=== PATIENT | female | born 1970 | race Caucasian/White ===

== ENCOUNTER → 2017-10-26 16:24 | Outpatient (CLI) | payer OTHER, SELFPAY ==
[2017-10-26 18:13] LABS: Basophils % 0.5 % (0.1-2.0); Eosinophils # 0.2 K/mm3 (0.0-0.4); Eosinophils % 2.8 % (0.1-12.0); Hematocrit 48.8 % (37.0-47.0); Hemoglobin 16.2 g/dL (12.2-16.2); Lymphocytes # 1.8 K/mm3 (0.7-4.5); Mean Corpuscular HGB Conc 33.2 g/dL (31.8-35.4); Mean Corpuscular Hemoglobin 33.3 pg (27.0-31.2); Mean Corpuscular Volume 100.3 fl (81-99); Mean Platelet Volume 7.6 fl (7.4-10.4); Monocytes # 0.3 K/mm3 (0.1-1.0); Monocytes % 4.6 % (1.7-9.3); Neutrophils # 4.4 K/mm3 (1.8-7.8); Neutrophils % 65.2 % (37.0-80.0); Platelet Count 189 K/mm3 (142-424); Red Blood Count 4.86 M/mm3 (4.20-5.40); Red Cell Distribution Width 14.7 % (11.5-17.5); White Blood Count 6.8 K/mm3 (4.8-10.8)
[2017-10-26 18:35] LABS: Hemoglobin A1C 5.6 % (0.0-7.0)
[2017-10-26 19:39] LABS: Alanine Aminotransferase 37 U/L (12-78); Albumin Level 3.6 gm/dL (3.4-5.0); Albumin/Globulin Ratio 0.8 (1.1-1.8); Alkaline Phosphatase 86 U/L (46-116); Anion Gap 10.1 mEq/L (5-15); Aspartate Amino Transferase 25 U/L (15-37); Bilirubin,Total 0.3 mg/dL (0.2-1.0); Blood Urea Nitrogen 13 mg/dL (7-18); Calcium 9.3 mg/dL (8.5-10.1); Carbon Dioxide 34 mmol/L (21.0-32.0); Chloride 103 mmol/L (98-107); Chol/HDL Ratio 5.7 (1-3.5); Cholesterol 187 mg/dL (140-200); Creatinine,Serum 0.74 mg/dL (0.55-1.02); Estimated Glomerular Filt Rate 83 ml/min (>60); GFR (African American) 101 ML/MIN (>60); Globulin 4.5 gm/dl (1.3-3.2); Glucose 96 mg/dL (74-106); HDL Cholesterol 33 mg/dL (29-89); LDL Cholesterol 108 mg/dL (0-130); Potassium 4.1 mmoL/L (3.5-5.1); Sodium 143 mmol/L (136-145); T4 (Thyroxine) 11.1 ug/dl (4.7-13.3); Thyroid Stimulating Hormone 10.96 uIU/ml (0.358-3.740); Total Protein,Serum 8.1 gm/dL (6.4-8.2); Triglycerides 229 mg/dL (30-200); VLDL Cholesterol 46 mg/dL (0-40)
[2017-10-28 19:04] LABS: Vitamin D 25 Hydroxy 4.2 ng/mL (30.0-100.0)
== END ==
PROVIDERS: Visit Provider Physician Assistant
DX: R53.83 Other fatigue (principal); Z79.899 Other long term (current) drug therapy; R79.9 Abnormal finding of blood chemistry, unspecified
CPT/HCPCS: 80053; 80061; 82652; 83036; 84436; 84443; 85025

== ENCOUNTER → 2017-11-02 13:13 | Outpatient (CLI) | payer OTHER, SELFPAY ==
--- NOTE | 2017-11-02 13:23 | US_ITS ---
US Arterial Ankle Brachial Ind ITS.REASON: Cold lower extremities, discoloration with blueness, claudication, smoker, peripheral vascular disease ORDERING PHYSICIAN: Cain Mo MD PATIENT AGE: 47 years TECHNIQUE: Segmental pressures obtained of both right and left leg. These are compared to brachial blood pressure to yield index at each level sampled including summary NINA. The data sheets from the procedure are available in PACS FINDINGS Rest study only performed today No prior studies available for comparison. Blood pressures reported are in millimeters mercury. RIGHT LEG NINA = 0.8. Right TBI 1.0 Brachial BP: 148 Thigh BP: 229 Calf BP: 136 Ankle PT: 119 Ankle DP : 143 Digit =146 LEFT LEG NINA = 0.9 Left tibia TBI 0.5 Brachial BPD: 153 Thigh BP: 178 Calf BP: 132 Ankle PT:143 Ankle DP: 168 Digit = 82 Pulses and waveforms: Diminished pulses bilaterally IMPRESSION: 1. Slightly low right NINA suggesting mild atherosclerotic vascular disease of the right lower extremity. 2. Low left TBI suggesting small vessel disease of the left foot.
--- NOTE | 2017-11-02 13:50 | CA_ITS ---
PROCEDURE: 2-D M-mode and color Doppler study INDICATIONS FOR THE TEST: Chest pain COPD Heart Murmur Tobacco Smoking Palpitations Fatigue Syncope Edema + Hypertension+Diabetes Mellitus+ Rheumatic Fever SOB+IQBAL Obesity+Hyperlipidemia Family History HD Additional History PATIENT INFORMATION HEIGHT: 60 WEIGHT:292 GENDER: Female B/P:153/86 2-D/M-MODE INTERPRETATION: 2-D MEASUREMENTS OBSERVED VALUES IN CMS Right Ventricular Dimension (RVDd) 2.9 Interventricular Septum (Thickness)(IVsd) 1.1 Left Ventricular Internal Dimensions(LVIDd) 3.3 Left Ventricular Posterior Wall (Thickness)(LVPWd) 0.7 Aortic Root 3.1 Aortic Cusp Separation 2.1 Left Atrial Dimensions (LAD) 4.1 2D 1. Left atrium is mildly enlarged, left ventricle is normal size, mild concentric left ventricular hypertrophy, visually estimated ejection fraction 55% with no obvious regional wall motion abnormality. 2. The right atrium and right ventricle are mildly enlarged with normal contractility. 3. The aortic valve is minimally thickened and fibrosed. 4. The mitral and tricuspid valvular grossly normal. 5. The pulmonic valve is poorly visualized. 6. No significant pericardial effusion noted. DOPPLER INTERROGATION: Doppler interrogation of the aortic, mitral and tricuspid valvular presence of mild mitral and tricuspid regurgitation, tricuspid and jet velocity insufficient for calculation of the right ventricular systolic pressure, grade 1 diastolic dysfunction seen with tissue Doppler evidence of raised left atrial pressure. CONCLUSION: 1. Mildly enlarged left atrium, normal left ventricular size, mild concentric left ventricular hypertrophy, visually estimated ejection fraction 55% no signal wall motion abnormality, grade 1 diastolic dysfunction seen with tissue Doppler evidence of raised left atrial pressure. 2. Mild mitral and tricuspid regurgitation 3. No significant pericardial effusion noted.
== END ==
PROVIDERS: PCP Emergency Medicine; Visit Provider Internal Medicine Cardiovascular Disease
DX: R06.00 Dyspnea, unspecified (principal); M79.89 Other specified soft tissue disorders; R07.89 Other chest pain
CPT/HCPCS: 93306; 93922

== ENCOUNTER → 2017-11-23 10:45 | Outpatient (CLI) | payer OTHER, SELFPAY ==
--- NOTE | 2017-11-23 10:48 | CT_ITS ---
CT chest wo con HISTORY: Shortness of air, chest pain, dyspnea ITS.REASON: cp/dyspnea ORDERING PHYSICIAN: Ronn Duncan MD PATIENT AGE: 47 years Technique: Axial images obtained. Sagittal and coronal reformatted images are also generated and reviewed. All CT scans at the facility use one or more dose reduction, viz: automated exposure control; ma/kV adjustment per patient size (including targeted exams where dose is matched to indication; i.e. head); or iterative reconstruction technique. CONTRAST: None,. The patient did not wish to receive IV contrast due to her severe allergic history and apprehension. A guarantee could not be made to the patient that she would not have an allergic reaction. FINDINGS: There are scattered small nodes within the mediastinum. Normal heart size. No evidence of pericardial effusion. No evidence of aortic aneurysm. No obvious coronary artery calcification No suspicious pulmonary nodules. There are atelectatic changes within the lingula. No effusions. No acute bony anomalies. Upper abdominal images show fatty liver. Asymmetric increased soft tissue density is present in the right breast but is diffuse and may represent fibroglandular tissue. Please correlate with physical exam. IMPRESSION: 1. No acute finding. 2. Mild atelectatic or fibrotic changes within the lingula. 3. Asymmetric density in the right breast. Please correlate with physical exam.
[2017-11-23 11:43] LABS: Blood Urea Nitrogen 14 mg/dL (7-18); Creatinine,Serum 0.68 mg/dL (0.55-1.02); Estimated Glomerular Filt Rate 92 ml/min (>60); GFR (African American) 111 ML/MIN (>60)
== END ==
PROVIDERS: Internal Medicine Cardiovascular Disease; Family Provider Family Medicine; PCP Emergency Medicine; Visit Provider Internal Medicine
DX: R68.89 Other general symptoms and signs (principal); I73.9 Peripheral vascular disease, unspecified
CPT/HCPCS: 36415; 71250; 82565; 84520

== ENCOUNTER → 2018-12-26 18:09 | Outpatient (CLI) | payer OTHER, SELFPAY ==
[2018-12-26 18:45] LABS: Basophils # 0.1 K/mm3 (0-0.2); Basophils % 0.8 % (0.1-2.0); Eosinophils # 0.2 K/mm3 (0.0-0.4); Eosinophils % 2.3 % (0.1-12.0); Hematocrit 44.1 % (37.0-47.0); Hemoglobin 14.4 g/dL (12.2-16.2); Lymphocytes # 1.7 K/mm3 (0.7-4.5); Lymphocytes % 19.8 % (10-50); Mean Corpuscular HGB Conc 32.6 g/dL (31.8-35.4); Mean Corpuscular Hemoglobin 32.6 pg (27.0-31.2); Mean Corpuscular Volume 99.9 fl (81-99); Mean Platelet Volume 8.1 fl (7.4-10.4); Monocytes # 0.5 K/mm3 (0.1-1.0); Monocytes % 6.3 % (1.7-9.3); Neutrophils % 70.8 % (37.0-80.0); Platelet Count 238 K/mm3 (142-424); Red Blood Count 4.41 M/mm3 (4.20-5.40); White Blood Count 8.5 K/mm3 (4.8-10.8)
[2018-12-26 19:16] LABS: Alanine Aminotransferase 48 U/L (12-78); Albumin Level 3.4 gm/dL (3.4-5.0); Albumin/Globulin Ratio 0.7 (1.1-1.8); Alkaline Phosphatase 83 U/L (46-116); Anion Gap 11.9 mEq/L (5-15); Aspartate Amino Transferase 56 U/L (15-37); Bilirubin,Total 0.4 mg/dL (0.2-1.0); Blood Urea Nitrogen 11 mg/dL (7-18); Carbon Dioxide 30 mmol/L (21.0-32.0); Chloride 99 mmol/L (98-107); Chol/HDL Ratio 4.9 (1-3.5); Cholesterol 157 mg/dL (140-200); Creatinine,Serum 0.77 mg/dL (0.55-1.02); Estimated Glomerular Filt Rate 79 ml/min (>60); GFR (African American) 96 ML/MIN (>60); Globulin 4.6 gm/dl (1.3-3.2); Glucose 98 mg/dL (74-106); HDL Cholesterol 32 mg/dL (29-89); LDL Cholesterol 86 mg/dL (0-130); Potassium 3.9 mmoL/L (3.5-5.1); Sodium 137 mmol/L (136-145); T4 (Thyroxine) 8.4 ug/dl (4.7-13.3); Thyroid Stimulating Hormone 17.82 uIU/ml (0.358-3.740); Triglycerides 197 mg/dL (30-200); VLDL Cholesterol 39 mg/dL (0-40)
[2018-12-28 17:52] LABS: Vitamin D 25 Hydroxy <4.0 ng/mL (30.0-100.0)
== END ==
PROVIDERS: Visit Provider Emergency Medicine
DX: R60.9 Edema, unspecified (principal); R30.0 Dysuria; E11.9 Type 2 diabetes mellitus without complications; E55.9 Vitamin D deficiency, unspecified
CPT/HCPCS: 80053; 80061; 82652; 84436; 84443; 85025

== ENCOUNTER 2020-03-16 17:02 | Inpatient (IN) | payer MEDICAID, SELFPAY ==
[2020-03-16 17:19] VITALS: BMI 49.2
--- NOTE | 2020-03-16 17:49 | XR_ITS ---
PROCEDURE: XR CHEST 2V CLINICAL HISTORY: cellulitis, abnormal ct COMPARISON: CR CXR CHEST(2 VIEWS-NOT PORTABLE) from 07/29/[address] chest wo con from 11/23/2017 FINDINGS: There is mild cardiomegaly. The study is under penetrated. Exam was performed with patient in a wheelchair and is very limited. Lung bases are well penetrated. Cannot exclude airspace disease in the lower lobes. No acute bony findings. IMPRESSION: Limited study. Cannot exclude airspace disease in the lung bases. Dictated by: Reyes Spicer MD 03/16/2020 21:45 Reyes Spicer MD in [place] 03/16/2020 21:45
[2020-03-16 17:51] LABS: Basophils # 0.1 K/mm3 (0-0.2); Basophils % 0.7 % (0.1-2.0); Eosinophils # 0.2 K/mm3 (0.0-0.4); Eosinophils % 2.8 % (0.1-12.0); Hematocrit 44.6 % (37.0-47.0); Hemoglobin 15.1 g/dL (12.2-16.2); Lymphocytes # 1.2 K/mm3 (0.7-4.5); Lymphocytes % 18.3 % (10-50); Mean Corpuscular HGB Conc 33.8 g/dL (31.8-35.4); Mean Corpuscular Hemoglobin 32.7 pg (27.0-31.2); Mean Corpuscular Volume 96.9 fl (81-99); Mean Platelet Volume 7.8 fl (7.4-10.4); Monocytes # 0.3 K/mm3 (0.1-1.0); Monocytes % 4.4 % (1.7-9.3); Neutrophils # 4.9 K/mm3 (1.8-7.8); Neutrophils % 73.7 % (37.0-80.0); Platelet Count 203 K/mm3 (142-424); Red Cell Distribution Width 15.4 % (11.5-17.5); White Blood Count 6.6 K/mm3 (4.8-10.8)
[2020-03-16 17:56] LABS: Chloride 95 mmol/L (98-107); Potassium 3.9 mmoL/L (3.5-5.1); Sodium 138 mmol/L (136-145)
[2020-03-16 17:58] LABS: Blood Urea Nitrogen 14 mg/dl (7-17); Creatinine Clearance Estimated 103 mL/min (50-200); Estimated Glomerular Filt Rate 88 ml/min (>60); GFR (African American) 107 ML/MIN (>60)
[2020-03-16 17:59] LABS: Alanine Aminotransferase 19 U/L (12-78); Albumin Level 3.8 g/dl (3.5-5.0); Albumin/Globulin Ratio 0.9 (1.1-1.8); Alkaline Phosphatase 75 U/L (38-126); Anion Gap 6.9 mEq/L (5-15); Aspartate Amino Transferase 28 U/L (14-36); Bilirubin,Total 0.4 mg/dl (0.2-1.3); Calcium 9.3 mg/dl (8.4-10.2); Globulin 4.3 g/dL (1.3-3.2); Glucose 134 mg/dl (74-100); Total Protein,Serum 8.1 g/dl (6.3-8.2)
[2020-03-16 18:02] LABS: Carbon Dioxide 40 mmol/L (22.0-30.0)
[2020-03-16 18:20] LABS: Coronavirus 19 IgG Antibody Negative (Negative); Coronavirus 19 IgM Antibody Negative (Negative)
--- NOTE | 2020-03-16 18:54 | HMH.HP ---
*Admission Date: 03/16/20 *Chief complaint: cellulitis left leg *History of present illness: Patient is a 49-year-old white female, patient of Dr. Burrell who was seen in the office earlier today. Her chief complaint was a progressive infection in her left leg. She had an extremely malodorant seropurulent discharge, some erythema in the ankle, and some asymmetric swelling. These occur in a longstanding history of skin lesions, she carries no formal diagnosis. The skin lesions are confluent verrucous plaques. 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 She reports that a dog at home has been biting and picking her wound, along the lateral aspect of the distal calf. She attributes this to the escalation of her infection. Patient is a chronic smoker and has had some chest congestion. She was wheezing in the office. We will admit her for broad-spectrum antibiotic coverage, culture of the bloodstream and wound, and will initiate appropriate wound care. [facility] History Medical History: Reports:: Anxiety, Chronic Obstructive Pulmonary Disease (COPD), Depression, Diabetes Mellitus Type 2, Palpitations Denies:: Cancer *Have you ever received a pneumonia vaccine?: No *Have you received a flu vaccine this season?: No Other Medical History: Reports: Hypothyroidism Laterality Cases: Right: Breast Biopsy, Bilateral: Other Other Surgeries: Yes: , Hysterectomy-Total Amputation: No Fractures: No - *Social History Last grade of school completed: GED Smoking Status: Current every day smoker Tobacco Type: cigarettes # Packs/Day (cigarettes): 1 Alcohol Intake: never Alcohol Intake Frequency:: other Substance Use Type: denies use *Occupational Status:: disabled Housing: house Household Members: family *Travel in the last 8 weeks: None - Psychiatric History Pschychiatric History:: Reports:: Anxiety, Depression Family Hx:: Cancer Review of Systems - Constitutional Reports fatigue, Reports lack of energy, Reports malaise - Eyes Denies change in vision - ENT Reports difficulty swallowing, Reports nasal congestion, Denies abnormal hearing - *Cardiovascular Reports leg swelling, Reports foot swelling, Reports fast heart rate, Denies chest pain - *Respiratory Reports chest congestion, Reports cough, Denies excessive phlegm production - *Gastrointestinal Reports difficulty swallowing, Reports pain with swallowing, Denies bright, red blood in stools - *Genitourinary Denies painful urination - *Musculoskeletal Reports muscle weakness, Reports neck pain, Reports stiffness - Integumentary/Breasts Reports lesions, Reports new lesions, Reports wounds, Denies yellowing of the skin - *Neurologic Denies abnormal speech, Denies localized weakness, Denies loss of vision - Psychiatric Reports hopelessness - Endocrine Reports rapid, pounding, or irregular heartbeat - Hematologic/Lymphatic Denies easy bleeding - Allergic/Immunologic Reports itchy eyes, Reports wheezing, Denies hives Meds Home Medications Medication Instructions Recorded Confirmed Type triamcinolone acetonide 0.1 % 1 applic TOPICAL DAILY 12/30/19 03/16/20 History topical cream albuterol sulfate 90 mcg/actuation 2 puff INHALATION Q4H PRN #18 g 01/22/20 03/16/20 Rx aerosol inhaler Cholecalciferol (Vitamin D3) 1,000 unit PO DAILY 03/16/20 03/16/20 History [Vitamin D3 1,000 Unit Cap] Ergocalciferol (Vitamin D2) 50,000 unit PO QWEEK 03/16/20 03/16/20 History [Drisdol] Levothyroxine Sodium [Synthroid See Rx Instructions .ROUTE .COMPLEX 03/16/20 03/16/20 History 150mcg (0.15mg) tablet] dilTIAZem HCl [Diltiazem 240mg 480 mg PO DAILY 03/16/20 03/16/20 History 24Hr ER Cap] Allergies Allergy/AdvReac Type Severity Reaction Status Date / Time tramadol [TRAMADOL] Allergy Mild Verified 03/16/20 14:56 gold sodium thiomalate Allergy Unknown Verified 03/16/20 14:56 coconut Jesse
--- NOTE | 2020-03-16 19:18 | PC.NURSE ---
report given to aure
--- NOTE | 2020-03-16 19:47 | PC.NURSE ---
patient went down for chest X-ray.
--- NOTE | 2020-03-16 20:00 | PC.NURSE ---
patient back to floor from X-Ray.
[2020-03-16 20:20] VITALS: O2SAT 92
[2020-03-16 20:25] VITALS: BP 135/83; PULSE 89; RESP 20; TEMP 37.1; O2SAT 92
--- NOTE | 2020-03-16 21:07 | PC.NURSE ---
CALLED [facility] TO VERIFY GENTAMICIN DOSAGE.
--- NOTE | 2020-03-16 22:07 | PC.NURSE ---
CALLED [facility] TO VERIFY VANCOMYCIN DOSAGE.
[2020-03-17] VITALS (10 sets, daily range): BP systolic 129–151; BP diastolic 73–89; PULSE 77–90; RESP 18–20; TEMP 36.4–37.1; O2SAT 82–96; BMI 50.8
[2020-03-17 03:26] LABS: Gentamicin,Random 4.6 ug/ml
--- NOTE | 2020-03-17 06:15 | PC.NURSE ---
A&OX4. PT HAS TOLERATED ROOM AIR WELL EXCEPT WHEN STILL WORKER HELPER WENT TO GET 4AM VITALS, SHE WAS AT 86%. PT WAS PLACED ON 1L AND WHEN REASSESSED PT WAS AT 97%. PT HAS BEEN VERY ANXIOUS TONIGHT. SHE HAS STATED SEVERAL TIMES SHE IS SCARED TO TAKE ANYTHING IN FEAR THAT SHE WILL HAVE AN ALLERGIC REACTION. 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 SHE STATES SHE IS AFRAID SHE IS GOING TO . RESPIRATIONS REGULAR AND UNLABORED. RHONCHI NOTED THROUGHOUT LUNGS. NO COUGH NOTED. HAND MANAGER COST EQUAL. ROUGH SKIN NOTED TO BLE. LLE IS WORSE THAN THE RLE. BOTH HAVE REDNESS NOTED. +2 PULSES NOTED THROUGHOUT EXCEPT IN LLE. LLE +1 PULSE NOTED. PT USES BSC TO VOID. YELLOW URINE NOTED. 1 FORMED BROWN BM NOTED THIS SHIFT. EDEMA NOTED TO BLE. PT MOVES INDEPENDENTLY IN THE BED. PT HASN'T SLEPT WELL THIS SHIFT. SHE HAS BEEN VERY RESTLESS. PT RECEIVED VANCOMYCIN, GENTAMICIN, AND ZOSYN THIS SHIFT. PT TOLERATED ALL WELL AND DIDN'T HAVE AN ALLERGIC REACTION. PT WAS VERY NERVOUS ABOUT HAVING MEDICATIONS BECAUSE SHE STATES SHE HAD A REACTION YEARS AGO TO THEM. I EXPLAINED ALL WOULD BE ADMINISTERED SLOWLY AND WE WOULD CLOSELY MONITOR HER. WE WOULD BE RIGHT THERE IF SHE DIDN'T FEEL WELL. ALL ANTIBIOTICS WERE ORDERED CLOSE TOGETHER. I WAS LATE ON SOME MEDICATIONS DUE TO THIS AND DIDN'T WANT TO START AN IV AND RUN 2 DIFFERENT ANTIBIOTICS IN CASE PT DID HAVE AN ALLERGIC REACTION TO ONE. I WANTED TO ENSURE I KNEW WHAT SHE HAD AN ALLERGIC REACTION TO THEREFORE; ONE WAS RAN AT A TIME. PT REPORTED PAIN 10/10 AT THE BEGINNING OF SHIFT IN HER LLE. SHE STATED IT WAS A BURNING CESSATION AND WAS CONSTANT. MD COIL FINISHER WAS NOTIFIED. NORCO 5MG Q 6 HOURS PRN AND IBUPROFEN 400MG Q 6 HOURS PRN WAS ORDERED. WHEN I WENT TO ADMINISTER PAIN MEDICATION, PT REFUSED AND SAID SHE'S ALLERGIC TO THOSE MEDICATIONS. I STATED THEY WEREN'T ON HER ALLERGY LIST AND SHE SAID SHE HAD THESE ALLERGIES FROM YEARS AGO. SHE STATED SHE CAN'T TAKE ANY PAIN MEDICATIONS EXCEPT METHADONE. AFTER A FEW MINUTES, PT STATED SHE WOULD THINK ABOUT TAKING IT AND WOULD LET ME KNOW IF SHE WANTED TO TAKE IT OR NOT. PT EVENTUALLY REQUESTED NORCO. IT WAS ADMINISTERED AND PT TOLERATED WELL. SHE HAD NO S/S OF ALLERGIC REACTION. DAUGHTER HAS BEEN AT BEDSIDE THROUGHOUT SHIFT. PT IS CURRENTLY LYING IN BED. CALL LIGHT WITHIN REACH. BED IN LOWEST POSITION. VSS. WILL CONTINUE TO MONITOR.
[2020-03-17 08:41] LABS: Basophils # 0.1 K/mm3 (0-0.2); Basophils % 0.7 % (0.1-2.0); Eosinophils # 0.3 K/mm3 (0.0-0.4); Hematocrit 43.2 % (37.0-47.0); Hemoglobin 14.4 g/dL (12.2-16.2); Lymphocytes # 1.8 K/mm3 (0.7-4.5); Lymphocytes % 21.6 % (10-50); Mean Corpuscular HGB Conc 33.3 g/dL (31.8-35.4); Mean Corpuscular Hemoglobin 32.6 pg (27.0-31.2); Mean Platelet Volume 7.8 fl (7.4-10.4); Monocytes # 0.4 K/mm3 (0.1-1.0); Monocytes % 4.4 % (1.7-9.3); Neutrophils # 5.8 K/mm3 (1.8-7.8); Neutrophils % 70.3 % (37.0-80.0); Platelet Count 216 K/mm3 (142-424); Red Blood Count 4.41 M/mm3 (4.20-5.40); Red Cell Distribution Width 15.4 % (11.5-17.5); White Blood Count 8.2 K/mm3 (4.8-10.8)
[2020-03-17 08:53] LABS: Chloride 96 mmol/L (98-107); Sodium 139 mmol/L (136-145)
[2020-03-17 08:56] LABS: Blood Urea Nitrogen 12 mg/dl (7-17); Creatinine Clearance Estimated 120 mL/min (50-200); Estimated Glomerular Filt Rate 105 ml/min (>60); GFR (African American) 128 ML/MIN (>60)
[2020-03-17 08:57] LABS: Calcium 8.9 mg/dl (8.4-10.2); Glucose 139 mg/dl (74-100)
[2020-03-17 09:03] LABS: Carbon Dioxide 36 mmol/L (22.0-30.0)
--- NOTE | 2020-03-17 10:02 | HMH.PHACONS ---
- Pharmacy Consult Date: 03/17/20 Time: 10:02 Referring provider: DR. POLLARD Reason for Consult:: VANCOMYCIN AND GENTAMICIN DOSING Allergies and ADEs:: Allergies Allergy/AdvReac Type Severity Reaction Status Date / Time tramadol [TRAMADOL] Allergy Mild Unknown Verified 03/17/20 09:43 allergy reaction gold sodium thiomalate Allergy Unknown Unknown Verified 03/17/20 09:43 allergy reaction coconut Allergy Unknown Verified 03/17/20 09:43 allergy reaction propylene glycol Allergy Unknown Verified 03/17/20 09:43 allergy reaction vancomycin AdvReac RED EVANGELINA Verified 03/17/20 09:43 SYNDROME PRESERVATIVES Allergy Mild Unknown Uncoded 03/17/20 09:43 allergy reaction Home Medications:: Home Medications Medication Instructions Recorded Confirmed Type triamcinolone acetonide 0.1 % 1 applic TOPICAL DAILY 12/30/19 03/16/20 History topical cream albuterol sulfate 90 mcg/actuation 2 puff INHALATION Q4H PRN #18 g 01/22/20 03/16/20 Rx aerosol inhaler Cholecalciferol (Vitamin D3) 1,000 unit PO DAILY 03/16/20 03/16/20 History [Vitamin D3 1,000 Unit Cap] Ergocalciferol (Vitamin D2) 50,000 unit PO QWEEK 03/16/20 03/16/20 History [Drisdol] Levothyroxine Sodium [Synthroid See Rx Instructions .ROUTE .COMPLEX 03/16/20 03/16/20 History 150mcg (0.15mg) tablet] dilTIAZem HCl [Diltiazem 240mg 480 mg PO DAILY 03/16/20 03/16/20 History 24Hr ER Cap] Height: 1.78 m Weight: 161.139 kg Laboratory Results:: Laboratory Results - last 24 hr 03/16/20 17:40: SARS-CoV-2 IgG Ab (Rapid) Negative, SARS-CoV-2 IgM Ab (Rapid) Negative 03/16/20 17:40: WBC 6.6, RBC 4.60, Hgb 15.1, Hct 44.6, MCV 96.9, MCH 32.7 H, MCHC 33.8, RDW 15.4, Plt Count 203, MPV 7.8, Neut % (Auto) 73.7, Lymph % (Auto) 18.3, Stokes % (Auto) 4.4, Eos % (Auto) 2.8, Baso % (Auto) 0.7, Neut # (Auto) 4.9, Lymph # (Auto) 1.2, Stokes # (Auto) 0.3, Eos # (Auto) 0.2, Baso # (Auto) 0.1 03/16/20 17:40: Sodium 138, Potassium 3.9, Chloride 95 L, Carbon Dioxide 40 H, Anion Gap 6.9, BUN 14, Creatinine 0.70, Estimated Creat Clear 103, Estimated GFR 88, Est GFR ( Amer) 107, Glucose 134 H, Calcium 9.3, Total Bilirubin 0.4, AST 28, ALT 19, Alkaline Phosphatase 75, Total Protein 8.1, Albumin 3.8, Globulin 4.3 H, Albumin/Globulin Ratio 0.9 L, TSH 17.40 H 03/17/20 03:00: Random Gentamicin 4.6 03/17/20 08:34: WBC 8.2, RBC 4.41, Hgb 14.4, Hct 43.2, MCV 98.0, MCH 32.6 H, MCHC 33.3, RDW 15.4, Plt Count 216, MPV 7.8, Neut % (Auto) 70.3, Lymph % (Auto) 21.6, Stokes % (Auto) 4.4, Eos % (Auto) 3.0, Baso % (Auto) 0.7, Neut # (Auto) 5.8, Lymph # (Auto) 1.8, Stokes # (Auto) 0.4, Eos # (Auto) 0.3, Baso # (Auto) 0.1 03/17/20 08:34: Sodium 139, Potassium 4.0, Chloride 96 L, Carbon Dioxide 36 H, Anion Gap 11.0, BUN 12, Creatinine 0.60, Estimated Creat Clear 120, Estimated GFR 105, Est GFR ( Amer) 128, Glucose 139 H, Calcium 8.9 Medical History: Reports:: Anxiety, Chronic Obstructive Pulmonary Disease (COPD), Depression, Diabetes Mellitus Type 2, Palpitations Denies:: Cancer Assessment and Plan (1) Cellulitis Current visit: Yes Status: Acute Qualifiers: Site of cellulitis: extremity Site of cellulitis of extremity: lower extremity Laterality: left Qualified Code(s): L03.116 - Cellulitis of left lower limb Category: Medical Code(s): L03.90 - Cellulitis, unspecified (2) Discoloration of skin of foot Current visit: No Status: Chronic Category: Medical Code(s): L81.9 - Disorder of pigmentation, unspecified (3) Discoloration of skin of multiple sites of lower extremity Current visit: No Status: Chronic Category: Medical Code(s): L81.9 - Disorder of pigmentation, unspecified (4) Edema Current visit: No Status: Chronic Qualifiers: Edema type: generalized Qualified Code(s): R60.1 - Generalized edema Category: Medical Code(s): R60.9 - Edema, unspecified (5) Obesity Current visit: No S
--- NOTE | 2020-03-17 10:04 | HMH.PHAINT ---
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 THIS WAS ADDED TO HER ADVERSE REACTION LIST. MD IS AWARE AND WANTED TO TRY RUNNING IT SLOWER TO SEE IF SHE COULD TOLERATE IT. PATIENT WAS GIVEN VANCOMYCIN 2750 MG LAST NIGHT OVER 4 HOURS AND SHE DID NOT HAVE ANY ISSUES WITH THE MEDICATION.
--- NOTE | 2020-03-17 10:05 | HMH.ACPN2 ---
Internal Medicine - PN: Subj *Date: 03/17/20 *Time: 10:05 Interval history: 49-year-old female patient resting in bed quietly with eyes closed, awakens to verbal stimuli. Patient reports she is feeling a little bit better today, less shortness of breath. RA O2 Sats 86%, Currently O2 sats 90 to 92% on 2 L nasal cannula. We will consult wound team for bilateral lower extremity wounds, currently awaiting blood cultures and wound culture Exam Vital signs and Labs for Last 24 Hours: Temp Pulse Resp BP Pulse Ox 97.5 F L 79 18 129/88 96 03/17/20 15:55 03/17/20 15:55 03/17/20 15:55 03/17/20 15:55 03/17/20 15:58 Laboratory Results - last 24 hr 03/17/20 03:00: Random Gentamicin 4.6 03/17/20 08:34: WBC 8.2, RBC 4.41, Hgb 14.4, Hct 43.2, MCV 98.0, MCH 32.6 H, MCHC 33.3, RDW 15.4, Plt Count 216, MPV 7.8, Neut % (Auto) 70.3, Lymph % (Auto) 21.6, [place] % (Auto) 4.4, Eos % (Auto) 3.0, Baso % (Auto) 0.7, Neut # (Auto) 5.8, Lymph # (Auto) 1.8, [place] # (Auto) 0.4, Eos # (Auto) 0.3, Baso # (Auto) 0.1 03/17/20 08:34: Sodium 139, Potassium 4.0, Chloride 96 L, Carbon Dioxide 36 H, Anion Gap 11.0, BUN 12, Creatinine 0.60, Estimated Creat Clear 120, Estimated GFR 105, Est GFR ( Amer) 128, Glucose 139 H, Calcium 8.9 03/17/20 10:47: Random Gentamicin 2.0 03/17/20 15:37: POC Glucose 136 H I & O for Last 24 hours: Intake & Output 03/14/20 03/15/20 03/16/20 03/17/20 23:59 23:59 23:59 23:59 Intake Total 1956 Output Total Balance -700 / -700 1956 Weight 343 lb 6 oz 355 lb 4 oz Microbiology Reports for the Last 24 Hours: Microbiology 03/16/20 17:57 Foot,Left - Superficial Gram Stain - Final 03/16/20 17:57 Foot,Left - Superficial Wound Culture - Preliminary - Constitutional no acute distress - *Routine HEENT Exam Head: Present: normocephalic ENT: Present: mucous membranes moist - *Routine Neck Exam Present: trachea midline. Absent: tracheal deviation - *Routine Respiratory Exam Present: decreased breath sounds, wheezes - *Routine Cardiovascular Exam Present: RRR - *Routine Abdominal Exam Present: normoactive bowel sounds, obese. Absent: tenderness - *Routine Extremities Exam Present: edema, tenderness - *Routine Skin Exam Present: erythema, warm, lesions, wounds, cracked - *Routine Neurological Exam Present: alert, oriented X3, moving all extremities. Absent: altered mental status - Routine Psychiatric Exam Present: normal affect, normal thought process Assessment and Plan (1) Cellulitis Current visit: Yes Status: Acute Qualifiers: Site of cellulitis: extremity Site of cellulitis of extremity: lower extremity Laterality: left Qualified Code(s): L03.116 - Cellulitis of left lower limb Category: Medical Code(s): L03.90 - Cellulitis, unspecified (2) Discoloration of skin of foot Current visit: No Status: Chronic Category: Medical Code(s): L81.9 - Disorder of pigmentation, unspecified (3) Discoloration of skin of multiple sites of lower extremity Current visit: No Status: Chronic Category: Medical Code(s): L81.9 - Disorder of pigmentation, unspecified (4) Edema Current visit: No Status: Chronic Qualifiers: Edema type: generalized Qualified Code(s): R60.1 - Generalized edema Category: Medical Code(s): R60.9 - Edema, unspecified (5) Obesity Current visit: No Status: Chronic Qualifiers: Obesity type: due to excess calories Obesity classification: adult class 3 (BMI >= 40) Serious obesity comorbidity presence: with serious comorbidity Category: Medical Code(s): E66.9 - Obesity, unspecified (6) Hypothyroidism Current visit: No Status: Chronic Qualifiers: Hypothyroidism type: acquired Qualified Code(s): E03.9 - Hypothyroidism, unspecified Category: Medical Code(s): E03.9 - Hypothyroidism, unspecified (7) Swelling of left lower extremity Current visit: N
--- NOTE | 2020-03-17 10:09 | P.CONPHA_ITS ---
[facility] Pharmacy VTE Monitoring - Patient Demographics Admission date: 03/16/20 Report Date: 03/17/20 Time: 10:09 Allergies/Adverse Reactions: Patient Allergies tramadol [TRAMADOL] Allergy (Mild, Verified 03/17/20 09:43) Unknown allergy reaction gold sodium thiomalate Allergy (Unknown, Verified 03/17/20 09:43) Unknown allergy reaction coconut Allergy (Verified 03/17/20 09:43) Unknown allergy reaction propylene glycol Allergy (Verified 03/17/20 09:43) Unknown allergy reaction vancomycin Adverse Reaction (Verified 03/17/20 09:43) RED EVANGELINA SYNDROME PRESERVATIVES Allergy (Mild, Uncoded 03/17/20 09:43) Unknown allergy reaction Height: 1.78 m Weight: 161.139 kg Patient Problems: Current Active Problems Cellulitis (Acute) Tobacco abuse (Acute) Wheezing (Acute) - VTE Risk Labs: VTE Related Lab Results Hgb 14.4 g/dL (12.2-16.2) 03/17/20 08:34 Hct 43.2 % (37.0-47.0) 03/17/20 08:34 Plt Count 216 K/mm3 (142-424) 03/17/20 08:34 BUN 12 mg/dl (7-17) 03/17/20 08:34 Creatinine 0.60 mg/dl (0.52-1.04) 03/17/20 08:34 Estimated Creat Clear 120 mL/min (50-200) 03/17/20 08:34 Was VTE Risk Assessment Performed: Yes VTE Score: 6 VTE Risk Level: Moderate Risk - Prophylaxis VTE Prophylaxis Ordered?: Yes Types of VTE Prophylaxis: TEDS Knee High Location of Applied Device: Bilateral Lower Extremeties
--- NOTE | 2020-03-17 12:03 | HMH.PTWOUND ---
Rehab Inpt Wound Evaluation Rehab IP Wound Evaluation Start: 03/17/20 11:56 Freq: Status: Active Protocol: Document 03/17/20 11:56 MATHEW (Rec: 03/17/20 11:59 JOEYDAMION [id number]) Rehab PT Wound Assessment Patient Status Premedicated Prior to Dressing Change No Subjective Subjective Pt admits to severe pain and TTP in LLE around ankle and foot Wound Left Lower Leg Wound Type cellulitis Is This a Chronic Wound Yes Wound Bed Appearance Yellow Percentage of Slough (%) 100 Wound Margins Description Indistinct Surrounding Tissue Appearance Edematous Edema Type Non-Pitting Edema Appearance Tight,Hard Surrounding Tissue Temperature Cool Wound Drainage Description Serous Primary Dressing Unna Boot Wound Secondary Dressing Type Unna Boot Dressing Change Patient Tolerance Tolerated Poorly Plan/Recommendation Comment Pt has severe cellulitis and hyperkeratosis of LLE, pt has sig. hx of wounds on LLE and lymphedema in BLE. Pt to need wound care upon dc from [facility] - Pt reportrs she is unable to drive so wound care wound be best Eval Complexity Eval Charge Codes 24998 - Moderate Complexity PHYSICIAN CERTIFICATION: I certify the specified therapy services for Saige Dias are required, authorized, and reviewed every 30 days.
[2020-03-17 15:45] LABS: POC Glucose,Bedside 136 (70-110)
--- NOTE | 2020-03-17 16:33 | PC.NURSE ---
PT IS SITTING UP ON THE SOB. PHYSICAL THERAPY CAME TO SEE PT THIS MORNING AND CLEANED PT'S BLE WITH BEDADINE, APPLIED AQUAPHOR AND DRESSED WITH UNNA BOOTS. PT HAS ASKED FOR PAIN MEDICATION OFF AND ON T/O THE SHIFT BUT WHEN GOING INTO THE ROOM PT IS STRUGGLING TO KEEP HER EYES OPEN ( PT HAS DROPPED HER DRINK SEVERAL TIMES THIS SHIFT DUE TO FALLING ASLEEP WHILE HOLDING IT.) BLOOD SUGAR WAS CHECKED AND IT WAS 137. O2 SATURATION 96% ON 2 L NC. 1 ASSIST TO GET UP TO THE BSC. PT WAS OFFERED TO GET UP AND SIT IN THE RECLINER SO SHE COULD ELEVATE HER BLE AND POSSIBLY REST MORE COMFORTABLY AND SHE REFUSED. WILL CONTINUE TO MONITOR.
--- NOTE | 2020-03-17 17:19 | PC.NURSE ---
PT'S SON CAME TO SEE PT THIS AFTERNOON AND STATED HE HAD MOVED IN WITH PT ABOUT 2 YEARS AGO TO HELP MUCH HE COULD AND STATED THAT ISSUES HAVE BEEN GOING ON WITH HER LEGS SINCE THEN. IT STARTED OUT WITH THE RT LEG AND SHE DID GET TREATMENT FOR IT AND IT HELPED BUT THE ISSUE WITH HER LEFT LEG HAS BEEN GOING ON FOR A YEAR OR MORE. SON STATED THAT PT HAS NOT SEEN A DOCTOR IN OVER A YEAR AND SHE IS VERY NON COMPLIANT. PT WAS SUPPOSED TO SEE A LICENSED NUCLEAR OPERATOR OVER YEAR AGO AND SHE WOULD KEEP MAKING EXCUSES OF ALL THE REASONS WHY SHE COULD NOT GO OR WOULD JUST REFUSE TO GO. ACCORDING TO SON PT WAS SUPPOSE TO HAVE AN XRAY SOMETIME AGO TO CHECK HER LYMPH NODES BUT FAR HE KNOWS SHE NEVER WENT TO HAVE THIS DONE.
--- NOTE | 2020-03-17 19:04 | CA_ITS ---
APPROVED REPORT Bilateral Lower Extremity Venous Study for DVT. 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 Indications Lower Extremity Pain: Lower Extremity Edema: Ulcer Current Smoker asymmetric swelling Vein Imaging CFV (R): Not Visualized SFJ (R): Not Visualized FEM (R): Compressible POP (R): Compressible DFV (R): Not Visualized PTV (R): Not Visualized GSV (R): compressive, spontaneous, phasic, augmentation SSV (R): Not Visualized Peroneals (R):Not Visualized GAS (R): Not Visualized CFV (L): Not Visualized SFJ (L): Not Visualized FEM (L): Compressible POP (L): Compressible DFV (L): Not Visualized PTV (L): Compressible GSV (L): Compressible SSV (L): Not Visualized Peroneals (L):Not Visualized GAS (L): Not Visualized Findings Limited Bilateral venous doppler. Vessels that were visible are negative for DVT/SVT. Very limited exam d Conclusion Limited Bilateral venous doppler. Vessels that were visible are negative for DVT/SVT. Very limited exam d Electronically signed by : Reyes Spicer MD 03/17/2020 16:25:12
--- NOTE | 2020-03-17 23:06 | PC.NURSE ---
Attempted to change pt's linens and remove several of the white sheets that were given when pt was cold on the previous shift. Pt refused to let me change them, stated I like them just the way they are. Don't touch them or move them! . I noticed some discharge on one of the blankets and educated pt on the need for clean and dry linens, pt again refused to let me take it away and held onto the blanket. At this time, pt is refusing to take a shower or set up basin bath. Educated on the need to keep skin clean and dry to prevent breakdown and further skin issues. Pt continued to refuse. Will attempt to change/bathe pt later in shift.
[2020-03-18] VITALS (9 sets, daily range): BP systolic 113–151; BP diastolic 57–80; PULSE 66–85; RESP 17–20; TEMP 36.4–36.9; O2SAT 91–94; BMI 50.9; BMI 50.8
--- NOTE | 2020-03-18 03:42 | PC.NURSE ---
A&OX4. PT UP INDEPENDENTLY TO BC T/O SHIFT. PT TOLERATING 2LNC THIS SHIFT. PT HAS EPISODES OF ANXIETY. PT TAKES OFF O2 DURING EPISODES OF ANXIETY AND O2 GOES DOWN TO LOW 80S. THIS NURSE EDUCATED PT ON IMPORTANCE OF KEEPING O2 ON, AND TAKING DEEP BREATHS TO HELP CALM HERSELF DOWN. PT DID NOT WANT TO ELEVATE HER LEGS T/O MAJORITY OF SHIFT. THIS NURSE EDUCATED PT ON KEEPING LEGS UP AND HOW THIS WOULD HELP WITH HER PAIN. NORCO ADMINISTERED X1 THIS SHIFT. ON REASSESSMENT, NO MORE C/O PAIN IN BLE. PRINCE BOOTS PRESENT, CDI. PT SON AT BEDSIDE T/O NIGHT. ABX INFUSING T/O NIGHT. PT TOLERATED VANCOMYCIN WELL. NO OTHER C/O THUS FAR, VSS WILL CONTINUE TO MONITOR.
--- NOTE | 2020-03-18 09:15 | HMH.ACPN2 ---
Internal Medicine - PN: Subj *Date: 03/18/20 *Time: 14:00 Interval history: 49-year-old female patient resting quietly sitting on the side of the bed, she reports she is feeling better this morning less shortness of air. She does have Unna boots clean dry and intact to bilateral lower extremities she said that they are feeling better since the placement of the boots. We will consult pulmonology, she is complaining of yeasty-like rash underneath her abdominal pannus and inner thighs. Still awaiting wound and blood cultures Exam Vital signs and Labs for Last 24 Hours: Temp Pulse Resp BP Pulse Ox 98.5 F 85 19 113/67 91 L 03/18/20 08:00 03/18/20 08:00 03/18/20 08:00 03/18/20 08:00 03/18/20 08:00 Laboratory Results - last 24 hr 03/17/20 10:47: Random Gentamicin 2.0 03/17/20 15:37: POC Glucose 136 H 03/18/20 04:04: Random Gentamicin 5.0 I & O for Last 24 hours: Intake & Output 03/15/20 03/16/20 03/17/20 03/18/20 23:59 23:59 23:59 23:59 Intake Total 1956 1180 / 1180 Output Total 700 / 700 Balance -700 / -700 1956 1180 / 1180 Weight 343 lb 6 oz 355 lb 4 oz 356 lb Microbiology Reports for the Last 24 Hours: Microbiology 03/16/20 17:57 Foot,Left - Superficial Gram Stain - Final 03/16/20 17:57 Foot,Left - Superficial Wound Culture - Preliminary - Constitutional no acute distress, morbidly obese - *Routine HEENT Exam Head: Present: normocephalic ENT: Present: mucous membranes moist. Absent: sinus tenderness - *Routine Neck Exam Present: trachea midline. Absent: JVD, tracheal deviation - *Routine Respiratory Exam Present: rhonchi, wheezes - *Routine Cardiovascular Exam Present: RRR - *Routine Abdominal Exam Present: soft, normoactive bowel sounds, obese. Absent: tenderness - *Routine Extremities Exam Present: edema. Absent: cyanosis, calf tenderness - *Routine Skin Exam Present: warm, lesions, wounds. Absent: jaundice Comments: Unna Boots BLE Yeast like rash pannus, Upper iner thighs - *Routine Neurological Exam Present: alert, oriented X3. Absent: altered mental status - Routine Psychiatric Exam Present: normal affect, normal thought process Assessment and Plan (1) Cellulitis Current visit: Yes Status: Acute Qualifiers: Site of cellulitis: extremity Site of cellulitis of extremity: lower extremity Laterality: left Qualified Code(s): L03.116 - Cellulitis of left lower limb Category: Medical Code(s): L03.90 - Cellulitis, unspecified (2) Discoloration of skin of foot Current visit: No Status: Chronic Category: Medical Code(s): L81.9 - Disorder of pigmentation, unspecified (3) Discoloration of skin of multiple sites of lower extremity Current visit: No Status: Chronic Category: Medical Code(s): L81.9 - Disorder of pigmentation, unspecified (4) Edema Current visit: No Status: Chronic Qualifiers: Edema type: generalized Qualified Code(s): R60.1 - Generalized edema Category: Medical Code(s): R60.9 - Edema, unspecified (5) Obesity Current visit: No Status: Chronic Qualifiers: Obesity type: due to excess calories Obesity classification: adult class 3 (BMI >= 40) Serious obesity comorbidity presence: with serious comorbidity Category: Medical Code(s): E66.9 - Obesity, unspecified (6) Hypothyroidism Current visit: No Status: Chronic Qualifiers: Hypothyroidism type: acquired Qualified Code(s): E03.9 - Hypothyroidism, unspecified Category: Medical Code(s): E03.9 - Hypothyroidism, unspecified (7) Swelling of left lower extremity Current visit: No Status: Chronic Category: Medical Code(s): M79.89 - Other specified soft tissue disorders (8) Tobacco abuse Current visit: Yes Status: Acute Category: Medical Code(s): Z72.0 - Tobacco use (9) Wheezing Current visit: Yes Status: Acute Category: Medical Code(s): R06.2 - Whee
[2020-03-18 11:47] LABS: Anion Gap 12.1 mEq/L (5-15); Blood Urea Nitrogen 13 mg/dl (7-17); Carbon Dioxide 34 mmol/L (22.0-30.0); Chloride 97 mmol/L (98-107); Creatinine Clearance Estimated 103 mL/min (50-200); Estimated Glomerular Filt Rate 88 ml/min (>60); GFR (African American) 107 ML/MIN (>60); Glucose 133 mg/dl (74-100); Potassium 4.1 mmoL/L (3.5-5.1); Sodium 139 mmol/L (136-145)
[2020-03-18 11:52] LABS: Gentamicin,Random 2.3 ug/ml
[2020-03-18 12:06] LABS: Vancomycin,Trough 20.7 ug/mL (5.0-10.0)
--- NOTE | 2020-03-18 12:22 | HMH.PULMCON ---
*Admission Date: 03/16/20 *Reason for consult:: Hypoxic respiratory failure *History of present illness: Ms. Dias is a 49-year-old morbidly obese female with recurrent cellulitis was admitted to the hospital complaining of worsening lower extremity cellulitis. Pulmonary was called today to evaluate her hypoxic respiratory failure with new oxygen requirements. However patient stated she was previously checked and was told that she needed use again however patient never use oxygen. Patient has more than [id number] smoking history used to smoke 3 packs a day, decreased to 1 pack a day currently. Patient also admits significant family history of asthma and significant personal history of allergies. Patient never used any long-acting inhalers, currently uses albuterol as needed. At baseline patient complains of severe exertional dyspnea along with orthopnea PND and lower extremity swelling along with non-resolving cellulitis. Patient also complains of symptoms of sleep apnea include loud snoring daytime somnolence headache and unrefreshing sleep. [facility] History Medical History: Reports:: Anxiety, Chronic Obstructive Pulmonary Disease (COPD), Depression, Diabetes Mellitus Type 2, Palpitations Denies:: Cancer *Have you ever received a pneumonia vaccine?: No *Have you received a flu vaccine this season?: No Other Medical History: Reports: Hypothyroidism Laterality Cases: Right: Breast Biopsy, Bilateral: Other Other Surgeries: Yes: , Hysterectomy-Total Amputation: No Fractures: No - *Social History Last grade of school completed: GED Smoking Status: Current every day smoker Tobacco Type: cigarettes # Packs/Day (cigarettes): 1 Alcohol Intake: never Alcohol Intake Frequency:: other Substance Use Type: denies use *Occupational Status:: disabled Housing: house Household Members: family *Travel in the last 8 weeks: None - Psychiatric History Pschychiatric History:: Reports:: Anxiety, Depression Family Hx:: Cancer [facility] Pulmonology ROS - Review of Systems Review of systems:: pertinent systems reviewed and negative unless documented below - *Neurologic Denies abnormal hearing, Denies abnormal speech, Denies localized weakness, Denies loss of vision Meds Home Medications Medication Instructions Recorded Confirmed Type triamcinolone acetonide 0.1 % 1 applic TOPICAL DAILY 12/30/19 03/16/20 History topical cream albuterol sulfate 90 mcg/actuation 2 puff INHALATION Q4H PRN #18 g 01/22/20 03/16/20 Rx aerosol inhaler Cholecalciferol (Vitamin D3) 1,000 unit PO DAILY 03/16/20 03/16/20 History [Vitamin D3 1,000 Unit Cap] Ergocalciferol (Vitamin D2) 50,000 unit PO WEEKLY 03/16/20 03/17/20 History [Drisdol] Levothyroxine Sodium [Synthroid 300 mcg PO DAILY 03/16/20 03/17/20 History 150mcg (0.15mg) tablet] dilTIAZem HCl [Diltiazem 240mg 480 mg PO DAILY 03/16/20 03/16/20 History 24Hr ER Cap] Allergies Allergy/AdvReac Type Severity Reaction Status Date / Time tramadol [TRAMADOL] Allergy Mild Unknown Verified 03/17/20 09:43 allergy reaction gold sodium thiomalate Allergy Unknown Unknown Verified 03/17/20 09:43 allergy reaction coconut Allergy Unknown Verified 03/17/20 09:43 allergy reaction propylene glycol Allergy Unknown Verified 03/17/20 09:43 allergy reaction vancomycin AdvReac RED EVANGELINA Verified 03/17/20 09:43 SY[employer]DROME PRESERVATIVES Allergy Mild Unknown Uncoded 03/17/20 09:43 allergy reaction Exam Vital signs and Labs for Last 24 Hours: Temp Pulse Resp BP Pulse Ox 98.5 F 85 19 113/67 91 L 03/18/20 08:00 03/18/20 08:00 03/18/20 08:00 03/18/20 08:00 03/18/20 08:00 Laboratory Results - last 24 hr 03/17/20 10:47: Random Gentamicin 2.0 03/17/20 15:37: POC Glucose 136 H 03/18/20 04:04: Random Gentamicin 5.0 03/18/20 11:05: Vancomycin Trough 20.7 H 03/18/20 11:05: Sodium 139, Potassium 4.1, Chloride 97 L, Carbon Dioxi
--- NOTE | 2020-03-18 13:16 | HMH.PHACONS ---
- Pharmacy Consult Date: 03/18/20 Time: 13:16 Referring provider: DR. POLLARD Reason for Consult:: VANCOMYCIN DOSING Allergies and ADEs:: Allergies Allergy/AdvReac Type Severity Reaction Status Date / Time tramadol [TRAMADOL] Allergy Mild Unknown Verified 03/17/20 09:43 allergy reaction gold sodium thiomalate Allergy Unknown Unknown Verified 03/17/20 09:43 allergy reaction coconut Allergy Unknown Verified 03/17/20 09:43 allergy reaction propylene glycol Allergy Unknown Verified 03/17/20 09:43 allergy reaction vancomycin AdvReac RED EVANGELINA Verified 03/17/20 09:43 SYNDROME PRESERVATIVES Allergy Mild Unknown Uncoded 03/17/20 09:43 allergy reaction Home Medications:: Home Medications Medication Instructions Recorded Confirmed Type triamcinolone acetonide 0.1 % 1 applic TOPICAL DAILY 12/30/19 03/16/20 History topical cream albuterol sulfate 90 mcg/actuation 2 puff INHALATION Q4H PRN #18 g 01/22/20 03/16/20 Rx aerosol inhaler Cholecalciferol (Vitamin D3) 1,000 unit PO DAILY 03/16/20 03/16/20 History [Vitamin D3 1,000 Unit Cap] Ergocalciferol (Vitamin D2) 50,000 unit PO WEEKLY 03/16/20 03/17/20 History [Drisdol] Levothyroxine Sodium [Synthroid 300 mcg PO DAILY 03/16/20 03/17/20 History 150mcg (0.15mg) tablet] dilTIAZem HCl [Diltiazem 240mg 480 mg PO DAILY 03/16/20 03/16/20 History 24Hr ER Cap] Height: 1.78 m Weight: 161.479 kg Laboratory Results:: Laboratory Results - last 24 hr 03/17/20 15:37: POC Glucose 136 H 03/18/20 04:04: Random Gentamicin 5.0 03/18/20 11:05: Vancomycin Trough 20.7 H 03/18/20 11:05: Sodium 139, Potassium 4.1, Chloride 97 L, Carbon Dioxide 34 H, Anion Gap 12.1, BUN 13, Creatinine 0.70, Estimated Creat Clear 103, Estimated GFR 88, Est GFR ( Amer) 107, Glucose 133 H, Calcium 9.0 03/18/20 11:05: Random Gentamicin 2.3 Medical History: Reports:: Anxiety, Chronic Obstructive Pulmonary Disease (COPD), Depression, Diabetes Mellitus Type 2, Palpitations Denies:: Cancer Assessment and Plan (1) Cellulitis Current visit: Yes Status: Acute Qualifiers: Site of cellulitis: extremity Site of cellulitis of extremity: lower extremity Laterality: left Qualified Code(s): L03.116 - Cellulitis of left lower limb Category: Medical Code(s): L03.90 - Cellulitis, unspecified (2) Discoloration of skin of foot Current visit: No Status: Chronic Category: Medical Code(s): L81.9 - Disorder of pigmentation, unspecified (3) Discoloration of skin of multiple sites of lower extremity Current visit: No Status: Chronic Category: Medical Code(s): L81.9 - Disorder of pigmentation, unspecified (4) Edema Current visit: No Status: Chronic Qualifiers: Edema type: generalized Qualified Code(s): R60.1 - Generalized edema Category: Medical Code(s): R60.9 - Edema, unspecified (5) Obesity Current visit: No Status: Chronic Qualifiers: Obesity type: due to excess calories Obesity classification: adult class 3 (BMI >= 40) Serious obesity comorbidity presence: with serious comorbidity Category: Medical Code(s): E66.9 - Obesity, unspecified (6) Hypothyroidism Current visit: No Status: Chronic Qualifiers: Hypothyroidism type: acquired Qualified Code(s): E03.9 - Hypothyroidism, unspecified Category: Medical Code(s): E03.9 - Hypothyroidism, unspecified (7) Swelling of left lower extremity Current visit: No Status: Chronic Category: Medical Code(s): M79.89 - Other specified soft tissue disorders (8) Tobacco abuse Current visit: Yes Status: Acute Category: Medical Code(s): Z72.0 - Tobacco use (9) Wheezing Current visit: Yes Status: Acute Category: Medical Code(s): R06.2 - Wheezing (10) Obesity, morbid, BMI 50 or higher Current visit: Yes Status: Acute Category: Medical Code(s): E66.01 - Morbid (severe) obesity due to
--- NOTE | 2020-03-18 13:54 | CA_ITS ---
APPROVED REPORT EXAM: Comprehensive 2D, Doppler, and color-flow Echocardiogram Records Section Supervisor: Larissa Johnson CRT Ht: 5 ft 10 in Wt: 356lbs BSA: 2.67 BP: 113/67 mmHg Indications: COPD, Diabetes, Obesity, Palpitations COPD, Diabetes, Palpitations, Peripheral Edema, Hyperlipidemia, Hypertension/HDD 2D Dimensions LVOT 1.54 cm (M/F) 1.5-2.5 M-Mode Dimensions RVDd 2.23 cm (0.9-2.6) LVDd 4.35 cm (3.5-5.7) LVDs 2.19 cm (3.5-5.7) IVSd 1.66 cm (0.6-1.1) PWd 1.13 cm (0.6-1.1) EF (Teich) 81.30% FS 49.70% EDV (Teich) 85.40 mL ESV (Teich) 16.00 mL LV Diastology E/A Ratio 1.18 Mitral Valve MV A Velocity 91.00 (40-130 cm/s) Left Ventricle Left atrium is mildly enlarged, left ventricle is normal size, mild concentric left ventricular hypertrophy, visually estimated ejection fraction 55% with no regional wall motion abnormality, endocardial surfaces are poorly visualized. Right Ventricle Right atrium and right ventricular qualitatively mildly enlarged with normal contractility. Aortic Valve Aortic valve is minimally thickened and fibrosed, there is no aortic stenosis or aortic insufficiency. Mitral Valve Mitral valve is grossly normal, there is trace mitral regurgitation. Tricuspid Valve Tricuspid valve grossly normal, there is mild tricuspid regurgitation, calculated right ventricular systolic pressure is 42 mmHg. Pulmonic Valve Pulmonic valve is poorly visualized. Great Vessels Aortic root is normal size. Pericardium No significant pericardial effusion noted. Conclusion 1. Technically difficult study because of the patient factors and poor acoustic windows. 2. Mild biatrial enlargement, normal left ventricular size, mild concentric left ventricular hypertrophy, visually estimated ejection fraction 55% with no regional wall motion abnormality, diastolic parameters are inconclusive. 3. Mildly enlarged right ventricle with normal contractility. 4. No significant pericardial effusion noted 5. Trace mitral and mild tricuspid regurgitation, calculated right ventricular systolic pressure is 42 mmHg. Electronically signed by : Cain Mo, 03/19/2020 10:57:46
--- NOTE | 2020-03-18 17:37 | PC.NURSE ---
Pt has been pleasant and cooperative this shift. A&O X4. Pt has complained of pain X1 this shift and has been medicated with Beaver per SEP. Pt is receiving O2 @ 2 LPM via NC with sats. > 90%. Lung sounds are diminished with faint expiratory wheezing. BLE edema is noted. PRINCE boots are in place to BLE and LLE PRINCE boot was changed this shift per pt request. Pt ambulates independently to the chair and BSC. Pt sat up in the chair for several hours this shift. Pt voids clear, yellow urine without issue. No BM this shift. 20 G peripheral IV in the RT forearm is patent and SL. VSS. Call light within reach. Will continue to monitor.
--- NOTE | 2020-03-18 19:21 | PC.NURSE ---
report given to parish
--- NOTE | 2020-03-18 20:27 | PC.NURSE ---
pt's O2 sat on 1 lpm at rest = 88%. Rt increased O2 to 2 lpm.
[2020-03-19 04:00] VITALS: BP 124/75; PULSE 76; RESP 20; TEMP 36.9; O2SAT 92
[2020-03-19 05:00] VITALS: BMI 50.3
[2020-03-19 06:38] LABS: Basophils % 0.7 % (0.1-2.0); Eosinophils # 0.2 K/mm3 (0.0-0.4); Eosinophils % 3.7 % (0.1-12.0); Hematocrit 39.2 % (37.0-47.0); Lymphocytes # 1.9 K/mm3 (0.7-4.5); Lymphocytes % 29.4 % (10-50); Mean Corpuscular HGB Conc 33.2 g/dL (31.8-35.4); Mean Corpuscular Hemoglobin 32.7 pg (27.0-31.2); Mean Corpuscular Volume 98.3 fl (81-99); Mean Platelet Volume 7.4 fl (7.4-10.4); Monocytes # 0.4 K/mm3 (0.1-1.0); Monocytes % 5.8 % (1.7-9.3); Neutrophils % 60.5 % (37.0-80.0); Platelet Count 199 K/mm3 (142-424); Red Blood Count 3.99 M/mm3 (4.20-5.40); Red Cell Distribution Width 15.4 % (11.5-17.5); White Blood Count 6.5 K/mm3 (4.8-10.8)
[2020-03-19 06:40] VITALS: PULSE 88
[2020-03-19 06:43] LABS: Chloride 95 mmol/L (98-107)
[2020-03-19 06:44] LABS: Potassium 4.1 mmoL/L (3.5-5.1); Sodium 139 mmol/L (136-145)
[2020-03-19 06:46] LABS: Blood Urea Nitrogen 13 mg/dl (7-17); Creatinine Clearance Estimated 80 mL/min (50-200); Estimated Glomerular Filt Rate 66 ml/min (>60); GFR (African American) 80 ML/MIN (>60)
[2020-03-19 06:47] LABS: Calcium 8.9 mg/dl (8.4-10.2); Glucose 129 mg/dl (74-100)
--- NOTE | 2020-03-19 06:51 | PC.NURSE ---
shift summary, pt awake t/o most of shift, complains of pain, anxious, sitting on side of bed, requesting staff to sit at bedside with her, new IV started, NC at 2L, wheezing t/o shift
[2020-03-19 07:00] LABS: Anion Gap 10.1 mEq/L (5-15); Carbon Dioxide 38 mmol/L (22.0-30.0)
[2020-03-19 08:00] VITALS: BP 132/78; PULSE 77; RESP 20; TEMP 37; O2SAT 95
--- NOTE | 2020-03-19 08:17 | HMH.ACPN2 ---
Internal Medicine - PN: Subj *Date: 03/19/20 *Time: 08:17 Exam Vital signs and Labs for Last 24 Hours: Temp Pulse Resp BP Pulse Ox 98.4 F 88 20 124/75 92 L 03/19/20 04:00 03/19/20 06:40 03/19/20 04:00 03/19/20 04:00 03/19/20 04:00 Laboratory Results - last 24 hr 03/18/20 11:05: Vancomycin Trough 20.7 H 03/18/20 11:05: Sodium 139, Potassium 4.1, Chloride 97 L, Carbon Dioxide 34 H, Anion Gap 12.1, BUN 13, Creatinine 0.70, Estimated Creat Clear 103, Estimated GFR 88, Est GFR ( Amer) 107, Glucose 133 H, Calcium 9.0 03/18/20 11:05: Random Gentamicin 2.3 03/19/20 06:18: WBC 6.5, RBC 3.99 L, Hgb 13.0, Hct 39.2, MCV 98.3, MCH 32.7 H, MCHC 33.2, RDW 15.4, Plt Count 199, MPV 7.4, Neut % (Auto) 60.5, Lymph % (Auto) 29.4, Travis % (Auto) 5.8, Eos % (Auto) 3.7, Baso % (Auto) 0.7, Neut # (Auto) 4.0, Lymph # (Auto) 1.9, Travis # (Auto) 0.4, Eos # (Auto) 0.2, Baso # (Auto) 0.0 03/19/20 06:18: Sodium 139, Potassium 4.1, Chloride 95 L, Carbon Dioxide 38 H, Anion Gap 10.1, BUN 13, Creatinine 0.90 D, Estimated Creat Clear 80, Estimated GFR 66, Est GFR ( Amer) 80 D, Glucose 129 H, Calcium 8.9 I & O for Last 24 hours: Intake & Output 03/16/20 03/17/20 03/18/20 03/19/20 23:59 23:59 23:59 23:59 Intake Total 1956 1830 / 1830 400 / 400 Output Total 700 / 700 700 / 700 1250 / 1250 Balance -700 / -700 1956 1130 / 1130 -850 / -850 Weight 343 lb 6 oz 355 lb 4 oz 354 lb 15.108 oz 351 lb 9 oz Microbiology Reports for the Last 24 Hours: Microbiology 03/16/20 18:40 Blood Blood Culture - Preliminary NO GROWTH AFTER 48 HOURS 03/16/20 17:40 Blood Blood Culture - Preliminary NO GROWTH AFTER 48 HOURS 03/16/20 17:57 Foot,Left - Superficial Gram Stain - Final 03/16/20 17:57 Foot,Left - Superficial Wound Culture - Preliminary Gram Negative Rods Assessment and Plan (1) Cellulitis Current visit: Yes Status: Acute Qualifiers: Site of cellulitis: extremity Site of cellulitis of extremity: lower extremity Laterality: left Qualified Code(s): L03.116 - Cellulitis of left lower limb Category: Medical Code(s): L03.90 - Cellulitis, unspecified (2) Discoloration of skin of foot Current visit: No Status: Chronic Category: Medical Code(s): L81.9 - Disorder of pigmentation, unspecified (3) Discoloration of skin of multiple sites of lower extremity Current visit: No Status: Chronic Category: Medical Code(s): L81.9 - Disorder of pigmentation, unspecified (4) Edema Current visit: No Status: Chronic Qualifiers: Edema type: generalized Qualified Code(s): R60.1 - Generalized edema Category: Medical Code(s): R60.9 - Edema, unspecified (5) Obesity Current visit: No Status: Chronic Qualifiers: Obesity type: due to excess calories Obesity classification: adult class 3 (BMI >= 40) Serious obesity comorbidity presence: with serious comorbidity Category: Medical Code(s): E66.9 - Obesity, unspecified (6) Hypothyroidism Current visit: No Status: Chronic Qualifiers: Hypothyroidism type: acquired Qualified Code(s): E03.9 - Hypothyroidism, unspecified Category: Medical Code(s): E03.9 - Hypothyroidism, unspecified (7) Swelling of left lower extremity Current visit: No Status: Chronic Category: Medical Code(s): M79.89 - Other specified soft tissue disorders (8) Tobacco abuse Current visit: Yes Status: Acute Category: Medical Code(s): Z72.0 - Tobacco use (9) Wheezing Current visit: Yes Status: Acute Category: Medical Code(s): R06.2 - Wheezing (10) Obesity, morbid, BMI 50 or higher Current visit: Yes Status: Acute Category: Medical Code(s): E66.01 - Morbid (severe) obesity due to excess calories (11) COPD with acute exacerbation Current visit: Yes Status: Acute Category: Medical Code(s): J44.1 - Ch
--- NOTE | 2020-03-19 10:21 | HMH.PHACONS ---
- Pharmacy Consult Date: 03/19/20 Time: 10:21 Referring provider: DR. POLLARD Reason for Consult:: GENTAMICIN LEVELS AND DOSING Allergies and ADEs:: Allergies Allergy/AdvReac Type Severity Reaction Status Date / Time tramadol [TRAMADOL] Allergy Mild Unknown Verified 03/17/20 09:43 allergy reaction gold sodium thiomalate Allergy Unknown Unknown Verified 03/17/20 09:43 allergy reaction coconut Allergy Unknown Verified 03/17/20 09:43 allergy reaction propylene glycol Allergy Unknown Verified 03/17/20 09:43 allergy reaction vancomycin AdvReac RED EVANGELINA Verified 03/17/20 09:43 SYNDROME PRESERVATIVES Allergy Mild Unknown Uncoded 03/17/20 09:43 allergy reaction Home Medications:: Home Medications Medication Instructions Recorded Confirmed Type triamcinolone acetonide 0.1 % 1 applic TOPICAL DAILY 12/30/19 03/16/20 History topical cream albuterol sulfate 90 mcg/actuation 2 puff INHALATION Q4H PRN #18 g 01/22/20 03/16/20 Rx aerosol inhaler Cholecalciferol (Vitamin D3) 1,000 unit PO DAILY 03/16/20 03/16/20 History [Vitamin D3 1,000 Unit Cap] Ergocalciferol (Vitamin D2) 50,000 unit PO WEEKLY 03/16/20 03/17/20 History [Drisdol] Levothyroxine Sodium [Synthroid 300 mcg PO DAILY 03/16/20 03/17/20 History 150mcg (0.15mg) tablet] dilTIAZem HCl [Diltiazem 240mg 480 mg PO DAILY 03/16/20 03/16/20 History 24Hr ER Cap] Height: 1.78 m Weight: 159.466 kg Laboratory Results:: Laboratory Results - last 24 hr 03/18/20 11:05: Vancomycin Trough 20.7 H 03/18/20 11:05: Sodium 139, Potassium 4.1, Chloride 97 L, Carbon Dioxide 34 H, Anion Gap 12.1, BUN 13, Creatinine 0.70, Estimated Creat Clear 103, Estimated GFR 88, Est GFR ( Amer) 107, Glucose 133 H, Calcium 9.0 03/18/20 11:05: Random Gentamicin 2.3 03/19/20 06:18: WBC 6.5, RBC 3.99 L, Hgb 13.0, Hct 39.2, MCV 98.3, MCH 32.7 H, MCHC 33.2, RDW 15.4, Plt Count 199, MPV 7.4, Neut % (Auto) 60.5, Lymph % (Auto) 29.4, [place] % (Auto) 5.8, Eos % (Auto) 3.7, Baso % (Auto) 0.7, Neut # (Auto) 4.0, Lymph # (Auto) 1.9, [place] # (Auto) 0.4, Eos # (Auto) 0.2, Baso # (Auto) 0.0 03/19/20 06:18: Sodium 139, Potassium 4.1, Chloride 95 L, Carbon Dioxide 38 H, Anion Gap 10.1, BUN 13, Creatinine 0.90 D, Estimated Creat Clear 80, Estimated GFR 66, Est GFR ( Amer) 80 D, Glucose 129 H, Calcium 8.9 Medical History: Reports:: Anxiety, Chronic Obstructive Pulmonary Disease (COPD), Depression, Diabetes Mellitus Type 2, Palpitations Denies:: Cancer Assessment and Plan (1) Cellulitis Current visit: Yes Status: Acute Qualifiers: Site of cellulitis: extremity Site of cellulitis of extremity: lower extremity Laterality: left Qualified Code(s): L03.116 - Cellulitis of left lower limb Category: Medical Code(s): L03.90 - Cellulitis, unspecified (2) Discoloration of skin of foot Current visit: No Status: Chronic Category: Medical Code(s): L81.9 - Disorder of pigmentation, unspecified (3) Discoloration of skin of multiple sites of lower extremity Current visit: No Status: Chronic Category: Medical Code(s): L81.9 - Disorder of pigmentation, unspecified (4) Edema Current visit: No Status: Chronic Qualifiers: Edema type: generalized Qualified Code(s): R60.1 - Generalized edema Category: Medical Code(s): R60.9 - Edema, unspecified (5) Obesity Current visit: No Status: Chronic Qualifiers: Obesity type: due to excess calories Obesity classification: adult class 3 (BMI >= 40) Serious obesity comorbidity presence: with serious comorbidity Category: Medical Code(s): E66.9 - Obesity, unspecified (6) Hypothyroidism Current visit: No Status: Chronic Qualifiers: Hypothyroidism type: acquired Qualified Code(s): E03.9 - Hypothyroidism, unspecified Category: Medical Code(s): E03.9 - Hypothyroidism, unspecified (7) Swelling of left lower extremity
--- NOTE | 2020-03-19 11:34 | HMH.ACPN ---
Internal Medicine - PN: Subj *Date: 03/19/20 *Time: 11:34 Exam Vital signs and Labs for Last 24 Hours: Temp Pulse Resp BP Pulse Ox 98.6 F 77 20 132/78 95 03/19/20 08:00 03/19/20 08:00 03/19/20 08:00 03/19/20 08:00 03/19/20 08:00 Laboratory Results - last 24 hr 03/18/20 11:05: Vancomycin Trough 20.7 H 03/18/20 11:05: Sodium 139, Potassium 4.1, Chloride 97 L, Carbon Dioxide 34 H, Anion Gap 12.1, BUN 13, Creatinine 0.70, Estimated Creat Clear 103, Estimated GFR 88, Est GFR ( Amer) 107, Glucose 133 H, Calcium 9.0 03/18/20 11:05: Random Gentamicin 2.3 03/19/20 06:18: WBC 6.5, RBC 3.99 L, Hgb 13.0, Hct 39.2, MCV 98.3, MCH 32.7 H, MCHC 33.2, RDW 15.4, Plt Count 199, MPV 7.4, Neut % (Auto) 60.5, Lymph % (Auto) 29.4, [place] % (Auto) 5.8, Eos % (Auto) 3.7, Baso % (Auto) 0.7, Neut # (Auto) 4.0, Lymph # (Auto) 1.9, [place] # (Auto) 0.4, Eos # (Auto) 0.2, Baso # (Auto) 0.0 03/19/20 06:18: Sodium 139, Potassium 4.1, Chloride 95 L, Carbon Dioxide 38 H, Anion Gap 10.1, BUN 13, Creatinine 0.90 D, Estimated Creat Clear 80, Estimated GFR 66, Est GFR ( Amer) 80 D, Glucose 129 H, Calcium 8.9 I & O for Last 24 hours: Intake & Output 03/16/20 03/17/20 03/18/20 03/19/20 23:59 23:59 23:59 23:59 Intake Total 1956 1830 / 1830 880 / 880 Output Total 700 / 700 700 / 700 1250 / 1250 Balance -700 / -700 1956 1130 / 1130 -370 / -370 Weight 155.752 kg 161.139 kg 161 kg 159.466 kg Microbiology Reports for the Last 24 Hours: Microbiology 03/16/20 18:40 Blood Blood Culture - Preliminary NO GROWTH AFTER 48 HOURS 03/16/20 17:40 Blood Blood Culture - Preliminary NO GROWTH AFTER 48 HOURS 03/16/20 17:57 Foot,Left - Superficial Gram Stain - Final 03/16/20 17:57 Foot,Left - Superficial Wound Culture - Preliminary Gram Negative Rods Assessment and Plan (1) Cellulitis Current visit: Yes Status: Acute Qualifiers: Site of cellulitis: extremity Site of cellulitis of extremity: lower extremity Laterality: left Qualified Code(s): L03.116 - Cellulitis of left lower limb Category: Medical Code(s): L03.90 - Cellulitis, unspecified (2) Discoloration of skin of foot Current visit: No Status: Chronic Category: Medical Code(s): L81.9 - Disorder of pigmentation, unspecified (3) Discoloration of skin of multiple sites of lower extremity Current visit: No Status: Chronic Category: Medical Code(s): L81.9 - Disorder of pigmentation, unspecified (4) Edema Current visit: No Status: Chronic Qualifiers: Edema type: generalized Qualified Code(s): R60.1 - Generalized edema Category: Medical Code(s): R60.9 - Edema, unspecified (5) Obesity Current visit: No Status: Chronic Qualifiers: Obesity type: due to excess calories Obesity classification: adult class 3 (BMI >= 40) Serious obesity comorbidity presence: with serious comorbidity Category: Medical Code(s): E66.9 - Obesity, unspecified (6) Hypothyroidism Current visit: No Status: Chronic Qualifiers: Hypothyroidism type: acquired Qualified Code(s): E03.9 - Hypothyroidism, unspecified Category: Medical Code(s): E03.9 - Hypothyroidism, unspecified (7) Swelling of left lower extremity Current visit: No Status: Chronic Category: Medical Code(s): M79.89 - Other specified soft tissue disorders (8) Tobacco abuse Current visit: Yes Status: Acute Category: Medical Code(s): Z72.0 - Tobacco use (9) Wheezing Current visit: Yes Status: Acute Category: Medical Code(s): R06.2 - Wheezing (10) Obesity, morbid, BMI 50 or higher Current visit: Yes Status: Acute Category: Medical Code(s): E66.01 - Morbid (severe) obesity due to excess calories (11) COPD with acute exacerbation Current visit: Yes Status: Acute Category: Medical Code(s): J44.1 - Chronic obstruct
--- NOTE | 2020-03-19 12:38 | HMH.ACPN2 ---
Internal Medicine - PN: Subj *Date: 03/19/20 *Time: 19:39 Interval history: afebrile hr well controlled uneventful sleep almost certainly has tamara and we discussed w/u unna boot applied, re-applied 2nd copious drainage congestion w/o dyspnea Exam Vital signs and Labs for Last 24 Hours: Temp Pulse Resp BP Pulse Ox 98.6 F 77 20 132/78 95 03/19/20 08:00 03/19/20 08:00 03/19/20 08:00 03/19/20 08:00 03/19/20 08:00 Laboratory Results - last 24 hr 03/19/20 06:18: WBC 6.5, RBC 3.99 L, Hgb 13.0, Hct 39.2, MCV 98.3, MCH 32.7 H, MCHC 33.2, RDW 15.4, Plt Count 199, MPV 7.4, Neut % (Auto) 60.5, Lymph % (Auto) 29.4, [place] % (Auto) 5.8, Eos % (Auto) 3.7, Baso % (Auto) 0.7, Neut # (Auto) 4.0, Lymph # (Auto) 1.9, [place] # (Auto) 0.4, Eos # (Auto) 0.2, Baso # (Auto) 0.0 03/19/20 06:18: Sodium 139, Potassium 4.1, Chloride 95 L, Carbon Dioxide 38 H, Anion Gap 10.1, BUN 13, Creatinine 0.90 D, Estimated Creat Clear 80, Estimated GFR 66, Est GFR ( Amer) 80 D, Glucose 129 H, Calcium 8.9 I & O for Last 24 hours: Intake & Output 03/16/20 03/17/20 03/18/20 03/19/20 23:59 23:59 23:59 23:59 Intake Total 1956 1830 / 1830 880 / 880 Output Total 700 / 700 700 / 700 1250 / 1250 Balance -700 / -700 1956 1130 / 1130 -370 / -370 Weight 343 lb 6 oz 355 lb 4 oz 354 lb 15.108 oz 351 lb 9 oz Microbiology Reports for the Last 24 Hours: Microbiology 03/16/20 18:40 Blood Blood Culture - Preliminary NO GROWTH AFTER 48 HOURS 03/16/20 17:40 Blood Blood Culture - Preliminary NO GROWTH AFTER 48 HOURS 03/16/20 17:57 Foot,Left - Superficial Gram Stain - Final 03/16/20 17:57 Foot,Left - Superficial Wound Culture - Preliminary Gram Negative Rods - Constitutional no acute distress, morbidly obese, cooperative - *Routine HEENT Exam Head: Present: normocephalic Eye: Present: EOMI, PERRL ENT: Present: mucous membranes moist - *Routine Neck Exam Present: supple. Absent: lymphadenopathy - *Routine Respiratory Exam Present: diminished air movement - *Routine Cardiovascular Exam Present: RRR - *Routine Abdominal Exam Present: soft, normoactive bowel sounds. Absent: tenderness - *Routine Extremities Exam Absent: cyanosis, clubbing, edema - *Routine Skin Exam Present: warm, lesions. Absent: rash - *Routine Neurological Exam Present: alert, oriented X3 - Routine Psychiatric Exam Present: normal affect, cooperative, good insight, good judgment Assessment and Plan (1) Cellulitis Current visit: Yes Status: Acute Qualifiers: Site of cellulitis: extremity Site of cellulitis of extremity: lower extremity Laterality: left Qualified Code(s): L03.116 - Cellulitis of left lower limb Category: Medical Code(s): L03.90 - Cellulitis, unspecified (2) Discoloration of skin of foot Current visit: No Status: Chronic Category: Medical Code(s): L81.9 - Disorder of pigmentation, unspecified (3) Discoloration of skin of multiple sites of lower extremity Current visit: No Status: Chronic Category: Medical Code(s): L81.9 - Disorder of pigmentation, unspecified (4) Edema Current visit: No Status: Chronic Qualifiers: Edema type: generalized Qualified Code(s): R60.1 - Generalized edema Category: Medical Code(s): R60.9 - Edema, unspecified (5) Obesity Current visit: No Status: Chronic Qualifiers: Obesity type: due to excess calories Obesity classification: adult class 3 (BMI >= 40) Serious obesity comorbidity presence: with serious comorbidity Category: Medical Code(s): E66.9 - Obesity, unspecified (6) Hypothyroidism Current visit: No Status: Chronic Qualifiers: Hypothyroidism type: acquired Qualified Code(s): E03.9 - Hypothyroidism, unspecified Category: Medical Code(s): E03.9 - Hypothyroidism, unspecified (7) Swelling of
[2020-03-19 16:00] VITALS: BP 149/76; PULSE 75; RESP 20; TEMP 36.7; O2SAT 96
--- NOTE | 2020-03-19 17:30 | PC.NURSE ---
Pt has been stable this shift. Is noncompliant with O2 @ times. Is able to get OOB with standby assist to BSC. Attempted multiple times to obtain sputum specimen for cx but she states that she is unable to produce sputum. She has a productive cough. PT (Michel) saw pt today. Enedina boots will need to be changed tomorrow. Foot cx growing CRE.
--- NOTE | 2020-03-19 18:52 | PC.NURSE ---
Attempted to give pt a bath. Set her up to wash herself off as much as she could and told her i would be back to help after I took a pt out. When I returned she said that she could not use our soap due to it having a coconut derived ingredient and she would have to wait for her family to bring her soap she uses RN aware.
[2020-03-19 20:00] VITALS: BP 137/90; PULSE 76; RESP 18; TEMP 36.9; O2SAT 91
[2020-03-19 20:53] VITALS: PULSE 81; PULSE 82; O2SAT 98
[2020-03-20 04:00] VITALS: BP 157/89; PULSE 77; RESP 18; TEMP 36.8; O2SAT 92
[2020-03-20 05:00] VITALS: BMI 51.1
--- NOTE | 2020-03-20 05:57 | PC.NURSE ---
Pt alert and oriented x4. Pt noted restless this shift. C/o pain, administered Ibuprofen and [place] per mar. Rates pain a 10/10 when asked. Upon reassessment pt states relief. Pt tolerated Ibuprofen well. She stated she thought she was possibly allergic, although not listed on her list of allergies when asked. PERRLA. Bilateral hand nurse gynecology noted equal and strong. Bilateral lung sounds noted with rhonchi and wheezes. Tolerates 2 lnc well but does frequently remove o2 from nose and has to be reminded to reapply nc. Added humidification to nc this am due to pt stating her nose was hurting from the o2 drying her out. Tolerating well with no further complaints. No c/o soa. Encouraged intake of water this shift versus soda. Pt ambulated to bsc independently t/o shift with minimal assist. Urine noted clear and bright yellow in color. Pt c/o pain to right hand with IVF. Obtained new iv site 20 gauge to left wrist. D/c the iv to right hand due to pt c/o tenderness, no s/s of infiltration at this time. Dsg to ble due to be changed today. +3 non-pitting edema noted to ble. VSS. Remains safe with son at bedside t/o night. Call light within reach. Will continue to monitor.
[2020-03-20 06:50] VITALS: PULSE 73; PULSE 79; O2SAT 92
[2020-03-20 07:01] LABS: Basophils # 0.1 K/mm3 (0-0.2); Basophils % 0.9 % (0.1-2.0); Eosinophils # 0.2 K/mm3 (0.0-0.4); Eosinophils % 3.4 % (0.1-12.0); Hematocrit 40.9 % (37.0-47.0); Hemoglobin 13.7 g/dL (12.2-16.2); Lymphocytes # 1.8 K/mm3 (0.7-4.5); Lymphocytes % 25.7 % (10-50); Mean Corpuscular HGB Conc 33.6 g/dL (31.8-35.4); Mean Corpuscular Hemoglobin 32.9 pg (27.0-31.2); Mean Corpuscular Volume 97.9 fl (81-99); Mean Platelet Volume 7.5 fl (7.4-10.4); Monocytes # 0.3 K/mm3 (0.1-1.0); Monocytes % 4.1 % (1.7-9.3); Neutrophils # 4.6 K/mm3 (1.8-7.8); Neutrophils % 65.9 % (37.0-80.0); Platelet Count 198 K/mm3 (142-424); Red Blood Count 4.18 M/mm3 (4.20-5.40); Red Cell Distribution Width 15.1 % (11.5-17.5); White Blood Count 6.9 K/mm3 (4.8-10.8)
[2020-03-20 07:07] LABS: Chloride 95 mmol/L (98-107); Sodium 137 mmol/L (136-145)
[2020-03-20 07:10] LABS: Blood Urea Nitrogen 15 mg/dl (7-17); Carbon Dioxide 39 mmol/L (22.0-30.0); Creatinine Clearance Estimated 90 mL/min (50-200); Estimated Glomerular Filt Rate 76 ml/min (>60); GFR (African American) 92 ML/MIN (>60)
[2020-03-20 07:11] LABS: Calcium 9.5 mg/dl (8.4-10.2); Glucose 135 mg/dl (74-100)
[2020-03-20 08:00] VITALS: BP 142/70; PULSE 83; RESP 17; TEMP 36.8; O2SAT 90
--- NOTE | 2020-03-20 09:13 | PC.NURSE ---
O2 sat 84% on RA
[2020-03-20 09:14] VITALS: O2SAT 84
--- NOTE | 2020-03-20 09:41 | HMH.ACPN ---
Internal Medicine - PN: Subj *Date: 03/20/20 *Time: 09:41 Exam Vital signs and Labs for Last 24 Hours: Temp Pulse Resp BP Pulse Ox 98.3 F 79 18 157/89 H 84 L 03/20/20 04:00 03/20/20 06:50 03/20/20 04:00 03/20/20 04:00 03/20/20 09:14 Laboratory Results - last 24 hr 03/20/20 06:30: WBC 6.9, RBC 4.18 L, Hgb 13.7, Hct 40.9, MCV 97.9, MCH 32.9 H, MCHC 33.6, RDW 15.1, Plt Count 198, MPV 7.5, Neut % (Auto) 65.9, Lymph % (Auto) 25.7, [place] % (Auto) 4.1, Eos % (Auto) 3.4, Baso % (Auto) 0.9, Neut # (Auto) 4.6, Lymph # (Auto) 1.8, [place] # (Auto) 0.3, Eos # (Auto) 0.2, Baso # (Auto) 0.1 03/20/20 06:30: Sodium 137, Potassium 4.0, Chloride 95 L, Carbon Dioxide 39 H, Anion Gap 7.0, BUN 15, Creatinine 0.80, Estimated Creat Clear 90, Estimated GFR 76, Est GFR ( Amer) 92, Glucose 135 H, Calcium 9.5 I & O for Last 24 hours: Intake & Output 03/17/20 03/18/20 03/19/20 03/20/20 23:59 23:59 23:59 23:59 Intake Total 1956 1830 / 1830 2200 / 2200 870 / 870 Output Total 700 / 700 3700 / 3700 1999 / 1999 Balance 1956 1130 / 1130 -1500 / -1500 -1130 / -1130 Weight 161.139 kg 161 kg 159.466 kg 162.018 kg Microbiology Reports for the Last 24 Hours: Microbiology 03/20/20 01:25 Sputum - Expectorated Sputum Gram Stain - Final 03/16/20 17:57 Foot,Left - Superficial Gram Stain - Final 03/16/20 17:57 Foot,Left - Superficial Wound Culture - Preliminary Providencia rettgeri Assessment and Plan (1) Cellulitis Current visit: Yes Status: Acute Qualifiers: Site of cellulitis: extremity Site of cellulitis of extremity: lower extremity Laterality: left Qualified Code(s): L03.116 - Cellulitis of left lower limb Category: Medical Code(s): L03.90 - Cellulitis, unspecified (2) Discoloration of skin of foot Current visit: No Status: Chronic Category: Medical Code(s): L81.9 - Disorder of pigmentation, unspecified (3) Discoloration of skin of multiple sites of lower extremity Current visit: No Status: Chronic Category: Medical Code(s): L81.9 - Disorder of pigmentation, unspecified (4) Edema Current visit: No Status: Chronic Qualifiers: Edema type: generalized Qualified Code(s): R60.1 - Generalized edema Category: Medical Code(s): R60.9 - Edema, unspecified (5) Obesity Current visit: No Status: Chronic Qualifiers: Obesity type: due to excess calories Obesity classification: adult class 3 (BMI >= 40) Serious obesity comorbidity presence: with serious comorbidity Category: Medical Code(s): E66.9 - Obesity, unspecified (6) Hypothyroidism Current visit: No Status: Chronic Qualifiers: Hypothyroidism type: acquired Qualified Code(s): E03.9 - Hypothyroidism, unspecified Category: Medical Code(s): E03.9 - Hypothyroidism, unspecified (7) Swelling of left lower extremity Current visit: No Status: Chronic Category: Medical Code(s): M79.89 - Other specified soft tissue disorders (8) Tobacco abuse Current visit: Yes Status: Acute Category: Medical Code(s): Z72.0 - Tobacco use (9) Wheezing Current visit: Yes Status: Acute Category: Medical Code(s): R06.2 - Wheezing (10) Obesity, morbid, BMI 50 or higher Current visit: Yes Status: Acute Category: Medical Code(s): E66.01 - Morbid (severe) obesity due to excess calories (11) COPD with acute exacerbation Current visit: Yes Status: Acute Category: Medical Code(s): J44.1 - Chronic obstructive pulmonary disease with (acute) exacerbation (12) Florinda albicans infection Current visit: Yes Status: Acute Category: Medical Code(s): B37.9 - Candidiasis, unspecified The patient's infection will respond to the chosen ABx?: Yes Is the patient receiving the right drug, dose, and route?: Yes Could a more targeted ABx be ordered?: No (PROVIDENCIA RETTGERI SENSITIVE TO GENTAMICIN)
--- NOTE | 2020-03-20 11:42 | SW/DCPLANNER ---
SET UP HOME HEALTH FOR THIS PATIENT WITH PERSONAL [facility]OUCH OUT OF [facility]..... THEY WILL SEE THE PATIENT ON AND HER 02 WILL BE DELIVERED BEFORE SHE DISCHARGES TO HOME... WILL LET PATIENT KNOW THAT HOME HEALTH WILL NOT SEE HER UNTIL MONDAY..
--- NOTE | 2020-03-20 12:17 | HMH.PULMPN ---
Internal Medicine - PN: Subj *Date: 03/20/20 *Time: 12:17 Interval history: No acute events overnight. Patient states her breathing is slightly better than before Exam Vital signs and Labs for Last 24 Hours: Temp Pulse Resp BP Pulse Ox 98.2 F 83 17 142/70 H 84 L 03/20/20 08:00 03/20/20 08:00 03/20/20 08:00 03/20/20 08:00 03/20/20 09:14 Laboratory Results - last 24 hr 03/20/20 06:30: WBC 6.9, RBC 4.18 L, Hgb 13.7, Hct 40.9, MCV 97.9, MCH 32.9 H, MCHC 33.6, RDW 15.1, Plt Count 198, MPV 7.5, Neut % (Auto) 65.9, Lymph % (Auto) 25.7, [place] % (Auto) 4.1, Eos % (Auto) 3.4, Baso % (Auto) 0.9, Neut # (Auto) 4.6, Lymph # (Auto) 1.8, [place] # (Auto) 0.3, Eos # (Auto) 0.2, Baso # (Auto) 0.1 03/20/20 06:30: Sodium 137, Potassium 4.0, Chloride 95 L, Carbon Dioxide 39 H, Anion Gap 7.0, BUN 15, Creatinine 0.80, Estimated Creat Clear 90, Estimated GFR 76, Est GFR ( Amer) 92, Glucose 135 H, Calcium 9.5 I & O for Last 24 hours: Intake & Output 03/17/20 03/18/20 03/19/20 03/20/20 23:59 23:59 23:59 23:59 Intake Total 1956 1830 / 1830 2200 / 2200 1350 / 1350 Output Total 700 / 700 3700 / 3700 1999 / 1999 Balance 1956 1130 / 1130 -1500 / -1500 -650 / -650 Weight 355 lb 4 oz 354 lb 15.108 oz 351 lb 9 oz 357 lb 3 oz Microbiology Reports for the Last 24 Hours: Microbiology 03/16/20 17:57 Foot,Left - Superficial Gram Stain - Final 03/16/20 17:57 Foot,Left - Superficial Wound Culture - Preliminary Providencia rettgeri 03/20/20 01:25 Sputum - Expectorated Sputum Gram Stain - Final - *Routine HEENT Exam Head: Present: atraumatic - *Routine Neck Exam Present: supple, full ROM. Absent: lymphadenopathy, thyromegaly - *Routine Respiratory Exam Present: prolonged expiratory phase, wheezes. Absent: accessory muscle use - *Routine Cardiovascular Exam Present: RRR, Normal S1, Normal S2 - *Routine Abdominal Exam Present: soft, normoactive bowel sounds. Absent: tenderness, distended, rebound - *Routine Extremities Exam Present: ALLAN stockings Assessment and Plan (1) Cellulitis Current visit: Yes Status: Acute Qualifiers: Site of cellulitis: extremity Site of cellulitis of extremity: lower extremity Laterality: left Qualified Code(s): L03.116 - Cellulitis of left lower limb Category: Medical Code(s): L03.90 - Cellulitis, unspecified (2) Discoloration of skin of foot Current visit: No Status: Chronic Category: Medical Code(s): L81.9 - Disorder of pigmentation, unspecified (3) Discoloration of skin of multiple sites of lower extremity Current visit: No Status: Chronic Category: Medical Code(s): L81.9 - Disorder of pigmentation, unspecified (4) Edema Current visit: No Status: Chronic Qualifiers: Edema type: generalized Qualified Code(s): R60.1 - Generalized edema Category: Medical Code(s): R60.9 - Edema, unspecified (5) Obesity Current visit: No Status: Chronic Qualifiers: Obesity type: due to excess calories Obesity classification: adult class 3 (BMI >= 40) Serious obesity comorbidity presence: with serious comorbidity Category: Medical Code(s): E66.9 - Obesity, unspecified (6) Hypothyroidism Current visit: No Status: Chronic Qualifiers: Hypothyroidism type: acquired Qualified Code(s): E03.9 - Hypothyroidism, unspecified Category: Medical Code(s): E03.9 - Hypothyroidism, unspecified (7) Swelling of left lower extremity Current visit: No Status: Chronic Category: Medical Code(s): M79.89 - Other specified soft tissue disorders (8) Tobacco abuse Current visit: Yes Status: Acute Category: Medical Code(s): Z72.0 - Tobacco use (9) Wheezing Current visit: Yes Status: Acute Category: Medical Code(s): R06.2 - Wheezing (10) Obesity, morbid, BMI 50 or higher Current visit: Yes Status: Acute Category: Medical Code(s): E66.01 - Morbid (se
--- NOTE | 2020-03-20 12:43 | HMH.DCSUM ---
General - General Admission date:: 03/16/20 Discharge date: 03/20/20 HPI HPI: Patient is a 49-year-old white female, patient of Dr. Burrell who was seen in the office earlier today. Her chief complaint was a progressive infection in her left leg. She had an extremely malodorant seropurulent discharge, some erythema in the ankle, and some asymmetric swelling. These occur in a longstanding history of skin lesions, she carries no formal diagnosis. The skin lesions are confluent verrucous plaques. She has seen washcloth folder in the past, cannot relay a formal diagnosis. 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 She reports that a dog at home has been biting and picking her wound, along the lateral aspect of the distal calf. She attributes this to the escalation of her infection. Patient is a chronic smoker and has had some chest congestion. She was wheezing in the office. We will admit her for broad-spectrum antibiotic coverage, culture of the bloodstream and wound, and will initiate appropriate wound care. Hospital Course Hospital Course: started on iv antibiotics broad coverage cultured providencia rettgeri phusical therapy folllowed for wound care unna boots applied smoker congested saw pulmonary service will eval for tamara after discharge Objective Vital signs: Temp Pulse Resp BP Pulse Ox 98.2 F 83 17 142/70 H 84 L 03/20/20 08:00 03/20/20 08:00 03/20/20 08:00 03/20/20 08:00 03/20/20 09:14 no acute distress, morbidly obese - *Routine HEENT Exam Head: Present: normocephalic Eye: Present: EOMI, PERRL ENT: Present: mucous membranes moist - *Routine Neck Exam Present: supple - *Routine Respiratory Exam Present: CTA bilaterally, prolonged expiratory phase. Absent: accessory muscle use - *Routine Cardiovascular Exam Present: RRR - *Routine Abdominal Exam Present: soft, normoactive bowel sounds. Absent: tenderness - *Routine Extremities Exam Absent: cyanosis, clubbing, extremity cold to touch - *Routine Skin Exam Present: lesions. Absent: cyanosis, jaundice - *Routine Neurological Exam Present: alert, oriented X3, moving all extremities - Routine Psychiatric Exam Present: normal affect, good judgment Results Labs on day of discharge: Labs from last 24 hours 03/20/20 03/20/20 06:30 06:30 WBC 6.9 RBC 4.18 L Hgb 13.7 Hct 40.9 MCV 97.9 MCH 32.9 H MCHC 33.6 RDW 15.1 Plt Count 198 MPV 7.5 Neut % (Auto) 65.9 Lymph % (Auto) 25.7 [place] % (Auto) 4.1 Eos % (Auto) 3.4 Baso % (Auto) 0.9 Neut # (Auto) 4.6 Lymph # (Auto) 1.8 [place] # (Auto) 0.3 Eos # (Auto) 0.2 Baso # (Auto) 0.1 Sodium 137 Potassium 4.0 Chloride 95 L Carbon Dioxide 39 H Anion Gap 7.0 BUN 15 Creatinine 0.80 Estimated Creat Clear 90 Estimated GFR 76 Est GFR ( Amer) 92 Glucose 135 H Calcium 9.5 Preliminary micro results at discharge 03/16/20 17:57 Wound Culture - Preliminary Foot,Left - Superficial Providencia rettgeri 03/16/20 18:40 Blood Culture - Preliminary Blood NO GROWTH AFTER 48 HOURS 03/16/20 17:40 Blood Culture - Preliminary Blood NO GROWTH AFTER 48 HOURS DS: Diagnosis - Discharge Diagnosis (1) Cellulitis Status: Acute (2) Discoloration of skin of foot Status: Chronic (3) Discoloration of skin of multiple sites of lower extremity Status: Chronic (4) Edema Status: Chronic (5) Obesity Status: Chronic (6) Hypothyroidism Status: Chronic (7) Swelling of left lower extremity Status: Chronic (8) Tobacco abuse Status: Acute (9) Wheezing Status: Chronic (10) Obesity, morbid, BMI 50 or higher Status: Chronic (11) COPD with acute exacerbation Status: Acute (12) Florinda albicans infection Status: Acute Discharge Plan - Patient Discharge Instructions ACTIVITY: Continue current activity, Ambulate as tolerated Patient Instructions: D
--- NOTE | 2020-03-20 13:46 | HMH.PHAINT ---
DISCHARGE MEDICATION EDUCATION COMPLETED. PT REQUESTING PAIN MEDICATION PRESCRIPTION. MESSAGE RELAYED TO NURSE
--- NOTE | 2020-03-20 15:07 | SW/DCPLANNER ---
Addendum entered by Isa Mitchell 03/26/20 10:01: DID RECEIVE A CALL FROM THE SON OF THIS PATIENT AND HE IS WILLING TO BRING PATIENT BACK FOR OUT PATIENT WOUND CARE.... I HAVE SENT HIM TO [facility]ENTRAL[facility]ED SCHEDULING FOR AN APPT AND ORDER WAS FAXED DOWN... Addendum entered by Isa Mitchell 03/25/20 10:54: CALLED AND LEFT A LENGTHY MESSAGE WITH ANDRES (SIGNIFICANT OTHER) TO OFFER OPTIONS.. I TOLD HIM WE HAVE BEEN UNABLE TO GET A HOME HEALTH AGENCY TO SEE MS RAPHAEL BECAUSE OF HER NONCOMPLIANCE.. HIS OPTIONS ARE TO BRING HER BACK HERE AT [facility] TO OUR WOUND CARE CLINIC OR IF HE CAN SPEAK WITH [facility] TO SEE IF HE CAN CHANGE THEIR MINDS AND GIVE HER ANOTHER CHANCE WE WILL FAX ORDER FOR HER TO BE SEEN AT HOME... PATIENTS ORDERS WERE ONLY FOR UNNA BOOT WRAPPING... Addendum entered by Paris Nick 03/24/20 16:16: [facility] has called back stating they will NOT be able to service this patient due to low staffing. At this time: [facility], [facility], [facility] and [facility] have all denied this patient. [facility] denied due to non compliance in the past and patients significant other was going to call and speak with company. Andres does understand if [facility] can NOT accept this patient then only option would be to return to [facility] for outpatient wound care. I will make Andres aware of [facility] denying referral. Addendum entered by Paris Nick 03/24/20 15:23: Isa from [facility] has called back stating they can NOT accept this patient because she reviewed her insurance wrong. [facility] is NOT in network with this patients insurance. At this time patient information has been re-faxed to [facility] (phone [phone] fax [phone]). Patients significant other (Andres) whom I have been in contact with stated that he is waiting for a call back from [facility] to see if they will rethink their decision of denying this patient due to non compliance. I have informed Andres that [address] will follow up with him tomorrow regarding: decision from [facility], referral to [facility] and if neither agency can accept then patient will need to return as an outpatient for wound care (next date is Mar 26). Andres stated he understands and agrees with situation. Addendum entered by Paris Nick 03/24/20 12:20: Isa with [facility] has reviewed patient information and stated that services can begin on 03/24/2020 for first wound care session. I will notify family regarding this plan. Addendum entered by Paris Nick 03/24/20 11:05: At this time [facility] and [facility] is reviewing patient information. Original Note: RECEIVED A CALL AFTER [facility] WAS SET UP WITH [facility] STATING THEY WILL NOT SEE PATIENT BECAUSE OF HER NONCOMPLIANCE.. I ATTEMPTED TO CALL [facility] AND LEFT A MESSAGE AND NO ONE HAS CALLED ME BACK. I CALLED [facility] AND THEY WOULD NOT TAKE THIS PATIENT EITHER, SO I CALLED AND ASKED SIGNIFICANT OTHER IF HE COULD BRING HER BACK TO OUR OUTPATIENT DEPT FOR HER LEGS TO BE WRAPPED AND WE WOULD EXPLORE ANY OTHER AGENCY THAT MAY BE ABLE TO TAKE HER... ORDER WAS FAXED TO [facility] AND ER REGISTRATION... DR POLLARD NOTIFIED..
== END 2020-03-20 15:30 | disposition home health service (06) | DRG 602 ==
PROVIDERS: Nurse Practitioner Family; Admitting Provider Family Medicine; PCP Family Medicine; Visit Provider Family Medicine
DX: L03.116 Cellulitis of left lower limb (principal); J18.9 Pneumonia, unspecified organism; J96.11 Chronic respiratory failure with hypoxia; Z68.43 Body mass index [BMI] 50.0-59.9, adult; E11.9 Type 2 diabetes mellitus without complications; E03.9 Hypothyroidism, unspecified; J44.9 Chronic obstructive pulmonary disease, unspecified; B37.9 Candidiasis, unspecified; E66.01 Morbid (severe) obesity due to excess calories; Z79.52 Long term (current) use of systemic steroids; Z79.899 Other long term (current) drug therapy; Z88.8 Allergy status to other drugs, medicaments and biological substances; Z72.0 Tobacco use
CPT/HCPCS: 36415; 71046; 80048; 80053; 80170; 80202; 82962; 84443; 85025; 86328; 87040; 87070; 87077; 87186; 87205; 93306; 93970; 94640; 94760; 94761; J2543; J3370

== ENCOUNTER 2020-03-23 13:19 | Outpatient (CLI) | payer MEDICAID, SELFPAY ==
--- NOTE | 2020-03-23 18:07 | PC.NURSE ---
1345: Patient arrived for Unna Boots to be changed. Order was nonspecific. Spoke with Jordy Mohan, outpatient parts washer, who states they don't usually do the unna boot dressings and she was unsure of what specific supplies I would need. I asked patient if she could come back tomorrow and she stated she had transportation issues tomorrow. Old unna boots removed. LLE is noted to be foul smelling with areas of dry skin peeling off. Bilateral lower legs cleansed with hibicleanse and warm water. Legs dried with sterile 4x4s. Patient stated doctor who applied unna boots applied aquaphor on legs so I obtained aquaphor and applied to BLE. BLE wrapped with Unna Boots, Kerlix and Coban and taped with silk tape for reinforcement. Patient tolerated dressing change well. Dressing change took 60 plus minutes to complete.
[2020-03-23 18:14] VITALS: O2SAT 88
== END 2020-03-23 15:20 | disposition home or self-care (01) ==
LOC: INF 13:23
PROVIDERS: PCP Family Medicine; Visit Provider Family Medicine
DX: L03.116 Cellulitis of left lower limb (principal); Z48.00 Encounter for change or removal of nonsurgical wound dressing
CPT/HCPCS: G0463

== ENCOUNTER 2020-06-24 13:00 | Outpatient (RCR) | payer MEDICAID, SELFPAY ==
--- NOTE | 2020-03-31 10:44 | HMH.PTOPWND ---
Rehab Outpt Wound Evaluation Rehab OP Wound Evaluation Start: 03/31/20 09:33 Freq: Status: Active Protocol: Document 03/31/20 09:33 PWDAMION (Rec: 03/31/20 10:05 PWDAMION [id number]) Electronically Signed By Kike Mayberry, LUIS ALFREDO 03/31/20 09:33 Subjective/History History History This is the initial PT wound clinic evaluation for Saige Dias. Pt is a 49 y/o female referred to PT wound clinic for wound care of BLE lower legs. Pt had been admitted to [facility] week prior for cellulitis due to edema and open wounds from blisters. Pt underwent ABX therapy and was sent home. Pt reports now to OP PT wound clinic for continued care Subjective Subjective Pt reports severe c/o Pain in LLE - pt reports her original wound came from her puppy chewing on her leg - which she could not feel due to neuropathy Wound Eval Wound Right Lower Leg Wound Type cellulitis Wound Margins Description Indistinct Surrounding Tissue Appearance Purple,Edematous Edema Appearance Shiny,Tight Wound Topical Solution/Irrigant Saline Irrigant Primary Dressing Unna Boot Wound Secondary Dressing Type Gauze Roll/Wrap,Adhering Gauze Roll Wound Debridement Amount of Tissue Minimal Removed Dressing Change Patient Tolerance Tolerated Well Left Lower Leg Wound Type cellulitis w/ hyperkeratosis Percentage Granulated (%) 100 Wound Margins Description Indistinct Surrounding Tissue Appearance Purple,Edematous Edema Type Non-Pitting Edema Appearance Red,Purple Surrounding Tissue Temperature Warm Drainage Description None Drainage Amount None Drainage Odor No Odor Dressing Status Soiled Wound Topical Solution/Irrigant Saline Irrigant Primary Dressing Unna Boot Wound Secondary Dressing Type Gauze Roll/Wrap,Adhering Gauze Roll Wound Debridement Amount of Tissue Minimal Removed Dressing Change Date 03/31/20 Dressing Change Patient Tolerance Tolerated Well Wound Problems/Impairments Impairments Problems/Impairmments Wound Care Needs,Impaired Self
== END 2020-06-24 13:05 | disposition home or self-care (01) ==
LOC: PT 13:00
PROVIDERS: Visit Provider Family Medicine
DX: L03.115 Cellulitis of right lower limb; L03.116 Cellulitis of left lower limb
CPT/HCPCS: 29580; 97140; 97162; 97164; 97597; 97598

== ENCOUNTER → 2020-06-29 15:24 | Outpatient (CLI) | payer MEDICAID, SELFPAY ==
--- NOTE | 2020-06-29 15:26 | US_ITS ---
APPROVED REPORT Exam Type: Lower Extremity Segmental Pressures Museum Tour Guide: Germaine Rodney RVT Indications Claudication: Bilaterally Rest Pain: Bilaterally Numbness/Tingling Current Smoker PT WAS UNABLE TO LAY DOWN STUDY PERFORMED WITH PT UPRIGHT, PT'S LEFT CALF SKIN WAS VERY THICK UNABLE TO OBTAIN A PT PULSE BECAUSE OF IT. Risk Factors Diabetes Current Smoker Pressures/Indices Right Indices Left Indices Brachial 123.00 mmHg Brachial 165.00 mmHg Low Thigh 250.00 mmHg 1.52 Low Thigh 243.00 mmHg 1.47 Calf 147.00 mmHg 0.89 Calf 184.00 mmHg 1.12 Ankle(PT) 160.00 mmHg 0.97 Ankle(PT) 155.00 mmHg 0.94 Ankle(DP) 165.00 mmHg 1.00 Ankle(DP) 155.00 mmHg 0.94 Digit 133.00 mmHg 0.81 Digit 155.00 mmHg 0.94 Findings RT NINA:1.00 LT NINA:l0.94 RT TBI:0.81 LT TBI:0.94 NORMAL WAVEFORMS BILATERAL PULSES WERE DECREASED, UNABLE TO OBATIN A LEFT PT PULSE R/T PT'S THICK SKIN Conclusion RT NINA:1.00 LT NINA:l0.94 RT TBI:0.81 LT TBI:0.94 NORMAL WAVEFORMS BILATERAL PULSES WERE DECREASED, UNABLE TO OBATIN A LEFT PT PULSE R/T PT'S THICK SKIN Electronically signed by : Reyes Spicer MD 06/29/2020 17:00:46
== END ==
PROVIDERS: PCP Family Medicine; Visit Provider Nurse Practitioner
DX: R09.89 Other specified symptoms and signs involving the circulatory and respiratory systems (principal)
CPT/HCPCS: 93923

== ENCOUNTER 2020-10-21 23:46 | Inpatient (IN) | payer MEDICAID, SELFPAY ==
[2020-10-22] VITALS (42 sets, daily range): BP systolic 85–153; BP diastolic 45–99; PULSE 28–96; RESP 16–28; TEMP 36.6–36.9; O2SAT 78–100; BMI 44.6; BMI 42.5
[2020-10-22 00:55] LABS: Basophils # 0.1 K/mm3 (0-0.2); Eosinophils # 0.2 K/mm3 (0.0-0.4); Eosinophils % 2.3 % (0.1-12.0); Hematocrit 52.2 % (37.0-47.0); Hemoglobin 16.5 g/dL (12.2-16.2); Lymphocytes # 1.6 K/mm3 (0.7-4.5); Lymphocytes % 22.2 % (10-50); Mean Corpuscular HGB Conc 31.6 g/dL (31.8-35.4); Mean Corpuscular Hemoglobin 30.7 pg (27.0-31.2); Mean Corpuscular Volume 97.4 fl (81-99); Mean Platelet Volume 7.8 fl (7.4-10.4); Monocytes # 0.4 K/mm3 (0.1-1.0); Monocytes % 5.1 % (1.7-9.3); Neutrophils # 5.1 K/mm3 (1.8-7.8); Neutrophils % 69.3 % (37.0-80.0); Platelet Count 206 K/mm3 (142-424); Red Blood Count 5.36 M/mm3 (4.20-5.40); Red Cell Distribution Width 15.5 % (11.5-17.5); White Blood Count 7.3 K/mm3 (4.8-10.8)
[2020-10-22 01:09] LABS: Alanine Aminotransferase 27 U/L (12-78); Alkaline Phosphatase 80 U/L (38-126); Aspartate Amino Transferase 46 U/L (14-36); Bilirubin,Total 0.4 mg/dl (0.2-1.3); Blood Urea Nitrogen 14 mg/dl (7-17); Calcium 9.4 mg/dl (8.4-10.2); Chloride 95 mmol/L (98-107); Creatinine Clearance Estimated 92 mL/min (50-200); Estimated Glomerular Filt Rate 75 ml/min (>60); GFR (African American) 91 ML/MIN (>60); Glucose 112 mg/dl (74-100); Potassium 4.1 mmoL/L (3.5-5.1); Sodium 142 mmol/L (136-145)
[2020-10-22 01:14] LABS: C-Reactive Protein 16.2 mg/L (0-4)
[2020-10-22 01:15] LABS: Anion Gap 16.1 mEq/L (5-15); Carbon Dioxide 35 mmol/L (22.0-30.0)
[2020-10-22 01:28] LABS: Procalcitonin 0.072 ng/mL (0.0-2.0)
--- NOTE | 2020-10-22 01:38 | HMH.EDWNDL ---
ED Disposition Clinical Impression: Cellulitis of both lower extremities, Tobacco abuse Obesity Qualifiers: Obesity type: due to excess calories Obesity classification: adult class 3 (BMI >= 40) Serious obesity comorbidity presence: with serious comorbidity Body mass index: BMI 40.0-44.9 Qualified Code(s): E66.01 - Morbid (severe) obesity due to excess calories; Z68.41 - Body mass index [BMI]40.0-44.9, adult Hypothyroidism Qualifiers: Hypothyroidism type: acquired Qualified Code(s): E03.9 - Hypothyroidism, unspecified Disposition: Admitted As Inpatient Condition on Discharge: Good Referrals: Darvin Warner MD [Primary Care Provider] - - Critical Care Critical Care Time: No Attestation: On 10/21/20, the high probability of a clinically significant, sudden or life threatening deterioration of the following system(s) required my full and direct attention, intervention and personal management. The time I documented below is in addition to time spent performing reported procedures but includes the following listed in this critical care notation. Medical Decision Making - Medical Records Medical records reviewed: Yes: I reviewed the patient's medical records. - Joon Inquiry Pt receiving controlled substance: No Vital Signs: 10/22/20 00:09 10/22/20 00:34 Temperature 98.4 F Temperature Source Oral Pulse Rate 88 Pulse Rate [Right] 96 H Respiratory Rate 22 Blood Pressure 129/99 H Blood Pressure [Left Arm] 123/70 Blood Pressure Mean 109 Blood Pressure Mean [Left Arm] 87 Blood Pressure Source [Left Arm] Automatic Cuff Blood Pressure Position [Left Arm] Sitting 02 Sat by Pulse Oximetry 87 L 96 Oxygen Delivery Method Room Air Nasal Cannula Oxygen Flow Rate (LPM) 2 - Lab Data Lab results reviewed: Yes: I reviewed the patient's lab results. Lab Results 10/22/20 00:45: WBC 7.3, RBC 5.36, Hgb 16.5 H, Hct 52.2 H, MCV 97.4, MCH 30.7, MCHC 31.6 L, RDW 15.5, Plt Count 206, MPV 7.8, Neut % (Auto) 69.3, Lymph % (Auto) 22.2, [place] % (Auto) 5.1, Eos % (Auto) 2.3, Baso % (Auto) 1.0, Neut # (Auto) 5.1, Lymph # (Auto) 1.6, [place] # (Auto) 0.4, Eos # (Auto) 0.2, Baso # (Auto) 0.1, ESR 26 10/22/20 00:45: Sodium 142, Potassium 4.1, Chloride 95 L, Carbon Dioxide 35 H, Anion Gap 16.1 H, BUN 14, Creatinine 0.80, Estimated Creat Clear 92, Estimated GFR 75, Est GFR ( Amer) 91, Glucose 112 H, Calcium 9.4, Total Bilirubin 0.4, AST 46 H, ALT 27, Alkaline Phosphatase 80, C-Reactive Protein 16.2 H, Total Protein 8.0, Albumin 4.0, Globulin 4.0 H, Albumin/Globulin Ratio 1.0 L, Procalcitonin 0.072 10/22/20 00:45: Lactate 1.0 Result diagrams: 10/22/20 00:45 10/22/20 00:45 Orders (Tests/Meds): ED MEDICATIONS Generic Name Dose Route Start Last Admin Trade Name Freq PRN Reason Stop Dose Admin Sodium Chloride 1,000 mls @ 999 mls/hr 10/22/20 00:30 10/22/20 00:33 Sod Chlor 0.9% 1000ml Bag IV 10/22/20 01:30 999 mls/hr .Q1H1M RUSH Administration ORDERS Category Date Time Status Full Resp Panel w/COVID ([facility]) Routine Lab 10/22/20 00:31 Received Blood Culture Stat Micro 10/22/20 00:22 Ordered Medical Decision Narrative: has sig infection and concern for osteo and will require admit and podiatry eval Wound/Laceration HPI - General Chief Complaint: Extremity Problem,Nontraumatic Stated Complaint: Cre, infection on left ankle Time Seen by Provider: 10/22/20 00:35 Mode of Arrival: Ambulatory Source of Information: Patient, Relative, Medical Record Limitations: No Limitations Description of Symptoms (Recalled from ER Triage Doc. by RN): Pt states she was in wound care with Dr Patricia for her left lower leg Cellulitis, she received ABX treatment on the foot twice and stopped going because of the COVID, last treatment was 6 weeks ago. Left lower leg has 4+ edema with serous fluid drainage and a foul odor. - History of Present Illness HPI narrative: this pt who has diabetes and tob use with progressiv
[2020-10-22 01:50] LABS: Adenovirus,PCR Not Detected (NotDetected); Bordetella Pertussis Not Detected (NotDetected); Chlamydophila Pneumoniae, PCR Not Detected (NotDetected); Coronavirus 19, PCR Not Detected (NotDetected); Coronavirus 229E Not Detected (NotDetected); Coronavirus NL63 Not Detected (NotDetected); Coronavirus OC43 Not Detected (NotDetected); Coronovirus HKU1,PCR Not Detected (NotDetected); Human Metapneumovirus Not Detected (NotDetected); Influenza A, PCR Not Detected (NotDetected); Influenza AH1, 2009 Not Detected (NotDetected); Influenza AH1, PCR Not Detected (NotDetected); Influenza AH3,PCR Not Detected (NotDetected); Influenza B, PCR Not Detected (NotDetected); Mycoplasma Pneumoniae, PCR Not Detected (NotDetected); Parainfluenza 1, PCR Not Detected (NotDetected); Parainfluenza 2, PCR Not Detected (NotDetected); Parainfluenza 3, PCR Not Detected (NotDetected); Parainfluenza 4, PCR Not Detected (NotDetected); Respiratory Syncytial Virus Not Detected (NotDetected); Rhinovirus/Enterovirus Not Detected (NotDetected)
[2020-10-22 01:53] LABS: Erythrocyte Sedimentation Rate 26 mm/hr (0-30)
--- NOTE | 2020-10-22 01:59 | PC.NURSE ---
Vanco dose per [facility] in Pharmacy Bert syndrom discussed and Vanco needs to be mixed in 500ml NS
[2020-10-22 02:41] LABS: T4 (Thyroxine) 6.5 ug/dl (5.53-11.0)
--- NOTE | 2020-10-22 04:17 | PC.NURSE ---
patient up to floor @ 04:09 via wheelchair.
--- NOTE | 2020-10-22 05:54 | PC.WOUNDNOTE ---
Addendum entered by Luz Marina Woodruff RN 10/22/20 06:02: heel of left foot Original Note: Wound Location: Length: Width: Depth: Undermining Y/N: Tunneling cm: Granulation %: Slough/necrotic tissue %: Inflammation/swelling Y/N: Pain and/or tenderness Y/N: Exudate: Serosanguinous Sanguinous Serosanguinous Seropurulent Purulent Color: Clear Iveth Cloudy/milky [place] Red Green Yellow Brown Palm Blue Consistency: Thick Thin Amount: None Scant Small Moderate Large Odor Y/N:
--- NOTE | 2020-10-22 05:56 | PC.WOUNDNOTE ---
Addendum entered by Luz Marina Woodruff RN 10/22/20 06:02: left lower extremity Original Note: Wound Location: Length: Width: Depth: Undermining Y/N: Tunneling cm: Granulation %: Slough/necrotic tissue %: Inflammation/swelling Y/N: Pain and/or tenderness Y/N: Exudate: Serosanguinous Sanguinous Serosanguinous Seropurulent Purulent Color: Clear Iveth Cloudy/milky [place] Red Green Yellow Brown Palm Blue Consistency: Thick Thin Amount: None Scant Small Moderate Large Odor Y/N:
--- NOTE | 2020-10-22 05:57 | PC.WOUNDNOTE ---
Addendum entered by Luz Marina Woodruff RN 10/22/20 06:01: left foot Original Note: Wound Location: Length: Width: Depth: Undermining Y/N: Tunneling cm: Granulation %: Slough/necrotic tissue %: Inflammation/swelling Y/N: Pain and/or tenderness Y/N: Exudate: Serosanguinous Sanguinous Serosanguinous Seropurulent Purulent Color: Clear Iveth Cloudy/milky Strong Red Green Yellow Brown Palm Blue Consistency: Thick Thin Amount: None Scant Small Moderate Large Odor Y/N:
--- NOTE | 2020-10-22 05:58 | PC.WOUNDNOTE ---
Addendum entered by Luz Marina Woodruff RN 10/22/20 06:01: lefft lower extremity Original Note: Wound Location: Length: Width: Depth: Undermining Y/N: Tunneling cm: Granulation %: Slough/necrotic tissue %: Inflammation/swelling Y/N: Pain and/or tenderness Y/N: Exudate: Serosanguinous Sanguinous Serosanguinous Seropurulent Purulent Color: Clear Iveth Cloudy/milky [place] Red Green Yellow Brown Palm Blue Consistency: Thick Thin Amount: None Scant Small Moderate Large Odor Y/N:
--- NOTE | 2020-10-22 05:59 | PC.WOUNDNOTE ---
Addendum entered by Luz Marina Woodruff RN 10/22/20 06:01: left lower extremity Original Note: Wound Location: Length: Width: Depth: Undermining Y/N: Tunneling cm: Granulation %: Slough/necrotic tissue %: Inflammation/swelling Y/N: Pain and/or tenderness Y/N: Exudate: Serosanguinous Sanguinous Serosanguinous Seropurulent Purulent Color: Clear Iveth Cloudy/milky [place] Red Green Yellow Brown Palm Blue Consistency: Thick Thin Amount: None Scant Small Moderate Large Odor Y/N:
--- NOTE | 2020-10-22 06:37 | XR_ITS ---
PROCEDURE: XR ANKLE LT 2V CLINICAL INDICATION: infection Pain and swelling COMPARISON: No exams were available for comparison FINDINGS: AP and lateral views of the inferior aspect left lower leg and ankle show no obvious fracture or dislocation. No bony destructive process evident. No soft tissue gas apparent. No radiopaque foreign body IMPRESSION: No acute findings. Dictated by: Reyes Spicer MD 10/22/2020 08:03 Reyes Spicer MD in [place] 10/22/2020 08:03
--- NOTE | 2020-10-22 07:28 | P.CONPHA_ITS ---
[facility] VTE Monitoring - Patient Demographics Admission date: 10/22/20 Report Date: 10/22/20 Time: 07:29 Allergies/Adverse Reactions: Patient Allergies tramadol [TRAMADOL] Allergy (Mild, Verified 10/22/20 04:31) Unknown allergy reaction gold sodium thiomalate Allergy (Unknown, Verified 10/22/20 04:31) Unknown allergy reaction coconut Allergy (Verified 10/22/20 04:31) Unknown allergy reaction propylene glycol Allergy (Verified 10/22/20 04:31) Unknown allergy reaction vancomycin Adverse Reaction (Verified 10/22/20 04:31) [employer] Allergy (Mild, Uncoded 03/17/20 09:43) Unknown allergy reaction Height: 1.8 m Weight: 138 kg Patient Problems: Current Active Problems Cellulitis of both lower extremities (Acute) Tobacco abuse (Acute) Obesity (Chronic) Hypothyroidism (Chronic) - VTE Risk Labs: VTE Related Lab Results Hgb 16.5 g/dL (12.2-16.2) H 10/22/20 00:45 Hct 52.2 % (37.0-47.0) H 10/22/20 00:45 Plt Count 206 K/mm3 (142-424) 10/22/20 00:45 BUN 14 mg/dl (7-17) 10/22/20 00:45 Creatinine 0.80 mg/dl (0.52-1.04) 10/22/20 00:45 Estimated Creat Clear 92 mL/min (50-200) 10/22/20 00:45 Was VTE Risk Assessment Performed: Yes VTE Score: 8 VTE Risk Level: Moderate Risk - Prophylaxis VTE Prophylaxis Ordered?: Yes Types of VTE Prophylaxis: TEDS Knee High Location of Applied Device: Bilateral Lower Extremeties
--- NOTE | 2020-10-22 07:34 | HMH.PHAINT ---
MEDICATION RECONCILIATION COMPLETED ON PATIENT USING EXTERNAL FILL HISTORY FROM PHARMACY. -DORIS VALLE, JAVIERD
[2020-10-22 07:58] LABS: ABG Base Excess 7.2 mmol/L (-2.4-2.3); ABG HCO3 35.1 mmhg (22.0-26.0); ABG Oxygen Saturation 77 % (90-100); ABG PH 7.21 mmol/L (7.35-7.45); ABG TCO2 37.8 mmhg (23-27); Oxygen 1.5 lpm nc %
[2020-10-22 07:59] LABS: ABG PCO2 89.5 mmhg (35.0-45.0); Allen's Test Acceptable; Source Left Radial
[2020-10-22 08:00] LABS: ABG PO2 47.2 mmhg (80-100)
[2020-10-22 08:18] LABS: Basophils # 0.1 K/mm3 (0-0.2); Basophils % 1.2 % (0.1-2.0); Eosinophils # 0.2 K/mm3 (0.0-0.4); Eosinophils % 2.2 % (0.1-12.0); Hematocrit 52.7 % (37.0-47.0); Hemoglobin 16.2 g/dL (12.2-16.2); Lymphocytes # 1.4 K/mm3 (0.7-4.5); Lymphocytes % 19.2 % (10-50); Mean Corpuscular HGB Conc 30.8 g/dL (31.8-35.4); Mean Corpuscular Hemoglobin 30.7 pg (27.0-31.2); Mean Corpuscular Volume 99.6 fl (81-99); Mean Platelet Volume 7.8 fl (7.4-10.4); Monocytes # 0.4 K/mm3 (0.1-1.0); Monocytes % 5.1 % (1.7-9.3); Neutrophils # 5.1 K/mm3 (1.8-7.8); Neutrophils % 72.3 % (37.0-80.0); Platelet Count 192 K/mm3 (142-424); Red Blood Count 5.29 M/mm3 (4.20-5.40); Red Cell Distribution Width 15.3 % (11.5-17.5); White Blood Count 7.1 K/mm3 (4.8-10.8)
[2020-10-22 08:21] LABS: Chloride 99 mmol/L (98-107); Potassium 3.9 mmoL/L (3.5-5.1); Sodium 142 mmol/L (136-145)
[2020-10-22 08:24] LABS: Blood Urea Nitrogen 13 mg/dl (7-17); Calcium 8.9 mg/dl (8.4-10.2); Creatinine Clearance Estimated 102 mL/min (50-200); Estimated Glomerular Filt Rate 88 ml/min (>60); GFR (African American) 106 ML/MIN (>60); Glucose 121 mg/dl (74-100)
[2020-10-22 08:31] LABS: Anion Gap 11.9 mEq/L (5-15); Carbon Dioxide 35 mmol/L (22.0-30.0)
--- NOTE | 2020-10-22 09:00 | XR_ITS ---
PROCEDURE: XR CHEST PORTABLE CLINICAL HISTORY: Respiratory Decompensation COMPARISON: CR CXR CHEST(2 VIEWS-NOT PORTABLE) from 07/29/[address] chest wo con from 11/23/2017 CR XR CHEST 2V from 03/16/2020 FINDINGS: There is cardiomegaly with pulmonary venous congestion consistent with CHF with small left effusion. The exam is under penetrated. Patchy density noted in the right upper lobe possibly due to underlying infiltrate. Artifact is present from overlying oxygen mask. No acute bony abnormalities. IMPRESSION: CHF with small left effusion and possible right upper lobe infiltrate Dictated by: Reyes Spicer MD 10/22/2020 09:30 Reyes Spicer MD in [place] 10/22/2020 09:30
--- NOTE | 2020-10-22 09:21 | PC.NURSE ---
dr anna stated to not get the abg yet, wished to have it in 2 hours.
--- NOTE | 2020-10-22 09:29 | HMH.HP ---
*Admission Date: 10/22/20 *Chief complaint: soa *History of present illness: 50-year-old female who presented to the emergency department with complaints of swelling in her left lower extremity as well as pain and drainage. The patient has chronic venous stasis to the left lower extremity. Daughter is at bedside who states that her leg has looked very poorly for a very long time(months-years). Pt has AMS with rounding. Pt on bipap with little stimuli. Pt sitting slumped over in bed. Elton at bedside. pt admitted for ams,soa, cellulitis and podiatry consult. [facility] History I have reviewed the patient's past medical history: Yes Medical History: Reports:: Anxiety, Chronic Obstructive Pulmonary Disease (COPD), Depression, Diabetes Mellitus Type 2, Home Oxygen, Hyperlipidemia, Hypertension, Palpitations, Peripheral Vascular Disease Denies:: Cancer, Diabetes Mellitus Type 1, MRSA *Have you ever received a pneumonia vaccine?: No *Have you received a flu vaccine this season?: No Other Medical History: Reports: Hoarseness, Hypothyroidism, Sinus Problems Laterality Cases: Right: Breast Biopsy, Bilateral: Other Other Surgeries: Yes: , Hysterectomy-Total Amputation: No Fractures: No - *Social History Smoking Status: Current every day smoker Tobacco Type: cigarettes # Packs/Day (cigarettes): 1 Alcohol Intake: never Alcohol Intake Frequency:: other Substance Use Type: denies use *Occupational Status:: disabled Housing: house Household Members: family *Travel in the last 8 weeks: None - Psychiatric History Pschychiatric History:: Reports:: Anxiety, Depression Family Hx:: Unable to obtain Review of Systems - Review of Systems Review of systems:: unable to obtain, pertinent systems reviewed and negative unless documented below - *Neurologic Denies seizure-like activity Meds Home Medications Medication Instructions Recorded Confirmed Type dilTIAZem HCl [Diltiazem 240mg 480 mg PO DAILY 03/16/20 10/22/20 History 24Hr ER Cap] ergocalciferol (vitamin D2) 1,250 50,000 unit PO WEEKLY #12 cap 06/25/20 10/22/20 Rx mcg (50,000 unit) capsule epinephrine 0.3 mg/0.3 mL 0.3 mg IM Q5-15M PRN #1 each 09/02/20 10/22/20 Rx injection, auto-injector levothyroxine 150 mcg tablet 300 mcg PO DAILY #180 tab 09/22/20 10/22/20 Rx Albuterol Sulfate [Ventolin HFA] 2 puffs IH Q4HP PRN 10/22/20 10/22/20 History Nystatin [Nystop] 1 applic TP BID 10/22/20 10/22/20 History Allergies Allergy/AdvReac Type Severity Reaction Status Date / Time tramadol [TRAMADOL] Allergy Mild Unknown Verified 10/22/20 04:31 allergy reaction gold sodium thiomalate Allergy Unknown Unknown Verified 10/22/20 04:31 allergy reaction coconut Allergy Unknown Verified 10/22/20 04:31 allergy reaction propylene glycol Allergy Unknown Verified 10/22/20 04:31 allergy reaction vancomycin AdvReac RED EVANGELINA Verified 10/22/20 04:31 [employer] Allergy Mild Unknown Uncoded 03/17/20 09:43 allergy reaction Exam Vital signs and Labs for Last 24 Hours: Temp Pulse Resp BP Pulse Ox 97.8 F 79 20 138/86 88 L 10/22/20 07:34 10/22/20 07:34 10/22/20 07:34 10/22/20 07:34 10/22/20 07:34 Laboratory Results - last 24 hr 10/22/20 00:31: Chlamy pneumoniae PCR Not detected, Adenovirus (PCR) Not detected, B. pertussis DNA (PCR) Not detected, Coronavirus OC43 (PCR) Not detected, Coronavirus HKU1 (PCR) Not detected, Coronavirus 229E (PCR) Not detected, SARS-CoV-2 (PCR) Not detected, Coronavirus NL63 (PCR) Not detected, Human Metapneumovir PCR Not detected, Influenza A (H1) PCR Not detected, Influ A (H1N1/09) PCR Not detected, Influenza A (H3) PCR Not detected, Influenza Type A (PCR) Not detected, Influenza Type B (PCR) Not detected, M. pneumoniae (PCR) Not detected, Parainfluenza 1 (PCR) Not detected, Parainfluenza 2 (PCR) Not detected, Parainfluenza 3 (PCR) Not detected, Parainfluenza 4 (PCR) Not detected,
--- NOTE | 2020-10-22 10:00 | HMH.PULMCON ---
*Admission Date: 10/22/20 *Reason for consult:: Acute hypoxic hypercarbic respiratory failure *History of present illness: Ms. Dias is a 50-year-old female current smoker greater than [id number] smoking history noncompliant with his inhalers as per the family presented to the hospital with worsening lower extremity swelling and pain in her respiratory status eventually progressed and became hypoxic hypercarbic with altered mentation and pulmonary was called for further management. [facility] History Medical History: Reports:: Anxiety, Chronic Obstructive Pulmonary Disease (COPD), Depression, Diabetes Mellitus Type 2, Home Oxygen, Hyperlipidemia, Hypertension, Palpitations, Peripheral Vascular Disease Denies:: Cancer, Diabetes Mellitus Type 1, MRSA *Have you ever received a pneumonia vaccine?: No *Have you received a flu vaccine this season?: No Other Medical History: Reports: Hoarseness, Hypothyroidism, Sinus Problems Laterality Cases: Right: Breast Biopsy, Bilateral: Other Other Surgeries: Yes: , Hysterectomy-Total Amputation: No Fractures: No - *Social History Smoking Status: Current every day smoker Tobacco Type: cigarettes # Packs/Day (cigarettes): 1 Alcohol Intake: never Alcohol Intake Frequency:: other Substance Use Type: denies use *Occupational Status:: disabled Housing: house Household Members: family *Travel in the last 8 weeks: None - Psychiatric History Pschychiatric History:: Reports:: Anxiety, Depression Family Hx:: Unable to obtain ROS - Review of Systems Review of systems:: unable to obtain Patient altered only responding to painful stimuli. Meds Home Medications Medication Instructions Recorded Confirmed Type dilTIAZem HCl [Diltiazem 240mg 480 mg PO DAILY 03/16/20 10/22/20 History 24Hr ER Cap] ergocalciferol (vitamin D2) 1,250 50,000 unit PO WEEKLY #12 cap 06/25/20 10/22/20 Rx mcg (50,000 unit) capsule epinephrine 0.3 mg/0.3 mL 0.3 mg IM Q5-15M PRN #1 each 09/02/20 10/22/20 Rx injection, auto-injector levothyroxine 150 mcg tablet 300 mcg PO DAILY #180 tab 09/22/20 10/22/20 Rx Albuterol Sulfate [Ventolin HFA] 2 puffs IH Q4HP PRN 10/22/20 10/22/20 History Nystatin [Nystop] 1 applic TP BID 10/22/20 10/22/20 History Allergies Allergy/AdvReac Type Severity Reaction Status Date / Time tramadol [TRAMADOL] Allergy Mild Unknown Verified 10/22/20 04:31 allergy reaction gold sodium thiomalate Allergy Unknown Unknown Verified 10/22/20 04:31 allergy reaction coconut Allergy Unknown Verified 10/22/20 04:31 allergy reaction propylene glycol Allergy Unknown Verified 10/22/20 04:31 allergy reaction vancomycin AdvReac RED EVANGELINA Verified 10/22/20 04:31 [employer] Allergy Mild Unknown Uncoded 03/17/20 09:43 allergy reaction Exam - Constitutional Comment:: Patient appeared to be in respiratory distress - HENMT Exam HENMT: Present: normocephalic, atraumatic - Neck Exam Neck:: Present: normal visual inspection - Respiratory Exam Comments: Significantly decreased breath sounds on both sides - Cardiovascular Exam Cardiac:: Present: S1, S2 - GI Exam GI:: Present: soft, obese - Skin Exam Skin: Present: warm, rash - Neurological Exam Patient attended only responding to painful stimuli and loud verbal stimuli. Not appropriately responding to questions - Extremities Exam Extremities: Present: no cyanosis, no clubbing Internal Medicine - CN: Reslt - Labs CBC & Chem 7: 10/22/20 08:04 10/22/20 08:04 Labs: Short CBC 10/22/20 10/22/20 Range/Units 00:45 08:04 WBC 7.3 7.1 (4.8-10.8) K/mm3 Hgb 16.5 H 16.2 (12.2-16.2) g/dL Hct 52.2 H 52.7 H (37.0-47.0) % Plt Count 206 192 (142-424) K/mm3 BMP 10/22/20 10/22/20 00:45 08:04 Sodium 142 142 Potassium 4.1 3.9 Chloride 95 L 99 Carbon Dioxide 35 H 35 H BUN 14 13 Creatinine 0.80 0.70 Glucose 112 H
--- NOTE | 2020-10-22 10:01 | CA_ITS ---
APPROVED REPORT Bilateral Lower Extremity Venous Study for DVT. [employer]er: MEGHAN Indications Lower Extremity Pain: Left Lower Extremity Edema: Left Current Smoker Swelling, chronic pedal edema, poor hygiene Risk Factors Immobility Obesity Bed Rest Current Smoker Vein Imaging CFV (R): compressive, spontaneous, phasic, augmentation FEM (R): compressive, spontaneous, phasic, augmentation POP (R): compressive, spontaneous, phasic, augmentation PTV (R): Compressible GSV (R): compressive, spontaneous, phasic, augmentation Peroneals (R):Not Visualized GAS (R): Compressible CFV (L): compressive, spontaneous, phasic, augmentation FEM (L): compressive, spontaneous, phasic, augmentation POP (L): compressive, spontaneous, phasic, augmentation PTV (L): Compressible GSV (L): compressive, spontaneous, phasic, augmentation Peroneals (L):Not Visualized GAS (L): Compressible Findings No evidence of DVT or superficial thrombophlebitis in the veins scanned of the right lower extremity. No evidence of DVT or superficial thrombophlebitis in the veins scanned of the left lower extremity. Conclusion No evidence of DVT or superficial thrombophlebitis in the veins scanned of the right lower extremity. No evidence of DVT or superficial thrombophlebitis in the veins scanned of the left lower extremity. Electronically signed by : Reyes Spicer MD 10/22/2020 14:57:21
--- NOTE | 2020-10-22 10:26 | HMH.CNCARD ---
History of Present Illness Consult date: 10/22/20 Requesting physician: Darvin Warner Chief complaint: leg swelling and pain History of present illness: This is a 50-year-old white female who presented to the emergency department with complaints of swelling in her left lower extremity as well as pain. The patient has significant venous stasis to the left lower extremity. She states that she had been treated for an infection in the left lower extremity for quite some time but stopped going for treatments because of Covid. This is continued to worsen. Her daughter is at bedside who states that her leg has looked very poorly for a very long time. She also reports that the patient is not compliant with her medications. She denies any chest pain or pressure. She did become short of breath when she was admitted to the hospital. She eventually progressed with her shortness of breath and became hypoxic with altered mental status and is now on BiPAP. She denies any fever, chills, nausea, vomiting, diarrhea, PND orthopnea. She does have significant swelling in her left lower extremity. It is draining serous fluid. She also has some edema in her right lower extremity but this is very mild compared to the left lower extremity. [facility] History I have reviewed the patient's past medical history: Yes Medical History: Reports:: Anxiety, Chronic Obstructive Pulmonary Disease (COPD), Depression, Diabetes Mellitus Type 2, Home Oxygen, Hyperlipidemia, Hypertension, Palpitations, Peripheral Vascular Disease Denies:: Cancer, Diabetes Mellitus Type 1, MRSA *Have you ever received a pneumonia vaccine?: No *Have you received a flu vaccine this season?: No Other Medical History: Reports: Hoarseness, Hypothyroidism, Sinus Problems Laterality Cases: Right: Breast Biopsy, Bilateral: Other Other Surgeries: Yes: , Hysterectomy-Total Amputation: No Fractures: No - *Social History Smoking Status: Current every day smoker Tobacco Type: cigarettes # Packs/Day (cigarettes): 1 Alcohol Intake: never Alcohol Intake Frequency:: other Substance Use Type: denies use *Occupational Status:: disabled Housing: house Household Members: family *Travel in the last 8 weeks: None - Psychiatric History Pschychiatric History:: Reports:: Anxiety, Depression Family Hx:: Unable to obtain Meds Home Medications Medication Instructions Recorded Confirmed Type dilTIAZem HCl [Diltiazem 240mg 480 mg PO DAILY 03/16/20 10/22/20 History 24Hr ER Cap] ergocalciferol (vitamin D2) 1,250 50,000 unit PO WEEKLY #12 cap 06/25/20 10/22/20 Rx mcg (50,000 unit) capsule epinephrine 0.3 mg/0.3 mL 0.3 mg IM Q5-15M PRN #1 each 09/02/20 10/22/20 Rx injection, auto-injector levothyroxine 150 mcg tablet 300 mcg PO DAILY #180 tab 09/22/20 10/22/20 Rx Albuterol Sulfate [Ventolin HFA] 2 puffs IH Q4HP PRN 10/22/20 10/22/20 History Nystatin [Nystop] 1 applic TP BID 10/22/20 10/22/20 History Allergies Allergy/AdvReac Type Severity Reaction Status Date / Time tramadol [TRAMADOL] Allergy Mild Unknown Verified 10/22/20 04:31 allergy reaction gold sodium thiomalate Allergy Unknown Unknown Verified 10/22/20 04:31 allergy reaction coconut Allergy Unknown Verified 10/22/20 04:31 allergy reaction propylene glycol Allergy Unknown Verified 10/22/20 04:31 allergy reaction vancomycin AdvReac RED EVANGELINA Verified 10/22/20 04:31 [employer] Allergy Mild Unknown Uncoded 03/17/20 09:43 allergy reaction Exam Vital signs and Labs for Last 24 Hours: Temp Pulse Resp BP Pulse Ox 97.8 F 79 20 138/86 88 L 10/22/20 07:34 10/22/20 07:34 10/22/20 07:34 10/22/20 07:34 10/22/20 07:34 Laboratory Results - last 24 hr 10/22/20 00:31: Chlamy pneumoniae PCR Not detected, Adenovirus (PCR) Not detected, B. pertussis DNA (PCR) Not detected, Coronavirus OC43 (PCR) Not detected, Coronavirus HKU1 (PCR) Not detected, Coronavirus 22
[2020-10-22 11:48] LABS: ABG Base Excess 10.8 mmol/L (-2.4-2.3); ABG HCO3 37.9 mmhg (22.0-26.0); ABG Oxygen Saturation 95 % (90-100); ABG PH 7.26 mmol/L (7.35-7.45); ABG PO2 84.4 mmhg (80-100); ABG TCO2 40.6 mmhg (23-27)
[2020-10-22 11:56] LABS: Allen's Test Patient Unable; PEEP 10; Pressure Support 20; Source Left Radial; Vent Rate 22
[2020-10-22 11:57] LABS: Oxygen 50 %
[2020-10-22 11:58] LABS: ABG PCO2 86.9 mmhg (35.0-45.0)
[2020-10-22 12:31] LABS: Microscopic, Urine URINE MICROSCOPIC (MICROSCOPIC)
[2020-10-22 12:34] LABS: Appearance,Urine CLEAR (Clear); Bilirubin,Urine Negative (Negative); Blood, Urine Negative (Negative); Color,Urine YELLOW (Yellow); Glucose,Urine (UA) Negative (Negative); Ketones,Urine Negative (Negative); Leukocyte Esterase,Urine Negative (Negative); Nitrate,Urine Negative (Negative); Protein,Urine Negative (Negative); Specific Gravity, Urine 1.025 (1.005-1.030); Urobilinogen,Urine 0.2 EU/dl (0.2)
--- NOTE | 2020-10-22 12:58 | HMH.ORTHOCON ---
*Admission Date: 10/22/20 *Reason for consult:: Lower extremity infection, nail trim *History of present illness: Ms. Dias is a 50-year-old female current smoker greater than [id number] smoking history noncompliant with his inhalers as per the family presented to the hospital with worsening lower extremity swelling and pain in her respiratory status eventually progressed and became hypoxic hypercarbic with altered mentation and pulmonary was called for further management. Podiatry consult Patient sitting up in bed, she is very agitated and refusing to wear her bi-pap mask. She is a patient of ours but we have not seen her since 06/04/20. Patient is allowing us to wash her legs off with Hibiclens, examine them and trim her nails today. The patient was having similar issues with her legs then. Patient has Hyperkeratosis and Lymphedema to b/l lower legs with the Left worse than the right. Patient has not been going to see Randi for her lymphedema for a whille now and her legs are in very poor condition because of that today. Patient will benefit from [facility] services greatly. [facility] History I have reviewed the patient's past medical history: Yes Medical History: Reports:: Anxiety, Chronic Obstructive Pulmonary Disease (COPD), Depression, Diabetes Mellitus Type 2, Home Oxygen, Hyperlipidemia, Hypertension, Palpitations, Peripheral Vascular Disease Denies:: Cancer, Diabetes Mellitus Type 1, MRSA *Have you ever received a pneumonia vaccine?: No *Have you received a flu vaccine this season?: No Other Medical History: Reports: Hoarseness, Hypothyroidism, Sinus Problems Laterality Cases: Right: Breast Biopsy, Bilateral: Other Other Surgeries: Yes: , Hysterectomy-Total Amputation: No Fractures: No - *Social History Smoking Status: Current every day smoker Tobacco Type: cigarettes # Packs/Day (cigarettes): 1 Alcohol Intake: never Alcohol Intake Frequency:: other Substance Use Type: denies use *Occupational Status:: disabled Housing: house Household Members: family *Travel in the last 8 weeks: None - Psychiatric History Pschychiatric History:: Reports:: Anxiety, Depression Family Hx:: Unable to obtain Review of Systems - Constitutional Reports lack of energy, Reports weakness - Eyes Denies change in vision - ENT Denies abnormal hearing - *Cardiovascular Reports leg swelling, Denies chest pain - *Respiratory Reports shortness of breath - *Gastrointestinal Denies abdominal pain - *Musculoskeletal Reports numbness, Reports tingling (Numbness and tingling sensation to feet. ) - Integumentary/Breasts Reports nail changes, Reports redness, Reports lesions (Lymphedema with weeping to B/L legs, with hyperkeratotic crusty lesions) - *Neurologic Denies seizure-like activity - Psychiatric Reports anxiety, Reports irritability - Endocrine Denies cold intolerance, Denies excessive sweating Meds Home Medications Medication Instructions Recorded Confirmed Type dilTIAZem HCl [Diltiazem 240mg 480 mg PO DAILY 03/16/20 10/22/20 History 24Hr ER Cap] ergocalciferol (vitamin D2) 1,250 50,000 unit PO WEEKLY #12 cap 06/25/20 10/22/20 Rx mcg (50,000 unit) capsule epinephrine 0.3 mg/0.3 mL 0.3 mg IM Q5-15M PRN #1 each 09/02/20 10/22/20 Rx injection, auto-injector levothyroxine 150 mcg tablet 300 mcg PO DAILY #180 tab 09/22/20 10/22/20 Rx Albuterol Sulfate [Ventolin HFA] 2 puffs IH Q4HP PRN 10/22/20 10/22/20 History Nystatin [Nystop] 1 applic TP BID 10/22/20 10/22/20 History Allergies Allergy/AdvReac Type Severity Reaction Status Date / Time tramadol [TRAMADOL] Allergy Mild Unknown Verified 10/22/20 04:31 allergy reaction gold sodium thiomalate Allergy Unknown Unknown Verified 10/22/20 04:31 allergy reaction coconut Allergy Unknown Verified 10/22/20 04:31 allergy reaction propylene glycol Allergy Unknown Verified 10/22/20 04:31 allergy reaction vancomycin AdvReac R
--- NOTE | 2020-10-22 13:31 | CT_ITS ---
PROCEDURE: CT ANGIO CHEST CLINCIAL INDICATION: hypoxia Hypoxia, low blood pressure, respiratory failure COMPARISON: CT CHESTWO CT chest wo con from 11/23/2017 CR XR CHEST PORTABLE from 10/22/2020 TECHNIQUE: IV Contrast: 70ML Isovue 370 Axial images obtained with sagittal and coronal reformats. All CT scans at the facility use one or more dose reduction, viz: automated exposure control, ma/kV adjustment per patient size (including targeted exams where dose is matched to indication, i.e. head), or iterative reconstruction technique. FINDINGS: Beam hardening artifact from the patient's arms, contrast and motion degrades quality of the exam. Endotracheal tube is present. The tip is in good position approximately 4 cm above the anay. Consolidation is present in both lower lobes posteriorly left more extensive than right and within the lingula. No effusions. No mediastinal or hilar mass. There is cardiomegaly. 10 mm right renal calculus versus contrast within the right renal collecting system. No no large pulmonary embolus is evident. Mid distal pulmonary arteries are not well assessed. No evidence of aortic aneurysm. No acute bony findings. IMPRESSION: 1. No large pulmonary emboli apparent. 2. Bilateral lower lobe and lingular consolidation. Dictated by: Reyes Spicer MD 10/23/2020 06:06 Reyes Spicer MD in [place] 10/23/2020 06:06
--- NOTE | 2020-10-22 13:31 | CT_ITS ---
PROCEDURE: CT HEAD/BRAIN WO CON CLINICAL INDICATION: AMS Hypoxia Low blood pressure COMPARISON: CT HDWO CT HEAD W/O CONTRAST from 07/29/2016 TECHNIQUE: Axial images obtained. All CT scans at the facility use one or more dose reduction, viz: automated exposure control, ma/kV adjustment per patient size (including targeted exams where dose is matched to indication, i.e. head), or iterative reconstruction technique. FINDINGS: No midline shift or intracranial hemorrhage is evident. There is sulcal effacement in both frontal lobes anterior parietal lobes and temporal lobes anteriorly. The patient is intubated. Calcified choroid plexus and calcification of the pineal gland noted. Opacified ethmoid sinuses and partial opacification of the maxillary sinuses. Nasogastric tube also present. IMPRESSION: Sulcal effacement and loss of bruce-white matter differentiation mainly in the frontal lobes as well as anterior parietal and temporal lobe suggesting global hypoxic ischemic event Dictated by: Reyes Spicer MD 10/23/2020 09:38 Reyes Spicer MD in [place] 10/23/2020 09:38
--- NOTE | 2020-10-22 13:32 | HMH.PTWOUND ---
Rehab Inpt Wound Evaluation Rehab IP Wound Evaluation Start: 10/22/20 13:24 Freq: Status: Active Protocol: Document 10/22/20 13:29 MATHEW (Rec: 10/22/20 13:32 PWDAMION [id number]) Rehab PT Wound Assessment Patient Status Premedicated Prior to Dressing Change Yes Subjective Subjective This is the initial IP PT wound evaluation for Saige Dias. Pt is a 50 y/o female known to wound care for chronic BLE lymphedema and cellulitis. Pt had been seen in OP PT wound clinic and became very inconsistent w/ visits. Pt was admitted to [facility] thru ED for cellulitis. Pt is now intubated and sedated. Wound Left Lower Leg Wound Type cellulitis w/ serous drainage Wound Margins Description Indistinct Surrounding Tissue Appearance Dark Red,Edematous,Weeping Surrounding Tissue Temperature Warm Wound Drainage Description Serous Drainage Amount Moderate Drainage Odor Foul Odor Dressing Status Open to Air Primary Dressing Unna Boot Wound Secondary Dressing Type Unna Boot Wound Debridement Amount of Tissue None Removed Plan/Recommendation Comment Pt has no open wounds - pt being sedated and intubated for respiratory distress - NSG consulted and agreed w/ unna boot placement on LLE - NSG to follow pt and refer to PT wound care if pt's status changes or wound worsens PHYSICIAN CERTIFICATION: I certify the specified therapy services for Saige Dias are required, authorized, and reviewed every 30 days.
--- NOTE | 2020-10-22 13:34 | XR_ITS ---
PROCEDURE: XR CHEST PORTABLE CLINICAL HISTORY: intubation COMPARISON: CR CXR CHEST(2 VIEWS-NOT PORTABLE) from 07/29/[address] chest wo con from 11/23/2017 CR XR CHEST 2V from 03/16/2020 CR XR CHEST PORTABLE from 10/22/2020 FINDINGS: Endotracheal tube tip is in good position 6 cm above the anya. Nasogastric tube tip is not visible on the image but is below the GE junction. There is cardiomegaly with mild pulmonary venous congestion suggesting mild CHF with left-sided effusion. Previously noted density in the right upper lobe is no longer apparent and was likely due to artifact. There is some increased density now present in the left lower lobe. No acute bony abnormalities. IMPRESSION: The endotracheal tube and orogastric tube are in good position. Mild CHF with left lower lobe infiltrate or atelectasis with small effusion. Dictated by: Reyes Spicer MD 10/22/2020 14:09 Reyes Spicer MD in [place] 10/22/2020 14:09
--- NOTE | 2020-10-22 13:41 | HMH.PHACONS ---
- Pharmacy Consult Date: 10/22/20 Time: 13:41 Referring provider: DR. MORGAN Reason for Consult:: VANCOMYCIN DOSING Allergies and ADEs:: Allergies Allergy/AdvReac Type Severity Reaction Status Date / Time tramadol [TRAMADOL] Allergy Mild Unknown Verified 10/22/20 04:31 allergy reaction gold sodium thiomalate Allergy Unknown Unknown Verified 10/22/20 04:31 allergy reaction coconut Allergy Unknown Verified 10/22/20 04:31 allergy reaction propylene glycol Allergy Unknown Verified 10/22/20 04:31 allergy reaction vancomycin AdvReac RED EVANGELINA Verified 10/22/20 04:31 SYNDROME PRESERVATIVES Allergy Mild Unknown Uncoded 03/17/20 09:43 allergy reaction Home Medications:: Home Medications Medication Instructions Recorded Confirmed Type dilTIAZem HCl [Diltiazem 240mg 480 mg PO DAILY 03/16/20 10/22/20 History 24Hr ER Cap] ergocalciferol (vitamin D2) 1,250 50,000 unit PO WEEKLY #12 cap 06/25/20 10/22/20 Rx mcg (50,000 unit) capsule epinephrine 0.3 mg/0.3 mL 0.3 mg IM Q5-15M PRN #1 each 09/02/20 10/22/20 Rx injection, auto-injector levothyroxine 150 mcg tablet 300 mcg PO DAILY #180 tab 09/22/20 10/22/20 Rx Albuterol Sulfate [Ventolin HFA] 2 puffs IH Q4HP PRN 10/22/20 10/22/20 History Nystatin [Nystop] 1 applic TP BID 10/22/20 10/22/20 History Height: 1.8 m Weight: 138 kg Laboratory Results:: Laboratory Results - last 24 hr 10/22/20 00:31: Chlamy pneumoniae PCR Not detected, Adenovirus (PCR) Not detected, B. pertussis DNA (PCR) Not detected, Coronavirus OC43 (PCR) Not detected, Coronavirus HKU1 (PCR) Not detected, Coronavirus 229E (PCR) Not detected, SARS-CoV-2 (PCR) Not detected, Coronavirus NL63 (PCR) Not detected, Human Metapneumovir PCR Not detected, Influenza A (H1) PCR Not detected, Influ A (H1N1/09) PCR Not detected, Influenza A (H3) PCR Not detected, Influenza Type A (PCR) Not detected, Influenza Type B (PCR) Not detected, M. pneumoniae (PCR) Not detected, Parainfluenza 1 (PCR) Not detected, Parainfluenza 2 (PCR) Not detected, Parainfluenza 3 (PCR) Not detected, Parainfluenza 4 (PCR) Not detected, RSV (PCR) Not detected, Entero/Rhino (PCR) Not detected 10/22/20 00:45: WBC 7.3, RBC 5.36, Hgb 16.5 H, Hct 52.2 H, MCV 97.4, MCH 30.7, MCHC 31.6 L, RDW 15.5, Plt Count 206, MPV 7.8, Neut % (Auto) 69.3, Lymph % (Auto) 22.2, [place] % (Auto) 5.1, Eos % (Auto) 2.3, Baso % (Auto) 1.0, Neut # (Auto) 5.1, Lymph # (Auto) 1.6, [place] # (Auto) 0.4, Eos # (Auto) 0.2, Baso # (Auto) 0.1, ESR 26 10/22/20 00:45: Sodium 142, Potassium 4.1, Chloride 95 L, Carbon Dioxide 35 H, Anion Gap 16.1 H, BUN 14, Creatinine 0.80, Estimated Creat Clear 92, Estimated GFR 75, Est GFR ( Amer) 91, Glucose 112 H, Calcium 9.4, Total Bilirubin 0.4, AST 46 H, ALT 27, Alkaline Phosphatase 80, C-Reactive Protein 16.2 H, Total Protein 8.0, Albumin 4.0, Globulin 4.0 H, Albumin/Globulin Ratio 1.0 L, Procalcitonin 0.072 10/22/20 00:45: Lactate 1.0 10/22/20 00:45: TSH 23.20 H, Thyroxine (T4) 6.5 10/22/20 07:46: Specimen Source Left radial, O2 % 1.5 lpm nc, ABG pH 7.21 L*, ABG pCO2 89.5 H, ABG pO2 47.2 L, ABG HCO3 35.1 H, ABG Total CO2 37.8 H, ABG O2 Saturation 77 L*, ABG Base Excess 7.2 H, Reyes Test Acceptable 10/22/20 08:04: WBC 7.1, RBC 5.29, Hgb 16.2, Hct 52.7 H, MCV 99.6 H, MCH 30.7, MCHC 30.8 L, RDW 15.3, Plt Count 192, MPV 7.8, Neut % (Auto) 72.3, Lymph % (Auto) 19.2, [place] % (Auto) 5.1, Eos % (Auto) 2.2, Baso % (Auto) 1.2, Neut # (Auto) 5.1, Lymph # (Auto) 1.4, [place] # (Auto) 0.4, Eos # (Auto) 0.2, Baso # (Auto) 0.1 10/22/20 08:04: Sodium 142, Potassium 3.9, Chloride 99, Carbon Dioxide 35 H, Anion Gap 11.9, BUN 13, Creatinine 0.70, Estimated Creat Clear 102, Estimated GFR 88, Est GFR ( Amer) 106, Glucose 121 H, Calcium 8.9 10/22/20 09:08: Specimen Source Left radial, O2 % 50, ABG pH 7.26 L, ABG pCO2 86.9 H, ABG pO2 84.4, ABG HCO3 37.9 H, ABG Total CO2 40.6 H, ABG O2 Saturation 95, ABG Base Excess 10.8 H, Reyes Pimentel
[2020-10-22 13:55] LABS: Squamous Epithelial Cell,Urine Occasional #/hpf (0-5)
[2020-10-22 14:30] LABS: Free T4 (Free Thyroxine) 0.88 ng/dl (0.78-2.19)
[2020-10-22 14:40] LABS: ABG Base Excess 14.7 mmol/L (-2.4-2.3); ABG HCO3 39.2 mmhg (22.0-26.0); ABG Oxygen Saturation 95 % (90-100); ABG PH 7.42 mmol/L (7.35-7.45); ABG PO2 68.7 mmhg (80-100); ABG TCO2 41.1 mmhg (23-27)
[2020-10-22 14:42] LABS: Ammonia < 9 umol/L (9-30)
[2020-10-22 17:13] LABS: Allen's Test Patient Unable; Oxygen 80 %; PEEP 6; Source Left Radial; Tidal Volume 450; Vent Rate 22
[2020-10-22 17:14] LABS: ABG PCO2 62.1 mmhg (35.0-45.0)
[2020-10-22 18:41] LABS: Lactate Arterial 1.9 mmol/L (0.4-2.0)
[2020-10-22 18:42] LABS: ABG Base Excess 10.4 mmol/L (-2.4-2.3); ABG HCO3 33.3 mmhg (22.0-26.0); ABG Oxygen Saturation 96 % (90-100); ABG PCO2 42.2 mmhg (35.0-45.0); ABG PH 7.52 mmol/L (7.35-7.45); ABG PO2 65.7 mmhg (80-100); ABG TCO2 34.6 mmhg (23-27)
[2020-10-22 18:43] LABS: Allen's Test Acceptable; Oxygen 80 %; PEEP 6; Source Left Radial; Tidal Volume 450; Vent Rate 22
--- NOTE | 2020-10-22 20:26 | PC.NURSE ---
1313 - Propfol pushed by Tani Bejarano CRNA 1315 - Rocuronium pushed by Tani Bejarano CRNA Pt intubated @ 1316 by Tani Bejarano RN. #7.0 ETT placed 23 cm @ lip. Chest rise visualized. Bilat breath sounds auscultated. NG placed in (R) nare @ 60 cm. Gastric content aspirated. State CXR ordered. [facility] Assist control 80% FIO2, 450 TV, 22, 6 PEEP. Propofol and Fentanyl started per Dr. Smalls verbal orders. Titrated to attain RASS of -1. (see MAR) Propofol @ time of shift change @ 40 mcg/kg/min Fentanyl @ time of shift change 45 mcg/hr 1550 - Pt transported by bed w/ cont monitoring and use of AMBU bag. RT Leonel Zuniga assisting w/ transport to CT. 1700 - Dr. Smalls called to check on pt, reviewed results of prev ABG. States to increase PEEP to 10, RT made aware. Pt currently resting in bed. Daughter remains @ bedside. Report passed to Nory Woodruff RN.
--- NOTE | 2020-10-22 20:55 | PC.NURSE ---
late entry 0700 shift summary patient resistant to bed or wearing o2, patient unable to stay awake for long periods of time. daughter at bedside stated she has been like this for about 3 months, all she does is sleep,then she'll wake up jerking. explained to patient this breathing pattern is not normal, patient resistant to any interventions regarding breathing status. i 'm always like this,i 'm fine. dr. cuellar paged no return call to nightshift rn
[2020-10-22 21:13] LABS: POC Glucose,Bedside 133 (70-110)
[2020-10-23] VITALS (31 sets, daily range): BP systolic 117–188; BP diastolic 69–120; PULSE 66–114; RESP 15–36; TEMP 36.6–37.1; O2SAT 90–97; BMI 43.9; BMI 43.8
--- NOTE | 2020-10-23 06:21 | XR_ITS ---
PROCEDURE: XR CHEST PORTABLE CLINICAL HISTORY: resp distress intebated COMPARISON: CR XR CHEST 2V from 03/16/[address] ANGIO CHEST from 10/22/2020 CR XR CHEST PORTABLE from 10/22/2020 CR XR CHEST PORTABLE from 10/22/2020 FINDINGS: Endotracheal tube is in good position point cm above the anya. Normal heart size. Lung north are under penetrated. Bilateral pneumonia and CHF has shown improvement. IMPRESSION: Endotracheal tube in good position. Improvement in bilateral. Dictated by: Reyes Spicer MD 10/23/2020 07:03 Reyes Spicer MD in OV 10/23/2020 07:03
[2020-10-23 06:51] LABS: ABG Base Excess 9.6 mmol/L (-2.4-2.3); ABG HCO3 31.2 mmhg (22.0-26.0); ABG Oxygen Saturation 96 % (90-100); ABG PCO2 32.6 mmhg (35.0-45.0); ABG PO2 71.7 mmhg (80-100); ABG TCO2 32.2 mmhg (23-27); Oxygen 80 %; Tidal Volume 450; Vent Rate 22
[2020-10-23 06:52] LABS: Allen's Test acceptable; PEEP 10
[2020-10-23 08:14] LABS: Chloride 100 mmol/L (98-107)
[2020-10-23 08:15] LABS: Potassium 3.8 mmoL/L (3.5-5.1); Sodium 136 mmol/L (136-145)
[2020-10-23 08:17] LABS: Alanine Aminotransferase 20 U/L (12-78); Aspartate Amino Transferase 27 U/L (14-36); Blood Urea Nitrogen 15 mg/dl (7-17); Creatinine Clearance Estimated 119 mL/min (50-200); Estimated Glomerular Filt Rate 105 ml/min (>60); GFR (African American) 127 ML/MIN (>60)
[2020-10-23 08:18] LABS: Albumin Level 3.3 g/dl (3.5-5.0); Albumin/Globulin Ratio 0.9 (1.1-1.8); Alkaline Phosphatase 72 U/L (38-126); Anion Gap 7.8 mEq/L (5-15); Bilirubin,Total 0.6 mg/dl (0.2-1.3); Calcium 8.6 mg/dl (8.4-10.2); Carbon Dioxide 32 mmol/L (22.0-30.0); Globulin 3.8 g/dL (1.3-3.2); Glucose 168 mg/dl (74-100); Total Protein,Serum 7.1 g/dl (6.3-8.2)
[2020-10-23 08:29] LABS: Basophils % 0.2 % (0.1-2.0); Eosinophils % 0.1 % (0.1-12.0); Hematocrit 48.7 % (37.0-47.0); Hemoglobin 15.9 g/dL (12.2-16.2); Lymphocytes % 11.6 % (10-50); Mean Corpuscular HGB Conc 32.7 g/dL (31.8-35.4); Mean Corpuscular Hemoglobin 31.3 pg (27.0-31.2); Mean Corpuscular Volume 95.7 fl (81-99); Mean Platelet Volume 7.9 fl (7.4-10.4); Monocytes # 0.4 K/mm3 (0.1-1.0); Monocytes % 4.1 % (1.7-9.3); Neutrophils # 7.1 K/mm3 (1.8-7.8); Neutrophils % 84.1 % (37.0-80.0); Platelet Count 220 K/mm3 (142-424); Red Blood Count 5.08 M/mm3 (4.20-5.40); Red Cell Distribution Width 15.9 % (11.5-17.5); White Blood Count 8.4 K/mm3 (4.8-10.8)
--- NOTE | 2020-10-23 09:19 | HMH.ACPN2 ---
Internal Medicine - PN: Subj *Date: 10/23/20 *Time: 09:30 Interval history: pt laying in bed, resp per mechanical vent. pt sedated, family at bedside Exam Vital signs and Labs for Last 24 Hours: Temp Pulse Resp BP Pulse Ox 98.8 F 85 23 157/100 H 96 10/23/20 08:00 10/23/20 08:00 10/23/20 08:00 10/23/20 08:00 10/23/20 08:00 Laboratory Results - last 24 hr 10/22/20 08:04: Free T4 0.88 10/22/20 09:08: Specimen Source Left radial, O2 % 50, ABG pH 7.26 L, ABG pCO2 86.9 H, ABG pO2 84.4, ABG HCO3 37.9 H, ABG Total CO2 40.6 H, ABG O2 Saturation 95, ABG Base Excess 10.8 H, Reyes Test Patient unable, Vent Rate 22, PEEP 10 10/22/20 11:35: Urine Color Yellow, Urine Appearance Clear, Urine pH 6.0, Ur Specific [place] 1.025, Urine Protein Negative, Urine Glucose (UA) Negative, Urine Ketones Negative, Urine Blood Negative, Urine Nitrate Negative, Urine Bilirubin Negative, Urine Urobilinogen 0.2, Ur Leukocyte Esterase Negative, Urine RBC None, Urine WBC 3-5, Ur Squamous Epith Cells Occasional, Urine Bacteria None 10/22/20 14:15: Ammonia < 9 L 10/22/20 14:38: Specimen Source Left radial, O2 % 80, ABG pH 7.42, ABG pCO2 62.1 H, ABG pO2 68.7 L, ABG HCO3 39.2 H, ABG Total CO2 41.1 H, ABG O2 Saturation 95, ABG Base Excess 14.7 H, Reyes Test Patient unable, Vent Rate 22, Tidal Volume 450, PEEP 6 10/22/20 17:10: Specimen Source Left radial, O2 % 80, ABG pH 7.52 H, ABG pCO2 42.2, ABG pO2 65.7 L, ABG HCO3 33.3 H, ABG Total CO2 34.6 H, ABG O2 Saturation 96, ABG Base Excess 10.4 H, Reyes Test Acceptable, Vent Rate 22, Tidal Volume 450, PEEP 6 10/22/20 17:10: ABG Lactate 1.9 10/22/20 21:06: POC Glucose 133 H 10/23/20 06:21: Specimen Source l radial, O2 % 80, ABG pH 7.60 H*, ABG pCO2 32.6 L, ABG pO2 71.7 L, ABG HCO3 31.2 H, ABG Total CO2 32.2 H, ABG O2 Saturation 96, ABG Base Excess 9.6 H, Reyes Test acceptable, Vent Rate 22, Tidal Volume 450, PEEP 10 10/23/20 08:00: WBC 8.4, RBC 5.08, Hgb 15.9, Hct 48.7 H, MCV 95.7, MCH 31.3 H, MCHC 32.7, RDW 15.9, Plt Count 220, MPV 7.9, Neut % (Auto) 84.1 H, Lymph % (Auto) 11.6, [place] % (Auto) 4.1, Eos % (Auto) 0.1, Baso % (Auto) 0.2, Neut # (Auto) 7.1, Lymph # (Auto) 1.0, [place] # (Auto) 0.4, Eos # (Auto) 0.0, Baso # (Auto) 0.0 10/23/20 08:00: Sodium 136, Potassium 3.8, Chloride 100, Carbon Dioxide 32 H, Anion Gap 7.8, BUN 15, Creatinine 0.60, Estimated Creat Clear 119, Estimated GFR 105, Est GFR ( Amer) 127, Glucose 168 H D, Calcium 8.6, Total Bilirubin 0.6, AST 27 D, ALT 20 D, Alkaline Phosphatase 72, Total Protein 7.1, Albumin 3.3 L D, Globulin 3.8 H, Albumin/Globulin Ratio 0.9 L I & O for Last 24 hours: Intake & Output 10/20/20 10/21/20 10/22/20 10/23/20 11:59 11:59 11:59 11:59 Intake Total 1500 / 1500 2046.417 / 2046.417 Output Total 3280 / 3280 Balance 1500 / 1500 -1233.583 / -1233.583 Weight 304 lb 3.806 oz 313 lb 8 oz Microbiology Reports for the Last 24 Hours: Microbiology 10/22/20 12:30 Sputum - Endotracheal Tube Aspirate Gram Stain - Final - Constitutional no acute distress, morbidly obese - *Routine HEENT Exam Head: Present: normocephalic ENT: Present: mucous membranes moist - *Routine Neck Exam Present: supple. Absent: lymphadenopathy - *Routine Respiratory Exam Present: decreased breath sounds, crackles - *Routine Cardiovascular Exam Present: RRR - *Routine Abdominal Exam Present: soft, normoactive bowel sounds, obese. Absent: tenderness - *Routine Extremities Exam Absent: cyanosis, clubbing, edema Comments: left lower ext draining, yeast/fungal from feet to knee - *Routine Skin Exam Present: warm, wounds. Absent: rash Comments: rt lower leg improved redness left great toe blister to side redness to lt lower leg yeast/fungal wound from feet to knee(slight improvement) - *Routine Neurological Exam sedated - Routine Psychiatric Exam Present: unable to assess Assessment and Plan (1) Cellulitis of leg, left Status: Acute Category:
--- NOTE | 2020-10-23 09:55 | PC.NURSE ---
Dr. Smalls rounding and ordered the following: SBT, decrease Propofol gtt to 20mcg/kg/min, decrease Fentanyl gtt to 20mcg/hr, and to extubate in 1-2hrs pending SBT. Bilateral hand mittens placed. Pt is following commands, mouthing words, and attempting to pull ET.
--- NOTE | 2020-10-23 10:05 | HMH.PNCARD ---
Subjective Date: 10/23/20 Time: 10:05 Principal diagnosis: Cellulitis of left leg, Resp Failure Interval history: 50-year-old obese white female in bed on mechanical ventilation. Propofol continues but on the low-dose. Patient is awake and alert. She continues to complain of difficulty breathing and attempts to reach both the NG tube to pull it out. Heart rate is around 100 bpm on telemetry. Blood pressure noted to be elevated earlier this morning but patient is agitated. Echocardiogram results showed normal ejection fraction with no significant valvular heart disease. Exam Vital signs and Labs for Last 24 Hours: Temp Pulse Resp BP Pulse Ox 98.8 F 114 H 20 145/80 H 97 10/23/20 08:00 10/23/20 10:03 10/23/20 10:03 10/23/20 09:00 10/23/20 10:03 Laboratory Results - last 24 hr 10/22/20 08:04: Free T4 0.88 10/22/20 09:08: Specimen Source Left radial, O2 % 50, ABG pH 7.26 L, ABG pCO2 86.9 H, ABG pO2 84.4, ABG HCO3 37.9 H, ABG Total CO2 40.6 H, ABG O2 Saturation 95, ABG Base Excess 10.8 H, Reyes Test Patient unable, Vent Rate 22, PEEP 10 10/22/20 11:35: Urine Color Yellow, Urine Appearance Clear, Urine pH 6.0, Ur Specific [place] 1.025, Urine Protein Negative, Urine Glucose (UA) Negative, Urine Ketones Negative, Urine Blood Negative, Urine Nitrate Negative, Urine Bilirubin Negative, Urine Urobilinogen 0.2, Ur Leukocyte Esterase Negative, Urine RBC None, Urine WBC 3-5, Ur Squamous Epith Cells Occasional, Urine Bacteria None 10/22/20 14:15: Ammonia < 9 L 10/22/20 14:38: Specimen Source Left radial, O2 % 80, ABG pH 7.42, ABG pCO2 62.1 H, ABG pO2 68.7 L, ABG HCO3 39.2 H, ABG Total CO2 41.1 H, ABG O2 Saturation 95, ABG Base Excess 14.7 H, Reyes Test Patient unable, Vent Rate 22, Tidal Volume 450, PEEP 6 10/22/20 17:10: Specimen Source Left radial, O2 % 80, ABG pH 7.52 H, ABG pCO2 42.2, ABG pO2 65.7 L, ABG HCO3 33.3 H, ABG Total CO2 34.6 H, ABG O2 Saturation 96, ABG Base Excess 10.4 H, Reyes Test Acceptable, Vent Rate 22, Tidal Volume 450, PEEP 6 10/22/20 17:10: ABG Lactate 1.9 10/22/20 21:06: POC Glucose 133 H 10/23/20 06:21: Specimen Source l radial, O2 % 80, ABG pH 7.60 H*, ABG pCO2 32.6 L, ABG pO2 71.7 L, ABG HCO3 31.2 H, ABG Total CO2 32.2 H, ABG O2 Saturation 96, ABG Base Excess 9.6 H, Reyes Test acceptable, Vent Rate 22, Tidal Volume 450, PEEP 10 10/23/20 08:00: WBC 8.4, RBC 5.08, Hgb 15.9, Hct 48.7 H, MCV 95.7, MCH 31.3 H, MCHC 32.7, RDW 15.9, Plt Count 220, MPV 7.9, Neut % (Auto) 84.1 H, Lymph % (Auto) 11.6, [place] % (Auto) 4.1, Eos % (Auto) 0.1, Baso % (Auto) 0.2, Neut # (Auto) 7.1, Lymph # (Auto) 1.0, [place] # (Auto) 0.4, Eos # (Auto) 0.0, Baso # (Auto) 0.0 10/23/20 08:00: Sodium 136, Potassium 3.8, Chloride 100, Carbon Dioxide 32 H, Anion Gap 7.8, BUN 15, Creatinine 0.60, Estimated Creat Clear 119, Estimated GFR 105, Est GFR ( Amer) 127, Glucose 168 H D, Calcium 8.6, Total Bilirubin 0.6, AST 27 D, ALT 20 D, Alkaline Phosphatase 72, Total Protein 7.1, Albumin 3.3 L D, Globulin 3.8 H, Albumin/Globulin Ratio 0.9 L I & O for Last 24 hours: Intake & Output 10/20/20 10/21/20 10/22/20 10/23/20 11:59 11:59 11:59 11:59 Intake Total 1500 / 1500 2046.417 / 2046.417 Output Total 4180 / 4180 Balance 1500 / 1500 -2133.583 / -2133.583 Weight 304 lb 3.806 oz 313 lb 8 oz Microbiology Reports for the Last 24 Hours: Microbiology 10/22/20 12:30 Sputum - Endotracheal Tube Aspirate Gram Stain - Final - *Routine Respiratory Exam Present: patient mechanically ventilated, wheezes - *Routine Cardiovascular Exam Present: RRR, tachycardia - *Routine Extremities Exam Present: edema. Absent: cyanosis, clubbing Comments: Bilateral lower extremity edema/venous stasis changes with peau d'orange changes to the skin of the left lower extremity. Progress Note: A&P (1) Cellulitis of leg, left Status: Acute (2) Venous stasis Status: Acute (3) Acute and chronic respiratory failure with hypoxia Status: Acute (
[2020-10-23 10:58] LABS: ABG Base Excess 12.7 mmol/L (-2.4-2.3); ABG HCO3 36.5 mmhg (22.0-26.0); ABG Oxygen Saturation 97 % (90-100); ABG PH 7.46 mmol/L (7.35-7.45); ABG TCO2 38.2 mmhg (23-27)
[2020-10-23 11:11] LABS: Oxygen 60 %; PEEP 10; Pressure Support 8
[2020-10-23 11:12] LABS: ABG PCO2 52.8 mmhg (35.0-45.0); Allen's Test Acceptable; Source Left Radial
--- NOTE | 2020-10-23 12:25 | PC.NURSE ---
Pt was extubated and placed on 5L NC, sats 91%.
--- NOTE | 2020-10-23 12:34 | PC.NURSE ---
pt extubated and placed on 5L NC. O2 sat 91%. Pt is alert, oriented and talking.
--- NOTE | 2020-10-23 13:13 | HMH.PULMPN ---
Internal Medicine - PN: Subj *Date: 10/23/20 *Time: 13:13 Interval history: No acute respiratory events post intubation. Patient continued to improve and successfully passed her SBT this morning Exam - Constitutional Constitutional:: Present: no acute distress, comfortable - HENMT Exam HENMT: Present: normocephalic - Eye Exam Eyes:: Present: eyelids normal - Neck Exam Neck:: Present: normal visual inspection - Respiratory Exam Respiratory:: Present: crackles - Cardiovascular Exam Cardiac:: Present: S1, S2 - GI Exam GI:: Present: soft, obese - Skin Exam Skin: Present: warm, rash, erythema - Neurological Exam Neurological: Present: alert, awake - Extremities Exam Extremities: Present: no cyanosis, no clubbing, edema Assessment and Plan (1) Cellulitis of leg, left Status: Acute Category: Medical Code(s): L03.116 - Cellulitis of left lower limb (2) Venous stasis Status: Acute Category: Medical Code(s): I87.8 - Other specified disorders of veins (3) Acute and chronic respiratory failure with hypoxia Status: Acute Category: Medical Code(s): J96.21 - Acute and chronic respiratory failure with hypoxia (4) Venous insufficiency Status: Acute Category: Medical Code(s): I87.2 - Venous insufficiency (chronic) (peripheral) (5) Tobacco abuse Status: Acute Category: Medical Code(s): Z72.0 - Tobacco use (6) Hypothyroidism Status: Chronic Qualifiers: Hypothyroidism type: acquired Qualified Code(s): E03.9 - Hypothyroidism, unspecified Category: Medical Code(s): E03.9 - Hypothyroidism, unspecified (7) COPD with acute exacerbation Status: Acute Category: Medical Code(s): J44.1 - Chronic obstructive pulmonary disease with (acute) exacerbation (8) Diastolic dysfunction Status: Chronic Category: Medical Code(s): I51.9 - Heart disease, unspecified (9) Discoloration of skin of multiple sites of lower extremity Status: Chronic Category: Medical Code(s): L81.9 - Disorder of pigmentation, unspecified (10) HTN (hypertension) Status: Chronic Qualifiers: Hypertension type: essential hypertension Qualified Code(s): I10 - Essential (primary) hypertension Category: Medical Code(s): I10 - Essential (primary) hypertension (11) Swelling of left lower extremity Status: Chronic Category: Medical Code(s): M79.89 - Other specified soft tissue disorders (12) SOB (shortness of breath) Status: Acute Category: Medical Code(s): R06.02 - Shortness of breath (13) Lymphedema Start date: 10/22/20 Status: Acute Category: Medical Code(s): I89.0 - Lymphedema, not elsewhere classified (14) Hyperkeratosis Start date: 10/22/20 Status: Acute Category: Medical Code(s): L85.9 - Epidermal thickening, unspecified (15) Onychodystrophy Start date: 10/22/20 Status: Acute Category: Medical Code(s): L60.3 - Nail dystrophy (16) Onychomycosis Start date: 10/22/20 Status: Acute Category: Medical Code(s): B35.1 - Tinea unguium (17) Diastolic congestive heart failure Status: Acute Category: Medical Code(s): I50.30 - Unspecified diastolic (congestive) heart failure - Assessment and plan all Dx Assessment and Plan for all problems:: #Acute hypoxic hypercarbic respiratory failure: #COPD exacerbation: 50-year-old female with history of diabetes, hypothyroidism on levothyroxine with persistently elevated TSH but normal free T4 in 2017, left lower extremity cellulitis presented to the ED with worsening left lower extremity swelling and erythema and respiratory status gradually progressed to hypoxic hypercarbic respiratory failure and pulmonary was called for further management. On further questioning patient's family, it was told that patient has been lethargic for the last week with worsening confusion before presenting to the ED. Patient respiratory gradually worsened needing patient on mechanical ventilation
--- NOTE | 2020-10-23 18:35 | PC.NURSE ---
paged Dr. Lanier @ [phone] regarding BP 188/[address] Lanier ordered to restart DM diet, give Diltiazem 240mg ER cap NOW, and to restart Diltiazem 240mg ER daily. Orders faxed to [facility] pharmacy.
[2020-10-23 23:07] LABS: Vancomycin,Trough 24.6 ug/mL (5.0-10.0)
[2020-10-24] VITALS (22 sets, daily range): BP systolic 118–165; BP diastolic 68–109; PULSE 70–100; RESP 16–20; TEMP 36.6–36.9; O2SAT 86–97
--- NOTE | 2020-10-24 01:16 | PC.NURSE ---
She became really tearful when asked if she was going to wear the bipap at night. She stated she was scared. Attempted to educate her on bipap but reinforcement needed. She takes her oxygen off at times. Her daughter is at the bedside. She continues in contact precautions.
[2020-10-24 05:13] LABS: Basophils % 0.2 % (0.1-2.0); Eosinophils % 0.1 % (0.1-12.0); Hematocrit 49.6 % (37.0-47.0); Hemoglobin 15.6 g/dL (12.2-16.2); Lymphocytes # 0.7 K/mm3 (0.7-4.5); Lymphocytes % 5.6 % (10-50); Mean Corpuscular HGB Conc 31.4 g/dL (31.8-35.4); Mean Corpuscular Hemoglobin 30.4 pg (27.0-31.2); Mean Corpuscular Volume 96.8 fl (81-99); Mean Platelet Volume 7.7 fl (7.4-10.4); Monocytes # 0.5 K/mm3 (0.1-1.0); Monocytes % 4.3 % (1.7-9.3); Neutrophils # 10.7 K/mm3 (1.8-7.8); Neutrophils % 89.7 % (37.0-80.0); Platelet Count 195 K/mm3 (142-424); Red Blood Count 5.12 M/mm3 (4.20-5.40); Red Cell Distribution Width 15.8 % (11.5-17.5); White Blood Count 11.9 K/mm3 (4.8-10.8)
[2020-10-24 05:16] LABS: MANUAL DIFFERENTIAL MANUAL DIFFERENTIAL (MANUAL DIFF)
[2020-10-24 05:27] LABS: Anion Gap 8.6 mEq/L (5-15); Blood Urea Nitrogen 23 mg/dl (7-17); Calcium 8.6 mg/dl (8.4-10.2); Carbon Dioxide 35 mmol/L (22.0-30.0); Chloride 98 mmol/L (98-107); Creatinine Clearance Estimated 102 mL/min (50-200); Estimated Glomerular Filt Rate 88 ml/min (>60); GFR (African American) 106 ML/MIN (>60); Glucose 208 mg/dl (74-100); Potassium 3.6 mmoL/L (3.5-5.1); Sodium 138 mmol/L (136-145)
--- NOTE | 2020-10-24 05:33 | PC.NURSE ---
She has been awake all night.
[2020-10-24 06:05] LABS: Lymphocytes % 6 % (10-50); Monocytes % 5 % (2-9); Neutrophils % 89 % (42-76); Platelet Estimate Normal; RBC Morphology Normal; Total Cells Counted 100
--- NOTE | 2020-10-24 11:01 | HMH.PHACONS ---
- Pharmacy Consult Date: 10/24/20 Time: 11:01 Referring provider: DR. MORGAN Reason for Consult:: VANCOMYCIN TROUGH LEVEL AND INTERVAL CHANGE Allergies and ADEs:: Allergies Allergy/AdvReac Type Severity Reaction Status Date / Time tramadol [TRAMADOL] Allergy Mild Unknown Verified 10/22/20 04:31 allergy reaction gold sodium thiomalate Allergy Unknown Unknown Verified 10/22/20 04:31 allergy reaction coconut Allergy Unknown Verified 10/22/20 04:31 allergy reaction propylene glycol Allergy Unknown Verified 10/22/20 04:31 allergy reaction vancomycin AdvReac RED EVANGELINA Verified 10/22/20 04:31 SYNDROME Home Medications:: Home Medications Medication Instructions Recorded Confirmed Type dilTIAZem HCl [Diltiazem 240mg 480 mg PO DAILY 03/16/20 10/22/20 History 24Hr ER Cap] ergocalciferol (vitamin D2) 1,250 50,000 unit PO WEEKLY #12 cap 06/25/20 10/22/20 Rx mcg (50,000 unit) capsule epinephrine 0.3 mg/0.3 mL 0.3 mg IM Q5-15M PRN #1 each 09/02/20 10/22/20 Rx injection, auto-injector levothyroxine 150 mcg tablet 300 mcg PO DAILY #180 tab 09/22/20 10/22/20 Rx Albuterol Sulfate [Ventolin HFA] 2 puffs IH Q4HP PRN 10/22/20 10/22/20 History Nystatin [Nystop] 1 applic TP BID 10/22/20 10/22/20 History Height: 1.8 m Weight: 142 kg Laboratory Results:: Laboratory Results - last 24 hr 10/23/20 22:15: Vancomycin Trough 24.6 H 10/23/20 : Specimen Source Left radial, O2 % 60, ABG pH 7.46 H, ABG pCO2 52.8 H, ABG pO2 91.0, ABG HCO3 36.5 H, ABG Total CO2 38.2 H, ABG O2 Saturation 97, ABG Base Excess 12.7 H, Reyes Test Acceptable, PEEP 10 10/24/20 04:40: WBC 11.9 H D, RBC 5.12, Hgb 15.6, Hct 49.6 H, MCV 96.8, MCH 30.4, MCHC 31.4 L, RDW 15.8, Plt Count 195, MPV 7.7, Neut % (Auto) 89.7 H, Lymph % (Auto) 5.6 L, [place] % (Auto) 4.3, Eos % (Auto) 0.1, Baso % (Auto) 0.2, Neut # (Auto) 10.7 H, Lymph # (Auto) 0.7, [place] # (Auto) 0.5, Eos # (Auto) 0.0, Baso # (Auto) 0.0, Total Counted 100, Neutrophils % (Manual) 89 H, Lymphocytes % (Manual) 6 L, Monocytes % (Manual) 5, Platelet Estimate Normal, RBC Morphology Normal 10/24/20 04:40: Sodium 138, Potassium 3.6, Chloride 98, Carbon Dioxide 35 H, Anion Gap 8.6, BUN 23 H D, Creatinine 0.70, Estimated Creat Clear 102, Estimated GFR 88, Est GFR ( Amer) 106, Glucose 208 H D, Calcium 8.6 Medical History: Reports:: Anxiety, Chronic Obstructive Pulmonary Disease (COPD), Depression, Diabetes Mellitus Type 2, Home Oxygen, Hyperlipidemia, Hypertension, Palpitations, Peripheral Vascular Disease Denies:: Cancer, Diabetes Mellitus Type 1, MRSA Assessment and Plan (1) Cellulitis of leg, left Status: Acute Category: Medical Code(s): L03.116 - Cellulitis of left lower limb (2) Venous stasis Status: Acute Category: Medical Code(s): I87.8 - Other specified disorders of veins (3) Acute and chronic respiratory failure with hypoxia Status: Acute Category: Medical Code(s): J96.21 - Acute and chronic respiratory failure with hypoxia (4) Venous insufficiency Status: Acute Category: Medical Code(s): I87.2 - Venous insufficiency (chronic) (peripheral) (5) Tobacco abuse Status: Acute Category: Medical Code(s): Z72.0 - Tobacco use (6) Hypothyroidism Status: Chronic Qualifiers: Hypothyroidism type: acquired Qualified Code(s): E03.9 - Hypothyroidism, unspecified Category: Medical Code(s): E03.9 - Hypothyroidism, unspecified (7) COPD with acute exacerbation Status: Acute Category: Medical Code(s): J44.1 - Chronic obstructive pulmonary disease with (acute) exacerbation (8) Diastolic dysfunction Status: Chronic Category: Medical Code(s): I51.9 - Heart disease, unspecified (9) Discoloration of skin of multiple sites of lower extremity Status: Chronic Category: Medical Code(s): L81.9 - Disorder of pigmentation, unspecified (10) HTN (hypertension) Status: Chronic Qualifiers: Hypertension type:
--- NOTE | 2020-10-24 14:02 | HMH.ACPN2 ---
Internal Medicine - PN: Subj *Date: 10/24/20 *Time: 14:02 Interval history: Did not sleep well last night. There is some anxiety. Family has been at the bedside. She is awake, lucid. She has some questions and concerns using BiPAP and trilogy. Exam Vital signs and Labs for Last 24 Hours: Temp Pulse Resp BP Pulse Ox 98.1 F 82 20 123/69 91 L 10/24/20 11:27 10/24/20 11:27 10/24/20 11:27 10/24/20 11:27 10/24/20 11:27 Laboratory Results - last 24 hr 10/22/20 08:04: Cortisol 13.2 10/23/20 22:15: Vancomycin Trough 24.6 H 10/24/20 04:40: WBC 11.9 H D, RBC 5.12, Hgb 15.6, Hct 49.6 H, MCV 96.8, MCH 30.4, MCHC 31.4 L, RDW 15.8, Plt Count 195, MPV 7.7, Neut % (Auto) 89.7 H, Lymph % (Auto) 5.6 L, [place] % (Auto) 4.3, Eos % (Auto) 0.1, Baso % (Auto) 0.2, Neut # (Auto) 10.7 H, Lymph # (Auto) 0.7, [place] # (Auto) 0.5, Eos # (Auto) 0.0, Baso # (Auto) 0.0, Total Counted 100, Neutrophils % (Manual) 89 H, Lymphocytes % (Manual) 6 L, Monocytes % (Manual) 5, Platelet Estimate Normal, RBC Morphology Normal 10/24/20 04:40: Sodium 138, Potassium 3.6, Chloride 98, Carbon Dioxide 35 H, Anion Gap 8.6, BUN 23 H D, Creatinine 0.70, Estimated Creat Clear 102, Estimated GFR 88, Est GFR ( Amer) 106, Glucose 208 H D, Calcium 8.6 I & O for Last 24 hours: Intake & Output 10/21/20 10/22/20 10/23/20 10/24/20 23:59 23:59 23:59 23:59 Intake Total 2516 / 2678 2744.417 / 2819.417 1200 / 1200 Output Total 2995 / 3025 4880 / 4940 2900 / 2900 Balance -479 / -347 -2135.583 / -2120.583 -1700 / -1700 Weight 304 lb 3.806 oz 313 lb 0.902 oz Microbiology Reports for the Last 24 Hours: Microbiology 10/22/20 12:30 Sputum - Endotracheal Tube Aspirate Gram Stain - Final 10/22/20 12:30 Sputum - Endotracheal Tube Aspirate Sputum Culture - Preliminary Gram Positive Cocci 10/22/20 13:55 Nose - Nasal MRSA Culture - Final Negative 10/22/20 00:45 Blood Blood Culture - Preliminary NO GROWTH AFTER 48 HOURS - Constitutional no acute distress, morbidly obese - *Routine HEENT Exam Head: Present: normocephalic Eye: Present: EOMI, PERRL ENT: Present: mucous membranes moist - *Routine Neck Exam Present: supple. Absent: lymphadenopathy - *Routine Respiratory Exam Present: decreased breath sounds, wheezes. Absent: accessory muscle use - *Routine Cardiovascular Exam Present: RRR - *Routine Abdominal Exam Present: soft, normoactive bowel sounds. Absent: tenderness - *Routine Extremities Exam Absent: cyanosis, clubbing, edema, calf tenderness - *Routine Skin Exam Present: lesions - *Routine Neurological Exam Present: alert, oriented X3 Assessment and Plan (1) Cellulitis of leg, left Status: Acute Category: Medical Code(s): L03.116 - Cellulitis of left lower limb (2) Venous stasis Status: Acute Category: Medical Code(s): I87.8 - Other specified disorders of veins (3) Acute and chronic respiratory failure with hypoxia Status: Acute Category: Medical Code(s): J96.21 - Acute and chronic respiratory failure with hypoxia (4) Venous insufficiency Status: Acute Category: Medical Code(s): I87.2 - Venous insufficiency (chronic) (peripheral) (5) Tobacco abuse Status: Acute Category: Medical Code(s): Z72.0 - Tobacco use (6) Hypothyroidism Status: Chronic Qualifiers: Hypothyroidism type: acquired Qualified Code(s): E03.9 - Hypothyroidism, unspecified Category: Medical Code(s): E03.9 - Hypothyroidism, unspecified (7) COPD with acute exacerbation Status: Acute Category: Medical Code(s): J44.1 - Chronic obstructive pulmonary disease with (acute) exacerbation (8) Diastolic dysfunction Status: Chronic Category: Medical Code(s): I51.9 - Heart disease, unspecified (9) Discoloration of skin of multiple sites of lower extremity Status: Chronic Category: Medical Code(s): L81
--- NOTE | 2020-10-24 18:58 | PC.NURSE ---
SHE IS AOX4, ABLE TO MAKE NEEDS KNOWN TO STAFF, SHE HAS ASKED FOR PAIN MEDS ONCE THIS SHIFT AND WAS MEDICATED PER MAR WITH GOOD EFFECTIVENESS, VSS T/O SHIFT, 5LNC FOR O2 SUPPORT. PT IS VERY HOARSE TODAY POSSIBLY R/T EXTUBATION, SHE HAS ATE WELL AND TOLERATED DIET, DENIES N/V/D, SHE REMAINS IN CONTACT PRECAUTIONS,
--- NOTE | 2020-10-24 19:23 | PC.NURSE ---
THIS RN PROVIDED REPORT TO ARMOND, SRNA
--- NOTE | 2020-10-24 22:02 | PC.NURSE ---
DID ROUNDING WITH THE TECHS,EMPYTIED TRASH,AND LINENS,PASSED SNACKS. PATIENT HAD NO NEEDS AT THIS TIME.AlfonsoM
[2020-10-25] VITALS (16 sets, daily range): BP systolic 117–148; BP diastolic 53–84; PULSE 60–90; RESP 16–20; TEMP 36.3–36.9; O2SAT 89–93; BMI 43.8
--- NOTE | 2020-10-25 03:59 | PC.NURSE ---
Patient has not slept or rested well this shift. Patient requested pain medicines X 3 (2 Morphine IV and 1 Tylenol) patient states somewhat effective, citing after pain scale scores of 4 (0-10). Patient refused bath tonight. Patient receiving Vancomycin this shift. Pt given Benadryl 25 mg IV prophylactic for Red Man Syndrome. Vanc remains running with no reaction. Will continue to monitor for any acute changes.
--- NOTE | 2020-10-25 05:00 | PC.NURSE ---
EMPTIED TRASH AND LINENS REFILLED ICE PITCHERS. PT HAD NO NEEDS AT THIS TIME.Pooja
[2020-10-25 07:39] LABS: Basophils % 0.2 % (0.1-2.0); Eosinophils % 0.1 % (0.1-12.0); Hematocrit 49.3 % (37.0-47.0); Hemoglobin 15.6 g/dL (12.2-16.2); Lymphocytes # 0.7 K/mm3 (0.7-4.5); Lymphocytes % 8.5 % (10-50); Mean Corpuscular HGB Conc 31.6 g/dL (31.8-35.4); Mean Corpuscular Hemoglobin 30.7 pg (27.0-31.2); Mean Corpuscular Volume 97.1 fl (81-99); Monocytes # 0.3 K/mm3 (0.1-1.0); Monocytes % 3.9 % (1.7-9.3); Neutrophils # 7.1 K/mm3 (1.8-7.8); Neutrophils % 87.3 % (37.0-80.0); Platelet Count 197 K/mm3 (142-424); Red Blood Count 5.08 M/mm3 (4.20-5.40); Red Cell Distribution Width 15.4 % (11.5-17.5); White Blood Count 8.2 K/mm3 (4.8-10.8)
[2020-10-25 07:41] LABS: MANUAL DIFFERENTIAL MANUAL DIFFERENTIAL (MANUAL DIFF)
[2020-10-25 07:42] LABS: Chloride 94 mmol/L (98-107); Potassium 3.9 mmoL/L (3.5-5.1); Sodium 138 mmol/L (136-145)
[2020-10-25 07:44] LABS: Alanine Aminotransferase 27 U/L (12-78); Aspartate Amino Transferase 30 U/L (14-36); Blood Urea Nitrogen 25 mg/dl (7-17); Creatinine Clearance Estimated 102 mL/min (50-200); Estimated Glomerular Filt Rate 88 ml/min (>60); GFR (African American) 106 ML/MIN (>60)
[2020-10-25 07:45] LABS: Albumin Level 3.6 g/dl (3.5-5.0); Alkaline Phosphatase 77 U/L (38-126); Bilirubin,Total 0.3 mg/dl (0.2-1.3); Calcium 8.9 mg/dl (8.4-10.2); Globulin 3.6 g/dL (1.3-3.2); Glucose 289 mg/dl (74-100); Total Protein,Serum 7.2 g/dl (6.3-8.2)
[2020-10-25 07:52] LABS: Carbon Dioxide 37 mmol/L (22.0-30.0)
[2020-10-25 07:53] LABS: Anion Gap 10.9 mEq/L (5-15)
[2020-10-25 08:17] LABS: Eosinophils % 2 % (0-3); Lymphocytes % 8 % (10-50); Monocytes % 4 % (2-9); Neutrophils % 85 % (42-76); Platelet Estimate Normal; RBC Morphology Normal; Total Cells Counted 100
--- NOTE | 2020-10-25 08:58 | HMH.ACPN ---
Internal Medicine - PN: Subj *Date: 10/25/20 *Time: 08:58 Exam Vital signs and Labs for Last 24 Hours: Temp Pulse Resp BP Pulse Ox 97.4 F L 70 20 117/53 L 90 L 10/25/20 07:25 10/25/20 08:00 10/25/20 07:25 10/25/20 07:25 10/25/20 08:00 Laboratory Results - last 24 hr 10/22/20 08:04: Cortisol 13.2 10/25/20 07:00: WBC 8.2 D, RBC 5.08, Hgb 15.6, Hct 49.3 H, MCV 97.1, MCH 30.7, MCHC 31.6 L, RDW 15.4, Plt Count 197, MPV 8.0, Neut % (Auto) 87.3 H, Lymph % (Auto) 8.5 L, [place] % (Auto) 3.9, Eos % (Auto) 0.1, Baso % (Auto) 0.2, Neut # (Auto) 7.1, Lymph # (Auto) 0.7, [place] # (Auto) 0.3, Eos # (Auto) 0.0, Baso # (Auto) 0.0, Total Counted 100, Neutrophils % (Manual) 85 H, Lymphocytes % (Manual) 8 L, Monocytes % (Manual) 4, Eosinophils % (Manual) 2, Basophils % (Manual) 1.0, Platelet Estimate Normal, RBC Morphology Normal 10/25/20 07:00: Sodium 138, Potassium 3.9, Chloride 94 L, Carbon Dioxide 37 H, Anion Gap 10.9, BUN 25 H, Creatinine 0.70, Estimated Creat Clear 102, Estimated GFR 88, Est GFR ( Amer) 106, Glucose 289 H, Calcium 8.9, Total Bilirubin 0.3, AST 30, ALT 27 D, Alkaline Phosphatase 77, Total Protein 7.2, Albumin 3.6, Globulin 3.6 H, Albumin/Globulin Ratio 1.0 L I & O for Last 24 hours: Intake & Output 10/22/20 10/23/20 10/24/20 10/25/20 23:59 23:59 23:59 23:59 Intake Total 2516 / 2678 2744.417 / 2819.417 1700 / 1700 2029 / 2029 Output Total 2995 / 3025 4880 / 4940 5050 / 5850 1200 / 1200 Balance -479 / -347 -2135.583 / -2120.583 -3350 / -4150 830 / 830 Weight 138 kg 142 kg 142.116 kg Microbiology Reports for the Last 24 Hours: Microbiology 10/22/20 12:30 Sputum - Endotracheal Tube Aspirate Gram Stain - Final 10/22/20 12:30 Sputum - Endotracheal Tube Aspirate Sputum Culture - Final Arcanobacterium haemolyticum 10/22/20 13:55 Anus CRE Surveillance Culture - Final Negative 10/22/20 13:55 Nose - Nasal MRSA Culture - Final Negative Assessment and Plan (1) Cellulitis of leg, left Status: Acute Category: Medical Code(s): L03.116 - Cellulitis of left lower limb (2) Venous stasis Status: Acute Category: Medical Code(s): I87.8 - Other specified disorders of veins (3) Acute and chronic respiratory failure with hypoxia Status: Acute Category: Medical Code(s): J96.21 - Acute and chronic respiratory failure with hypoxia (4) Venous insufficiency Status: Acute Category: Medical Code(s): I87.2 - Venous insufficiency (chronic) (peripheral) (5) Tobacco abuse Status: Acute Category: Medical Code(s): Z72.0 - Tobacco use (6) Hypothyroidism Status: Chronic Qualifiers: Hypothyroidism type: acquired Qualified Code(s): E03.9 - Hypothyroidism, unspecified Category: Medical Code(s): E03.9 - Hypothyroidism, unspecified (7) COPD with acute exacerbation Status: Acute Category: Medical Code(s): J44.1 - Chronic obstructive pulmonary disease with (acute) exacerbation (8) Diastolic dysfunction Status: Chronic Category: Medical Code(s): I51.9 - Heart disease, unspecified (9) Discoloration of skin of multiple sites of lower extremity Status: Chronic Category: Medical Code(s): L81.9 - Disorder of pigmentation, unspecified (10) HTN (hypertension) Status: Chronic Qualifiers: Hypertension type: essential hypertension Qualified Code(s): I10 - Essential (primary) hypertension Category: Medical Code(s): I10 - Essential (primary) hypertension (11) Swelling of left lower extremity Status: Chronic Category: Medical Code(s): M79.89 - Other specified soft tissue disorders (12) SOB (shortness of breath) Status: Acute Category: Medical Code(s): R06.02 - Shortness of breath (13) Lymphedema Start date: 10/22/20 Status: Acute Category: Medical Code(s): I89.0 - Lymphedema, not elsewhere classified (14) Hyperkeratosis
--- NOTE | 2020-10-25 09:19 | PC.NURSE ---
THIS RN SPOKE WITH JOSE DAVID FROM PT, PT AWARE OF WOUND CONSULT.
--- NOTE | 2020-10-25 13:56 | HMH.ACPN2 ---
Internal Medicine - PN: Subj *Date: 10/25/20 *Time: 13:59 Interval history: Patient had an uneventful night, looks brighter this morning. He is achieving a good diuresis. Less dyspnea. Spoke with pharmacy, changing antibiotic coverage to daptomycin for the lower extremity cellulitis. Family would be interested in rehab, they cite general deconditioning. Exam Vital signs and Labs for Last 24 Hours: Temp Pulse Resp BP Pulse Ox 97.9 F 78 20 136/84 89 L 10/25/20 11:22 10/25/20 12:10 10/25/20 11:22 10/25/20 11:22 10/25/20 12:10 Laboratory Results - last 24 hr 10/25/20 07:00: WBC 8.2 D, RBC 5.08, Hgb 15.6, Hct 49.3 H, MCV 97.1, MCH 30.7, MCHC 31.6 L, RDW 15.4, Plt Count 197, MPV 8.0, Neut % (Auto) 87.3 H, Lymph % (Auto) 8.5 L, [place] % (Auto) 3.9, Eos % (Auto) 0.1, Baso % (Auto) 0.2, Neut # (Auto) 7.1, Lymph # (Auto) 0.7, [place] # (Auto) 0.3, Eos # (Auto) 0.0, Baso # (Auto) 0.0, Total Counted 100, Neutrophils % (Manual) 85 H, Lymphocytes % (Manual) 8 L, Monocytes % (Manual) 4, Eosinophils % (Manual) 2, Basophils % (Manual) 1.0, Platelet Estimate Normal, RBC Morphology Normal 10/25/20 07:00: Sodium 138, Potassium 3.9, Chloride 94 L, Carbon Dioxide 37 H, Anion Gap 10.9, BUN 25 H, Creatinine 0.70, Estimated Creat Clear 102, Estimated GFR 88, Est GFR ( Amer) 106, Glucose 289 H, Calcium 8.9, Total Bilirubin 0.3, AST 30, ALT 27 D, Alkaline Phosphatase 77, Total Protein 7.2, Albumin 3.6, Globulin 3.6 H, Albumin/Globulin Ratio 1.0 L I & O for Last 24 hours: Intake & Output 10/22/20 10/23/20 10/24/20 10/25/20 23:59 23:59 23:59 23:59 Intake Total 2516 / 2678 2744.417 / 2819.417 1700 / 1700 2029 / 2029 Output Total 2995 / 3025 4880 / 4940 5050 / 5850 4100 / 4100 Balance -479 / -347 -2135.583 / -2120.583 -3350 / -4150 -2070 / -2070 Weight 304 lb 3.806 oz 313 lb 0.902 oz 313 lb 5 oz Microbiology Reports for the Last 24 Hours: Microbiology 10/22/20 12:30 Sputum - Endotracheal Tube Aspirate Gram Stain - Final 10/22/20 12:30 Sputum - Endotracheal Tube Aspirate Sputum Culture - Final Arcanobacterium haemolyticum 10/22/20 13:55 Anus CRE Surveillance Culture - Final Negative - Constitutional no acute distress - *Routine HEENT Exam Head: Present: normocephalic Eye: Present: EOMI, PERRL ENT: Present: mucous membranes moist - *Routine Neck Exam Present: supple. Absent: lymphadenopathy - *Routine Respiratory Exam Present: decreased breath sounds, wheezes, distant breath sounds. Absent: accessory muscle use - *Routine Cardiovascular Exam Present: RRR - *Routine Abdominal Exam Present: soft, normoactive bowel sounds. Absent: tenderness - *Routine Extremities Exam Present: edema. Absent: cyanosis - *Routine Skin Exam Present: lesions - *Routine Neurological Exam Present: alert, oriented X3 Assessment and Plan (1) Cellulitis of leg, left Status: Acute Category: Medical Code(s): L03.116 - Cellulitis of left lower limb (2) Venous stasis Status: Acute Category: Medical Code(s): I87.8 - Other specified disorders of veins (3) Acute and chronic respiratory failure with hypoxia Status: Acute Category: Medical Code(s): J96.21 - Acute and chronic respiratory failure with hypoxia (4) Venous insufficiency Status: Acute Category: Medical Code(s): I87.2 - Venous insufficiency (chronic) (peripheral) (5) Tobacco abuse Status: Acute Category: Medical Code(s): Z72.0 - Tobacco use (6) Hypothyroidism Status: Chronic Qualifiers: Hypothyroidism type: acquired Qualified Code(s): E03.9 - Hypothyroidism, unspecified Category: Medical Code(s): E03.9 - Hypothyroidism, unspecified (7) COPD with acute exacerbation Status: Acute Category: Medical Code(s): J44.1 - Chronic obstructive pulmonary disease with (acute) exacerbation (8) Diastolic dysfunction Status: Chronic Category: Med
--- NOTE | 2020-10-25 14:00 | XR_ITS ---
PROCEDURE: XR CHEST PORTABLE CLINICAL HISTORY: copd Smoker COMPARISON: CT CT ANGIO CHEST from 10/22/2020 CR XR CHEST PORTABLE from 10/22/2020 CR XR CHEST PORTABLE from 10/22/2020 CR XR CHEST PORTABLE from 10/23/2020 FINDINGS: The cardiomediastinal silhouette and pulmonary vascularity are within normal limits. There is a small left pleural effusion. No lobar consolidation or collapse. Endotracheal tube is been removed. No acute bony abnormalities. IMPRESSION: Small left pleural effusion Dictated by: Reyes Spicer MD 10/25/2020 15:34 Reyes Spicer MD in [facility] 10/25/2020 15:34
--- NOTE | 2020-10-25 17:05 | PC.NURSE ---
Pt has been pleasant this shift. Pt has remained on 5L NC w/ o2 sats between 90-92%. No cough noted this shift. Pt has received a bath this shift. x2 PIVs remain intact and patent. Pt has requested PRN pain meds multiple times this shift d/t pain in BLE. Favorable results as evidenced by pt resting w/ eyes closed upon reassessment. No other acute changes or complaints at this time.
--- NOTE | 2020-10-25 19:11 | PC.NURSE ---
THIS RN PROVIDED WC REPORT TO RENATO AGUILERA.
[2020-10-26] VITALS (16 sets, daily range): BP systolic 134–156; BP diastolic 63–98; PULSE 68–83; RESP 18–27; TEMP 36.5–37.1; O2SAT 89–94; BMI 41.7
--- NOTE | 2020-10-26 04:48 | PC.NURSE ---
pt reported pain 10/10 and a new one time order of pain medication was given. currently on 5LNC. telemetry WNL. no acute changes. pt stated I haven't peed since I had my ramos out. Pt was assisted to bsc at that time and pt did void. one iv removed but iv in ac remains patent. vss. call light in reach. will continue to monitor pt condition.
[2020-10-26 06:05] LABS: Basophils % 0.3 % (0.1-2.0); Eosinophils % 0.4 % (0.1-12.0); Hematocrit 51.5 % (37.0-47.0); Hemoglobin 16.5 g/dL (12.2-16.2); Lymphocytes # 0.7 K/mm3 (0.7-4.5); Lymphocytes % 9.1 % (10-50); Mean Corpuscular Volume 96.7 fl (81-99); Mean Platelet Volume 7.8 fl (7.4-10.4); Monocytes # 0.3 K/mm3 (0.1-1.0); Monocytes % 4.2 % (1.7-9.3); Neutrophils # 6.8 K/mm3 (1.8-7.8); Platelet Count 193 K/mm3 (142-424); Red Blood Count 5.33 M/mm3 (4.20-5.40); Red Cell Distribution Width 15.2 % (11.5-17.5); White Blood Count 7.9 K/mm3 (4.8-10.8)
[2020-10-26 06:09] LABS: Chloride 89 mmol/L (98-107); Potassium 3.8 mmoL/L (3.5-5.1); Sodium 136 mmol/L (136-145)
[2020-10-26 06:12] LABS: Alanine Aminotransferase 64 U/L (12-78); Albumin Level 3.7 g/dl (3.5-5.0); Alkaline Phosphatase 104 U/L (38-126); Aspartate Amino Transferase 58 U/L (14-36); Bilirubin,Total 0.4 mg/dl (0.2-1.3); Blood Urea Nitrogen 36 mg/dl (7-17); Calcium 9.3 mg/dl (8.4-10.2); Creatinine Clearance Estimated 89 mL/min (50-200); Estimated Glomerular Filt Rate 75 ml/min (>60); GFR (African American) 91 ML/MIN (>60); Globulin 3.7 g/dL (1.3-3.2); Glucose 354 mg/dl (74-100); Total Protein,Serum 7.4 g/dl (6.3-8.2)
[2020-10-26 06:19] LABS: Anion Gap 13.8 mEq/L (5-15); Carbon Dioxide 37 mmol/L (22.0-30.0)
[2020-10-26 06:21] LABS: MANUAL DIFFERENTIAL MANUAL DIFFERENTIAL (MANUAL DIFF)
[2020-10-26 07:47] LABS: Lymphocytes % 9 % (10-50); Monocytes % 4 % (2-9); Neutrophils % 87 % (42-76); Total Cells Counted 100
[2020-10-26 07:48] LABS: Platelet Estimate Normal; RBC Morphology Normal
--- NOTE | 2020-10-26 09:20 | HMH.PNCARD ---
Subjective Date: 10/26/20 Time: 09:00 Principal diagnosis: Cellulitis of left leg, Resp Failure Interval history: 50-year-old female admitted to [facility] with increased shortness of breath and cellulitis of the left lower extremity. Patient has been in the hospital since 10/22/2020 in which she did require mechanical ventilation and NG tube placement. Patient is currently noted with oxygen by cannula. NG has been removed. Patient is alert and oriented appropriately x3. Patient denies chest pain, pressure or tightness. Patient continues to complain of increased shortness of breath but states shortness of breath has improved. Patient was noted with diastolic congestive heart failure. Patient has continued to diurese and is now down to 298 pounds. Patient continues to be diuresed. Echocardiogram revealed normal EF with no significant valvular disease. Concern at this time is the left lower extremity noted with purpleish foot. Pedal pulse diminished and sluggish. Patient states she has had several catheterizations on the lower extremity. Last lower extremity runoff was noted before 2017. NINA was performed June 2020 revealing LT noted at 0.94. Patient also noted with large ulcerated cellulitis area noted on the left lower calf. Discussed plan of care with Dr. Duncan. We'll set patient up for a CTA of the left lower extremity due to ischemic PAD and cellulitis. Pending on the results of the CTA, medication and therapy changes may be recommended. Thank you for allowing cardiology to participate in the care of this patient. Exam Vital signs and Labs for Last 24 Hours: Temp Pulse Resp BP Pulse Ox 97.7 F 80 19 146/82 H 94 L 10/26/20 07:43 10/26/20 07:43 10/26/20 07:43 10/26/20 07:43 10/26/20 07:43 Laboratory Results - last 24 hr 10/26/20 05:52: Sodium 136, Potassium 3.8, Chloride 89 L, Carbon Dioxide 37 H, Anion Gap 13.8, BUN 36 H D, Creatinine 0.80, Estimated Creat Clear 89, Estimated GFR 75, Est GFR ( Amer) 91, Glucose 354 H D, Calcium 9.3, Total Bilirubin 0.4, AST 58 H D, ALT 64 D, Alkaline Phosphatase 104, Total Protein 7.4, Albumin 3.7, Globulin 3.7 H, Albumin/Globulin Ratio 1.0 L 10/26/20 05:52: WBC 7.9, RBC 5.33, Hgb 16.5 H, Hct 51.5 H, MCV 96.7, MCH 31.0, MCHC 32.0, RDW 15.2, Plt Count 193, MPV 7.8, Neut % (Auto) 86.0 H, Lymph % (Auto) 9.1 L, [place] % (Auto) 4.2, Eos % (Auto) 0.4, Baso % (Auto) 0.3, Neut # (Auto) 6.8, Lymph # (Auto) 0.7, [place] # (Auto) 0.3, Eos # (Auto) 0.0, Baso # (Auto) 0.0, Total Counted 100, Neutrophils % (Manual) 87 H, Lymphocytes % (Manual) 9 L, Monocytes % (Manual) 4, Platelet Estimate Normal, RBC Morphology Normal I & O for Last 24 hours: Intake & Output 10/23/20 10/24/20 10/25/20 10/26/20 23:59 23:59 23:59 23:59 Intake Total 2744.417 / 2819.417 1700 / 1700 2990 / 2990 240 / 240 Output Total 4880 / 4940 5050 / 5850 5900 / 5900 Balance -2135.583 / -2120.583 -3350 / -4150 -2910 / -2910 240 / 240 Weight 313 lb 0.902 oz 313 lb 5 oz 298 lb 2 oz Microbiology Reports for the Last 24 Hours: Microbiology 10/22/20 12:30 Sputum - Endotracheal Tube Aspirate Gram Stain - Final 10/22/20 12:30 Sputum - Endotracheal Tube Aspirate Sputum Culture - Final Arcanobacterium haemolyticum 10/22/20 13:55 Anus CRE Surveillance Culture - Final Negative - Constitutional mild distress, morbidly obese, cooperative - *Routine HEENT Exam Head: Present: normocephalic ENT: Present: mucous membranes moist - *Routine Neck Exam Present: supple, full ROM, normal carotid upstroke. Absent: JVD, carotid bruit, lymphadenopathy - *Routine Respiratory Exam Present: CTA bilaterally, diminished air movement. Absent: rhonchi, wheezes - *Routine Cardiovascular Exam Present: RRR, Normal S1, Normal S2. Absent: murmur, gallop, irregular rhythm, irregularly irregular - *Routine Abdominal Exam Present: soft, normoactive bowel sounds.
--- NOTE | 2020-10-26 09:24 | HMH.ACPN2 ---
Internal Medicine - PN: Subj *Date: 10/26/20 *Time: 08:50 Interval history: pt sitting up on side of bed. states she is feeling better and now can feel her legs better and having pain in keron legs, pt states she has not been able to move toes in left foot for awhile now able to move them. Pt states she gamaliel like to go for rehab due to living alone and falling out of her wc freq Exam Vital signs and Labs for Last 24 Hours: Temp Pulse Resp BP Pulse Ox 97.7 F 80 19 146/82 H 94 L 10/26/20 07:43 10/26/20 07:43 10/26/20 07:43 10/26/20 07:43 10/26/20 07:43 Laboratory Results - last 24 hr 10/26/20 05:52: Sodium 136, Potassium 3.8, Chloride 89 L, Carbon Dioxide 37 H, Anion Gap 13.8, BUN 36 H D, Creatinine 0.80, Estimated Creat Clear 89, Estimated GFR 75, Est GFR ( Amer) 91, Glucose 354 H D, Calcium 9.3, Total Bilirubin 0.4, AST 58 H D, ALT 64 D, Alkaline Phosphatase 104, Total Protein 7.4, Albumin 3.7, Globulin 3.7 H, Albumin/Globulin Ratio 1.0 L 10/26/20 05:52: WBC 7.9, RBC 5.33, Hgb 16.5 H, Hct 51.5 H, MCV 96.7, MCH 31.0, MCHC 32.0, RDW 15.2, Plt Count 193, MPV 7.8, Neut % (Auto) 86.0 H, Lymph % (Auto) 9.1 L, [place] % (Auto) 4.2, Eos % (Auto) 0.4, Baso % (Auto) 0.3, Neut # (Auto) 6.8, Lymph # (Auto) 0.7, [place] # (Auto) 0.3, Eos # (Auto) 0.0, Baso # (Auto) 0.0, Total Counted 100, Neutrophils % (Manual) 87 H, Lymphocytes % (Manual) 9 L, Monocytes % (Manual) 4, Platelet Estimate Normal, RBC Morphology Normal I & O for Last 24 hours: Intake & Output 10/23/20 10/24/20 10/25/20 10/26/20 11:59 11:59 11:59 11:59 Intake Total 2046.417 / 2046.417 2674 / 2674 2770 / 2770 1200 / 1200 Output Total 4510 / 4780 6265 / 6265 6250 / 6250 1800 / 1800 Balance -2463.583 / -2738.583 -3591 / -3591 -3480 / -3480 -600 / -600 Weight 313 lb 8 oz 313 lb 0.902 oz 313 lb 5 oz 298 lb 2 oz Microbiology Reports for the Last 24 Hours: Microbiology 10/22/20 12:30 Sputum - Endotracheal Tube Aspirate Gram Stain - Final 10/22/20 12:30 Sputum - Endotracheal Tube Aspirate Sputum Culture - Final Arcanobacterium haemolyticum 10/22/20 13:55 Anus CRE Surveillance Culture - Final Negative - Constitutional no acute distress, morbidly obese - *Routine HEENT Exam Head: Present: normocephalic Eye: Present: PERRL ENT: Present: mucous membranes moist - *Routine Neck Exam Present: supple. Absent: lymphadenopathy - *Routine Respiratory Exam Present: decreased breath sounds, CTA bilaterally - *Routine Cardiovascular Exam Present: RRR - *Routine Abdominal Exam Present: soft, normoactive bowel sounds, obese. Absent: tenderness - *Routine Extremities Exam Absent: cyanosis, clubbing, edema Comments: purple color to keron lower ext, decrease pulse cellulites improving - *Routine Skin Exam Present: warm, wounds. Absent: rash Comments: dressing to left lower ext - *Routine Neurological Exam Present: alert, oriented X3 - Routine Psychiatric Exam Present: normal affect Assessment and Plan (1) Cellulitis of leg, left Status: Acute Category: Medical Code(s): L03.116 - Cellulitis of left lower limb (2) Venous stasis Status: Acute Category: Medical Code(s): I87.8 - Other specified disorders of veins (3) Acute and chronic respiratory failure with hypoxia Status: Acute Category: Medical Code(s): J96.21 - Acute and chronic respiratory failure with hypoxia (4) Venous insufficiency Status: Acute Category: Medical Code(s): I87.2 - Venous insufficiency (chronic) (peripheral) (5) Tobacco abuse Status: Acute Category: Medical Code(s): Z72.0 - Tobacco use (6) Hypothyroidism Status: Chronic Qualifiers: Qualified Code(s): E03.9 - Hypothyroidism, unspecified Category: Medical Code(s): E03.9 - Hypothyroidism, unspecified (7) COPD with acute exacerbation Status: Acute Category: Medical Code(s): J44.1 - Chronic obst
--- NOTE | 2020-10-26 09:46 | SW/DCPLANNER ---
Addendum entered by [facility] 10/28/20 10:16: This patient will discharge to [facility] today. COVID is negative. Jacki will deliver a portable O2 tank for transportation. Patients daughter does want to transport patient. Patient will discharge to [facility] pending today. Addendum entered by [facility] 10/27/20 11:19: Pamella has confirmed that this patient can be accepted pending negative COVID swab. COVID swab has been ordered for today. MD plans on discharging patient tomorrow. I will inform patient/family regarding plan. Addendum entered by [facility] 10/27/20 10:51: Pamella Dowd has stated that she can accept this patient Medicaid pending once medically stable for discharge. Discharge date is unknown at this time. I did inform family/patient that she has been accepted once medically stable for discharge. Addendum entered by [facility] 10/27/20 09:49: Pamella Dowd is reviewing this patient. Dr Fragoso has stated that patient will NOT need bi-pap or Trilogy machine at discharge. Pamella has stated pending conversation with family she can accept this patient. I will continue to follow up with patient, family, and [facility]. Addendum entered by [facility] 10/26/20 14:12: Love warren Gonzales has stated that she can not accept this patient due to insurance. Patient is agreeable to [facility]: information faxed to [facility] and Kacie Marin. Original Note: I have spoke with patient and patients daughter regarding discharge plans. Patient has stated that she lives at home alone and will need assistance at home. I have discussed home health vs placement with patient and daughter. Patient understands she will have to go under Medicaid pending: will need time to discuss with family. Patient is agreeable for patient information to be faxed to [facility]. Love Pavon with [facility] has stated that she does have female beds available at this time. Patient information has been faxed to [facility]. I will continue to follow up with: patient, family, and Derek Gonzales. Discharge date is unknown at this time.
--- NOTE | 2020-10-26 10:04 | CT_ITS ---
Procedure: CT ANGIO ABDOMEN/FEMORAL CLINICAL HISTORY: Cellulitis and purple foot Discoloration left leg the knee down with swelling COMPARISON: No exams were available for comparison TECHNIQUE: IV Contrast: 100ml Isovue 370 Axial images obtained with sagittal and coronal reformats. All CT scans at the facility use one or more dose reduction, viz: automated exposure control, ma/kV adjustment per patient size (including targeted exams where dose is matched to indication, i.e. head), or iterative reconstruction technique. FINDINGS: The aorta and iliac vessels have an unremarkable appearance. The celiac artery is not included. Motion artifact somewhat obscures evaluation of the distal branches the SMA. The SMA is patent with [id number] mid stenosis of approximately 50 percent from atherosclerotic calcific plaque. No significant stenosis or occlusive changes are evident involving the common femoral, femoral, or popliteal arteries. The right and left tibial peroneal trunk, posterior tibial, anterior tibial and peroneal arteries are patent.. There was questionable occlusion of the right dorsalis pedis with distal reconstitution. The right plantar artery is patent. The left dorsalis pedis and plantar artery a are patent reconstitution There is a moderate amount of retained colonic feces. No evidence of intestinal obstruction, free air, appendicitis, or diverticulitis. Scattered small nodes are present in the retroperitoneum and inguinal regions. There is subcutaneous edema along the lower abdominal wall on the left. The right lateral and lower abdominal wall is not included on the images. Subcutaneous edema is present in both thighs left greater than right. There is diffuse subcutaneous edema beginning in the left lower extremity at the knee and extending inferiorly with intramuscular edema noted throughout the left lower extremity beginning at the knee extending inferiorly. Diffuse subcutaneous fluid density noted throughout the left lower extremity beginning in the mid to proximal leg and extending inferiorly involving the ankle and foot. Osteoarthritic changes are present in the knees. No bony destructive process apparent IMPRESSION: 1. No evidence of occlusive changes within the aorta, iliac arteries, femoral popliteal arteries and infrapopliteal arteries aside from possible occlusion of the right dorsalis pedis. Specifically, no occlusive changes or significant stenosis of the left lower extremity. 2. Diffuse subcutaneous and intramuscular edema throughout the left lower extremity beginning at the knee extending distally involving the left foot and ankle consistent with cellulitis. There is mild subcutaneous edema the left by. 3. Other nonacute findings as detailed above. Dictated by: Reyes Spicer MD 10/27/2020 06:15 Reyes Spicer MD in [place] 10/27/2020 06:15
--- NOTE | 2020-10-26 10:25 | HMH.PULMPN ---
Internal Medicine - PN: Subj *Date: 10/26/20 *Time: 10:25 Interval history: No acute respiratory vents over the weekend. Exam - Constitutional Constitutional:: Present: no acute distress, comfortable - HENMT Exam HENMT: Present: atraumatic - Eye Exam Eyes:: Present: eyelids normal - Neck Exam Neck:: Present: normal visual inspection - Respiratory Exam Respiratory:: Present: lungs clear, normal breath sounds Comments: Decreased breath sounds in the bases - Cardiovascular Exam Cardiac:: Present: S1, S2 - GI Exam GI:: Present: soft, obese - Skin Exam Skin: Present: warm, rash - Neurological Exam Neurological: Present: alert, awake, normal cognition - Extremities Exam Extremities: Present: no cyanosis, no edema, edema Assessment and Plan (1) Cellulitis of leg, left Status: Acute Category: Medical Code(s): L03.116 - Cellulitis of left lower limb (2) Venous stasis Status: Acute Category: Medical Code(s): I87.8 - Other specified disorders of veins (3) Acute and chronic respiratory failure with hypoxia Status: Acute Category: Medical Code(s): J96.21 - Acute and chronic respiratory failure with hypoxia (4) Venous insufficiency Status: Acute Category: Medical Code(s): I87.2 - Venous insufficiency (chronic) (peripheral) (5) Tobacco abuse Status: Acute Category: Medical Code(s): Z72.0 - Tobacco use (6) Hypothyroidism Status: Chronic Qualifiers: Hypothyroidism type: acquired Qualified Code(s): E03.9 - Hypothyroidism, unspecified Category: Medical Code(s): E03.9 - Hypothyroidism, unspecified (7) COPD with acute exacerbation Status: Acute Category: Medical Code(s): J44.1 - Chronic obstructive pulmonary disease with (acute) exacerbation (8) Diastolic dysfunction Status: Chronic Category: Medical Code(s): I51.9 - Heart disease, unspecified (9) Discoloration of skin of multiple sites of lower extremity Status: Chronic Category: Medical Code(s): L81.9 - Disorder of pigmentation, unspecified (10) HTN (hypertension) Status: Chronic Qualifiers: Hypertension type: essential hypertension Qualified Code(s): I10 - Essential (primary) hypertension Category: Medical Code(s): I10 - Essential (primary) hypertension (11) Swelling of left lower extremity Status: Chronic Category: Medical Code(s): M79.89 - Other specified soft tissue disorders (12) SOB (shortness of breath) Status: Acute Category: Medical Code(s): R06.02 - Shortness of breath (13) Lymphedema Start date: 10/22/20 Status: Acute Category: Medical Code(s): I89.0 - Lymphedema, not elsewhere classified (14) Hyperkeratosis Start date: 10/22/20 Status: Acute Category: Medical Code(s): L85.9 - Epidermal thickening, unspecified (15) Onychodystrophy Start date: 10/22/20 Status: Acute Category: Medical Code(s): L60.3 - Nail dystrophy (16) Onychomycosis Start date: 10/22/20 Status: Acute Category: Medical Code(s): B35.1 - Tinea unguium - Assessment and plan all Dx Assessment and Plan for all problems:: #Acute hypoxic hypercarbic respiratory failure: # COPD exacerbation: #Obesity hypoventilation syndrome will possible sleep apnea: 50-year-old female smoker greater than [id number] smoking history, currently smoking with history of diabetes, hypothyroidism on levothyroxine with persistently elevated TSH but normal free T4 in 2017, left lower extremity cellulitis presented to the ED with worsening left lower extremity swelling along with hypoxic and hypercarbic respiratory failure eventually needing intubation and mechanical ventilation. CT PE did not show evidence of pulmonary them however showed left lower lobe pulmonary infiltrate. After questioning the family stated that patient has been altered and lethargic for a week prior to hospital admission and CT head on this admission showed mild almost diffuse hypoxic inju
[2020-10-26 11:09] LABS: ABG Base Excess 16.7 mmol/L (-2.4-2.3); ABG HCO3 40.6 mmhg (22.0-26.0); ABG Oxygen Saturation 91 % (90-100); ABG PH 7.45 mmol/L (7.35-7.45); ABG PO2 57.4 mmhg (80-100); ABG TCO2 42.4 mmhg (23-27)
[2020-10-26 11:12] LABS: Allen's Test Acceptable; Oxygen 5 LPM %
[2020-10-26 11:13] LABS: Source Left Radial
[2020-10-26 11:15] LABS: ABG PCO2 59.5 mmhg (35.0-45.0)
--- NOTE | 2020-10-26 11:48 | HMH.PTWOUND ---
Rehab Inpt Wound Evaluation Rehab IP Wound Evaluation Start: 10/22/20 13:24 Freq: Status: Complete Protocol: Document 10/22/20 13:29 PWILLIAMS (Rec: 10/22/20 13:32 [email or web address] [id number]) Rehab PT Wound Assessment Patient Status Premedicated Prior to Dressing Change Yes Subjective Subjective This is the initial IP PT wound evaluation for Saige Dias. Pt is a 50 y/o female known to wound care for chronic BLE lymphedema and cellulitis. Pt had been seen in OP PT wound clinic and became very inconsistent w/ visits. Pt was admitted to [facility] thru ED for cellulitis. Pt is now intubated and sedated. Wound Left Lower Leg Wound Type cellulitis w/ serous drainage Wound Margins Description Indistinct Surrounding Tissue Appearance Dark Red,Edematous,Weeping Surrounding Tissue Temperature Warm Wound Drainage Description Serous Drainage Amount Moderate Drainage Odor Foul Odor Dressing Status Open to Air Primary Dressing Unna Boot Wound Secondary Dressing Type Unna Boot Wound Debridement Amount of Tissue None Removed Plan/Recommendation Comment Pt has no open wounds - pt being sedated and intubated for respiratory distress - NSG consulted and agreed w/ unna boot placement on LLE - NSG to follow pt and refer to PT wound care if pt's status changes or wound worsens Rehab IP Wound Evaluation Start: 10/25/20 05:38 Freq: ONCE Status: Active Protocol: Document 10/26/20 11:00 PHORNE (Rec: 10/26/20 11:47 PHORNE [id number]) Rehab PT Wound Assessment Subjective Subjective 50 yowf adm to [facility] with resp distress and LE cellulitis. Wound Left Lower Leg Wound Type Stasis Ulcer Is This a Chronic Wound Yes Wound Length (cm) 6.0 Wound Width (cm) 5.0 Wound Bed Appearance [place] Wound Margins Description Indistinct Surrounding Tissue Appearance [place] Edema Type Pitting Edema Degree 2+ Query Text:1+ Trace, Barely Detectable, Rebound 15-30 seconds
--- NOTE | 2020-10-26 15:25 | DIET.NUTRFU ---
Pt is on ADA/No added salt diet. PO intakes 75%, BG moderate-high- avg. 280, 15# weight loss past 24h rt diureses. Continuing to monitor.
--- NOTE | 2020-10-26 17:10 | PC.NURSE ---
Pt is alert and oriented x4. Lungs are clear but diminished. She remains on 5L NC with O2 sats running 90-96%. She was on bipap for approx 3-4 hrs today. She reported severe anxiety while on bipap. She has been given morphine x2 this shift for LLE pain with pt reporting relief on reassessment. She is an assist x1 to the BSC. Nystatin applied to folds. +2 edema noted LLE. It is wrapped with an unna boot per wound care. +1 edema to RLE. BLE are purple in color with faint pulses. Pt is currently up to the chair watching TV.
--- NOTE | 2020-10-26 22:14 | PC.NURSE ---
Called MD to advise that I gave a medication of Morphine 4 mg IV 50 minutes prior to the timed administration at 2140 instead of 2224. MD did not give any new orders, but continue to assess. Reassessed patient at 2210, pulils WDL, not pinpoint, RR 18 and pt in NAD. Will continue to monitor for any acute changes.
[2020-10-27] VITALS (16 sets, daily range): BP systolic 122–148; BP diastolic 64–86; PULSE 60–100; RESP 18–32; TEMP 36.5–36.9; O2SAT 92–95; BMI 41.7
--- NOTE | 2020-10-27 03:33 | PC.NURSE ---
Pt resting comfortably with eyes closed. Pt got self to bedside commode. Pt has c/o pain throughout the night being a 10 BLE. Gave pain medication and pt received some relief. Pt wore BiPAP from 0000 to 0220. Will continue to monitor for any acute changes
[2020-10-27 07:01] LABS: Basophils # 0.1 K/mm3 (0-0.2); Basophils % 0.8 % (0.1-2.0); Eosinophils % 0.4 % (0.1-12.0); Hematocrit 52.8 % (37.0-47.0); Hemoglobin 16.1 g/dL (12.2-16.2); Lymphocytes # 1.5 K/mm3 (0.7-4.5); Mean Corpuscular HGB Conc 30.6 g/dL (31.8-35.4); Mean Corpuscular Hemoglobin 29.8 pg (27.0-31.2); Mean Corpuscular Volume 97.3 fl (81-99); Mean Platelet Volume 7.7 fl (7.4-10.4); Monocytes # 0.5 K/mm3 (0.1-1.0); Monocytes % 6.1 % (1.7-9.3); Neutrophils # 6.1 K/mm3 (1.8-7.8); Neutrophils % 74.8 % (37.0-80.0); Platelet Count 169 K/mm3 (142-424); Red Blood Count 5.42 M/mm3 (4.20-5.40); Red Cell Distribution Width 15.5 % (11.5-17.5); White Blood Count 8.2 K/mm3 (4.8-10.8)
[2020-10-27 07:13] LABS: Chloride 85 mmol/L (98-107); Sodium 134 mmol/L (136-145)
[2020-10-27 07:16] LABS: Blood Urea Nitrogen 45 mg/dl (7-17); Creatinine Clearance Estimated 119 mL/min (50-200); Estimated Glomerular Filt Rate 105 ml/min (>60); GFR (African American) 127 ML/MIN (>60)
[2020-10-27 07:17] LABS: Calcium 9.1 mg/dl (8.4-10.2); Glucose 204 mg/dl (74-100)
[2020-10-27 07:25] LABS: Carbon Dioxide 43 mmol/L (22.0-30.0)
--- NOTE | 2020-10-27 08:56 | HMH.PNCARD ---
Subjective Date: 10/27/20 Time: 09:00 Principal diagnosis: Cellulitis of left leg, Resp Failure Interval history: 50-year-old female admitted for cellulitis. Cardiology had been consulted due to possibility of lower extremity claudication. CTA of the lower extremity was ordered and performed. There was no evidence of occlusive changes within the aorta, iliac arteries, femoral-popliteal arteries aside from possible occlusion of the right dorsal pedis. No occlusive changes or significant stenosis of the left lower extremity. This was a concern at this time is the left lower extremity noted with purpleish foot. Pedal pulse diminished and sluggish. Patient states she has had several catheterizations on the lower extremity. Last lower extremity runoff was noted before 2017. NINA was performed June 2020 revealing LT noted at 0.94. Patient also noted with large ulcerated cellulitis area noted on the left lower calf. Due to no evidence of occlusive changes within the lower extremity or significant stenosis, this is not indicated for a runoff of the lower extremity. This seems to be more of a venous insufficiency. This will be managed by PCP. Abd CTA:IMPRESSION: 1. No evidence of occlusive changes within the aorta, iliac arteries, femoral popliteal arteries and infrapopliteal arteries aside from possible occlusion of the right dorsalis pedis. Specifically, no occlusive changes or significant stenosis of the left lower extremity. 2. Diffuse subcutaneous and intramuscular edema throughout the left lower extremity beginning at the knee extending distally involving the left foot and ankle consistent with cellulitis. There is mild subcutaneous edema the left by. 3. Other nonacute findings as detailed above. Discussed plan of care with Dr. Duncan. Will defer treatment of venous insufficiency to PCP. No further cardiac testing is indicated at this time. Please notify cardiology if change in patient's status. Thank you for allowing cardiology to participate in the care of this patient. Exam Vital signs and Labs for Last 24 Hours: Temp Pulse Resp BP Pulse Ox 97.8 F 73 19 148/86 H 93 L 10/27/20 07:47 10/27/20 07:47 10/27/20 07:47 10/27/20 07:47 10/27/20 07:47 Laboratory Results - last 24 hr 10/26/20 09:11: Specimen Source Left radial, O2 % 5 lpm, ABG pH 7.45, ABG pCO2 59.5 H, ABG pO2 57.4 L, ABG HCO3 40.6 H, ABG Total CO2 42.4 H, ABG O2 Saturation 91, ABG Base Excess 16.7 H, Reyes Test Acceptable 10/27/20 06:28: WBC 8.2, RBC 5.42 H, Hgb 16.1, Hct 52.8 H, MCV 97.3, MCH 29.8, MCHC 30.6 L, RDW 15.5, Plt Count 169, MPV 7.7, Neut % (Auto) 74.8, Lymph % (Auto) 18.0, [place] % (Auto) 6.1, Eos % (Auto) 0.4, Baso % (Auto) 0.8, Neut # (Auto) 6.1, Lymph # (Auto) 1.5, [place] # (Auto) 0.5, Eos # (Auto) 0.0, Baso # (Auto) 0.1 10/27/20 06:28: Sodium 134 L, Potassium 4.0, Chloride 85 L, Carbon Dioxide 43 H*, Anion Gap 10.0, BUN 45 H, Creatinine 0.60 D, Estimated Creat Clear 119, Estimated GFR 105, Est GFR ( Amer) 127 D, Glucose 204 H, Calcium 9.1 I & O for Last 24 hours: Intake & Output 10/24/20 10/25/20 10/26/20 10/27/20 23:59 23:59 23:59 23:59 Intake Total 1700 / 1700 2990 / 2990 440 / 440 950 / 950 Output Total 5050 / 5850 5900 / 5900 Balance -3350 / -4150 -2910 / -2910 440 / 440 950 / 950 Weight 313 lb 5 oz 298 lb 2 oz 298 lb 1 oz Microbiology Reports for the Last 24 Hours: Microbiology 10/22/20 00:45 Blood Blood Culture - Final NO GROWTH AFTER 5 DAYS - Constitutional morbidly obese, cooperative - *Routine HEENT Exam Head: Present: normocephalic ENT: Present: mucous membranes moist - *Routine Neck Exam Present: supple, full ROM, normal carotid upstroke. Absent: JVD, carotid bruit, lymphadenopathy - *Routine Respiratory Exam Present: CTA bilaterally - *Routine Cardiovascular Exam Present: RRR, Normal S1, Normal S2. Absent: murmur, bradycardia, tachy
--- NOTE | 2020-10-27 10:26 | HMH.PULMPN ---
Internal Medicine - PN: Subj *Date: 10/27/20 *Time: 10:26 Interval history: No acute respiratory events overnight. Patient tolerated BiPAP however use it only for 4 hours Exam - Constitutional Constitutional:: Present: no acute distress, comfortable - HENMT Exam HENMT: Present: normocephalic, atraumatic - Eye Exam Eyes:: Present: eyelids normal - Neck Exam Neck:: Present: normal visual inspection - Respiratory Exam Respiratory:: Present: able to speak in complete sentences, decreased breath sounds, crackles. Absent: wheezing - Cardiovascular Exam Cardiac:: Present: S1, S2 - GI Exam GI:: Present: soft, obese - Skin Exam Skin: Present: warm, rash - Neurological Exam Neurological: Present: alert, awake, normal cognition - Extremities Exam Extremities: Present: no cyanosis, no clubbing, edema - Psychiatric Exam Psychiatric: Present: anxious Assessment and Plan (1) Cellulitis of leg, left Status: Acute Category: Medical Code(s): L03.116 - Cellulitis of left lower limb (2) Venous stasis Status: Acute Category: Medical Code(s): I87.8 - Other specified disorders of veins (3) Acute and chronic respiratory failure with hypoxia Status: Acute Category: Medical Code(s): J96.21 - Acute and chronic respiratory failure with hypoxia (4) Venous insufficiency Status: Acute Category: Medical Code(s): I87.2 - Venous insufficiency (chronic) (peripheral) (5) Tobacco abuse Status: Acute Category: Medical Code(s): Z72.0 - Tobacco use (6) Hypothyroidism Status: Chronic Qualifiers: Hypothyroidism type: acquired Qualified Code(s): E03.9 - Hypothyroidism, unspecified Category: Medical Code(s): E03.9 - Hypothyroidism, unspecified (7) COPD with acute exacerbation Status: Acute Category: Medical Code(s): J44.1 - Chronic obstructive pulmonary disease with (acute) exacerbation (8) Diastolic dysfunction Status: Chronic Category: Medical Code(s): I51.9 - Heart disease, unspecified (9) Discoloration of skin of multiple sites of lower extremity Status: Chronic Category: Medical Code(s): L81.9 - Disorder of pigmentation, unspecified (10) HTN (hypertension) Status: Chronic Qualifiers: Hypertension type: essential hypertension Qualified Code(s): I10 - Essential (primary) hypertension Category: Medical Code(s): I10 - Essential (primary) hypertension (11) Swelling of left lower extremity Status: Chronic Category: Medical Code(s): M79.89 - Other specified soft tissue disorders (12) SOB (shortness of breath) Status: Acute Category: Medical Code(s): R06.02 - Shortness of breath (13) Lymphedema Start date: 10/22/20 Status: Acute Category: Medical Code(s): I89.0 - Lymphedema, not elsewhere classified (14) Hyperkeratosis Start date: 10/22/20 Status: Acute Category: Medical Code(s): L85.9 - Epidermal thickening, unspecified (15) Onychodystrophy Start date: 10/22/20 Status: Acute Category: Medical Code(s): L60.3 - Nail dystrophy (16) Onychomycosis Start date: 10/22/20 Status: Acute Category: Medical Code(s): B35.1 - Tinea unguium - Assessment and plan all Dx Assessment and Plan for all problems:: #Acute hypoxic hypercarbic respiratory failure: # COPD exacerbation: 50-year-old female smoker greater than 29-[id number]-bwlp smoking history, currently smoking with history of diabetes, hypothyroidism on levothyroxine with persistently elevated TSH but normal free T4 in 2017, left lower extremity cellulitis presented to the ED with worsening left lower extremity swelling along with hypoxic and hypercarbic respiratory failure eventually needing intubation and mechanical ventilation. CT PE did not show evidence of pulmonary them however showed left lower lobe pulmonary infiltrate. After questioning the family stated that patient has been altered and lethargic for a week prior to hospital admission and CT
--- NOTE | 2020-10-27 11:09 | HMH.ACPN ---
Internal Medicine - PN: Subj *Date: 10/27/20 *Time: 11:09 Exam Vital signs and Labs for Last 24 Hours: Temp Pulse Resp BP Pulse Ox 97.8 F 73 22 148/86 H 93 L 10/27/20 07:47 10/27/20 07:47 10/27/20 08:00 10/27/20 07:47 10/27/20 08:00 Laboratory Results - last 24 hr 10/26/20 09:11: Specimen Source Left radial, O2 % 5 lpm, ABG pH 7.45, ABG pCO2 59.5 H, ABG pO2 57.4 L, ABG HCO3 40.6 H, ABG Total CO2 42.4 H, ABG O2 Saturation 91, ABG Base Excess 16.7 H, Reyes Test Acceptable 10/27/20 06:28: WBC 8.2, RBC 5.42 H, Hgb 16.1, Hct 52.8 H, MCV 97.3, MCH 29.8, MCHC 30.6 L, RDW 15.5, Plt Count 169, MPV 7.7, Neut % (Auto) 74.8, Lymph % (Auto) 18.0, [place] % (Auto) 6.1, Eos % (Auto) 0.4, Baso % (Auto) 0.8, Neut # (Auto) 6.1, Lymph # (Auto) 1.5, [place] # (Auto) 0.5, Eos # (Auto) 0.0, Baso # (Auto) 0.1 10/27/20 06:28: Sodium 134 L, Potassium 4.0, Chloride 85 L, Carbon Dioxide 43 H*, Anion Gap 10.0, BUN 45 H, Creatinine 0.60 D, Estimated Creat Clear 119, Estimated GFR 105, Est GFR ( Amer) 127 D, Glucose 204 H, Calcium 9.1 I & O for Last 24 hours: Intake & Output 10/24/20 10/25/20 10/26/20 10/27/20 23:59 23:59 23:59 23:59 Intake Total 1700 / 1700 2990 / 2990 440 / 440 950 / 950 Output Total 5050 / 5850 5900 / 5900 1600 / 1600 Balance -3350 / -4150 -2910 / -2910 440 / 440 -650 / -650 Weight 142.116 kg 135.227 kg 135.199 kg Microbiology Reports for the Last 24 Hours: Microbiology 10/22/20 00:45 Blood Blood Culture - Final NO GROWTH AFTER 5 DAYS Assessment and Plan (1) Cellulitis of leg, left Status: Acute Category: Medical Code(s): L03.116 - Cellulitis of left lower limb (2) Venous stasis Status: Acute Category: Medical Code(s): I87.8 - Other specified disorders of veins (3) Acute and chronic respiratory failure with hypoxia Status: Acute Category: Medical Code(s): J96.21 - Acute and chronic respiratory failure with hypoxia (4) Venous insufficiency Status: Acute Category: Medical Code(s): I87.2 - Venous insufficiency (chronic) (peripheral) (5) Tobacco abuse Status: Acute Category: Medical Code(s): Z72.0 - Tobacco use (6) Hypothyroidism Status: Chronic Qualifiers: Hypothyroidism type: acquired Qualified Code(s): E03.9 - Hypothyroidism, unspecified Category: Medical Code(s): E03.9 - Hypothyroidism, unspecified (7) COPD with acute exacerbation Status: Acute Category: Medical Code(s): J44.1 - Chronic obstructive pulmonary disease with (acute) exacerbation (8) Diastolic dysfunction Status: Chronic Category: Medical Code(s): I51.9 - Heart disease, unspecified (9) Discoloration of skin of multiple sites of lower extremity Status: Chronic Category: Medical Code(s): L81.9 - Disorder of pigmentation, unspecified (10) HTN (hypertension) Status: Chronic Qualifiers: Hypertension type: essential hypertension Qualified Code(s): I10 - Essential (primary) hypertension Category: Medical Code(s): I10 - Essential (primary) hypertension (11) Swelling of left lower extremity Status: Chronic Category: Medical Code(s): M79.89 - Other specified soft tissue disorders (12) SOB (shortness of breath) Status: Acute Category: Medical Code(s): R06.02 - Shortness of breath (13) Lymphedema Start date: 10/22/20 Status: Acute Category: Medical Code(s): I89.0 - Lymphedema, not elsewhere classified (14) Hyperkeratosis Start date: 10/22/20 Status: Acute Category: Medical Code(s): L85.9 - Epidermal thickening, unspecified (15) Onychodystrophy Start date: 10/22/20 Status: Acute Category: Medical Code(s): L60.3 - Nail dystrophy (16) Onychomycosis Start date: 10/22/20 Status: Acute Category: Medical Code(s): B35.1 - Tinea unguium The patient's infection will respond to the chosen ABx?: Yes Is the patient receiving the right drug, dose, and route?: Yes Coul
--- NOTE | 2020-10-27 16:04 | PC.NURSE ---
No acute changes this shift. Remains on 5 L nasal cannula w/ no s/s of resp distress. SPO2 90-94%. Lung sounds diminished throughout. HR regular. LLE remain edematous, RLE improved but w/ slight edema. UNNA boot in place to RLE. Pop pulse is able to be palpated, toes move freely. Abdomen soft, non-tender w/ active BS in all quads. No BM today, ducosate given per MAR. Voiding w/o difficulty. Urine is clear and liz[place] in color. Has had over 2 L UOP this shift. Pt is assisted, amandeep w/ [place] back [place] [facility] Pain meds given per MAR for chronic back pain. Family remains @ bedside. Pt currently sitting up in bed watching videos on cellphone. No needs voiced @ this time.
--- NOTE | 2020-10-27 19:40 | HMH.ACPN2 ---
Internal Medicine - PN: Subj *Date: 10/27/20 *Time: 19:55 Interval history: 50-year-old female patient sitting up at bedside, no respiratory distress noted. Oxygenation 93% on 5 L per nasal cannula. She reports she feels much better today than yesterday and denies any respiratory distress during the night. She was wearing BiPAP during the night and recently just transitioned to nasal cannula. Exam Vital signs and Labs for Last 24 Hours: Temp Pulse Resp BP Pulse Ox 98.0 F 91 H 19 130/70 94 L 10/27/20 15:00 10/27/20 16:54 10/27/20 15:00 10/27/20 15:00 10/27/20 15:00 Laboratory Results - last 24 hr 10/27/20 06:28: WBC 8.2, RBC 5.42 H, Hgb 16.1, Hct 52.8 H, MCV 97.3, MCH 29.8, MCHC 30.6 L, RDW 15.5, Plt Count 169, MPV 7.7, Neut % (Auto) 74.8, Lymph % (Auto) 18.0, [place] % (Auto) 6.1, Eos % (Auto) 0.4, Baso % (Auto) 0.8, Neut # (Auto) 6.1, Lymph # (Auto) 1.5, [place] # (Auto) 0.5, Eos # (Auto) 0.0, Baso # (Auto) 0.1 10/27/20 06:28: Sodium 134 L, Potassium 4.0, Chloride 85 L, Carbon Dioxide 43 H*, Anion Gap 10.0, BUN 45 H, Creatinine 0.60 D, Estimated Creat Clear 119, Estimated GFR 105, Est GFR ( Amer) 127 D, Glucose 204 H, Calcium 9.1 I & O for Last 24 hours: Intake & Output 10/24/20 10/25/20 10/26/20 10/27/20 23:59 23:59 23:59 23:59 Intake Total 1700 / 1700 2990 / 2990 440 / 440 2110 / 2110 Output Total 5050 / 5850 5900 / 5900 2200 / 2200 Balance -3350 / -4150 -2910 / -2910 440 / 440 -90 / -90 Weight 313 lb 5 oz 298 lb 2 oz 298 lb 1 oz Microbiology Reports for the Last 24 Hours: Microbiology 10/27/20 11:43 Nasopharyngeal Coronavirus COVID-19 PCR - Final 10/22/20 00:45 Blood Blood Culture - Final NO GROWTH AFTER 5 DAYS - Constitutional no acute distress - *Routine HEENT Exam Head: Present: normocephalic Eye: Present: EOMI ENT: Present: mucous membranes moist - *Routine Neck Exam Present: trachea midline, tracheal deviation - *Routine Respiratory Exam Present: decreased breath sounds - *Routine Cardiovascular Exam Present: RRR - *Routine Abdominal Exam Present: soft, normoactive bowel sounds, obese. Absent: tenderness, rigid - *Routine Extremities Exam Present: edema, full ROM, pulses intact, calf tenderness - *Routine Skin Exam Present: erythema, dry, warm, wounds Comments: Manuel ANDERSON C/D/I - *Routine Neurological Exam Present: alert, oriented X3. Absent: motor deficit, pronator drift - Routine Psychiatric Exam Present: normal affect, normal thought process. Absent: auditory hallucinations, visual hallucinations Assessment and Plan (1) Cellulitis of leg, left Status: Acute Category: Medical Code(s): L03.116 - Cellulitis of left lower limb (2) Venous stasis Status: Acute Category: Medical Code(s): I87.8 - Other specified disorders of veins (3) Acute and chronic respiratory failure with hypoxia Status: Acute Category: Medical Code(s): J96.21 - Acute and chronic respiratory failure with hypoxia (4) Venous insufficiency Status: Acute Category: Medical Code(s): I87.2 - Venous insufficiency (chronic) (peripheral) (5) Tobacco abuse Status: Acute Category: Medical Code(s): Z72.0 - Tobacco use (6) Hypothyroidism Status: Chronic Qualifiers: Hypothyroidism type: acquired Qualified Code(s): E03.9 - Hypothyroidism, unspecified Category: Medical Code(s): E03.9 - Hypothyroidism, unspecified (7) COPD with acute exacerbation Status: Acute Category: Medical Code(s): J44.1 - Chronic obstructive pulmonary disease with (acute) exacerbation (8) Diastolic dysfunction Status: Chronic Category: Medical Code(s): I51.9 - Heart disease, unspecified (9) Discoloration of skin of multiple sites of lower extremity Status: Chronic Category: Medical Code(s): L81.9 - Disorder of pigmentation, unspecified (10) HTN (hypertension) Status: Chronic Qualifiers: Hypertensi
[2020-10-28] VITALS: PULSE 80
--- NOTE | 2020-10-28 02:52 | PC.NURSE ---
No acute changes overnight, pt A&O x4. Pt states she is very nervous to go to the half-way facility today. Pt has c/o pain in BLE, morphine given per mar with desired effects. Lungs are diminished bilat, on 5L NC, sats in the low 90s. BLE are brenda, warm and dry, drsg on LLE is CDI. No BM this shift, docusate given per mar. IV patent, SL. VSS, call light in reach, no concerns at this time.
[2020-10-28 03:59] VITALS: BP 135/57; PULSE 81; RESP 24; TEMP 36.6; O2SAT 93
[2020-10-28 04:00] VITALS: PULSE 70
[2020-10-28 05:00] VITALS: BMI 41.5
[2020-10-28 06:10] VITALS: PULSE 77; PULSE 91; O2SAT 89
[2020-10-28 06:20] LABS: Basophils # 0.1 K/mm3 (0-0.2); Basophils % 0.7 % (0.1-2.0); Chloride 84 mmol/L (98-107); Eosinophils # 0.1 K/mm3 (0.0-0.4); Eosinophils % 1.2 % (0.1-12.0); Hematocrit 53.1 % (37.0-47.0); Hemoglobin 16.7 g/dL (12.2-16.2); Lymphocytes % 23.4 % (10-50); Mean Corpuscular HGB Conc 31.5 g/dL (31.8-35.4); Mean Corpuscular Hemoglobin 30.3 pg (27.0-31.2); Mean Corpuscular Volume 96.3 fl (81-99); Mean Platelet Volume 7.1 fl (7.4-10.4); Monocytes # 0.5 K/mm3 (0.1-1.0); Monocytes % 5.6 % (1.7-9.3); Platelet Count 155 K/mm3 (142-424); Red Blood Count 5.52 M/mm3 (4.20-5.40); Red Cell Distribution Width 15.3 % (11.5-17.5); Sodium 135 mmol/L (136-145); White Blood Count 8.7 K/mm3 (4.8-10.8)
[2020-10-28 06:21] LABS: Potassium 3.8 mmoL/L (3.5-5.1)
[2020-10-28 06:23] LABS: Blood Urea Nitrogen 45 mg/dl (7-17); Creatinine Clearance Estimated 89 mL/min (50-200); Estimated Glomerular Filt Rate 75 ml/min (>60); GFR (African American) 91 ML/MIN (>60)
[2020-10-28 06:24] LABS: Calcium 9.3 mg/dl (8.4-10.2); Glucose 147 mg/dl (74-100)
[2020-10-28 06:48] LABS: Anion Gap 8.8 mEq/L (5-15); Carbon Dioxide 46 mmol/L (22.0-30.0)
[2020-10-28 08:00] VITALS: BP 125/65; PULSE 84; RESP 18; TEMP 36.6; O2SAT 93
--- NOTE | 2020-10-28 08:15 | HMH.DCSUM ---
General - General Admission date:: 10/22/20 Discharge date: 10/28/20 HPI HPI: 50-year-old female who presented to the emergency department with complaints of swelling in her left lower extremity as well as pain and drainage. The patient has chronic venous stasis to the left lower extremity. Daughter is at bedside who states that her leg has looked very poorly for a very long time(months-years). Pt has AMS with rounding. Pt on bipap with little stimuli. Pt sitting slumped over in bed. Annngi at bedside. pt admitted for ams,soa, cellulitis and podiatry consult. Hospital Course Hospital Course: 50-year-old female who presented to the emergency department with complaints of swelling in her left lower extremity as well as pain and drainage. The patient has chronic venous stasis to the left lower extremity. Daughter is at bedside who states that her leg has looked very poorly for a very long time(months-years). Pt has AMS with rounding. Pt on bipap with little stimuli. Pt sitting slumped over in bed. Annngi at bedside. pt admitted for ams,soa, cellulitis and podiatry consult. 10/22/20 Venous Doppler: Conclusion No evidence of DVT or superficial thrombophlebitis in the veins scanned of the right lower extremity. No evidence of DVT or superficial thrombophlebitis in the veins scanned of the left lower extremity. Electronically signed by : Reyes Spicer 10/22/20 Chest CTA: FINDINGS: Beam hardening artifact from the patient's arms, contrast and motion degrades quality of the exam. Endotracheal tube is present. The tip is in good position approximately 4 cm above the anya. Consolidation is present in both lower lobes posteriorly left more extensive than right and within the lingula. No effusions. No mediastinal or hilar mass. There is cardiomegaly. 10 mm right renal calculus versus contrast within the right renal collecting system. No no large pulmonary embolus is evident. Mid distal pulmonary arteries are not well assessed. No evidence of aortic aneurysm. No acute bony findings. IMPRESSION: 1. No large pulmonary emboli apparent. 2. Bilateral lower lobe and lingular consolidation. Dictated by: Nayan, 10/22/[address]: FINDINGS: No midline shift or intracranial hemorrhage is evident. There is sulcal effacement in both frontal lobes anterior parietal lobes and temporal lobes anteriorly. The patient is intubated. Calcified choroid plexus and calcification of the pineal gland noted. Opacified ethmoid sinuses and partial opacification of the maxillary sinuses. Nasogastric tube also present. IMPRESSION: Sulcal effacement and loss of bruce-white matter differentiation mainly in the frontal lobes as well as anterior parietal and temporal lobe suggesting global hypoxic ischemic event Dictated by: Nayan, 10/26/20 Abd CTA: FINDINGS The aorta and iliac vessels have an unremarkable appearance. The celiac artery is not included. Motion artifact somewhat obscures evaluation of the distal branches the SMA. The SMA is patent with [id number] mid stenosis of approximately 50 percent from atherosclerotic calcific plaque. No significant stenosis or occlusive changes are evident involving the common femoral, femoral, or popliteal arteries. The right and left tibial peroneal trunk, posterior tibial, anterior tibial and peroneal arteries are patent.. There was questionable occlusion of the right dorsalis pedis with distal reconstitution. The right plantar artery is patent. The left dorsalis pedis and plantar artery a are patent reconstitution There is a moderate amount of retained colonic feces. No evidence of intestinal obstruction, free air, appendicitis, or diverticulitis. Scattered small nodes are present in the retroperitoneum and inguinal regions. There is subcutaneous edema along the lower abdominal wall on the left. The right lateral and lower abdominal wall is not incl
--- NOTE | 2020-10-28 10:55 | HMH.PULMPN ---
Internal Medicine - PN: Subj *Date: 10/28/20 *Time: 10:55 Interval history: No acute respiratory events overnight. Exam - Constitutional Constitutional:: Present: no acute distress, comfortable - HENMT Exam HENMT: Present: normocephalic, atraumatic - Neck Exam Neck:: Present: normal visual inspection - Respiratory Exam Respiratory:: Present: able to speak in complete sentences, lungs clear, no respiratory distress, decreased breath sounds - Cardiovascular Exam Cardiac:: Present: S1, S2 - GI Exam GI:: Present: soft, obese - Skin Exam Skin: Present: warm, rash - Neurological Exam Neurological: Present: alert, awake, normal cognition - Extremities Exam Extremities: Present: no cyanosis, no clubbing, edema Assessment and Plan (1) Cellulitis of leg, left Status: Acute Category: Medical Code(s): L03.116 - Cellulitis of left lower limb (2) Venous stasis Status: Acute Category: Medical Code(s): I87.8 - Other specified disorders of veins (3) Acute and chronic respiratory failure with hypoxia Status: Acute Category: Medical Code(s): J96.21 - Acute and chronic respiratory failure with hypoxia (4) Venous insufficiency Status: Acute Category: Medical Code(s): I87.2 - Venous insufficiency (chronic) (peripheral) (5) Tobacco abuse Status: Acute Category: Medical Code(s): Z72.0 - Tobacco use (6) Hypothyroidism Status: Chronic Qualifiers: Hypothyroidism type: acquired Qualified Code(s): E03.9 - Hypothyroidism, unspecified Category: Medical Code(s): E03.9 - Hypothyroidism, unspecified (7) COPD with acute exacerbation Status: Acute Category: Medical Code(s): J44.1 - Chronic obstructive pulmonary disease with (acute) exacerbation (8) Diastolic dysfunction Status: Chronic Category: Medical Code(s): I51.9 - Heart disease, unspecified (9) Discoloration of skin of multiple sites of lower extremity Status: Chronic Category: Medical Code(s): L81.9 - Disorder of pigmentation, unspecified (10) HTN (hypertension) Status: Chronic Qualifiers: Hypertension type: essential hypertension Qualified Code(s): I10 - Essential (primary) hypertension Category: Medical Code(s): I10 - Essential (primary) hypertension (11) Swelling of left lower extremity Status: Chronic Category: Medical Code(s): M79.89 - Other specified soft tissue disorders (12) SOB (shortness of breath) Status: Acute Category: Medical Code(s): R06.02 - Shortness of breath (13) Lymphedema Start date: 10/22/20 Status: Acute Category: Medical Code(s): I89.0 - Lymphedema, not elsewhere classified (14) Hyperkeratosis Start date: 10/22/20 Status: Acute Category: Medical Code(s): L85.9 - Epidermal thickening, unspecified (15) Onychodystrophy Start date: 10/22/20 Status: Acute Category: Medical Code(s): L60.3 - Nail dystrophy (16) Onychomycosis Start date: 10/22/20 Status: Acute Category: Medical Code(s): B35.1 - Tinea unguium - Assessment and plan all Dx Assessment and Plan for all problems:: #Acute hypoxic hypercarbic respiratory failure: # COPD exacerbation: 50-year-old female smoker greater than 05-iocc-oblz smoking history, currently smoking with history of diabetes, hypothyroidism on levothyroxine with persistently elevated TSH but normal free T4 in 2017, left lower extremity cellulitis presented to the ED with worsening left lower extremity swelling along with hypoxic and hypercarbic respiratory failure eventually needing intubation and mechanical ventilation. CT PE did not show evidence of pulmonary them however showed left lower lobe pulmonary infiltrate. After questioning the family stated that patient has been altered and lethargic for a week prior to hospital admission and CT head on this admission showed mild almost diffuse hypoxic injury likely from her chronic hypercarbia and mentation. Patient respiratory status
[2020-10-28 12:00] VITALS: BP 130/70; PULSE 77; PULSE 80; RESP 18; TEMP 36.8; O2SAT 91
--- NOTE | 2020-10-28 16:08 | PC.NURSE ---
PT IS SITTING UP ON THE SOB WITH FAMILY AT BEDSIDE. PT HAS BEEN VERY ANXIOUS ABOUT GOING TO [place] TODAY. PT STATES SHE FEELS LIKE SHE WILL NOT GET THE CARE THERE LIKE SHE HAS HERE. PT STATES I FEEL LIKE THEY ARE GOING TO LET ME SUFFER AND I'M VERY SCARED TO BE ALONE PT'S FAMILY STATES THEY KNOW IT IS THE BEST FOR PT TO GO TO [place] FOR 30 DAYS. PT WANTS TO HAVE SOMETHING FOR ANXIETY AND FOR PAIN WHILE SHE IS THERE. WHEN PT IS QUESTIONED ABOUT HER PAIN SHE STATES SHE HURTS ALL OVER. NOTIFIED PREET BRUCE AND SUMAN BERRY IN THE OFFICE AND THEY ORDERED ATIVAN AND NORCO AND BOTH MEDS WERE ADDED TO DISCHARGE. PT HAD A ONE TIME DOSE OF EACH WHILE HERE AND TOLERATED FINE. NOTIFIED [facility] TO GIVE REPORT. PT WAS STILL VERY TEARFUL AT DISCHARGE AND STATED SHE WISHED SHE COULD JUST STAY HERE OR GO HOME. PT HAS BEEN UP TO THE C THIS SHIFT. DRESSING NOTED TO THE LLE. PT HAS VERY DRY SKIN. LUNG SOUNDS HAVE SCATTERED WHEEZES/RHONCHI. EATING AND DRINKING WELL. VSS. O2 SATURATION HAS MAINTAINED 90-93% ON 4 L NC. PT IS ABLE TO DO VERY MINIMAL AMBULATION WITH WALKER. PT WAS DISCHARGED AND TAKEN OUT BY WHEELCHAIR AT 1548.
--- NOTE | 2020-10-28 18:24 | HMH.BHCONS ---
*Admission Date: 10/22/20 *Reason for consult:: anxiety *History of present illness: I talked to patient at her bedside today. Her daughter was in the room at the time of the interview. She states that she si terrified. -terrified to leave today -terrified to be alone -just terrified -she states that this has been really bad since 2016 -when her mother -she states that she has been here a week -she was intubated at one point for her breathing -she states that she is just really confused -she lost time -she doesn't know the day -she states that it all happened so fast and now she is even more scared -she states that she is scared to leave today and go to the rest home -she is scared that her daughter will leave her there and not pick her back up -she is only supposed to be there for 4 weeks; for therapy -daughter states that they tried to talk her into coming to the ER for weeks before she finally did -she is on methadone at home; takes 10mg TID -I did ask questions regarding pain and use of the methadone -ruled out withdrawal -she is on pain medications here -she states that she has been on the methadone for 15 years related to being allergic to other pain medicines -she states that she has a lot of anxiety -but never taken anything for this -she is willing to try something I did call Gus Moe. RECOMMENDATION: 1. Give Ativan 0.5mg po X1 now. She is very anxious about taking new medicines related to her history of being allergic to everything. -see how she does on this -if she is still okay in about 1-2 hours; then transfer to the assisted -he is agreeable to do this 2. NO other changes at this time TIME IN: 1230 TIME OUT: 1300 [facility] History Medical History: Reports:: Anxiety, Chronic Obstructive Pulmonary Disease (COPD), Depression, Diabetes Mellitus Type 2, Home Oxygen, Hyperlipidemia, Hypertension, Palpitations, Peripheral Vascular Disease Denies:: Cancer, Diabetes Mellitus Type 1, MRSA *Have you ever received a pneumonia vaccine?: No *Have you received a flu vaccine this season?: No Other Medical History: Reports: Hoarseness, Hypothyroidism, Sinus Problems Laterality Cases: Right: Breast Biopsy, Bilateral: Other Other Surgeries: Yes: , Hysterectomy-Total Amputation: No Fractures: No - *Social History Smoking Status: Current every day smoker Tobacco Type: cigarettes # Packs/Day (cigarettes): 1 Alcohol Intake: never Alcohol Intake Frequency:: other Substance Use Type: denies use *Occupational Status:: disabled Housing: house Household Members: family *Travel in the last 8 weeks: None - Psychiatric History Pschychiatric History:: Reports:: Anxiety, Depression Family Hx:: Unable to obtain Review of Systems - *Neurologic Reports numbness, Reports tingling (Numbness and tingling sensation to feet. ), Reports weakness, Denies abnormal hearing, Denies seizure-like activity Meds Home Medications Medication Instructions Recorded Confirmed Type dilTIAZem HCl [Diltiazem 240mg 480 mg PO DAILY 03/16/20 10/22/20 History 24Hr ER Cap] ergocalciferol (vitamin D2) 1,250 50,000 unit PO WEEKLY #12 cap 06/25/20 10/22/20 Rx mcg (50,000 unit) capsule epinephrine 0.3 mg/0.3 mL 0.3 mg IM Q5-15M PRN #1 each 09/02/20 10/22/20 Rx injection, auto-injector levothyroxine 150 mcg tablet 300 mcg PO DAILY #180 tab 09/22/20 10/22/20 Rx Albuterol Sulfate [Proventil Hfa] 2 puffs IH Q4HP PRN 10/22/20 10/22/20 History Nystatin [Nystop] 1 applic TP BID 10/22/20 10/22/20 History predniSONE [Deltasone 20mg 40 mg PO DAILY 7 Days #14 tab 10/26/20 Rx tablet] Hydrocod/Acet 5/325 mg [[place] 1 tab PO Q6HP PRN #12 tab 10/28/20 Rx 5/325mg tablet] LORazepam [Ativan 0.5mg 0.5 mg PO BID 30 Days #60 tab 10/28/20 Rx tablet] fluticasone propionate 115 2 puff INHALATION BID #12 g 10/28/20 Rx mcg-salmeterol 21 mcg/actuation HFA inhaler ipratropium 0.5 mg-albuterol 3 mg 3 ml INHALATION QI
== END 2020-10-28 15:48 | DRG 602 ==
LOC: ER 10-22 00:07 → 2ND 10-22 02:11
PROVIDERS: Internal Medicine Adolescent Medicine; Internal Medicine Pulmonary Disease; Nurse Practitioner Family; Admitting Provider Emergency Medicine; Emergency Provider Emergency Medicine; PCP Family Medicine; Visit Provider Family Medicine
DX: L03.116 Cellulitis of left lower limb; J96.21 Acute and chronic respiratory failure with hypoxia; J96.02 Acute respiratory failure with hypercapnia; I50.33 Acute on chronic diastolic (congestive) heart failure; Z68.41 Body mass index [BMI] 40.0-44.9, adult; E66.2 Morbid (severe) obesity with alveolar hypoventilation; J44.1 Chronic obstructive pulmonary disease with (acute) exacerbation; E11.9 Type 2 diabetes mellitus without complications; E03.9 Hypothyroidism, unspecified; Z99.81 Dependence on supplemental oxygen; I11.0 Hypertensive heart disease with heart failure; E78.5 Hyperlipidemia, unspecified; Z72.0 Tobacco use; L03.115 Cellulitis of right lower limb; I89.0 Lymphedema, not elsewhere classified; I87.8 Other specified disorders of veins; I87.2 Venous insufficiency (chronic) (peripheral)
CPT/HCPCS: 31500; 94002; 36415; 70450; 71045; 71275; 73600; 75635; 80048; 80053; 80202; 81001; 82140; 82533; 82803; 82962; 83605; 84145; 84436; 84439; 84443; 85007; 85025; 85651; 86140; 87040; 87070; 87077; 87081; 87186; 87205; 87581; 87633; 87798; 93306; 93970; 94640; 94660; 94761; 96365; 96367; 96375; 99283; J0878; J1956; J2020; J2405; J2704; J3370; Q9967; U0003

== ENCOUNTER → 2021-02-05 10:13 | Outpatient (CLI) | payer MEDICAID, SELFPAY ==
--- NOTE | 2021-02-05 11:15 | PC.NURSE ---
Pt complete PFT without complications. Albuterol 0.083% given via HHN, Pt tolerated tx well.
== END ==
PROVIDERS: PCP Family Medicine; Visit Provider Internal Medicine Pulmonary Disease
DX: R06.02 Shortness of breath (principal)
CPT/HCPCS: 94060; 94726; 94729

== ENCOUNTER 2021-02-05 15:00 | Outpatient (RCR) | payer MEDICAID, SELFPAY ==
--- NOTE | 2021-01-28 15:17 | HMH.PTOPWND ---
Rehab Outpt Wound Evaluation Rehab OP Wound Evaluation Start: 01/28/21 14:33 Freq: Status: Active Protocol: Document 01/28/21 15:12 ZOE (Rec: 01/28/21 15:17 PHORNE [id number]) Electronically Signed By Floyd Mccray, PT 01/28/21 15:12 Subjective/History History History Pt is 50 yowf who presents with significant L LE hyperkeratosis due to underlying lymohedema and recent bout of severe cellulitis ~ 3 mos ago. She has previously been seen at this clinic with good results after treatment, but was unable to continue her appointments due to transportation issues and multiple comorbidities. She reports increase tenderness to palpation throughout the L lower leg. PMH: Anxiety, COPD, PVD, CVI, DM-II, HL, HTN, ANTIONE , . Subjective Subjective Currently c/o pain 7/10 in L LE. 2/4 tenderness to palpation throughout L lower leg. Lymphedema Eval Classification of Lymphedema Secondary Lymphedema Yes Stemmer's sign Stemmer's Sign yes Stage of Lymphedema Lymphedema stages Stage III (Non-pitting, fibrosis and sclerosis, skin changes) Skin Changes Dry Skin Yes Skin Folds Yes Hyperkeratosis Yes Papillomatosis Yes Brittle Uneven Nails Yes Discoloration of Skin Yes [place] Yes Other Changes Yes Pain Scale Pain Scale (0-10) 7 Affected Extremities Areas Affected by Lymphedema/Edema Left Lower Extremity Manual Lymphatic Drainage Treatment Area MLD Treatment Area Left Lower Extremity Wound Problems/Impairments Impairments Problems/Impairmments Palpation Tenderness,Impaired Range of Motion,Impaired Strength,Impaired Endurance, Impaired Transfers,Impaired Gait Pattern,Impaired Walking, Impaired Standing,Impaired Sitting,Impaired Household Care,Impaired Recreational Act
== END 2021-02-05 15:05 | disposition home or self-care (01) ==
LOC: PT 15:00
PROVIDERS: PCP Family Medicine; Visit Provider Family Medicine
DX: L03.116 Cellulitis of left lower limb (principal)
CPT/HCPCS: 97110; 97140; 97163; 97760

== ENCOUNTER → 2021-04-13 14:34 | Outpatient (CLI) | payer MEDICAID, SELFPAY ==
[2021-04-13 15:26] LABS: Basophils # 0.1 K/mm3 (0-0.2); Basophils % 0.6 % (0.1-2.0); Eosinophils # 0.2 K/mm3 (0.0-0.4); Hemoglobin 15.9 g/dL (12.2-16.2); Lymphocytes # 2.4 K/mm3 (0.7-4.5); Lymphocytes % 33.5 % (10-50); Mean Corpuscular HGB Conc 32.6 g/dL (31.8-35.4); Mean Corpuscular Hemoglobin 32.6 pg (27.0-31.2); Mean Corpuscular Volume 100.1 fl (81-99); Mean Platelet Volume 8.4 fl (7.4-10.4); Monocytes # 0.3 K/mm3 (0.1-1.0); Monocytes % 4.4 % (1.7-9.3); Neutrophils # 4.3 K/mm3 (1.8-7.8); Neutrophils % 59.5 % (37.0-80.0); Platelet Count 211 K/mm3 (142-424); Red Blood Count 4.89 M/mm3 (4.20-5.40); Red Cell Distribution Width 13.5 % (11.5-17.5); White Blood Count 7.3 K/mm3 (4.8-10.8)
[2021-04-13 15:46] LABS: Alanine Aminotransferase 33 U/L (12-78); Albumin/Globulin Ratio 1.2 (1.1-1.8); Alkaline Phosphatase 98 U/L (38-126); Aspartate Amino Transferase 29 U/L (14-36); Bilirubin,Total 0.3 mg/dl (0.2-1.3); Blood Urea Nitrogen 14 mg/dl (7-17); Calcium 9.4 mg/dl (8.4-10.2); Carbon Dioxide 38 mmol/L (22.0-30.0); Chloride 97 mmol/L (98-107); Chol/HDL Ratio 6.1 (1-3.5); Cholesterol 232 mg/dl (140-200); Estimated Glomerular Filt Rate 168 ml/min (>60); GFR (African American) 203 ML/MIN (>60); Globulin 3.3 g/dL (1.3-3.2); Glucose 160 mg/dl (74-100); HDL Cholesterol 38 mg/dl (40-60); Sodium 140 mmol/L (136-145); Total Protein,Serum 7.3 g/dl (6.3-8.2); Triglycerides 382 mg/dl (30-150); VLDL Cholesterol 76 mg/dL (0-40)
[2021-04-13 15:57] LABS: Direct LDL Cholesterol 143.27 mg/dL (100-129); Hemoglobin A1C 7.2 % (4.0-6.0)
[2021-04-13 16:03] LABS: T4 (Thyroxine) 12.3 ug/dl (5.53-11.0)
[2021-04-13 16:17] LABS: Thyroid Stimulating Hormone 2.17 uIU/mL (0.465-4.68)
== END ==
PROVIDERS: Visit Provider Family Medicine
DX: E03.9 Hypothyroidism, unspecified (principal); E78.5 Hyperlipidemia, unspecified; E11.9 Type 2 diabetes mellitus without complications
CPT/HCPCS: 80053; 80061; 83036; 84436; 84443; 85025

== ENCOUNTER 2021-08-11 19:01 | Inpatient (IN) | payer MEDICAID, SELFPAY ==
[2021-08-11] VITALS (8 sets, daily range): BP systolic 83–106; BP diastolic 41–69; PULSE 58–80; RESP 20–24; TEMP 36.7–36.8; O2SAT 81–98; BMI 50.2; BMI 50.8
--- NOTE | 2021-08-11 19:02 | XR_ITS ---
PROCEDURE INFORMATION: Exam: XR Chest Exam date and time: 08/11/2021 7:02 PM Age: 51 years old Clinical indication: Shortness of breath; Additional info: SOA TECHNIQUE: Imaging protocol: XR of the chest. Views: 1 view. COMPARISON: SD XR CHEST PORTABLE 10/25/2020 2:17 PM FINDINGS: Lungs: Low lung volumes with associated vascular crowding and bibasilar atelectasis. Possible pulmonary venous congestion. Pleural spaces: Pleural effusions, left larger than right. This is similar to prior study. Heart/Mediastinum: Cardiomegaly. Vasculature: Vascular calcifications. Bones/joints: Unremarkable. IMPRESSION: 1. Possible pulmonary venous congestion. 2. Pleural effusions, left larger than right. This is similar to prior study.
[2021-08-11 19:21] LABS: ABG Base Excess 22.6 mmol/L (-2.4-2.3); ABG Oxygen Saturation 92 % (90-100); ABG PH 7.24 mmol/L (7.35-7.45); ABG PO2 64.4 mmhg (80-100); ABG TCO2 53.7 mmhg (23-27); Allen's Test Acceptable; Oxygen 4 %; Source Left Radial
[2021-08-11 19:24] LABS: ABG PCO2 120.5 mmhg (35.0-45.0)
[2021-08-11 19:39] LABS: Coronavirus 19, PCR Not Detected (NotDetected); Influenza A, PCR Not Detected (NotDetected); Influenza B, PCR Not Detected (NotDetected)
[2021-08-11 19:43] LABS: Alanine Aminotransferase 35 U/L (12-78); Albumin Level 4.3 g/dl (3.5-5.0); Albumin/Globulin Ratio 1.4 (1.1-1.8); Alkaline Phosphatase 61 U/L (38-126); Aspartate Amino Transferase 90 U/L (14-36); Bilirubin,Total 0.5 mg/dl (0.2-1.3); Blood Urea Nitrogen 27 mg/dl (7-17); Calcium 9.1 mg/dl (8.4-10.2); Chloride 77 mmol/L (98-107); Creatinine Clearance Estimated 68 mL/min (50-200); Estimated Glomerular Filt Rate 58 ml/min (>60); GFR (African American) 70 ML/MIN (>60); Globulin 3.1 g/dL (1.3-3.2); Glucose 124 mg/dl (74-100); Potassium 3.7 mmoL/L (3.5-5.1); Sodium 133 mmol/L (136-145); Total Protein,Serum 7.4 g/dl (6.3-8.2)
[2021-08-11 19:48] LABS: C-Reactive Protein 2.3 mg/L (0-4)
[2021-08-11 19:54] LABS: Anion Gap 7.7 mEq/L (5-15); Carbon Dioxide 52 mmol/L (22.0-30.0); NT Pro Brain Natriuretic Pep. 108 pg/mL (0-125)
[2021-08-11 19:55] LABS: Basophils # 0.1 K/mm3 (0-0.2); Basophils % 1.5 % (0.1-2.0); Eosinophils # 0.1 K/mm3 (0.0-0.4); Eosinophils % 1.1 % (0.1-12.0); Hematocrit 51.5 % (37.0-47.0); Hemoglobin 15.9 g/dL (12.2-16.2); Lymphocytes # 0.9 K/mm3 (0.7-4.5); Lymphocytes % 13.4 % (10-50); Mean Corpuscular HGB Conc 30.9 g/dL (31.8-35.4); Mean Corpuscular Volume 103.4 fl (81-99); Mean Platelet Volume 8.6 fl (7.4-10.4); Monocytes # 0.4 K/mm3 (0.1-1.0); Monocytes % 5.7 % (1.7-9.3); Neutrophils # 5.2 K/mm3 (1.8-7.8); Neutrophils % 78.4 % (37.0-80.0); Platelet Count 215 K/mm3 (142-424); Red Blood Count 4.98 M/mm3 (4.20-5.40); Red Cell Distribution Width 14.3 % (11.5-17.5); White Blood Count 6.7 K/mm3 (4.8-10.8)
[2021-08-11 20:02] LABS: Procalcitonin 0.098 ng/mL (0.0-2.0)
--- NOTE | 2021-08-11 20:05 | HMH.EDWEAK ---
ED Disposition Clinical Impression: COPD with acute exacerbation, Tobacco abuse, Obesity, morbid, BMI 50 or higher, Severe sepsis with acute organ dysfunction Hypothyroidism Qualifiers: Hypothyroidism type: acquired Qualified Code(s): E03.9 - Hypothyroidism, unspecified Respiratory failure with hypercapnia Qualifiers: Chronicity: acute on chronic Qualified Code(s): J96.22 - Acute and chronic respiratory failure with hypercapnia Disposition: Admitted As Inpatient Condition on Discharge: Serious Referrals: Darvin Warner MD [Primary Care Provider] - - Critical Care Critical Care Time: No Attestation: On 08/11/21, the high probability of a clinically significant, sudden or life threatening deterioration of the following system(s) required my full and direct attention, intervention and personal management. The time I documented below is in addition to time spent performing reported procedures but includes the following listed in this critical care notation. Medical Decision Making - Medical Records Medical records reviewed: Yes: I reviewed the patient's medical records. - Joon Inquiry Pt receiving controlled substance: No Vital Signs: 08/11/21 19:01 08/11/21 19:46 Temperature 98.0 F Temperature Source Oral Pulse Rate [Right] 58 L Respiratory Rate 24 Blood Pressure [Right Arm] 106/63 L Blood Pressure Mean [Right Arm] 77 02 Sat by Pulse Oximetry 81 L 93 L Oxygen Delivery Method Nasal Cannula BiPAP Oxygen Flow Rate (LPM) 4 - Lab Data Lab results reviewed: Yes: I reviewed the patient's lab results. Lab Results 08/11/21 19:02: Specimen Source Left radial, O2 % 4, ABG pH 7.24 L*, ABG pCO2 120.5 H, ABG pO2 64.4 L, ABG HCO3 50.0 H, ABG Total CO2 53.7 H, ABG O2 Saturation 92, ABG Base Excess 22.6 H, Reyes Test Acceptable 08/11/21 19:22: WBC 6.7, RBC 4.98, Hgb 15.9, Hct 51.5 H, MCV 103.4 H, MCH 32.0 H, MCHC 30.9 L, RDW 14.3, Plt Count 215, MPV 8.6, Neut % (Auto) 78.4, Lymph % (Auto) 13.4, [place] % (Auto) 5.7, Eos % (Auto) 1.1, Baso % (Auto) 1.5, Neut # (Auto) 5.2, Lymph # (Auto) 0.9, [place] # (Auto) 0.4, Eos # (Auto) 0.1, Baso # (Auto) 0.1, ESR 10 08/11/21 19:22: Sodium 133 L, Potassium 3.7, Chloride 77 L, Carbon Dioxide 52 H*, Anion Gap 7.7, BUN 27 H, Creatinine 1.00, Estimated Creat Clear 68, Estimated GFR 58 L, Est GFR ( Amer) 70, Glucose 124 H, Calcium 9.1, Total Bilirubin 0.5, AST 90 H, ALT 35, Alkaline Phosphatase 61, C-Reactive Protein 2.3, Total Protein 7.4, Albumin 4.3, Globulin 3.1, Albumin/Globulin Ratio 1.4, Procalcitonin 0.098 08/11/21 19:22: NT-Pro-B Natriuret Pep 108 08/11/21 19:22: Troponin I < 0.01 08/11/21 19:35: SARS-CoV-2 (PCR) Not detected, Influenza A Untype (PCR) Not detected, Influenza Type B (PCR) Not detected Result diagrams: 08/11/21 19:22 08/11/21 19:22 Orders (Tests/Meds): ED MEDICATIONS Generic Name Dose Route Start Last Admin Trade Name Freq PRN Reason Stop Dose Admin Sodium Chloride 1,000 mls @ 999 mls/hr 08/11/21 20:30 08/11/21 20:23 Sod Chlor 0.9% 1000ml Bag IV 08/11/21 21:30 999 mls/hr .Q1H1M RUSH Administration Levofloxacin/Dextrose 500 mg in 100 mls @ 100 mls/hr 08/11/21 20:30 08/11/21 20:24 Levaquin 500mg/100ml Premix IV 08/25/21 20:29 100 mls/hr Q24H RUSH Administration Discontinued Medications Generic Name Dose Route Start Last Admin Trade Name Freq PRN Reason Stop Dose Admin Methylprednisolone Sodium Succinate 125 mg 08/11/21 20:19 08/11/21 20:23 Methylprednisolone Sod Succ 125mg Vial IV 08/11/21 20:20 125 mg ONCE ONE Administration ORDERS Category Date Time Status Lactic Acid Stat Lab 08/11/21 20:18 Received Troponin I Q3H Lab 08/11/21 23:30 Ordered Troponin I Q3H Lab 08/12/21 02:30 Ordered Urinalysis and Microscopic Stat Lab 08/11/21 19:04 Ordered Blood Culture Stat Micro 08/11/21 20:18 Received - Radiology Data #1 Image(s): Chest Image Reviewed: Yes I have reviewed radiologist's interpr
--- NOTE | 2021-08-11 20:07 | ECG_ITS ---
APPROVED REPORT Exam: Resting ECG HR:70 bpm ECG Measurements Heart Rate 70 AXES IA 164 P 47 QRSd 109 QRS 14 QT 432 T 72 QTc 453 Conclusion SINUS RHYTHM WITH OCCASIONAL VENTRICULAR PREMATURE COMPLEXES NONSPECIFIC T-WAVE ABNORMALITY BORDERLINE ECG UNCONFIRMED REPORT Electronically signed by : Chacho Jarrell MD 08/16/2021 17:33:39
[2021-08-11 20:40] LABS: Erythrocyte Sedimentation Rate 10 mm/hr (0-30)
[2021-08-11 20:43] LABS: Troponin I < 0.01 ng/ml (0.00-0.034)
[2021-08-11 20:48] LABS: Lactic Acid 1.5 mmol/L (0.7-2.1)
--- NOTE | 2021-08-11 21:37 | PC.NURSE ---
patient up to floor via stretcher @ this time.
[2021-08-12] VITALS (11 sets, daily range): BP systolic 100–120; BP diastolic 42–64; PULSE 64–100; RESP 5–34; TEMP 36.6–37.1; O2SAT 79–97; BMI 50.8
[2021-08-12 00:28] LABS: Troponin I 0.02 ng/ml (0.00-0.034)
[2021-08-12 03:02] LABS: Troponin I < 0.01 ng/ml (0.00-0.034)
[2021-08-12 06:41] LABS: Basophils % 0.3 % (0.1-2.0); Eosinophils % 0.4 % (0.1-12.0); Hematocrit 49.8 % (37.0-47.0); Hemoglobin 15.4 g/dL (12.2-16.2); Lymphocytes # 0.6 K/mm3 (0.7-4.5); Lymphocytes % 8.5 % (10-50); Mean Corpuscular Hemoglobin 32.1 pg (27.0-31.2); Mean Corpuscular Volume 103.6 fl (81-99); Mean Platelet Volume 8.8 fl (7.4-10.4); Monocytes # 0.1 K/mm3 (0.1-1.0); Monocytes % 2.1 % (1.7-9.3); Neutrophils # 6.3 K/mm3 (1.8-7.8); Neutrophils % 88.8 % (37.0-80.0); Platelet Count 167 K/mm3 (142-424); Red Blood Count 4.81 M/mm3 (4.20-5.40); Red Cell Distribution Width 14.3 % (11.5-17.5)
[2021-08-12 06:46] LABS: MANUAL DIFFERENTIAL MANUAL DIFFERENTIAL (MANUAL DIFF)
[2021-08-12 07:18] LABS: Blood Urea Nitrogen 25 mg/dl (7-17); Calcium 9.1 mg/dl (8.4-10.2); Chloride 81 mmol/L (98-107); Creatinine Clearance Estimated 94 mL/min (50-200); Estimated Glomerular Filt Rate 88 ml/min (>60); GFR (African American) 106 ML/MIN (>60); Glucose 136 mg/dl (74-100); Magnesium 1.7 mg/dl (1.6-2.3); Potassium 4.5 mmoL/L (3.5-5.1); Sodium 133 mmol/L (136-145)
--- NOTE | 2021-08-12 07:36 | P.CONPHA_ITS ---
[facility] Pharmacy VTE Monitoring - Patient Demographics Admission date: 08/11/21 Report Date: 08/12/21 Time: 07:37 Allergies/Adverse Reactions: Patient Allergies tramadol [TRAMADOL] Allergy (Mild, Verified 06/28/21 11:12) Unknown allergy reaction gold sodium thiomalate Allergy (Unknown, Verified 06/28/21 11:12) Unknown allergy reaction coconut Allergy (Verified 06/28/21 11:12) Unknown allergy reaction propylene glycol Allergy (Verified 06/28/21 11:12) Unknown allergy reaction vancomycin Adverse Reaction (Verified 06/28/21 11:12) RED EVANGELINA SYNDROME Height: 1.75 m Weight: 155.724 kg Patient Problems: Current Active Problems Respiratory failure with hypercapnia (Acute) Severe sepsis with acute organ dysfunction (Acute) Tobacco abuse (Acute) Obesity, morbid, BMI 50 or higher (Chronic) COPD with acute exacerbation (Acute) Hypothyroidism (Chronic) - VTE Risk Labs: VTE Related Lab Results Hgb 15.4 g/dL (12.2-16.2) 08/12/21 05:53 Hct 49.8 % (37.0-47.0) H 08/12/21 05:53 Plt Count 167 K/mm3 (142-424) 08/12/21 05:53 BUN 27 mg/dl (7-17) H 08/11/21 19:22 Creatinine 1.00 mg/dl (0.52-1.04) 08/11/21 19:22 Estimated Creat Clear 68 mL/min (50-200) 08/11/21 19:22 VTE Risk Level: Low Risk - Prophylaxis VTE Prophylaxis Ordered?: Yes Types of VTE Prophylaxis: TEDS Knee High Location of Applied Device: Bilateral Lower Extremeties
[2021-08-12 07:57] LABS: Lymphocytes % 9 % (10-50); Monocytes % 2 % (2-9); Neutrophils % 89 % (42-76); Platelet Estimate Normal; RBC Morphology Normal; Total Cells Counted 100
[2021-08-12 08:01] LABS: Anion Gap 8.5 mEq/L (5-15); Carbon Dioxide 48 mmol/L (22.0-30.0)
--- NOTE | 2021-08-12 08:15 | CA_ITS ---
APPROVED REPORT EXAM: Comprehensive 2D, Doppler, and color-flow Echocardiogram Child Care Education Coordinator: STEFFANY Whelan, RVS Ht: 5 ft 8 in Wt: 343lbs BSA: 2.57 BP: 106/63 mmHg Indications: COPD exacerbation, Resp.Failure, Morbid ovesity, HTN, HLD, DM, SOB Echo Enhancing Agent Comments: Technically limited exam due to extreme vody habitus, Pt on CPAP seated upright throughout exam. 2D Dimensions LVDd 5.01 cm LVEF (Visual) 67.80 % LVDs 3.11 cm LA Volume 76.70 mL Left Atrium 3.94 cm LA Volume Index 29.283731 mL/m2 (M/F) 16-34 LVOT 1.53 cm (M/F) 1.5-2.5 M-Mode Dimensions RVDd 2.08 cm (0.9-2.6) LA Diam 3.84 cm (1.9-4.0) LVDd 5.09 cm (3.5-5.7) Ao Diam 2.94 cm (2.0-3.7) LVDs 3.01 cm (3.5-5.7) IVSd 1.10 cm (0.6-1.1) PWd 1.27 cm (0.6-1.1) EF (Teich) 71.30% EPSs 0.30 cm FS 40.90% EDV (Teich) 123.20 mL TAPSE 2.59 (<1.7) ESV (Teich) 35.30 mL LV Diastology E Decel Time 183.00 (160-240 msec) E/A Ratio 0.75 MED E' 6.00 (< 7 cm/sec) MED A' 12.10 cm/s E'/MED E' Ratio 12.02 (>14) LAT E' 9.90 (<10 cm/sec) LAT A' 10.00 cm/s E/LAT E' Ratio 7.28 (>14) Aortic Valve LVOT Max 150.00 (70-110 cm/s) LVOT VTI 21.82 cm AoV Peak Brenden. 218.00 (50-130 cm/s) AO Peak GR. 18.90 mmHg AO Mean GR. 9.80 (<5 mmHg) AO VTI 37.22 (18-25 cm) ADRIENNE (VTI) 1.08 (2.5-4.5 cm2) Mitral Valve MV A Velocity 96.00 (40-130 cm/s) E/A Ratio 0.75 MV Decel. Time 183.00 (160-240 ms) MV Mean Gr. 2.00 (<2mmHg) Pulmonary Valve PV Peak Velocity 110.00 (50-150 cm/s) Tricuspid Valve TR P. Velocity 216.00 cm/s RAP Estimate 10.00 mmHg RVSP 28.60 mmHg Left Ventricle Technically very difficult study because of the patient factors and poor acoustic windows. Left atrium is mildly enlarged, left ventricle is normal size, mild concentric left ventricular hypertrophy, visually estimated ejection fraction 55% with no regional wall motion abnormality, grade 1 diastolic dysfunction seen without tissue Doppler evidence of raise left atrial pressure. Right Ventricle Right atrium and right ventricle are normal size and contractility. Aortic Valve Aortic valve is thickened and calcified, leaflets are not well visualized, the aortic outflow velocity is 2.2 m/s resulting in a mean gradient across valve of 10 mmHg, does not represent significant aortic stenosis, there is no aortic insufficiency, aortic valve area is not accurately calculated. Mitral Valve Mitral valve leaflets are minimally thickened, there is mild mitral regurgitation. Tricuspid Valve Tricuspid valve grossly normal, there is mild tricuspid regurgitation, tricuspid regurgitation jet velocity is inadequate for calculation of the right ventricular systolic pressure. Pulmonic Valve Pulmonic valve is poorly visualized. Great Vessels Aortic root is normal size. Inferior vena cava is normal size with normal inspiratory collapse. Pericardium No significant pericardial effusion noted. Conclusion 1. Technically difficult study because of the patient factors and poor acoustic windows. Left atrium is mildly enlarged, left ventricle is normal size, mild concentric left ventricular hypertrophy, visually estimated ejection fraction 55% with no regional wall motion abnormality, grade 1 diastolic dysfunction seen without tissue Doppler evidence of raise left atrial pressure. 2. Thickened and calcified aortic valve without Doppler evidence of significant aortic st
--- NOTE | 2021-08-12 09:33 | HMH.PULMCON ---
*Admission Date: 08/11/21 *Reason for consult:: Acute on chronic hypercarbic respiratory failure *History of present illness: Ms. Dias is a 51-year-old female greater than [id number] smoking history, hypertension, hypothyroidism, COPD as per admissions for hypercarbic respiratory failure: In respiratory distress altered mentation found to be in hypercarbic respiratory failure initiated on bilevel ventilation therapy and pulmonary was called for further management. She was also supposed to follow with sleep clinic and be evaluated for sleep apnea however this did not happen since her last discharge. [facility] History Medical History: Reports:: Anxiety, Asthma, Chronic Obstructive Pulmonary Disease (COPD), Depression, Diabetes Mellitus Type 2, Home Oxygen, Hyperlipidemia, Hypertension, Palpitations, Peripheral Vascular Disease Denies:: Cancer, Diabetes Mellitus Type 1, MRSA *Have you ever received a pneumonia vaccine?: No *Have you received a flu vaccine this season?: No Other Medical History: Reports: Hoarseness, Hypothyroidism, Sinus Problems Laterality Cases: Right: Breast Biopsy, Bilateral: Other Other Surgeries: Yes: , Hysterectomy-Total Amputation: No Fractures: No - *Social History Smoking Status: Current every day smoker Tobacco Type: cigarettes # Packs/Day (cigarettes): 1 Alcohol Intake: never Alcohol Intake Frequency:: other Substance Use Type: denies use *Occupational Status:: disabled Housing: house Household Members: significant other *Travel in the last 8 weeks: None - Psychiatric History Pschychiatric History:: Reports:: Anxiety, Depression Family Hx:: Unable to obtain ROS - Cons Reports body ache(s), Reports chills - ENT Denies bleeding gums, Denies change in voice - Card Reports shortness of breath, Reports shortness of breath with activity, Reports leg swelling - Resp Respiratory: Reports cough, Denies excessive phlegm production, Reports cough with sputum production, Reports wheezing - GI Gastrointestingal: Denies: abdominal pain - [place] Musculoskeletal: Reports muscle weakness - Psych Denies thoughts of hurting/killing others, Denies thoughts of hurting/killing yourself Meds Home Medications Medication Instructions Recorded Confirmed Type ergocalciferol (vitamin D2) 1,250 50,000 unit PO WEEKLY #12 cap 06/25/20 08/11/21 Rx mcg (50,000 unit) capsule epinephrine 0.3 mg/0.3 mL 0.3 mg IM Q5-15M PRN #1 each 09/02/20 08/11/21 Rx injection, auto-injector levothyroxine 150 mcg tablet 300 mcg PO DAILY #180 tab 11/10/20 08/11/21 Rx albuterol sulfate 90 mcg/actuation 2 puff INHALATION Q4HP PRN #8.5 g 02/16/21 08/11/21 Rx aerosol inhaler ipratropium 0.5 mg-albuterol 3 mg 3 ml INHALATION QID PRN #120 neb 02/16/21 08/11/21 Rx (2.5 mg base)/3 mL nebulization soln hydrocodone 5 mg-acetaminophen 325 1 tab PO BID PRN #60 tab 07/23/21 08/11/21 Rx mg tablet Fluticasone Propion/Salmeterol 2 puff INHALATION BID 08/11/21 08/11/21 History [Advair HFA] Nebulizer [Altera Nebulizer] See Rx Instructions .ROUTE 08/11/21 08/11/21 History .MEDSUPPLY Nicotine [Nicotine Patch 1 patch TRANSDERMA Q24H 08/11/21 08/11/21 History 21mg/24hrs] Omeprazole 20 mg PO DAILY 08/11/21 08/11/21 History Tiotropium [place] [Spiriva with 1 cap INHALATION DAILY 08/11/21 08/11/21 History HandiHaler] dilTIAZem HCl [Diltiazem 240mg 2 capsule PO DAILY 08/11/21 08/12/21 History 24Hr ER Cap] Ibuprofen [Ibuprofen 800mg 800 mg PO TIDP PRN 08/12/21 08/12/21 History Tablet] Allergies Allergy/AdvReac Type Severity Reaction Status Date / Time tramadol [TRAMADOL] Allergy Mild Unknown Verified 06/28/21 11:12 allergy reaction gold sodium thiomalate Allergy Unknown Unknown Verified 06/28/21 11:12 allergy reaction coconut Allergy Unknown Verified 06/28/21 11:12 allergy reaction propylene glycol Allergy Unknown Verified 06/28/21 11:12 allergy reac
--- NOTE | 2021-08-12 09:37 | PC.NURSE ---
Pt. sleeping, O2 noted to be down to 79% on Bipap. Nurse woke pt. SAO2 between 82and 86% on Bipap. Respiratory notified, they will be over in a few minutes, will continue to monitor.
--- NOTE | 2021-08-12 09:53 | HMH.CNCARD ---
History of Present Illness Consult date: 08/12/21 Requesting physician: Delon Burrell Consult reason: shortness of breath Chief complaint: SOA History of present illness: This is a 51-year-old white female who has smoked for more than 30 years with a history of COPD and was admitted to the hospital for an acute COPD exacerbation and respiratory failure. The patient states that she has been short of breath for several days. She denies any chest pain or pressure. She reports having lower extremity edema but she has significant venous insufficiency noted to her bilateral lower extremities. She denies any fevers, chills, nausea, vomiting or diarrhea. She does have associated orthopnea with her shortness of breath. She states her shortness of breath is severe. Based off of her ABG the patient has end-stage COPD. She is currently on a BiPAP. [facility] History I have reviewed the patient's past medical history: Yes Medical History: Reports:: Anxiety, Asthma, Chronic Obstructive Pulmonary Disease (COPD), Depression, Diabetes Mellitus Type 2, Home Oxygen, Hyperlipidemia, Hypertension, Palpitations, Peripheral Vascular Disease Denies:: Cancer, Diabetes Mellitus Type 1, MRSA *Have you ever received a pneumonia vaccine?: No *Have you received a flu vaccine this season?: No Other Medical History: Reports: Hoarseness, Hypothyroidism, Sinus Problems Laterality Cases: Right: Breast Biopsy, Bilateral: Other Other Surgeries: Yes: , Hysterectomy-Total Amputation: No Fractures: No - *Social History Smoking Status: Current every day smoker Tobacco Type: cigarettes # Packs/Day (cigarettes): 1 Alcohol Intake: never Alcohol Intake Frequency:: other Substance Use Type: denies use *Occupational Status:: disabled Housing: house Household Members: significant other *Travel in the last 8 weeks: None - Psychiatric History Pschychiatric History:: Reports:: Anxiety, Depression Family Hx:: Unable to obtain Meds Home Medications Medication Instructions Recorded Confirmed Type ergocalciferol (vitamin D2) 1,250 50,000 unit PO WEEKLY #12 cap 06/25/20 08/11/21 Rx mcg (50,000 unit) capsule epinephrine 0.3 mg/0.3 mL 0.3 mg IM Q5-15M PRN #1 each 09/02/20 08/11/21 Rx injection, auto-injector levothyroxine 150 mcg tablet 300 mcg PO DAILY #180 tab 11/10/20 08/11/21 Rx albuterol sulfate 90 mcg/actuation 2 puff INHALATION Q4HP PRN #8.5 g 02/16/21 08/11/21 Rx aerosol inhaler ipratropium 0.5 mg-albuterol 3 mg 3 ml INHALATION QID PRN #120 neb 02/16/21 08/11/21 Rx (2.5 mg base)/3 mL nebulization soln hydrocodone 5 mg-acetaminophen 325 1 tab PO BID PRN #60 tab 07/23/21 08/11/21 Rx mg tablet Fluticasone Propion/Salmeterol 2 puff INHALATION BID 08/11/21 08/11/21 History [Advair HFA] Nebulizer [Altera Nebulizer] See Rx Instructions .ROUTE 08/11/21 08/11/21 History .MEDSUPPLY Nicotine [Nicotine Patch 1 patch TRANSDERMA Q24H 08/11/21 08/11/21 History 21mg/24hrs] Omeprazole 20 mg PO DAILY 08/11/21 08/11/21 History Tiotropium [place] [Spiriva with 1 cap INHALATION DAILY 08/11/21 08/11/21 History HandiHaler] dilTIAZem HCl [Diltiazem 240mg See Rx Instructions .ROUTE .COMPLEX 08/11/21 08/11/21 History 24Hr ER Cap] Allergies Allergy/AdvReac Type Severity Reaction Status Date / Time tramadol [TRAMADOL] Allergy Mild Unknown Verified 06/28/21 11:12 allergy reaction gold sodium thiomalate Allergy Unknown Unknown Verified 06/28/21 11:12 allergy reaction coconut Allergy Unknown Verified 06/28/21 11:12 allergy reaction propylene glycol Allergy Unknown Verified 06/28/21 11:12 allergy reaction vancomycin AdvReac RED EVANGELINA Verified 06/28/21 11:12 SYNDROME Exam Vital signs and Labs for Last 24 Hours: Temp Pulse Resp BP Pulse Ox 98.8 F 82 22 100/56 L 92 L 08/12/21 04:00 08/12/21 06:18 08/12/21 04:00 08/12/21 04:00 08/12/21 08:00 Laboratory Results - last 24
--- NOTE | 2021-08-12 10:15 | HMH.HP ---
*Admission Date: 08/11/21 *Chief complaint: soa *History of present illness: 51-year-old male presented to ed via ambulance per ed note EMS called out for unresponsive. upon EMS arrival pt was alert and states she has become increasing weak over the past couple days. Pt states a history of COPD and smoked for over 30 years. Patient was admitted and placed on bipap for an acute COPD exacerbation and respiratory failure. The patient states that she has been short of breath for several days. She denies any chest pain or pressure. She reports having lower extremity edema but she has significant venous insufficiency noted to her bilateral lower extremities. She denies any fevers, chills, nausea, vomiting or diarrhea. Further work up such as Cardiology consult,echo and pulm consult [facility] History I have reviewed the patient's past medical history: Yes Medical History: Reports:: Anxiety, Asthma, Chronic Obstructive Pulmonary Disease (COPD), Depression, Diabetes Mellitus Type 2, Home Oxygen, Hyperlipidemia, Hypertension, Palpitations, Peripheral Vascular Disease Denies:: Cancer, Diabetes Mellitus Type 1, MRSA *Have you ever received a pneumonia vaccine?: No *Have you received a flu vaccine this season?: No Other Medical History: Reports: Hoarseness, Hypothyroidism, Sinus Problems Laterality Cases: Right: Breast Biopsy, Bilateral: Other Other Surgeries: Yes: , Hysterectomy-Total Amputation: No Fractures: No - *Social History Smoking Status: Current every day smoker Tobacco Type: cigarettes # Packs/Day (cigarettes): 1 Alcohol Intake: never Alcohol Intake Frequency:: other Substance Use Type: denies use *Occupational Status:: disabled Housing: house Household Members: significant other *Travel in the last 8 weeks: None - Psychiatric History Pschychiatric History:: Reports:: Anxiety, Depression Family Hx:: Unable to obtain Review of Systems - Review of Systems Review of systems:: pertinent systems reviewed and negative unless documented below - Constitutional Reports weakness, Denies body ache(s) - Eyes Denies blurry vision - ENT Denies dizziness - *Cardiovascular Reports shortness of breath with activity, Reports leg swelling, Denies chest pain at rest, Denies leg pain with activity - *Respiratory Reports shortness of breath, Reports shortness of breath with activity - *Gastrointestinal Denies abdominal pain - *Genitourinary Denies urinary urgency - *Musculoskeletal Denies joint pain - Integumentary/Breasts Denies rash Comments: chronic lymph edema, with dry scally skin to keron legs - *Neurologic Reports weakness, Denies dizziness - Psychiatric Denies abnormal sleep pattern - Endocrine Denies excessive sweating - Hematologic/Lymphatic Denies easy bruising - Allergic/Immunologic Denies itchy eyes Meds Home Medications Medication Instructions Recorded Confirmed Type ergocalciferol (vitamin D2) 1,250 50,000 unit PO WEEKLY #12 cap 06/25/20 08/11/21 Rx mcg (50,000 unit) capsule epinephrine 0.3 mg/0.3 mL 0.3 mg IM Q5-15M PRN #1 each 09/02/20 08/11/21 Rx injection, auto-injector levothyroxine 150 mcg tablet 300 mcg PO DAILY #180 tab 11/10/20 08/11/21 Rx albuterol sulfate 90 mcg/actuation 2 puff INHALATION Q4HP PRN #8.5 g 02/16/21 08/11/21 Rx aerosol inhaler ipratropium 0.5 mg-albuterol 3 mg 3 ml INHALATION QID PRN #120 neb 02/16/21 08/11/21 Rx (2.5 mg base)/3 mL nebulization soln hydrocodone 5 mg-acetaminophen 325 1 tab PO BID PRN #60 tab 07/23/21 08/11/21 Rx mg tablet Fluticasone Propion/Salmeterol 2 puff INHALATION BID 08/11/21 08/11/21 History [Advair HFA] Nebulizer [Altera Nebulizer] See Rx Instructions .ROUTE 08/11/21 08/11/21 History .MEDSUPPLY Nicotine [Nicotine Patch 1 patch TRANSDERMA Q24H 08/11/21 08/11/21 History 21mg/24hrs] Omeprazole 20 mg PO DAILY 08/11/21 08/11/21 History Tiotropium [place] [Spiriva with 1 cap INHALATION DAILY 08/11/21
--- NOTE | 2021-08-12 11:34 | HMH.PHAINT ---
home medication list verified using list from [facility]
--- NOTE | 2021-08-12 14:26 | SW/DCPLANNER ---
Addendum entered by Paris Nick 08/18/21 09:13: The plan is for this patient to discharge home today. [facility] will set up bi-pap at home once discharged (per Makeda Prabhakar) and patient has refused placement at time of discharge. I will call and update patients significant other regarding discharge plans. Addendum entered by Paris Nick 08/17/21 14:38: Makeda Prabhakar stated that she has set this patient up to discharge home with a bi-pap machine through [facility] out of [place]. I have informed this patient of bi-pap machine and that more than likely her insurance will not pay for home health at time of discharge. I asked patient if she was interested in placement and she has refused placement at this time. Addendum entered by Paris Nick 08/17/21 10:16: Dr Burrell has requested that I speak with family regarding transportation at time of discharge and to all follow up appointments. I attempted to contact patients significant other (Sincere): no answer VM left at this time. Addendum entered by Paris Nick 08/13/21 12:51: I spoke with this patient this AM regarding plans once medically stable for discharge. Patient stated that she resides at home with her boyfriend and wears home O2 provided by [facility]. Patient did confirm that she does not have a CPAP at home. Patient stated that Dr Fragoso has been wanting her to get an outpatient sleep study test but she has not completed this yet due to fear of staying at hospital alone. I explained to patient in order to get a bi pap machine at home this test must be completed. Patient stated that she has a rolling walker that she uses at home. Patient also confirmed that she has transportation to all of her appointments. I will continue to follow up with this patient until she is medically stable for discharge. Discharge date is unknown at this time. Original Note: This patient currently receives home O2 from [facility]. Patient stated this AM that she was having issues with her CPAP at home: Kim Echeverria stated that this patient only receives home O2, patient does NOT have a CPAP. I will follow up with this patient regarding home CPAP.
[2021-08-12 15:29] LABS: ABG HCO3 44.9 mmhg (22.0-26.0); ABG Oxygen Saturation 87 % (90-100); ABG PH 7.45 mmol/L (7.35-7.45); ABG PO2 50.5 mmhg (80-100); ABG TCO2 46.9 mmhg (23-27)
[2021-08-12 15:31] LABS: Allen's Test Acceptable; Oxygen 6L %; Source Left Radial
[2021-08-12 15:32] LABS: ABG PCO2 65.8 mmhg (35.0-45.0)
--- NOTE | 2021-08-12 16:05 | PC.NURSE ---
1531 - Critical ABG received from RT Ellen Andrade. Pt. name and date of verified. pH at 7.45, PCO2 65.8 PO2 at 50.5. RT reports contacting Dr. Smalls. 16:00 - spoke with Tristan Guallpa RN at Dr. Warner office, ABG given of pH at 7.45, PCO2 65.8, PO2 at 50.5, HCO3 at 44.9, total CO2 at 46.9, and O2 sat at 87. Read back and verified with name and date of .
--- NOTE | 2021-08-12 16:37 | PC.NURSE ---
Routine reassessment completed. Lung CTA in Upper lobes, Lower lobes remain with wheezes. No further acute changes noted from previous assessment. TEDS applied to right leg, size appropriate for left leg not available. Specimen cup given to pt. and pt. educated on need to collect sputum. Pt. v/u. Pt. reports having pain. nurse educated pt. on pain medication frequency and effects of pain medications on respiratory system. Pt. v/u nurse informed pt. she would bring pain medication when available to be given. Pt. v/u. No further needs noted, will continue to monitor.
--- NOTE | 2021-08-12 20:40 | PC.NURSE ---
FSBS RESULTS 333
[2021-08-13] VITALS (11 sets, daily range): BP systolic 110–141; BP diastolic 60–76; PULSE 60–105; RESP 16–32; TEMP 36.5–36.9; O2SAT 88–96; BMI 50.8
--- NOTE | 2021-08-13 04:11 | PC.NURSE ---
Pt has not rested well this shift. Respiratory attempted to keep pt on 5L NC, however pt needed to be placed back on BIPAP. VS remain stable. Staff has been in the room continually to reposition pt and provide snacks. Will continue to monitor.
[2021-08-13 07:04] LABS: Basophils % 0.2 % (0.1-2.0); Eosinophils % 0.1 % (0.1-12.0); Hematocrit 46.3 % (37.0-47.0); Hemoglobin 14.4 g/dL (12.2-16.2); Lymphocytes # 1.1 K/mm3 (0.7-4.5); Lymphocytes % 13.2 % (10-50); Mean Corpuscular HGB Conc 31.1 g/dL (31.8-35.4); Mean Corpuscular Hemoglobin 32.2 pg (27.0-31.2); Mean Corpuscular Volume 103.6 fl (81-99); Mean Platelet Volume 8.4 fl (7.4-10.4); Monocytes # 0.2 K/mm3 (0.1-1.0); Monocytes % 2.9 % (1.7-9.3); Neutrophils # 6.9 K/mm3 (1.8-7.8); Neutrophils % 83.5 % (37.0-80.0); Platelet Count 203 K/mm3 (142-424); Red Blood Count 4.47 M/mm3 (4.20-5.40); Red Cell Distribution Width 14.7 % (11.5-17.5); White Blood Count 8.3 K/mm3 (4.8-10.8)
[2021-08-13 07:25] LABS: Blood Urea Nitrogen 22 mg/dl (7-17); Calcium 9.2 mg/dl (8.4-10.2); Chloride 85 mmol/L (98-107); Creatinine Clearance Estimated 94 mL/min (50-200); Estimated Glomerular Filt Rate 88 ml/min (>60); GFR (African American) 106 ML/MIN (>60); Glucose 256 mg/dl (74-100); Potassium 4.5 mmoL/L (3.5-5.1); Sodium 135 mmol/L (136-145)
[2021-08-13 07:34] LABS: Anion Gap 5.5 mEq/L (5-15); Carbon Dioxide 49 mmol/L (22.0-30.0)
--- NOTE | 2021-08-13 08:50 | HMH.PHACONS ---
- Pharmacy Consult Date: 08/13/21 Time: 08:50 Referring provider: DR. POLLARD Reason for Consult:: VANCOMYCIN DOSING Allergies and ADEs:: Allergies Allergy/AdvReac Type Severity Reaction Status Date / Time tramadol [TRAMADOL] Allergy Mild Unknown Verified 06/28/21 11:12 allergy reaction gold sodium thiomalate Allergy Unknown Unknown Verified 06/28/21 11:12 allergy reaction coconut Allergy Unknown Verified 06/28/21 11:12 allergy reaction propylene glycol Allergy Unknown Verified 06/28/21 11:12 allergy reaction vancomycin AdvReac RED EVANGELINA Verified 06/28/21 11:12 SYNDROME Home Medications:: Home Medications Medication Instructions Recorded Confirmed Type ergocalciferol (vitamin D2) 1,250 50,000 unit PO WEEKLY #12 cap 06/25/20 08/11/21 Rx mcg (50,000 unit) capsule epinephrine 0.3 mg/0.3 mL 0.3 mg IM Q5-15M PRN #1 each 09/02/20 08/11/21 Rx injection, auto-injector levothyroxine 150 mcg tablet 300 mcg PO DAILY #180 tab 11/10/20 08/11/21 Rx albuterol sulfate 90 mcg/actuation 2 puff INHALATION Q4HP PRN #8.5 g 02/16/21 08/11/21 Rx aerosol inhaler ipratropium 0.5 mg-albuterol 3 mg 3 ml INHALATION QID PRN #120 neb 02/16/21 08/11/21 Rx (2.5 mg base)/3 mL nebulization soln hydrocodone 5 mg-acetaminophen 325 1 tab PO BID PRN #60 tab 07/23/21 08/11/21 Rx mg tablet Fluticasone Propion/Salmeterol 2 puff INHALATION BID 08/11/21 08/11/21 History [Advair HFA] Nebulizer [Altera Nebulizer] See Rx Instructions .ROUTE 08/11/21 08/11/21 History .MEDSUPPLY Nicotine [Nicotine Patch 1 patch TRANSDERMA Q24H 08/11/21 08/11/21 History 21mg/24hrs] Omeprazole 20 mg PO DAILY 08/11/21 08/11/21 History Tiotropium [place] [Spiriva with 1 cap INHALATION DAILY 08/11/21 08/11/21 History HandiHaler] dilTIAZem HCl [Diltiazem 240mg 2 capsule PO DAILY 08/11/21 08/12/21 History 24Hr ER Cap] Ibuprofen [Ibuprofen 800mg 800 mg PO TIDP PRN 08/12/21 08/12/21 History Tablet] Height: 1.75 m Weight: 155.7 kg Laboratory Results:: Laboratory Results - last 24 hr 08/12/21 : Specimen Source Left radial, O2 % 6l, ABG pH 7.45, ABG pCO2 65.8 H, ABG pO2 50.5 L, ABG HCO3 44.9 H, ABG Total CO2 46.9 H, ABG O2 Saturation 87 L*, ABG Base Excess 21.0 H, Reyes Test Acceptable 08/13/21 06:23: WBC 8.3, RBC 4.47, Hgb 14.4, Hct 46.3, MCV 103.6 H, MCH 32.2 H, MCHC 31.1 L, RDW 14.7, Plt Count 203, MPV 8.4, Neut % (Auto) 83.5 H, Lymph % (Auto) 13.2, [place] % (Auto) 2.9, Eos % (Auto) 0.1, Baso % (Auto) 0.2, Neut # (Auto) 6.9, Lymph # (Auto) 1.1, [place] # (Auto) 0.2, Eos # (Auto) 0.0, Baso # (Auto) 0.0 08/13/21 06:23: Sodium 135 L, Potassium 4.5, Chloride 85 L, Carbon Dioxide 49 H*, Anion Gap 5.5, BUN 22 H, Creatinine 0.70, Estimated Creat Clear 94, Estimated GFR 88, Est GFR ( Amer) 106, Glucose 256 H, Calcium 9.2 Medical History: Reports:: Anxiety, Asthma, Chronic Obstructive Pulmonary Disease (COPD), Depression, Diabetes Mellitus Type 2, Home Oxygen, Hyperlipidemia, Hypertension, Palpitations, Peripheral Vascular Disease Denies:: Cancer, Diabetes Mellitus Type 1, MRSA Assessment and Plan - Assessment and plan all Dx Assessment and Plan for all problems:: Pharmacokinetic dosing service Objective: Patient: Floor: Age: 51 yo Serum creatinine: 0.70 mg/dL Height: 68.9 Inches Weight (kg): 155.7 Assessment: IBW (kg): 65.97 Dosing wt(kg): 155.7 Estimated Creatinine clearance (ml/min): 96.8 CRCL method: Cockcroft and Gault using ibw(default). Drug selected: Vancomycin Loading dose (mg): Vd (liters): 109.0 (factor used: 0.7 L/kg) Jovanny (hr-1): 0.085 Half life (hrs): 8.15 CLvanco=?? 9.265 L/hr Recommended dose: 2500 mg Interval: 12 hrs Infusion time (hrs): 2.0 Predicted peak (mcg/mL): 33.0 Predicted trough (mcg/mL): 14.10 Total
--- NOTE | 2021-08-13 08:59 | HMH.PULMPN ---
Internal Medicine - PN: Subj *Date: 08/13/21 *Time: 11:38 Interval history: No acute respiratory vents overnight. Patient successfully weaned to NC. Tolerating well. Exam - Constitutional Constitutional:: Present: no acute distress, comfortable - HENMT Exam HENMT: Present: normocephalic, atraumatic - Eye Exam Eyes:: Present: normal appearance both eyes and related structures - Neck Exam Neck:: Present: normal visual inspection - Respiratory Exam Respiratory:: Present: able to speak in complete sentences, no respiratory distress, crackles, wheezing - Cardiovascular Exam Cardiac:: Present: S1, S2 - GI Exam GI:: Present: soft, obese - Skin Exam Skin: Present: warm, no rash - Neurological Exam Neurological: Present: alert, awake, normal cognition - Extremities Exam Extremities: Present: no cyanosis, no clubbing Assessment and Plan - Assessment and plan all Dx Assessment and Plan for all problems:: #Acute on chronic hypercarbic respiratory failure: #COPD exacerbation: Ms. Dias is a 51-year-old female greater than [id number] smoking history, hypertension, hypothyroidism, COPD as per admissions for hypercarbic respiratory failure: In respiratory distress altered mentation found to be in hypercarbic respiratory failure initiated on bilevel ventilation therapy and pulmonary was called for further management. She was also supposed to follow with sleep clinic and be evaluated for sleep apnea however this did not happen since her last discharge. Blood gas on admission 7.24, 120 and 64. Her last hospital admission for hypercarbic respiratory failure was from October 2020 Chest x-ray no obvious airspace disease noted, evidence of volume overload and vascular congestion. Patient also noted to have evidence of volume overload in her prior hospital visits. Interval update: Hypercarbic respiratory failure improved, weaned to nasal cannula. Continue to receive levofloxacin. AFebrile. No evidence of leukocytosis. Renal function stable. Plan: -Continue nasal cannula to maintain O2 saturation goal of 88 to 92%. -DuoNebs every 6 hours scheduled along with budesonide every 12 hrs -Wean prednisone to 40 mg daily for 5 days -Continue levofloxacin for community-acquired pneumonia. -Volume optimization as per primary team -Recommend to schedule an outpatient polysomnography testing. We will evaluate the possible initiating the patient on BiPAP for hypercarbic respiratory failure up until she sees the sleep clinic. #Thank you involving pulmonary in this patient. We will continue to follow.
--- NOTE | 2021-08-13 09:42 | PC.NURSE ---
PT at bedside for eval.
--- NOTE | 2021-08-13 10:17 | PC.NURSE ---
Pt. up to chair with assistance from PT. Pt. tolerated ambulation with walker well. She is resting quietly watching TV. Vitals remain stable. Pulmonology at bedside for consult. No complaints or needs at this time.
--- NOTE | 2021-08-13 10:38 | HMH.OTEV ---
OT Inpatient Evaluation Rehab OT IP Evaluation Start: 08/13/21 09:04 Freq: ONCE Status: Complete Protocol: Document 08/13/21 10:17 BALJIT (Rec: 08/13/21 10:37 BALJIT [id number]) Rehab OT IP Assessment Subjective History I can try to get up. 51-year-old male presented to ed via ambulance per ed note EMS called out for unresponsive. upon EMS arrival pt was alert and states she has become increasing weak over the past couple days. Pt states a history of COPD and smoked for over 30 years. Patient was admitted and placed on bipap for an acute COPD exacerbation and respiratory failure. The patient states that she has been short of breath for several days. She denies any chest pain or pressure. She reports having lower extremity edema but she has significant venous insufficiency noted to her bilateral lower extremities. She denies any fevers, chills, nausea, vomiting or diarrhea. Further work up such as Cardiology consult,echo and pulm consult [facility] History I have reviewed the patient's past medical history: Yes Medical History: Reports:: Anxiety, Asthma, Chronic Obstructive Pulmonary Disease (COPD), Depression, Diabetes Mellitus Type 2, Home Oxygen, Hyperlipidemia, Hypertension, Palpitations, Peripheral Vascular Disease. Patient lives in 1 story home with family members who are at home to assisted when needed. Patient ambulated with usage of RW and has BSC next to bed if needed. Family members assist [facility] ADLs as needed. Subjective I can try to get up. I
--- NOTE | 2021-08-13 11:03 | HMH.ACPN2 ---
Internal Medicine - PN: Subj *Date: 08/13/21 *Time: 11:03 Interval history: Pt looks better this morning Alert, off bipap C/o pain and limited ambulation will engage physical therapy less wheezing Exam Vital signs and Labs for Last 24 Hours: Temp Pulse Resp BP Pulse Ox 98.1 F 105 H 24 131/76 88 L 08/13/21 08:00 08/13/21 08:00 08/13/21 08:00 08/13/21 08:00 08/13/21 08:00 Laboratory Results - last 24 hr 08/12/21 : Specimen Source Left radial, O2 % 6l, ABG pH 7.45, ABG pCO2 65.8 H, ABG pO2 50.5 L, ABG HCO3 44.9 H, ABG Total CO2 46.9 H, ABG O2 Saturation 87 L*, ABG Base Excess 21.0 H, Reyes Test Acceptable 08/13/21 06:23: WBC 8.3, RBC 4.47, Hgb 14.4, Hct 46.3, MCV 103.6 H, MCH 32.2 H, MCHC 31.1 L, RDW 14.7, Plt Count 203, MPV 8.4, Neut % (Auto) 83.5 H, Lymph % (Auto) 13.2, [place] % (Auto) 2.9, Eos % (Auto) 0.1, Baso % (Auto) 0.2, Neut # (Auto) 6.9, Lymph # (Auto) 1.1, [place] # (Auto) 0.2, Eos # (Auto) 0.0, Baso # (Auto) 0.0 08/13/21 06:23: Sodium 135 L, Potassium 4.5, Chloride 85 L, Carbon Dioxide 49 H*, Anion Gap 5.5, BUN 22 H, Creatinine 0.70, Estimated Creat Clear 94, Estimated GFR 88, Est GFR ( Amer) 106, Glucose 256 H, Calcium 9.2 I & O for Last 24 hours: Intake & Output 08/10/21 08/11/21 08/12/21 08/13/21 23:59 23:59 23:59 23:59 Intake Total 1580 / 1700 300 / 300 Output Total 2375 / 2375 1500 / 1500 Balance -795 / -675 -1200 / -1200 Weight 343 lb 5 oz 343 lb 4.156 oz 343 lb 4.156 oz Microbiology Reports for the Last 24 Hours: Microbiology 08/11/21 20:18 Blood Blood Culture - Preliminary 08/11/21 20:18 Blood Blood Culture - Preliminary - Constitutional no acute distress - *Routine HEENT Exam Head: Present: normocephalic Eye: Present: EOMI, PERRL ENT: Present: mucous membranes moist - *Routine Neck Exam Present: supple. Absent: lymphadenopathy - *Routine Respiratory Exam Present: wheezes. Absent: accessory muscle use, respiratory distress - *Routine Cardiovascular Exam Present: RRR - *Routine Abdominal Exam Present: soft, obese - *Routine Extremities Exam Present: edema, tenderness. Absent: calf tenderness - *Routine Skin Exam Present: lesions. Absent: jaundice - *Routine Neurological Exam Present: alert, oriented X3. Absent: altered mental status Assessment and Plan (1) COPD with acute exacerbation Status: Acute Category: Medical Code(s): J44.1 - Chronic obstructive pulmonary disease with (acute) exacerbation (2) Respiratory failure with hypercapnia Status: Acute Qualifiers: Chronicity: acute on chronic Qualified Code(s): J96.22 - Acute and chronic respiratory failure with hypercapnia Category: Medical Code(s): J96.92 - Respiratory failure, unspecified with hypercapnia (3) Tobacco abuse Status: Acute Category: Medical Code(s): Z72.0 - Tobacco use (4) Obesity Status: Chronic Qualifiers: Obesity type: due to excess calories Obesity classification: adult class 3 (BMI >= 40) Serious obesity comorbidity presence: with serious comorbidity Body mass index: BMI 40.0-44.9 Qualified Code(s): E66.01 - Morbid (severe) obesity due to excess calories; Z68.41 - Body mass index [BMI] 40.0-44.9, adult Category: Medical Code(s): E66.9 - Obesity, unspecified (5) COPD (chronic obstructive pulmonary disease) with emphysema Status: Acute Qualifiers: Emphysema type: unspecified Qualified Code(s): J43.9 - Emphysema, unspecified Category: Medical Code(s): J43.9 - Emphysema, unspecified (6) Declining mobility Status: Acute Category: Medical Code(s): Z74.09 - Other reduced mobility (7) Dependent for wheelchair mobility Status: Acute Category: Medical Code(s): Z99.3 - Dependence on wheelchair (8) Hyperkeratosis Status: Acute Category: Medical Code(s): L85.9 - Epidermal thickening, unspecified (9) SOB (shortness of breath) Status: Acute Category: Medical Code(s):
--- NOTE | 2021-08-13 12:06 | HMH.PTEV ---
Physical Therapy Evaluation Rehab PT IP Evaluation Start: 08/13/21 09:04 Freq: ONCE Status: Active Protocol: Document 08/13/21 12:04 ZOE (Rec: 08/13/21 12:06 PHOTG [id number]) Subjective/History History History 51 yowf adm to [facility] with COPD exac. She reports she is independent with transfers to/ from her BSC and motorized w/c at home with ramp to enter the home. Subjective Subjective She reports, My back pain is just terrible. Rehab PT IP Eval Objective Appearance Patient Behavior Appropriate Patient Orientation Person,Place,Time Difficulty following instructions none Speech Pattern Clear Ambulation Patient Able to Ambulate No Balance Ability to Arise Able, uses arms to help Sitting Balance Steady, safe Standing Balance Steady, wide stance Dynamic Sitting Balance Ability Good Dynamic Standing Balance Ability Fair Transfers Bed Transfer Ability Supervision/Stand by Chair Transfer Ability Supervision/Stand by Sit to Stand Bed Transfer Ability Supervision/Stand by Sit to Stand Chair Transfer Ability Supervision/Stand by Rehab PT IP prob,goals,plan Problems Date of Evaluation: 08/13/21 Discharge Plan PT Discharge Plan Pt appears to be at baseline for all mobility at this time as she only transfers to/from a chair at home. Recommend home health therapy if she does return home. G -code Required No Eval Complexity Eval Charge Codes 82512 - Moderate Complexity PHYSICIAN CERTIFICATION: I certify the specified therapy services for Saige Dias are required, authorized, and reviewed every 30 days.
--- NOTE | 2021-08-13 20:35 | PC.NURSE ---
PT REPORTS SHE DOES NOT FEEL RIGHT AND WANTED HER SUGAR CHECKED,PT STATES SHE IS SOB,PT STATES SHE HAS NOT BEEN DX WITH DIABETES,PT HAS SOME WHEEZING NOW ALL FRONT,REMAINS ON 4 LITERS O2,SAT LEVEL NOT PICKING UP GOOD ON MONITOR.FINGER SWEETY AND PULSE OX COMING OFF.WILL GET THAT FIXED AND CHECK HER SUGAR
[2021-08-14] VITALS (15 sets, daily range): BP systolic 133–147; BP diastolic 58–86; PULSE 60–90; RESP 16–23; TEMP 36.4–36.8; O2SAT 90–98
[2021-08-14 00:32] LABS: POC Glucose,Bedside 333 (70-110)
[2021-08-14 00:32] LABS: POC Glucose,Bedside 333 (70-110)
--- NOTE | 2021-08-14 04:47 | PC.NURSE ---
PT LUNGS THIS AM CLEAR WITH DIMINISHED IN LOWER BASES,PT WEARING HER BIPAP AT THIS TIME.SHE HAD MAINTAINED SAT AT 90-92 ON 4 LITER OF OXYGEN PRIOR TO USING BIPAP.PT HAS EATEN QUIET A BIT TONIGHT SAYING SHE IS SO HUNGERY,HER FSBS EARLIER IN SHIFT WAS 333 AND 8 UNITS HUMALOG GIVEN PER ORDERS.PT HAS HAD GREAT OUTPUT PER [facility] NOTED ON TELEMETRY,IV INFUSING AT 50ML/HR PER PUMP.PT HAS NOT BEEN UP TONIGHT AND PHYSICAL THERAPY HAD GOTTEN HER UP YESTERDAY
--- NOTE | 2021-08-14 06:00 | XR_ITS ---
PROCEDURE INFORMATION: Exam: XR Chest Exam date and time: 08/14/2021 6:00 AM Age: 51 years old Clinical indication: Cough and shortness of breath; Patient HX: Copd, cough, SOA TECHNIQUE: Imaging protocol: XR of the chest. Views: 1 view. COMPARISON: CR XR CHEST PORTABLE 08/11/2021 7:22 PM FINDINGS: Lungs: Some bibasilar atelectasis or airspace disease is also noted. Pulmonary vasculature appears prominent. Pleural spaces: Left-sided pleural effusion is unchanged. Heart/Mediastinum: Unremarkable. No cardiomegaly. Bones/joints: Unremarkable. IMPRESSION: Stable left-sided effusion. Hypoinflation. Cardiomegaly.
[2021-08-14 06:02] LABS: POC Glucose,Bedside 304 (70-110)
[2021-08-14 07:39] LABS: Basophils % 0.2 % (0.1-2.0); Eosinophils % 0.1 % (0.1-12.0); Hematocrit 44.9 % (37.0-47.0); Hemoglobin 14.1 g/dL (12.2-16.2); Lymphocytes % 12.3 % (10-50); Mean Corpuscular HGB Conc 31.5 g/dL (31.8-35.4); Mean Corpuscular Hemoglobin 32.4 pg (27.0-31.2); Mean Corpuscular Volume 102.9 fl (81-99); Mean Platelet Volume 9.6 fl (7.4-10.4); Monocytes # 0.2 K/mm3 (0.1-1.0); Monocytes % 2.7 % (1.7-9.3); Neutrophils # 6.6 K/mm3 (1.8-7.8); Neutrophils % 84.7 % (37.0-80.0); Platelet Count 167 K/mm3 (142-424); Red Blood Count 4.36 M/mm3 (4.20-5.40); Red Cell Distribution Width 14.7 % (11.5-17.5); White Blood Count 7.8 K/mm3 (4.8-10.8)
[2021-08-14 07:58] LABS: Blood Urea Nitrogen 32 mg/dl (7-17); Chloride 89 mmol/L (98-107); Creatinine Clearance Estimated 109 mL/min (50-200); Estimated Glomerular Filt Rate 105 ml/min (>60); GFR (African American) 127 ML/MIN (>60); Glucose 298 mg/dl (74-100); Potassium 4.9 mmoL/L (3.5-5.1); Sodium 135 mmol/L (136-145)
[2021-08-14 08:55] LABS: Anion Gap 14.9 mEq/L (5-15); Carbon Dioxide 36 mmol/L (22.0-30.0)
--- NOTE | 2021-08-14 09:37 | HMH.ACPN2 ---
Internal Medicine - PN: Subj *Date: 08/15/21 *Time: 07:20 Interval history: doing better but still sob Exam Vital signs and Labs for Last 24 Hours: Temp Pulse Resp BP Pulse Ox 98.3 F 82 20 133/58 L 91 L 08/14/21 07:56 08/14/21 07:56 08/14/21 07:56 08/14/21 07:56 08/14/21 07:56 Laboratory Results - last 24 hr 08/12/21 21:18: POC Glucose 333 H* 08/13/21 20:38: POC Glucose 333 H* 08/14/21 05:52: POC Glucose 304 H* 08/14/21 05:54: WBC 7.8, RBC 4.36, Hgb 14.1, Hct 44.9, MCV 102.9 H, MCH 32.4 H, MCHC 31.5 L, RDW 14.7, Plt Count 167, MPV 9.6, Neut % (Auto) 84.7 H, Lymph % (Auto) 12.3, [place] % (Auto) 2.7, Eos % (Auto) 0.1, Baso % (Auto) 0.2, Neut # (Auto) 6.6, Lymph # (Auto) 1.0, [place] # (Auto) 0.2, Eos # (Auto) 0.0, Baso # (Auto) 0.0 08/14/21 05:54: Sodium 135 L, Potassium 4.9, Chloride 89 L, Carbon Dioxide 36 H, Anion Gap 14.9, BUN 32 H D, Creatinine 0.60, Estimated Creat Clear 109, Estimated GFR 105, Est GFR ( Amer) 127, Glucose 298 H, Calcium 9.0 I & O for Last 24 hours: Intake & Output 08/11/21 08/12/21 08/13/21 08/14/21 11:59 11:59 11:59 11:59 Intake Total 500 / 500 1380 / 1380 1230 / 1230 Output Total 1650 / 1650 2225 / 2225 2900 / 2900 Balance -1150 / -1150 -845 / -845 -1670 / -1670 Weight 343 lb 5 oz 343 lb 4.156 oz Microbiology Reports for the Last 24 Hours: Microbiology 08/13/21 06:45 Sputum - Expectorated Sputum Gram Stain - Final 08/13/21 06:45 Sputum - Expectorated Sputum Sputum Culture - Preliminary 08/11/21 20:18 Blood Blood Culture - Preliminary 08/11/21 20:18 Blood Blood Culture - Preliminary - Constitutional no acute distress, morbidly obese - *Routine HEENT Exam Head: Present: normocephalic Eye: Present: EOMI, PERRL ENT: Present: mucous membranes dry - *Routine Neck Exam Absent: JVD - *Routine Respiratory Exam Present: decreased breath sounds - *Routine Cardiovascular Exam Present: RRR - *Routine Abdominal Exam Present: soft - *Routine Extremities Exam Absent: calf tenderness - *Routine Skin Exam Present: intact - *Routine Neurological Exam Present: alert, CN II-XII intact - Routine Psychiatric Exam Present: normal affect Assessment and Plan (1) COPD (chronic obstructive pulmonary disease) with emphysema Status: Acute Qualifiers: Emphysema type: unspecified Qualified Code(s): J43.9 - Emphysema, unspecified Category: Medical Code(s): J43.9 - Emphysema, unspecified (2) COPD with acute exacerbation Status: Acute Category: Medical Code(s): J44.1 - Chronic obstructive pulmonary disease with (acute) exacerbation (3) Lymphedema of both lower extremities Status: Acute Category: Medical Code(s): I89.0 - Lymphedema, not elsewhere classified (4) HTN (hypertension) Status: Chronic Qualifiers: Hypertension type: essential hypertension Category: Medical Code(s): I10 - Essential (primary) hypertension (5) Hypothyroidism Status: Chronic Qualifiers: Hypothyroidism type: acquired Qualified Code(s): E03.9 - Hypothyroidism, unspecified Category: Medical Code(s): E03.9 - Hypothyroidism, unspecified (6) Obesity, morbid, BMI 50 or higher Status: Chronic Category: Medical Code(s): E66.01 - Morbid (severe) obesity due to excess calories (7) Respiratory failure with hypercapnia Status: Acute Category: Medical Code(s): J96.92 - Respiratory failure, unspecified with hypercapnia
[2021-08-14 20:20] LABS: POC Glucose,Bedside 352 (70-110)
[2021-08-14 20:20] LABS: POC Glucose,Bedside 340 (70-110)
[2021-08-14 21:32] LABS: POC Glucose,Bedside 381 (70-110)
[2021-08-14 22:43] LABS: Vancomycin,Trough 11.2 ug/mL (5.0-10.0)
--- NOTE | 2021-08-14 22:50 | PC.NURSE ---
Deshawn from [facility] notified of vancomycin trough at this time (2250) Trough is 11.2 Continue dosing as ordered. Retimed for 2300 & 1100 Q12HR.
[2021-08-15] VITALS (15 sets, daily range): BP systolic 134–155; BP diastolic 71–88; PULSE 60–96; RESP 20–29; TEMP 36.3–36.7; O2SAT 90–98; BMI 50.8
[2021-08-15 04:13] LABS: Basophils % 0.4 % (0.1-2.0); Eosinophils % 0.4 % (0.1-12.0); Hematocrit 43.3 % (37.0-47.0); Hemoglobin 13.4 g/dL (12.2-16.2); Lymphocytes # 0.9 K/mm3 (0.7-4.5); Mean Corpuscular HGB Conc 30.9 g/dL (31.8-35.4); Mean Corpuscular Hemoglobin 31.8 pg (27.0-31.2); Mean Corpuscular Volume 102.9 fl (81-99); Mean Platelet Volume 8.5 fl (7.4-10.4); Monocytes # 0.3 K/mm3 (0.1-1.0); Monocytes % 2.9 % (1.7-9.3); Neutrophils # 7.5 K/mm3 (1.8-7.8); Neutrophils % 86.3 % (37.0-80.0); Platelet Count 166 K/mm3 (142-424); Red Blood Count 4.21 M/mm3 (4.20-5.40); Red Cell Distribution Width 14.4 % (11.5-17.5); White Blood Count 8.7 K/mm3 (4.8-10.8)
[2021-08-15 04:20] LABS: MANUAL DIFFERENTIAL MANUAL DIFFERENTIAL (MANUAL DIFF)
[2021-08-15 04:41] LABS: Hypochromasia 2+; Lymphocytes % 15 % (10-50); Macrocytosis 2+; Neutrophils % 82 % (42-76); Platelet Estimate Normal; Total Cells Counted 100
[2021-08-15 04:46] LABS: Blood Urea Nitrogen 32 mg/dl (7-17); Calcium 9.1 mg/dl (8.4-10.2); Chloride 86 mmol/L (98-107); Creatinine Clearance Estimated 82 mL/min (50-200); Estimated Glomerular Filt Rate 75 ml/min (>60); GFR (African American) 91 ML/MIN (>60); Glucose 344 mg/dl (74-100); Potassium 4.9 mmoL/L (3.5-5.1); Sodium 134 mmol/L (136-145)
[2021-08-15 04:51] LABS: Vancomycin,Peak 32.6 ug/ml (11-39)
[2021-08-15 04:56] LABS: Anion Gap 10.9 mEq/L (5-15); Carbon Dioxide 42 mmol/L (22.0-30.0)
[2021-08-15 06:05] LABS: POC Glucose,Bedside 350 (70-110)
--- NOTE | 2021-08-15 09:12 | HMH.ACPN2 ---
Internal Medicine - PN: Subj *Date: 08/16/21 *Time: 02:32 Interval history: doing better - has been oob - Exam Vital signs and Labs for Last 24 Hours: Temp Pulse Resp BP Pulse Ox 98.1 F 81 20 148/83 H 92 L 08/15/21 08:00 08/15/21 08:00 08/15/21 08:00 08/15/21 08:00 08/15/21 08:00 Laboratory Results - last 24 hr 08/14/21 11:04: POC Glucose 381 H* 08/14/21 17:06: POC Glucose 352 H* 08/14/21 19:59: POC Glucose 340 H* 08/14/21 21:45: Vancomycin Trough 11.2 H 08/15/21 04:00: WBC 8.7, RBC 4.21, Hgb 13.4, Hct 43.3, MCV 102.9 H, MCH 31.8 H, MCHC 30.9 L, RDW 14.4, Plt Count 166, MPV 8.5, Neut % (Auto) 86.3 H, Lymph % (Auto) 10.0, [place] % (Auto) 2.9, Eos % (Auto) 0.4, Baso % (Auto) 0.4, Neut # (Auto) 7.5, Lymph # (Auto) 0.9, [place] # (Auto) 0.3, Eos # (Auto) 0.0, Baso # (Auto) 0.0, Total Counted 100, Neutrophils % (Manual) 82 H, Band Neutrophils % 3.0, Lymphocytes % (Manual) 15, Platelet Estimate Normal, Hypochromasia 2+, Macrocytosis 2+ 08/15/21 04:00: Sodium 134 L, Potassium 4.9, Chloride 86 L, Carbon Dioxide 42 H*, Anion Gap 10.9, BUN 32 H, Creatinine 0.80 D, Estimated Creat Clear 82, Estimated GFR 75, Est GFR ( Amer) 91 D, Glucose 344 H, Calcium 9.1 08/15/21 04:00: Vancomycin Peak 32.6 08/15/21 05:53: POC Glucose 350 H* I & O for Last 24 hours: Intake & Output 08/12/21 08/13/21 08/14/21 08/15/21 11:59 11:59 11:59 11:59 Intake Total 500 / 500 1380 / 1380 1590 / 1590 1080 / 1080 Output Total 1650 / 1650 2225 / 2225 3700 / 3700 4100 / 4100 Balance -1150 / -1150 -845 / -845 -2110 / -2110 -3020 / -3020 Weight 343 lb 5 oz 343 lb 4.156 oz 343 lb 4.156 oz Microbiology Reports for the Last 24 Hours: Microbiology 08/13/21 06:45 Sputum - Expectorated Sputum Gram Stain - Final 08/13/21 06:45 Sputum - Expectorated Sputum Sputum Culture - Preliminary 08/11/21 20:18 Blood Blood Culture - Preliminary Gram Positive Cocci 08/11/21 20:18 Blood Blood Culture - Preliminary - Constitutional no acute distress, obese - *Routine HEENT Exam Head: Present: normocephalic Eye: Present: EOMI, PERRL ENT: Present: mucous membranes dry - *Routine Neck Exam Present: supple - *Routine Respiratory Exam Present: decreased breath sounds - *Routine Cardiovascular Exam Present: RRR - *Routine Abdominal Exam Present: soft - *Routine Extremities Exam Absent: calf tenderness - *Routine Skin Exam Present: intact - *Routine Neurological Exam Present: alert, CN II-XII intact - Routine Psychiatric Exam Present: normal affect Assessment and Plan (1) COPD (chronic obstructive pulmonary disease) with emphysema Status: Acute Qualifiers: Emphysema type: unspecified Qualified Code(s): J43.9 - Emphysema, unspecified Category: Medical Code(s): J43.9 - Emphysema, unspecified (2) COPD with acute exacerbation Status: Acute Category: Medical Code(s): J44.1 - Chronic obstructive pulmonary disease with (acute) exacerbation (3) Lymphedema of both lower extremities Status: Acute Category: Medical Code(s): I89.0 - Lymphedema, not elsewhere classified (4) HTN (hypertension) Status: Chronic Qualifiers: Hypertension type: essential hypertension Category: Medical Code(s): I10 - Essential (primary) hypertension (5) Hypothyroidism Status: Chronic Qualifiers: Hypothyroidism type: acquired Qualified Code(s): E03.9 - Hypothyroidism, unspecified Category: Medical Code(s): E03.9 - Hypothyroidism, unspecified (6) Obesity, morbid, BMI 50 or higher Status: Chronic Category: Medical Code(s): E66.01 - Morbid (severe) obesity due to excess calories (7) Respiratory failure with hypercapnia Status: Acute Category: Medical Code(s): J96.92 - Respiratory failure, unspecified with hypercapnia
--- NOTE | 2021-08-15 10:56 | HMH.PHACONS ---
- Pharmacy Consult Date: 08/15/21 Time: 10:56 Referring provider: DR. POLLARD Reason for Consult:: VANCOMYCIN LEVELS Allergies and ADEs:: Allergies Allergy/AdvReac Type Severity Reaction Status Date / Time tramadol [TRAMADOL] Allergy Mild Unknown Verified 06/28/21 11:12 allergy reaction gold sodium thiomalate Allergy Unknown Unknown Verified 06/28/21 11:12 allergy reaction coconut Allergy Unknown Verified 06/28/21 11:12 allergy reaction propylene glycol Allergy Unknown Verified 06/28/21 11:12 allergy reaction vancomycin AdvReac RED EVANGELINA Verified 06/28/21 11:12 SYNDROME Home Medications:: Home Medications Medication Instructions Recorded Confirmed Type ergocalciferol (vitamin D2) 1,250 50,000 unit PO WEEKLY #12 cap 06/25/20 08/11/21 Rx mcg (50,000 unit) capsule epinephrine 0.3 mg/0.3 mL 0.3 mg IM Q5-15M PRN #1 each 09/02/20 08/11/21 Rx injection, auto-injector levothyroxine 150 mcg tablet 300 mcg PO DAILY #180 tab 11/10/20 08/11/21 Rx albuterol sulfate 90 mcg/actuation 2 puff INHALATION Q4HP PRN #8.5 g 02/16/21 08/11/21 Rx aerosol inhaler ipratropium 0.5 mg-albuterol 3 mg 3 ml INHALATION QID PRN #120 neb 02/16/21 08/11/21 Rx (2.5 mg base)/3 mL nebulization soln hydrocodone 5 mg-acetaminophen 325 1 tab PO BID PRN #60 tab 07/23/21 08/11/21 Rx mg tablet Fluticasone Propion/Salmeterol 2 puff INHALATION BID 08/11/21 08/11/21 History [Advair HFA] Nebulizer [Altera Nebulizer] See Rx Instructions .ROUTE 08/11/21 08/11/21 History .MEDSUPPLY Nicotine [Nicotine Patch 1 patch TRANSDERMA Q24H 08/11/21 08/11/21 History 21mg/24hrs] Omeprazole 20 mg PO DAILY 08/11/21 08/11/21 History Tiotropium [place] [Spiriva with 1 cap INHALATION DAILY 08/11/21 08/11/21 History HandiHaler] dilTIAZem HCl [Diltiazem 240mg 2 capsule PO DAILY 08/11/21 08/12/21 History 24Hr ER Cap] Ibuprofen [Ibuprofen 800mg 800 mg PO TIDP PRN 08/12/21 08/12/21 History Tablet] Height: 1.75 m Weight: 155.7 kg Laboratory Results:: Laboratory Results - last 24 hr 08/14/21 11:04: POC Glucose 381 H* 08/14/21 17:06: POC Glucose 352 H* 08/14/21 19:59: POC Glucose 340 H* 08/14/21 21:45: Vancomycin Trough 11.2 H 08/15/21 04:00: WBC 8.7, RBC 4.21, Hgb 13.4, Hct 43.3, MCV 102.9 H, MCH 31.8 H, MCHC 30.9 L, RDW 14.4, Plt Count 166, MPV 8.5, Neut % (Auto) 86.3 H, Lymph % (Auto) 10.0, [place] % (Auto) 2.9, Eos % (Auto) 0.4, Baso % (Auto) 0.4, Neut # (Auto) 7.5, Lymph # (Auto) 0.9, [place] # (Auto) 0.3, Eos # (Auto) 0.0, Baso # (Auto) 0.0, Total Counted 100, Neutrophils % (Manual) 82 H, Band Neutrophils % 3.0, Lymphocytes % (Manual) 15, Platelet Estimate Normal, Hypochromasia 2+, Macrocytosis 2+ 08/15/21 04:00: Sodium 134 L, Potassium 4.9, Chloride 86 L, Carbon Dioxide 42 H*, Anion Gap 10.9, BUN 32 H, Creatinine 0.80 D, Estimated Creat Clear 82, Estimated GFR 75, Est GFR ( Amer) 91 D, Glucose 344 H, Calcium 9.1 08/15/21 04:00: Vancomycin Peak 32.6 08/15/21 05:53: POC Glucose 350 H* Medical History: Reports:: Anxiety, Asthma, Chronic Obstructive Pulmonary Disease (COPD), Depression, Diabetes Mellitus Type 2, Home Oxygen, Hyperlipidemia, Hypertension, Palpitations, Peripheral Vascular Disease Denies:: Cancer, Diabetes Mellitus Type 1, MRSA Assessment and Plan (1) COPD (chronic obstructive pulmonary disease) with emphysema Status: Acute Qualifiers: Emphysema type: unspecified Qualified Code(s): J43.9 - Emphysema, unspecified Category: Medical Code(s): J43.9 - Emphysema, unspecified (2) COPD with acute exacerbation Status: Acute Category: Medical Code(s): J44.1 - Chronic obstructive pulmonary disease with (acute) exacerbation (3) Lymphedema of both lower extremities Status: Acute Category: Medical Code(s): I89.0 - Lymphedema, not elsewhere classified (4) HTN (hypertension) Status: Chronic Qualifiers: Hypertension type: essential hyper
[2021-08-15 19:13] LABS: POC Glucose,Bedside 350 (70-110)
[2021-08-15 22:44] LABS: POC Glucose,Bedside 360 (70-110)
[2021-08-16] VITALS (12 sets, daily range): BP systolic 136–165; BP diastolic 65–84; PULSE 60–92; RESP 19–22; TEMP 36.5–36.9; O2SAT 91–99; BMI 51.2
[2021-08-16 00:37] LABS: POC Glucose,Bedside 402 (70-110)
[2021-08-16 02:45] LABS: POC Glucose,Bedside 354 (70-110)
[2021-08-16 06:40] LABS: POC Glucose,Bedside 431 (70-110)
[2021-08-16 07:17] LABS: Basophils % 0.5 % (0.1-2.0); Eosinophils % 0.6 % (0.1-12.0); Hematocrit 45.2 % (37.0-47.0); Hemoglobin 14.1 g/dL (12.2-16.2); Lymphocytes # 0.9 K/mm3 (0.7-4.5); Lymphocytes % 13.8 % (10-50); Mean Corpuscular HGB Conc 31.3 g/dL (31.8-35.4); Mean Corpuscular Hemoglobin 31.5 pg (27.0-31.2); Mean Corpuscular Volume 100.7 fl (81-99); Mean Platelet Volume 8.5 fl (7.4-10.4); Monocytes # 0.2 K/mm3 (0.1-1.0); Monocytes % 2.3 % (1.7-9.3); Neutrophils # 5.6 K/mm3 (1.8-7.8); Neutrophils % 82.7 % (37.0-80.0); Platelet Count 172 K/mm3 (142-424); Red Blood Count 4.48 M/mm3 (4.20-5.40); Red Cell Distribution Width 14.5 % (11.5-17.5); White Blood Count 6.7 K/mm3 (4.8-10.8)
[2021-08-16 07:50] LABS: Blood Urea Nitrogen 33 mg/dl (7-17); Calcium 9.2 mg/dl (8.4-10.2); Chloride 84 mmol/L (98-107); Creatinine Clearance Estimated 109 mL/min (50-200); Estimated Glomerular Filt Rate 105 ml/min (>60); GFR (African American) 127 ML/MIN (>60); Glucose 398 mg/dl (74-100); Potassium 4.4 mmoL/L (3.5-5.1); Sodium 134 mmol/L (136-145)
[2021-08-16 08:03] LABS: Anion Gap 12.4 mEq/L (5-15); Carbon Dioxide 42 mmol/L (22.0-30.0)
--- NOTE | 2021-08-16 09:08 | HMH.ACPN2 ---
Internal Medicine - PN: Subj *Date: 08/16/21 *Time: 08:15 Interval history: pt sitting up in bed states feels better today, c/o fever blister, and no bm for 8 days Exam Vital signs and Labs for Last 24 Hours: Temp Pulse Resp BP Pulse Ox 98.4 F 81 20 151/84 H 92 L 08/16/21 08:00 08/16/21 08:00 08/16/21 08:00 08/16/21 08:00 08/16/21 08:00 Laboratory Results - last 24 hr 08/15/21 12:07: POC Glucose 402 H* 08/15/21 16:27: POC Glucose 350 H* 08/15/21 20:56: POC Glucose 360 H* 08/16/21 02:33: POC Glucose 354 H* 08/16/21 06:03: POC Glucose 431 H* 08/16/21 07:06: WBC 6.7, RBC 4.48, Hgb 14.1, Hct 45.2, MCV 100.7 H, MCH 31.5 H, MCHC 31.3 L, RDW 14.5, Plt Count 172, MPV 8.5, Neut % (Auto) 82.7 H, Lymph % (Auto) 13.8, [place] % (Auto) 2.3, Eos % (Auto) 0.6, Baso % (Auto) 0.5, Neut # (Auto) 5.6, Lymph # (Auto) 0.9, [place] # (Auto) 0.2, Eos # (Auto) 0.0, Baso # (Auto) 0.0 08/16/21 07:06: Sodium 134 L, Potassium 4.4, Chloride 84 L, Carbon Dioxide 42 H*, Anion Gap 12.4, BUN 33 H, Creatinine 0.60 D, Estimated Creat Clear 109, Estimated GFR 105, Est GFR ( Amer) 127 D, Glucose 398 H, Calcium 9.2 I & O for Last 24 hours: Intake & Output 08/13/21 08/14/21 08/15/21 08/16/21 11:59 11:59 11:59 11:59 Intake Total 1380 / 1380 1590 / 1590 1080 / 1080 2019 Output Total 2225 / 2225 3700 / 3700 5500 / 5500 700 / 700 Balance -845 / -845 -2110 / -2110 -4420 / -4420 1320 / 1320 Weight 343 lb 4.156 oz 343 lb 4.156 oz 345 lb 14.484 oz Microbiology Reports for the Last 24 Hours: Microbiology 08/13/21 06:45 Sputum - Expectorated Sputum Gram Stain - Final 08/13/21 06:45 Sputum - Expectorated Sputum Sputum Culture - Preliminary - Constitutional no acute distress, obese - *Routine HEENT Exam Head: Present: normocephalic Eye: Present: PERRL ENT: Present: mucous membranes moist - *Routine Neck Exam Present: supple. Absent: lymphadenopathy - *Routine Respiratory Exam Present: wheezes - *Routine Cardiovascular Exam Present: RRR - *Routine Abdominal Exam Present: soft, normoactive bowel sounds. Absent: tenderness - *Routine Extremities Exam Absent: cyanosis, clubbing, edema - *Routine Skin Exam Present: dry, warm, rash Comments: yeast rash under skin folds - *Routine Neurological Exam Present: alert, oriented X3 Assessment and Plan (1) COPD (chronic obstructive pulmonary disease) with emphysema Status: Acute Qualifiers: Emphysema type: unspecified Qualified Code(s): J43.9 - Emphysema, unspecified Category: Medical Code(s): J43.9 - Emphysema, unspecified (2) COPD with acute exacerbation Status: Acute Category: Medical Code(s): J44.1 - Chronic obstructive pulmonary disease with (acute) exacerbation (3) Lymphedema of both lower extremities Status: Acute Category: Medical Code(s): I89.0 - Lymphedema, not elsewhere classified (4) HTN (hypertension) Status: Chronic Qualifiers: Hypertension type: essential hypertension Category: Medical Code(s): I10 - Essential (primary) hypertension (5) Hypothyroidism Status: Chronic Qualifiers: Hypothyroidism type: acquired Qualified Code(s): E03.9 - Hypothyroidism, unspecified Category: Medical Code(s): E03.9 - Hypothyroidism, unspecified (6) Obesity, morbid, BMI 50 or higher Status: Chronic Category: Medical Code(s): E66.01 - Morbid (severe) obesity due to excess calories (7) Respiratory failure with hypercapnia Status: Acute Category: Medical Code(s): J96.92 - Respiratory failure, unspecified with hypercapnia (8) Yeast infection of the skin Status: Acute Category: Medical Code(s): B37.2 - Candidiasis of skin and nail - Assessment and plan all Dx Assessment and Plan for all problems:: rounded with dr tran all orders per dr tran plerasto + blood culture only in 1 bottle- wait final nystain to skin folds increase ss insulin due to elevated glucose meds for b
--- NOTE | 2021-08-16 09:31 | HMH.PULMPN ---
Internal Medicine - PN: Subj *Date: 08/16/21 *Time: 11:25 Interval history: No acute respiratory events over the weekend. Patient continues to remain on NC. Exam - Constitutional Constitutional:: Present: no acute distress, comfortable - HENMT Exam HENMT: Present: normocephalic, atraumatic - Eye Exam Eyes:: Present: normal appearance both eyes and related structures - Neck Exam Neck:: Present: normal visual inspection - Respiratory Exam Respiratory:: Present: able to speak in complete sentences, no respiratory distress. Absent: wheezing - Cardiovascular Exam Cardiac:: Present: S1, S2 - GI Exam GI:: Present: soft - Skin Exam Skin: Present: warm, rash - Neurological Exam Neurological: Present: alert, awake, normal cognition - Extremities Exam Extremities: Present: no cyanosis, no clubbing, edema Assessment and Plan (1) COPD (chronic obstructive pulmonary disease) with emphysema Status: Acute Qualifiers: Emphysema type: unspecified Qualified Code(s): J43.9 - Emphysema, unspecified Category: Medical Code(s): J43.9 - Emphysema, unspecified (2) COPD with acute exacerbation Status: Acute Category: Medical Code(s): J44.1 - Chronic obstructive pulmonary disease with (acute) exacerbation (3) Lymphedema of both lower extremities Status: Acute Category: Medical Code(s): I89.0 - Lymphedema, not elsewhere classified (4) HTN (hypertension) Status: Chronic Qualifiers: Hypertension type: essential hypertension Category: Medical Code(s): I10 - Essential (primary) hypertension (5) Hypothyroidism Status: Chronic Qualifiers: Hypothyroidism type: acquired Qualified Code(s): E03.9 - Hypothyroidism, unspecified Category: Medical Code(s): E03.9 - Hypothyroidism, unspecified (6) Obesity, morbid, BMI 50 or higher Status: Chronic Category: Medical Code(s): E66.01 - Morbid (severe) obesity due to excess calories (7) Respiratory failure with hypercapnia Status: Acute Category: Medical Code(s): J96.92 - Respiratory failure, unspecified with hypercapnia (8) Yeast infection of the skin Status: Acute Category: Medical Code(s): B37.2 - Candidiasis of skin and nail - Assessment and plan all Dx Assessment and Plan for all problems:: #Acute on chronic hypercarbic respiratory failure: #COPD exacerbation: Ms. Dias is a 51-year-old female greater than [id number] smoking history, hypertension, hypothyroidism, COPD as per admissions for hypercarbic respiratory failure: In respiratory distress altered mentation found to be in hypercarbic respiratory failure initiated on bilevel ventilation therapy and pulmonary was called for further management. She was also supposed to follow with sleep clinic and be evaluated for sleep apnea however this did not happen since her last discharge. Blood gas on admission 7.24, 120 and 64. Her last hospital admission for hypercarbic respiratory failure was from October 2020 Chest x-ray no obvious airspace disease noted, evidence of volume overload and vascular congestion. Patient also noted to have evidence of volume overload in her prior hospital visits. Interval update: Tolerating nasal cannula well, will not qualify for BiPAP therapy for her hypercarbic respiratory failure as per social work. Continue to receive vancomycin for bacteremia and Levoflaxacin for PNM Plan: -Continue nasal cannula to maintain O2 saturation goal of 88 to 92%. -DuoNebs every 6 hours scheduled along with budesonide every 12 hrs -Continue bprednisone to 40 mg daily for 5 days -Continue levofloxacin x 5 days for community-acquired pneumonia. -Volume optimization as per primary team -Recommend to schedule an outpatient polysomnography testing. -Recommend repeating blood cultures for bacteremia. #Thank you involving pulmonary in this patient. We will continue to follow.
[2021-08-16 16:39] LABS: POC Glucose,Bedside 370 (70-110)
--- NOTE | 2021-08-16 17:10 | PC.NURSE ---
1710-Shift RE-assessment: pt sitting up in bed after dinner at this time on 4l/nc and krys well, o2 sats stable, pt has slept intermittently t/o day and wore bi pap during those periods, krys well, no acute skin breakdown noted, pt's fsbs results have been elevated in mid 300's-medicating w/insulin per eMAR, ls cta, hrr, bs+x4, edema noted to BLE, nystatin cream applied to abd folds-dk discoloration noted with foul odor under abd folds, f/c draining clear yellow urine at bedside, BP slightly elevated at 165/76, will continue to monitor, otherwise vss, pt stable
[2021-08-17] VITALS (11 sets, daily range): BP systolic 127–156; BP diastolic 53–78; PULSE 64–90; RESP 18–27; TEMP 36.4–37.1; O2SAT 93–96; BMI 47.9
[2021-08-17 02:50] LABS: POC Glucose,Bedside 365 (70-110)
[2021-08-17 02:50] LABS: POC Glucose,Bedside 335 (70-110)
[2021-08-17 07:23] LABS: POC Glucose,Bedside 375 (70-110)
[2021-08-17 07:57] LABS: Basophils % 0.2 % (0.1-2.0); Hematocrit 46.4 % (37.0-47.0); Hemoglobin 14.4 g/dL (12.2-16.2); Lymphocytes # 0.9 K/mm3 (0.7-4.5); Lymphocytes % 13.1 % (10-50); Mean Corpuscular Hemoglobin 31.6 pg (27.0-31.2); Mean Corpuscular Volume 101.8 fl (81-99); Mean Platelet Volume 8.5 fl (7.4-10.4); Monocytes # 0.3 K/mm3 (0.1-1.0); Neutrophils # 5.7 K/mm3 (1.8-7.8); Neutrophils % 82.7 % (37.0-80.0); Platelet Count 185 K/mm3 (142-424); Red Blood Count 4.56 M/mm3 (4.20-5.40); Red Cell Distribution Width 14.4 % (11.5-17.5); White Blood Count 6.9 K/mm3 (4.8-10.8)
[2021-08-17 08:07] LABS: Chloride 83 mmol/L (98-107); Potassium 4.3 mmoL/L (3.5-5.1); Sodium 132 mmol/L (136-145)
[2021-08-17 08:10] LABS: Blood Urea Nitrogen 38 mg/dl (7-17); Calcium 9.1 mg/dl (8.4-10.2); Creatinine Clearance Estimated 94 mL/min (50-200); Estimated Glomerular Filt Rate 88 ml/min (>60); GFR (African American) 106 ML/MIN (>60); Glucose 361 mg/dl (74-100)
[2021-08-17 08:21] LABS: Anion Gap 10.3 mEq/L (5-15); Carbon Dioxide 43 mmol/L (22.0-30.0)
--- NOTE | 2021-08-17 08:53 | HMH.PULMPN ---
Internal Medicine - PN: Subj *Date: 08/17/21 *Time: 10:58 Interval history: No acute respiratory events overnight. Patient continued to remain on 4 L nasal cannula. Exam - Constitutional Constitutional:: Present: no acute distress, comfortable - HENMT Exam HENMT: Present: normocephalic, atraumatic - Eye Exam Eyes:: Present: normal appearance both eyes and related structures - Neck Exam Neck:: Present: normal visual inspection - Respiratory Exam Respiratory:: Present: able to speak in complete sentences, no respiratory distress. Absent: wheezing - Cardiovascular Exam Cardiac:: Present: S1, S2 - GI Exam GI:: Present: soft, obese - Skin Exam Skin: Present: warm, rash - Neurological Exam Neurological: Present: alert, awake, normal cognition - Extremities Exam Extremities: Present: no cyanosis, no clubbing, edema Assessment and Plan (1) COPD (chronic obstructive pulmonary disease) with emphysema Status: Acute Qualifiers: Qualified Code(s): J43.9 - Emphysema, unspecified Category: Medical Code(s): J43.9 - Emphysema, unspecified (2) COPD with acute exacerbation Status: Acute Category: Medical Code(s): J44.1 - Chronic obstructive pulmonary disease with (acute) exacerbation (3) Lymphedema of both lower extremities Status: Acute Category: Medical Code(s): I89.0 - Lymphedema, not elsewhere classified (4) HTN (hypertension) Status: Chronic Category: Medical Code(s): I10 - Essential (primary) hypertension (5) Hypothyroidism Status: Chronic Qualifiers: Qualified Code(s): E03.9 - Hypothyroidism, unspecified Category: Medical Code(s): E03.9 - Hypothyroidism, unspecified (6) Obesity, morbid, BMI 50 or higher Status: Chronic Category: Medical Code(s): E66.01 - Morbid (severe) obesity due to excess calories (7) Respiratory failure with hypercapnia Status: Acute Category: Medical Code(s): J96.92 - Respiratory failure, unspecified with hypercapnia (8) Yeast infection of the skin Status: Acute Category: Medical Code(s): B37.2 - Candidiasis of skin and nail - Assessment and plan all Dx Assessment and Plan for all problems:: #Acute on chronic hypercarbic respiratory failure: #COPD exacerbation: Ms. Dias is a 51-year-old female greater than [id number] smoking history, hypertension, hypothyroidism, COPD as per admissions for hypercarbic respiratory failure: In respiratory distress altered mentation found to be in hypercarbic respiratory failure initiated on bilevel ventilation therapy and pulmonary was called for further management. She was also supposed to follow with sleep clinic and be evaluated for sleep apnea however this did not happen since her last discharge. Blood gas on admission 7.24, 120 and 64. Her last hospital admission for hypercarbic respiratory failure was from October 2020 Chest x-ray no obvious airspace disease noted, evidence of volume overload and vascular congestion. Patient also noted to have evidence of volume overload in her prior hospital visits. Interval update: Patient will complete her 5 days of antibiotics and steroids today . Continue to receive nebulizations. Tolerating 4 L nasal cannula well. Will perform nocturnal oximetry testing and will attempt to qualify the patient for BiPAP based on her COPD and hypercarbic respiratory failure. Even the patient's both blood culture bottles showed gram-positive cocci in clusters and will culture did not grow any organisms. We will recommend repeating blood cultures and can consider discontinuing vancomycin if negative Plan: -Incentive spirometry -Nocturnal oximetry to stay on 4 L nasal cannula. -Continue nasal cannula to maintain O2 saturation goal of 88 to 92%. -DuoNebs every 6 hours scheduled along with budesonide every 12 hrs -Prednisone to 40 mg daily for 5 days -Levofloxacin x 5 days for community-acquired pneumonia. -Volume optimization as per primary team -Recomme
--- NOTE | 2021-08-17 09:07 | P.PN_ITS ---
Internal Medicine - PN: Subj *Date: 08/17/21 *Time: 09:07 Exam Vital signs and Labs for Last 24 Hours: Temp Pulse Resp BP Pulse Ox 98.5 F 86 21 145/68 H 94 L 08/17/21 08:00 08/17/21 08:00 08/17/21 08:00 08/17/21 08:00 08/17/21 08:00 Laboratory Results - last 24 hr 08/16/21 11:22: POC Glucose 370 H* 08/16/21 16:51: POC Glucose 365 H* 08/16/21 20:39: POC Glucose 335 H* 08/17/21 06:12: POC Glucose 375 H* 08/17/21 06:34: WBC 6.9, RBC 4.56, Hgb 14.4, Hct 46.4, MCV 101.8 H, MCH 31.6 H, MCHC 31.0 L, RDW 14.4, Plt Count 185, MPV 8.5, Neut % (Auto) 82.7 H, Lymph % (Auto) 13.1, [place] % (Auto) 4.0, Eos % (Auto) 0.0 L, Baso % (Auto) 0.2, Neut # (Auto) 5.7, Lymph # (Auto) 0.9, [place] # (Auto) 0.3, Eos # (Auto) 0.0, Baso # (Auto) 0.0 08/17/21 06:34: Sodium 132 L, Potassium 4.3, Chloride 83 L, Carbon Dioxide 43 H* , Anion Gap 10.3, BUN 38 H, Creatinine 0.70, Estimated Creat Clear 94, Estimated GFR 88, Est GFR ( Amer) 106, Glucose 361 H, Calcium 9.1 I & O for Last 24 hours: Intake & Output 08/14/21 08/15/21 08/16/21 08/17/21 23:59 23:59 23:59 23:59 Intake Total 1830 / 1830 2019 6013 / 6013 240 / 240 Output Total 6900 / 6900 1400 / 1400 4200 / 6600 3200 / 3200 Balance -5070 / -5070 620 / 620 1813 / -587 -2960 / -2960 Weight 155.7 kg 156.9 kg 146.7 kg Microbiology Reports for the Last 24 Hours: Microbiology 08/13/21 06:45 Sputum - Expectorated Sputum Gram Stain - Final 08/13/21 06:45 Sputum - Expectorated Sputum Sputum Culture - Preliminary Assessment and Plan (1) COPD (chronic obstructive pulmonary disease) with emphysema Status: Acute Qualifiers: Emphysema type: unspecified Qualified Code(s): J43.9 - Emphysema, unspecified Category: Medical Code(s): J43.9 - Emphysema, unspecified (2) COPD with acute exacerbation Status: Acute Category: Medical Code(s): J44.1 - Chronic obstructive pulmonary disease with (acute) exacerbation (3) Lymphedema of both lower extremities Status: Acute Category: Medical Code(s): I89.0 - Lymphedema, not elsewhere classified (4) HTN (hypertension) Status: Chronic Qualifiers: Hypertension type: essential hypertension Category: Medical Code(s): I10 - Essential (primary) hypertension (5) Hypothyroidism Status: Chronic Qualifiers: Hypothyroidism type: acquired Qualified Code(s): E03.9 - Hypothyroidism, u nspecified Category: Medical Code(s): E03.9 - Hypothyroidism, unspecified (6) Obesity, morbid, BMI 50 or higher Status: Chronic Category: Medical Code(s): E66.01 - Morbid (severe) obesity due to excess calories (7) Respiratory failure with hypercapnia Status: Acute Category: Medical Code(s): J96.92 - Respiratory failure, unspecified with hypercapnia (8) Yeast infection of the skin Status: Acute Category: Medical Code(s): B37.2 - Candidiasis of skin and nail The patient's infection will respond to the chosen ABx?: Yes (CULTURES AND SENSITIVITIES PENDING) Is the patient receiving the right drug, dose, and route?: Yes Could a more targeted ABx be ordered?: No (CULTURES AND SENSITIVITIES PENDING)
--- NOTE | 2021-08-17 10:01 | HMH.PTWOUND ---
Rehab Inpt Wound Evaluation Rehab IP Wound Evaluation Start: 08/17/21 08:39 Freq: ONCE Status: Active Protocol: Document 08/17/21 09:55 MATHEW (Rec: 08/17/21 10:01 MATHEW [id number]) Rehab PT Wound Assessment Patient Status Premedicated Prior to Dressing Change No Subjective Subjective Pt reprots c/o pain in LLE stating the side and back hurt Pt has no open wound but large amount of hyperkeratotic skin which is chronic from chronic edema. Wound Left Lower Leg Wound Type hyperkeratotic skin no open wound Plan/Recommendation Comment Pt has been seen in OPPT lymphedema clinic in past w/ good results but is notortiously non-comlpiant w/ visits and self-care. Pt request HH nsg to come to house and assist w/ bathing, cleaning and wrapping legs. Pt also requests new farrow wraps for edema of lower legs. Due to pt's consistent lack of compliance w/ OP treatment home health nursing and wound care assistance would benefit patient greatly. Pt has no wound care needs at this time, but continued edema prevention w/ ALLAN hose. Eval Complexity Eval Charge Codes 11231 - Moderate Complexity G-codes PT Current Status Other PT/OT Status PT Current Status Modifier CI-At least 1% but less than 20% impaired, limited or restricted PT Goal Status Modifer CI-At least 1% but less than 20% impaired, limited or restricted PHYSICIAN CERTIFICATION: I certify the specified therapy services for Saige Dias are required, authorized, and reviewed every 30 days.
--- NOTE | 2021-08-17 10:38 | XR_ITS ---
FINAL REPORT CLINICAL HISTORY: sob COMPARISON: August 14, 2021 FINDINGS: Two views of the chest were obtained. The heart size and pulmonary vascularity are within normal limits. The mediastinum is normal. There is persistent bibasilar atelectasis or pneumonia. There is slight improved aeration. There is a small left pleural effusion. There is no pneumothorax. The bony thorax is intact. IMPRESSION: Persistent bibasilar atelectasis or pneumonia with slight improved aeration. Reviewed, Interpreted and Dictated by Yoan Holley III, MD Transcribed by Young Padilla Authenticated by Yoan Holley III, MD on 08/17/2021 12:30:04 PM [facility]
--- NOTE | 2021-08-17 10:56 | HMH.PNCARD ---
Subjective Date: 08/17/21 Time: 11:00 Principal diagnosis: Resp failure Interval history: 51-year-old female who has smoked for more than 30 years with a history of COPD and was admitted to the hospital for an acute COPD exacerbation and respiratory failure on 08/12/21. PCP asked cardiology to reevaluate patient for shortness of breath. Patient states her shortness of breath has not improved since she has been at this facility. States severe shortness of breath. Patient does require oxygen supplementation continuously and at times patient will require BiPAP. She denies any chest pain or pressure. She reports having lower extremity edema but she has significant venous insufficiency noted to her bilateral lower extremities. She denies any fevers, chills, nausea, vomiting or diarrhea. She does have associated orthopnea with her shortness of breath. Based off of her admitting ABG the patient has end-stage COPD. Echocardiogram was performed which revealed EF 55% with no regional wall motion abnormality, grade 1 diastolic dysfunction. No evidence of significant aortic stenosis. Mild MR and TR noted. PCP has ordered BNP and CXR. BP 636. CXR results are pending. Pending on the results of the chest x-ray, medication and treatment therapies may be recommended. Echo:Conclusion 1. Technically difficult study because of the patient factors and poor acoustic windows. Left atrium is mildly enlarged, left ventricle is normal size, mild concentric left ventricular hypertrophy, visually estimated ejection fraction 55% with no regional wall motion abnormality, grade 1 diastolic dysfunction seen without tissue Doppler evidence of raise left atrial pressure. 2. Thickened and calcified aortic valve without Doppler evidence of significant aortic stenosis. 3. Mild mitral and tricuspid regurgitation. 4. No significant pericardial effusion noted. 5. Inferior vena cava is normal size with normal inspiratory collapse. Exam Vital signs and Labs for Last 24 Hours: Temp Pulse Resp BP Pulse Ox 98.5 F 86 21 145/68 H 94 L 08/17/21 08:00 08/17/21 08:00 08/17/21 08:00 08/17/21 08:00 08/17/21 08:00 Laboratory Results - last 24 hr 08/16/21 11:22: POC Glucose 370 H* 08/16/21 16:51: POC Glucose 365 H* 08/16/21 20:39: POC Glucose 335 H* 08/17/21 06:12: POC Glucose 375 H* 08/17/21 06:34: WBC 6.9, RBC 4.56, Hgb 14.4, Hct 46.4, MCV 101.8 H, MCH 31.6 H, MCHC 31.0 L, RDW 14.4, Plt Count 185, MPV 8.5, Neut % (Auto) 82.7 H, Lymph % (Auto) 13.1, [place] % (Auto) 4.0, Eos % (Auto) 0.0 L, Baso % (Auto) 0.2, Neut # (Auto) 5.7, Lymph # (Auto) 0.9, [place] # (Auto) 0.3, Eos # (Auto) 0.0, Baso # (Auto) 0.0 08/17/21 06:34: Sodium 132 L, Potassium 4.3, Chloride 83 L, Carbon Dioxide 43 H*, Anion Gap 10.3, BUN 38 H, Creatinine 0.70, Estimated Creat Clear 94, Estimated GFR 88, Est GFR ( Amer) 106, Glucose 361 H, Calcium 9.1 I & O for Last 24 hours: Intake & Output 08/14/21 08/15/21 08/16/21 08/17/21 23:59 23:59 23:59 23:59 Intake Total 1830 / 1830 2020 / 2020 6013 / 6013 240 / 240 Output Total 6900 / 6900 1400 / 1400 4200 / 6600 4600 / 4600 Balance -5070 / -5070 620 / 620 1813 / -587 -4360 / -4360 Weight 343 lb 4.156 oz 345 lb 14.484 oz 323 lb 6.69 oz Microbiology Reports for the Last 24 Hours: Microbiology 08/13/21 06:45 Sputum - Expectorated Sputum Gram Stain - Final 08/13/21 06:45 Sputum - Expectorated Sputum Sputum Culture - Preliminary - Constitutional moderate distress, morbidly obese, cooperative - *Routine HEENT Exam Head: Present: normocephalic - *Routine Neck Exam Present: supple, full ROM, normal carotid upstroke. Absent: JVD, carotid bruit, lymphadenopathy - Routine Chest/Breast/Axilla Exam Chest wall: Present: tenderness. Absent: mass, pacemaker - *Routine Respiratory Exam Present: diminished air movement Comments: Patient is on supplemental oxygen. - *Routine Cardiovascular
[2021-08-17 11:03] LABS: NT Pro Brain Natriuretic Pep. 636 pg/mL (0-125)
[2021-08-17 11:44] LABS: Vancomycin,Trough 20.8 ug/mL (5.0-10.0)
--- NOTE | 2021-08-17 11:48 | PC.NURSE ---
1130-pt off floor at this time to radiology with Sushila paper cone grader 1148-pt returned to floor from radiology in stable condition
--- NOTE | 2021-08-17 11:59 | PC.NURSE ---
1159-pt sitting up in chair at this time and tolerating well, o2 @ 4l/nc, vss, pt watching tv without any discomfort
--- NOTE | 2021-08-17 12:37 | HMH.ACPN2 ---
Internal Medicine - PN: Subj *Date: 08/17/21 *Time: 12:37 Interval history: looks better todau - blood cult pending andhas element of chf will discuss with card Exam Vital signs and Labs for Last 24 Hours: Temp Pulse Resp BP Pulse Ox 98.5 F 74 21 145/68 H 94 L 08/17/21 08:00 08/17/21 11:28 08/17/21 08:00 08/17/21 08:00 08/17/21 08:00 Laboratory Results - last 24 hr 08/16/21 11:22: POC Glucose 370 H* 08/16/21 16:51: POC Glucose 365 H* 08/16/21 20:39: POC Glucose 335 H* 08/17/21 06:12: POC Glucose 375 H* 08/17/21 06:34: WBC 6.9, RBC 4.56, Hgb 14.4, Hct 46.4, MCV 101.8 H, MCH 31.6 H, MCHC 31.0 L, RDW 14.4, Plt Count 185, MPV 8.5, Neut % (Auto) 82.7 H, Lymph % (Auto) 13.1, [place] % (Auto) 4.0, Eos % (Auto) 0.0 L, Baso % (Auto) 0.2, Neut # (Auto) 5.7, Lymph # (Auto) 0.9, [place] # (Auto) 0.3, Eos # (Auto) 0.0, Baso # (Auto) 0.0 08/17/21 06:34: Sodium 132 L, Potassium 4.3, Chloride 83 L, Carbon Dioxide 43 H*, Anion Gap 10.3, BUN 38 H, Creatinine 0.70, Estimated Creat Clear 94, Estimated GFR 88, Est GFR ( Amer) 106, Glucose 361 H, Calcium 9.1 08/17/21 06:34: NT-Pro-B Natriuret Pep 636 H 08/17/21 10:20: Vancomycin Trough 20.8 H I & O for Last 24 hours: Intake & Output 08/15/21 08/16/21 08/17/21 08/18/21 11:59 11:59 11:59 11:59 Intake Total 1080 / 1080 2019 / 2019 5893 / 5893 Output Total 5500 / 5500 2700 / 2700 6100 / 6100 400 / 400 Balance -4420 / -4420 -680 / -680 -207 / -207 -400 / -400 Weight 343 lb 4.156 oz 345 lb 14.484 oz 323 lb 6.69 oz Microbiology Reports for the Last 24 Hours: Microbiology 08/13/21 06:45 Sputum - Expectorated Sputum Gram Stain - Final 08/13/21 06:45 Sputum - Expectorated Sputum Sputum Culture - Preliminary - Constitutional no acute distress, obese - *Routine HEENT Exam Head: Present: normocephalic Eye: Present: EOMI, PERRL ENT: Present: mucous membranes dry - *Routine Neck Exam Absent: JVD - *Routine Respiratory Exam Present: decreased breath sounds - *Routine Cardiovascular Exam Present: RRR, murmur, S4 - *Routine Abdominal Exam Present: soft - *Routine Extremities Exam Comments: chronic changes lower ext - *Routine Skin Exam Comments: changes lower ext - *Routine Neurological Exam Present: alert, CN II-XII intact - Routine Psychiatric Exam Present: cooperative Assessment and Plan (1) COPD (chronic obstructive pulmonary disease) with emphysema Status: Acute Qualifiers: Emphysema type: unspecified Qualified Code(s): J43.9 - Emphysema, unspecified Category: Medical Code(s): J43.9 - Emphysema, unspecified (2) COPD with acute exacerbation Status: Acute Category: Medical Code(s): J44.1 - Chronic obstructive pulmonary disease with (acute) exacerbation (3) Lymphedema of both lower extremities Status: Acute Category: Medical Code(s): I89.0 - Lymphedema, not elsewhere classified (4) HTN (hypertension) Status: Chronic Qualifiers: Hypertension type: essential hypertension Category: Medical Code(s): I10 - Essential (primary) hypertension (5) Hypothyroidism Status: Chronic Qualifiers: Hypothyroidism type: acquired Qualified Code(s): E03.9 - Hypothyroidism, unspecified Category: Medical Code(s): E03.9 - Hypothyroidism, unspecified (6) Obesity, morbid, BMI 50 or higher Status: Chronic Category: Medical Code(s): E66.01 - Morbid (severe) obesity due to excess calories (7) Respiratory failure with hypercapnia Status: Acute Category: Medical Code(s): J96.92 - Respiratory failure, unspecified with hypercapnia (8) Yeast infection of the skin Status: Acute Category: Medical Code(s): B37.2 - Candidiasis of skin and nail
--- NOTE | 2021-08-17 13:49 | HMH.PHACONS ---
- Pharmacy Consult Date: 08/17/21 Time: 13:49 Referring provider: DR. POLLARD Reason for Consult:: VANCOMYCIN LEVEL AND DOSE CHANGE Allergies and ADEs:: Allergies Allergy/AdvReac Type Severity Reaction Status Date / Time tramadol [TRAMADOL] Allergy Mild Unknown Verified 06/28/21 11:12 allergy reaction gold sodium thiomalate Allergy Unknown Unknown Verified 06/28/21 11:12 allergy reaction coconut Allergy Unknown Verified 06/28/21 11:12 allergy reaction propylene glycol Allergy Unknown Verified 06/28/21 11:12 allergy reaction vancomycin AdvReac RED EVANGELINA Verified 06/28/21 11:12 SYNDROME Home Medications:: Home Medications Medication Instructions Recorded Confirmed Type ergocalciferol (vitamin D2) 1,250 50,000 unit PO WEEKLY #12 cap 06/25/20 08/11/21 Rx mcg (50,000 unit) capsule epinephrine 0.3 mg/0.3 mL 0.3 mg IM Q5-15M PRN #1 each 09/02/20 08/11/21 Rx injection, auto-injector levothyroxine 150 mcg tablet 300 mcg PO DAILY #180 tab 11/10/20 08/11/21 Rx albuterol sulfate 90 mcg/actuation 2 puff INHALATION Q4HP PRN #8.5 g 02/16/21 08/11/21 Rx aerosol inhaler ipratropium 0.5 mg-albuterol 3 mg 3 ml INHALATION QID PRN #120 neb 02/16/21 08/11/21 Rx (2.5 mg base)/3 mL nebulization soln hydrocodone 5 mg-acetaminophen 325 1 tab PO BID PRN #60 tab 07/23/21 08/11/21 Rx mg tablet Fluticasone Propion/Salmeterol 2 puff INHALATION BID 08/11/21 08/11/21 History [Advair HFA] Nebulizer [Altera Nebulizer] See Rx Instructions .ROUTE 08/11/21 08/11/21 History .MEDSUPPLY Nicotine [Nicotine Patch 1 patch TRANSDERMA Q24H 08/11/21 08/11/21 History 21mg/24hrs] Omeprazole 20 mg PO DAILY 08/11/21 08/11/21 History Tiotropium [place] [Spiriva with 1 cap INHALATION DAILY 08/11/21 08/11/21 History HandiHaler] dilTIAZem HCl [Diltiazem 240mg 2 capsule PO DAILY 08/11/21 08/12/21 History 24Hr ER Cap] Ibuprofen [Ibuprofen 800mg 800 mg PO TIDP PRN 08/12/21 08/12/21 History Tablet] Height: 1.75 m Weight: 146.7 kg Laboratory Results:: Laboratory Results - last 24 hr 08/16/21 11:22: POC Glucose 370 H* 08/16/21 16:51: POC Glucose 365 H* 08/16/21 20:39: POC Glucose 335 H* 08/17/21 06:12: POC Glucose 375 H* 08/17/21 06:34: WBC 6.9, RBC 4.56, Hgb 14.4, Hct 46.4, MCV 101.8 H, MCH 31.6 H, MCHC 31.0 L, RDW 14.4, Plt Count 185, MPV 8.5, Neut % (Auto) 82.7 H, Lymph % (Auto) 13.1, [place] % (Auto) 4.0, Eos % (Auto) 0.0 L, Baso % (Auto) 0.2, Neut # (Auto) 5.7, Lymph # (Auto) 0.9, [place] # (Auto) 0.3, Eos # (Auto) 0.0, Baso # (Auto) 0.0 08/17/21 06:34: Sodium 132 L, Potassium 4.3, Chloride 83 L, Carbon Dioxide 43 H*, Anion Gap 10.3, BUN 38 H, Creatinine 0.70, Estimated Creat Clear 94, Estimated GFR 88, Est GFR ( Amer) 106, Glucose 361 H, Calcium 9.1 08/17/21 06:34: NT-Pro-B Natriuret Pep 636 H 08/17/21 10:20: Vancomycin Trough 20.8 H Medical History: Reports:: Anxiety, Asthma, Chronic Obstructive Pulmonary Disease (COPD), Depression, Diabetes Mellitus Type 2, Home Oxygen, Hyperlipidemia, Hypertension, Palpitations, Peripheral Vascular Disease Denies:: Cancer, Diabetes Mellitus Type 1, MRSA Assessment and Plan (1) COPD (chronic obstructive pulmonary disease) with emphysema Status: Acute Qualifiers: Emphysema type: unspecified Qualified Code(s): J43.9 - Emphysema, unspecified Category: Medical Code(s): J43.9 - Emphysema, unspecified (2) COPD with acute exacerbation Status: Acute Category: Medical Code(s): J44.1 - Chronic obstructive pulmonary disease with (acute) exacerbation (3) Lymphedema of both lower extremities Status: Acute Category: Medical Code(s): I89.0 - Lymphedema, not elsewhere classified (4) HTN (hypertension) Status: Chronic Qualifiers: Hypertension type: essential hypertension Category: Medical Code(s): I10 - Essential (primary) hypertension (5) Hypothyroidism Status: Chronic Qualifiers: H
[2021-08-17 16:38] LABS: POC Glucose,Bedside 346 (70-110)
--- NOTE | 2021-08-17 18:03 | PC.NURSE ---
1800-pt sitting up in bed at this time, o2 @ 4l/nc in place-sats stable, pt reports she is getting tire and will put her bi pap on if she wants to take a nap, pts appetite has been excellent this shift, elevated fsbs results t/o shift-medicating with SSI as ordered, pt has voided multiple times t/o shift to bedside commode after getting Lasix 40mg IV-see output charting, pt has not c/o pain t/o shift, edema to RLE appears to be slightly improved, pt denies SOA/chest pain, LS clear/diminished, pt had family visit this shift, vss, will continue to monitor
[2021-08-18] VITALS (8 sets, daily range): BP systolic 142–159; BP diastolic 75–95; PULSE 73–92; RESP 18–22; TEMP 36.6–36.9; O2SAT 90–95; BMI 47.4
[2021-08-18 06:25] LABS: POC Glucose,Bedside 238 (70-110)
--- NOTE | 2021-08-18 06:47 | PC.NURSE ---
Pt able to ambulate to BSC w/ minimal assist t/o shift. Pt has slept sporadically t/o night. Pt is currently on 4 L nc tolerating well with sats >88%. Call linder within reach.
[2021-08-18 06:57] LABS: Chloride 81 mmol/L (98-107)
[2021-08-18 06:58] LABS: Basophils # 0.1 K/mm3 (0-0.2); Basophils % 1.1 % (0.1-2.0); Eosinophils % 0.2 % (0.1-12.0); Hematocrit 48.5 % (37.0-47.0); Hemoglobin 14.7 g/dL (12.2-16.2); Lymphocytes # 1.8 K/mm3 (0.7-4.5); Lymphocytes % 24.3 % (10-50); Mean Corpuscular HGB Conc 30.3 g/dL (31.8-35.4); Mean Corpuscular Hemoglobin 31.7 pg (27.0-31.2); Mean Corpuscular Volume 104.7 fl (81-99); Monocytes # 0.4 K/mm3 (0.1-1.0); Monocytes % 5.7 % (1.7-9.3); Neutrophils # 5.1 K/mm3 (1.8-7.8); Neutrophils % 68.7 % (37.0-80.0); Platelet Count 175 K/mm3 (142-424); Red Blood Count 4.63 M/mm3 (4.20-5.40); Red Cell Distribution Width 14.4 % (11.5-17.5); Sodium 130 mmol/L (136-145); White Blood Count 7.4 K/mm3 (4.8-10.8)
[2021-08-18 07:00] LABS: Blood Urea Nitrogen 42 mg/dl (7-17); Creatinine Clearance Estimated 82 mL/min (50-200); Estimated Glomerular Filt Rate 75 ml/min (>60); GFR (African American) 91 ML/MIN (>60)
[2021-08-18 07:01] LABS: Calcium 8.8 mg/dl (8.4-10.2); Glucose 229 mg/dl (74-100)
[2021-08-18 08:49] LABS: Carbon Dioxide 45 mmol/L (22.0-30.0)
--- NOTE | 2021-08-18 09:06 | HMH.PULMPN ---
Internal Medicine - PN: Subj *Date: 08/18/21 *Time: 11:58 Interval history: No acute respiratory events overnight. Exam - Constitutional Constitutional:: Present: no acute distress, comfortable - HENMT Exam HENMT: Present: normocephalic, atraumatic - Eye Exam Eyes:: Present: normal appearance both eyes and related structures - Neck Exam Neck:: Present: normal visual inspection - Respiratory Exam Respiratory:: Present: able to speak in complete sentences, crackles. Absent: wheezing - Cardiovascular Exam Cardiac:: Present: S1, S2 - GI Exam GI:: Present: soft, obese - Skin Exam Skin: Present: warm. Absent: no rash - Neurological Exam Neurological: Present: alert, awake, normal cognition - Extremities Exam Extremities: Present: no cyanosis, no clubbing, edema - Psychiatric Exam Psychiatric: Present: normal affect Assessment and Plan (1) COPD (chronic obstructive pulmonary disease) with emphysema Status: Acute Qualifiers: Emphysema type: unspecified Qualified Code(s): J43.9 - Emphysema, unspecified Category: Medical Code(s): J43.9 - Emphysema, unspecified (2) COPD with acute exacerbation Status: Acute Category: Medical Code(s): J44.1 - Chronic obstructive pulmonary disease with (acute) exacerbation (3) Lymphedema of both lower extremities Status: Acute Category: Medical Code(s): I89.0 - Lymphedema, not elsewhere classified (4) HTN (hypertension) Status: Chronic Qualifiers: Hypertension type: essential hypertension Category: Medical Code(s): I10 - Essential (primary) hypertension (5) Hypothyroidism Status: Chronic Qualifiers: Hypothyroidism type: acquired Qualified Code(s): E03.9 - Hypothyroidism, unspecified Category: Medical Code(s): E03.9 - Hypothyroidism, unspecified (6) Obesity, morbid, BMI 50 or higher Status: Chronic Category: Medical Code(s): E66.01 - Morbid (severe) obesity due to excess calories (7) Respiratory failure with hypercapnia Status: Acute Category: Medical Code(s): J96.92 - Respiratory failure, unspecified with hypercapnia (8) Yeast infection of the skin Status: Acute Category: Medical Code(s): B37.2 - Candidiasis of skin and nail - Assessment and plan all Dx Assessment and Plan for all problems:: #Acute on chronic hypercarbic respiratory failure: #COPD exacerbation: Ms. Arun is a 51-year-old female greater than 24-tdce-edbe smoking history, hypertension, hypothyroidism, COPD presented with respiratory distress altered mentation found to be in hypercarbic respiratory failure initiated on bilevel ventilation therapy and pulmonary was called for further management. She was also supposed to follow with sleep clinic and be evaluated for sleep apnea however this did not happen since her last discharge. Blood gas on admission 7.24, 120 and 64. Her last hospital admission for hypercarbic respiratory failure was from October 2020 Chest x-ray on admission no obvious airspace disease noted, evidence of volume overload and vascular congestion. Patient also noted to have evidence of volume overload in her prior hospital visits. Completed 5 days antibiotics and steroids therapy for COPD exacerbation Tolerating 4 L nasal cannula well. Plan: -Incentive spirometry -Continue long-term oxygen therapy at 4 L. -Initiate nocturnal bilevel ventilator therapy 03/05 for her COPD, hypercarbic respiratory failure with a PCO2 of 120 and significant nocturnal desaturations to less than 88% for almost 23 minutes during her nocturnal oximetry testing this was performed on 4 L nasal cannula. Pulmonary clinic will coordinate this. -Continue nasal cannula to maintain O2 saturation goal of 88 to 92%. -DuoNebs every 6 hours scheduled along with budesonide every 12 hrs, continue home triple inhaler therapy along with DuoNebs every 6 hours as needed upon discharge. -Volume optimization as per primary team -Schedule an outp
--- NOTE | 2021-08-18 09:29 | HMH.DCSUM ---
General - General Admission date:: 08/11/21 Discharge date: 08/18/21 HPI HPI: 51-year-old male presented to ed via ambulance per ed note EMS called out for unresponsive. upon EMS arrival pt was alert and states she has become increasing weak over the past couple days. Pt states a history of COPD and smoked for over 30 years. Patient was admitted and placed on bipap for an acute COPD exacerbation and respiratory failure. The patient states that she has been short of breath for several days. She denies any chest pain or pressure. She reports having lower extremity edema but she has significant venous insufficiency noted to her bilateral lower extremities. She denies any fevers, chills, nausea, vomiting or diarrhea. Further work up such as Cardiology consult,echo and pulm consult Hospital Course Hospital Course: Abnormal Lab Results 08/17/21 06:34: NT-Pro-B Natriuret Pep 636 H 08/17/21 10:20: Vancomycin Trough 20.8 H 08/17/21 16:26: POC Glucose 346 H* 08/18/21 06:00: POC Glucose 238 H 08/18/21 06:40: Hct 48.5 H, MCV 104.7 H, MCH 31.7 H, MCHC 30.3 L 08/18/21 06:40: Sodium 130 L, Chloride 81 L, Carbon Dioxide 45 H*, BUN 42 H, Glucose 229 H Microbiology 08/11/21 20:18 Blood Blood Culture - Preliminary 08/11/21 20:18 Blood Blood Culture - Preliminary Gram Positive Cocci 08/13/21 06:45 Sputum - Expectorated Sputum Gram Stain - Final 08/13/21 06:45 Sputum - Expectorated Sputum Sputum Culture - Preliminary Ordering Physician: Delon Burrell MD Date of Service: 08/11/21 Procedure(s): XR chest portable Accession Number(s): [id number] cc: Rashad Garcia MD; Darvin Warner MD~ PROCEDURE INFORMATION: Exam: XR Chest Exam date and time: 08/11/2021 7:02 PM Age: 51 years old Clinical indication: Shortness of breath; Additional info: SOA TECHNIQUE: Imaging protocol: XR of the chest. Views: 1 view. COMPARISON: SD XR CHEST PORTABLE 10/25/2020 2:17 PM FINDINGS: Lungs: Low lung volumes with associated vascular crowding and bibasilar atelectasis. Possible pulmonary venous congestion. Pleural spaces: Pleural effusions, left larger than right. This is similar to prior study. Heart/Mediastinum: Cardiomegaly. Vasculature: Vascular calcifications. Bones/joints: Unremarkable. IMPRESSION: 1. Possible pulmonary venous congestion. 2. Pleural effusions, left larger than right. This is similar to prior study. echo:Conclusion 1. Technically difficult study because of the patient factors and poor acoustic windows. Left atrium is mildly enlarged, left ventricle is normal size, mild concentric left ventricular hypertrophy, visually estimated ejection fraction 55% with no regional wall motion abnormality, grade 1 diastolic dysfunction seen without tissue Doppler evidence of raise left atrial pressure. 2. Thickened and calcified aortic valve without Doppler evidence of significant aortic stenosis. 3. Mild mitral and tricuspid regurgitation. 4. No significant pericardial effusion noted. 5. Inferior vena cava is normal size with normal inspiratory collapse. Ordering Physician: Delon Burrell MD Date of Service: 08/17/21 Procedure(s): XR chest 2V Accession Number(s): [id number] cc: Yoan Holley MD; Darvin Warner MD~ FINAL REPORT CLINICAL HISTORY: sob COMPARISON: August 14, 2021 FINDINGS: Two views of the chest were obtained. The heart size and pulmonary vascularity are within normal limits. The mediastinum is normal. There is persistent bibasilar atelectasis or pneumonia. There is slight improved aeration. There is a small left pleural effusion. There is no pneumothorax. The bony thorax is intact. IMPRESSION: Persistent bibasilar atelectasis or pneumonia with slight improved aeration. pulmonary consult:Assessment and plan all Dx Assessment and Plan for all problems:: #Acute on chronic hypercarbic respiratory failure: #COPD
[2021-08-18 11:39] LABS: POC Glucose,Bedside 173 (70-110)
[2021-08-18 12:06] LABS: POC Glucose,Bedside 331 (70-110)
[2021-08-18 12:06] LABS: POC Glucose,Bedside 275 (70-110)
--- NOTE | 2021-08-18 13:07 | PC.NURSE ---
Pts ride just arrived
== END 2021-08-18 13:26 | disposition home or self-care (01) | DRG 189 ==
LOC: ER 19:36 → 2ND 20:53
PROVIDERS: Nurse Practitioner Family; Admitting Provider Emergency Medicine; Emergency Provider Emergency Medicine; PCP Family Medicine; Visit Provider Family Medicine
DX: J96.22 Acute and chronic respiratory failure with hypercapnia (principal); J44.1 Chronic obstructive pulmonary disease with (acute) exacerbation; I50.32 Chronic diastolic (congestive) heart failure; Z68.42 Body mass index [BMI] 45.0-49.9, adult; Z99.81 Dependence on supplemental oxygen; E03.9 Hypothyroidism, unspecified; F17.210 Nicotine dependence, cigarettes, uncomplicated; I89.0 Lymphedema, not elsewhere classified; E66.01 Morbid (severe) obesity due to excess calories; I11.0 Hypertensive heart disease with heart failure; E11.51 Type 2 diabetes mellitus with diabetic peripheral angiopathy without gangrene; B37.2 Candidiasis of skin and nail; B00.1 Herpesviral vesicular dermatitis; Z20.822 Contact with and (suspected) exposure to COVID-19; F41.9 Anxiety disorder, unspecified
CPT/HCPCS: 36415; 71045; 71046; 80048; 80053; 80202; 82803; 82962; 83605; 83735; 83880; 84145; 84484; 85007; 85025; 85651; 86140; 87040; 87070; 87077; 87186; 87205; 93005; 93306; 94640; 94660; 94761; 94762; 96365; 96375; 97110; 97162; 97165; 97530; 99285; C9803; J1956; J3370; U0003; U0005

== ENCOUNTER → 2021-09-08 20:46 | Outpatient (CLI) | payer MEDICAID, SELFPAY | PROVIDERS: PCP Family Medicine; Visit Provider Internal Medicine Pulmonary Disease | DX: R09.02 Hypoxemia (principal); I10 Essential (primary) hypertension; R40.0 Somnolence; J43.9 Emphysema, unspecified; E66.9 Obesity, unspecified; Z68.41 Body mass index [BMI] 40.0-44.9, adult | CPT/HCPCS: 95810 ==

== ENCOUNTER → 2021-09-16 13:00 | Outpatient (CLI) | payer MEDICAID, SELFPAY ==
[2021-09-16 13:38] LABS: ABG Base Excess 10.1 mmol/L (-2.4-2.3); ABG Oxygen Saturation 94 % (90-100); ABG PH 7.39 mmol/L (7.35-7.45); ABG PO2 72.8 mmhg (80-100); ABG TCO2 36.8 mmhg (23-27)
[2021-09-16 13:40] LABS: Allen's Test acceptable; Source L. Radial
[2021-09-16 13:41] LABS: ABG PCO2 59.2 mmhg (35.0-45.0)
== END ==
PROVIDERS: Visit Provider Internal Medicine Pulmonary Disease
DX: J44.9 Chronic obstructive pulmonary disease, unspecified (principal)
CPT/HCPCS: 82803

== ENCOUNTER → 2021-09-22 14:03 | Outpatient (CLI) | payer MEDICAID, SELFPAY ==
--- NOTE | 2021-09-22 14:07 | CA_ITS ---
FINAL REPORT TECHNIQUE: Color Doppler, duplex Doppler and compression sonography of the left lower extremity deep venous systems was performed. CLINICAL HISTORY: Swelling and Erythema, Hx lymph edema with infections, Obesity, Stone like flesh Hx- CRE infection FINDINGS: There is no evidence of deep venous thrombosis from the level of the groin to the calf. The veins are patent and compressible. IMPRESSION: No evidence of deep venous thrombosis left lower extremity. Reviewed, Interpreted and Dictated by Yoan Holley III, MD Transcribed by France Monroy Authenticated by Yoan Holley III, MD on 09/22/2021 04:02:55 PM [facility]
== END ==
PROVIDERS: PCP Family Medicine; Visit Provider Internal Medicine Pulmonary Disease
DX: M79.662 Pain in left lower leg (principal); M79.89 Other specified soft tissue disorders
CPT/HCPCS: 93971

== ENCOUNTER 2021-10-17 22:45 | Emergency (ER) | payer MEDICAID, SELFPAY ==
[2021-10-17 22:46] VITALS: BP 143/88; PULSE 101; RESP 21; TEMP 36.7; O2SAT 91; BMI 48.7
[2021-10-17 23:33] LABS: Basophils # 0.1 K/mm3 (0-0.2); Basophils % 1.8 % (0.1-2.0); Eosinophils # 0.2 K/mm3 (0.0-0.4); Eosinophils % 3.4 % (0.1-12.0); Hemoglobin 13.8 g/dL (12.2-16.2); Lymphocytes # 1.8 K/mm3 (0.7-4.5); Lymphocytes % 27.1 % (10-50); Mean Corpuscular HGB Conc 32.8 g/dL (31.8-35.4); Mean Corpuscular Hemoglobin 31.9 pg (27.0-31.2); Mean Corpuscular Volume 97.2 fl (81-99); Mean Platelet Volume 8.1 fl (7.4-10.4); Monocytes # 0.3 K/mm3 (0.1-1.0); Neutrophils # 4.2 K/mm3 (1.8-7.8); Neutrophils % 63.7 % (37.0-80.0); Platelet Count 225 K/mm3 (142-424); Red Blood Count 4.32 M/mm3 (4.20-5.40); Red Cell Distribution Width 13.3 % (11.5-17.5); White Blood Count 6.6 K/mm3 (4.8-10.8)
--- NOTE | 2021-10-17 23:37 | HMH.EDUPEXT ---
ED Disposition Clinical Impression: Shoulder pain, left Qualifiers: Chronicity: acute Qualified Code(s): M25.512 - Pain in left shoulder Disposition: Home, Self-Care Condition on Discharge: Good Instructions: DI for Shoulder Pain Additional Instructions: call pcp for follow up Referrals: Darvin Warner MD [Primary Care Provider] - - Critical Care Critical Care Time: No Attestation: On 10/17/21, the high probability of a clinically significant, sudden or life threatening deterioration of the following system(s) required my full and direct attention, intervention and personal management. The time I documented below is in addition to time spent performing reported procedures but includes the following listed in this critical care notation. Medical Decision Making - Medical Records Medical records reviewed: Yes: I reviewed the patient's medical records. - Joon Inquiry Pt receiving controlled substance: No Vital Signs: 10/17/21 22:46 10/18/21 00:00 Temperature 98.0 F Temperature Source Oral Pulse Rate 89 Pulse Rate [Right] 101 H Respiratory Rate 21 Blood Pressure 157/76 H Blood Pressure [Right Arm] 143/88 H Blood Pressure Mean [Right Arm] 106 Blood Pressure Source Automatic Cuff Blood Pressure Source [Right Arm] Automatic Cuff Blood Pressure Position Sitting 02 Sat by Pulse Oximetry 91 L 95 Oxygen Delivery Method Room Air Nasal Cannula Oxygen Flow Rate (LPM) 2 - Lab Data Lab results reviewed: Yes: I reviewed the patient's lab results. Lab Results 10/17/21 23:20: ESR 37 H 10/17/21 23:20: Troponin I < 0.01, C-Reactive Protein 11.3 H, Procalcitonin 0.089 10/17/21 23:20: WBC 6.6, RBC 4.32, Hgb 13.8, Hct 42.0, MCV 97.2, MCH 31.9 H, MCHC 32.8, RDW 13.3, Plt Count 225, MPV 8.1, Neut % (Auto) 63.7, Lymph % (Auto) 27.1, [place] % (Auto) 4.0, Eos % (Auto) 3.4, Baso % (Auto) 1.8, Neut # (Auto) 4.2, Lymph # (Auto) 1.8, [place] # (Auto) 0.3, Eos # (Auto) 0.2, Baso # (Auto) 0.1 10/17/21 23:20: Sodium 141, Potassium 4.0, Chloride 100, Carbon Dioxide 39 H, Anion Gap 6.0, BUN 24 H, Creatinine 0.60, Estimated Creat Clear 117, Estimated GFR 105, Est GFR ( Amer) 127, Glucose 153 H, Calcium 9.5, Magnesium 1.5 L, Total Bilirubin 0.4, AST 32, ALT 30, Alkaline Phosphatase 80, Total Protein 7.5, Albumin 4.5, Globulin 3.0, Albumin/Globulin Ratio 1.5, TSH 9.01 H, Thyroxine (T4) 9.0 10/17/21 23:20: NT-Pro-B Natriuret Pep 17.9 10/18/21 00:20: Urine Color Yellow, Urine Appearance Clear, Urine pH 7.0, Ur Specific [place] 1.020, Urine Protein Trace, Urine Glucose (UA) Negative, Urine Ketones Negative, Urine Blood Negative, Urine Nitrate Negative, Urine Bilirubin Negative, Urine Urobilinogen 0.2, Ur Leukocyte Esterase Negative, Urine WBC 3-5, Ur Squamous Epith Cells 5-10 Result diagrams: 10/17/21 23:20 10/17/21 23:20 Orders (Tests/Meds): ED MEDICATIONS Discontinued Medications Generic Name Dose Route Start Last Admin Trade Name Freq PRN Reason Stop Dose Admin Hydromorphone HCl 1 mg 10/18/21 01:43 10/18/21 01:44 Hydromorphone 2mg/Ml Syringe IV 10/18/21 01:44 1 mg ONCE ONE Administration Sodium Chloride 1,000 mls @ 999 mls/hr 10/17/21 23:30 10/17/21 23:31 Sod Chlor 0.9% 1000ml Bag IV 10/18/21 00:30 999 mls/hr .Q1H1M RUSH Administration Ketorolac Tromethamine 30 mg 10/17/21 23:25 10/17/21 23:32 Ketorolac 30mg/Ml Vial IV 10/17/21 23:26 30 mg ONCE ONE Administration Methylprednisolone Sodium Succinate 125 mg 10/17/21 23:25 10/17/21 23:31 Methylprednisolone Sod Succ 125mg Vial IV 10/17/21 23:26 125 mg ONCE ONE Administration Morphine Sulfate 4 mg 10/18/21 00:01 10/18/21 00:02 Morphine 4mg/Ml Syringe IV 10/18/21 00:02 4 mg ONCE ONE Administration ORDERS Category Date Time Status CT cervical spine wo con Stat Cat Scan 10/17/21 23:40 Ordered Troponin I Q3H Lab 10/18/21 02:30 Ordered Troponin I Q3H Lab 10/18/21 05:30 Ordered - Radiology Data
--- NOTE | 2021-10-17 23:40 | XR_ITS ---
PROCEDURE INFORMATION: Exam: XR Chest Exam date and time: 10/17/2021 11:43 PM Age: 51 years old Clinical indication: Pain; Left-sided; Additional info: Pain left chest and shoulder no trauma TECHNIQUE: Imaging protocol: XR of the chest. Views: 4 or more views. COMPARISON: CR XR CHEST 2V 08/17/2021 11:35 AM FINDINGS: Lungs: Prominent lung markings/peribronchial thickening with platelike atelectasis, scarring and volume loss in the lung bases. Pleural spaces: Blunting of the LEFT costophrenic angle suggestive of small pleural effusion/thickening. Heart/Mediastinum: Mild cardiomegaly with mild central pulmonary vascular congestion. Bones/joints: Chronic degenerative changes in the visualized spine. IMPRESSION: Chronic cardiopulmonary changes without evidence of an active lung parenchymal lesion.
--- NOTE | 2021-10-17 23:40 | XR_ITS ---
PROCEDURE INFORMATION: Exam: XR Left Shoulder Exam date and time: 10/17/2021 11:45 PM Age: 51 years old Clinical indication: Pain; Shoulder; Left TECHNIQUE: Imaging protocol: XR Left shoulder. No known acute injury/NKI Views: 2 or more views. COMPARISON: CR XR CHEST AP 10/17/2021 11:43 PM FINDINGS: Bones/joints: Chronic degenerative changes. Otherwise unremarkable appearing bones and joints. No discrete lytic or blastic lesion. Soft tissues: NA IMPRESSION: No evidence of an acute bony abnormality or injury.
[2021-10-17 23:44] LABS: Alanine Aminotransferase 30 U/L (12-78); Albumin Level 4.5 g/dl (3.5-5.0); Albumin/Globulin Ratio 1.5 (1.1-1.8); Alkaline Phosphatase 80 U/L (38-126); Aspartate Amino Transferase 32 U/L (14-36); Bilirubin,Total 0.4 mg/dl (0.2-1.3); Blood Urea Nitrogen 24 mg/dl (7-17); Calcium 9.5 mg/dl (8.4-10.2); Carbon Dioxide 39 mmol/L (22.0-30.0); Chloride 100 mmol/L (98-107); Creatinine Clearance Estimated 117 mL/min (50-200); Estimated Glomerular Filt Rate 105 ml/min (>60); GFR (African American) 127 ML/MIN (>60); Glucose 153 mg/dl (74-100); Magnesium 1.5 mg/dl (1.6-2.3); Sodium 141 mmol/L (136-145); Total Protein,Serum 7.5 g/dl (6.3-8.2)
[2021-10-17 23:49] LABS: C-Reactive Protein 11.3 mg/L (0-4)
[2021-10-17 23:54] LABS: NT Pro Brain Natriuretic Pep. 17.9 pg/mL (0-125)
[2021-10-17 23:56] LABS: Erythrocyte Sedimentation Rate 37 mm/hr (0-30)
[2021-10-17 23:59] LABS: Troponin I < 0.01 ng/ml (0.00-0.034)
[2021-10-18] VITALS: BP 157/76; PULSE 89; O2SAT 95
[2021-10-18 00:05] LABS: Procalcitonin 0.089 ng/mL (0.0-2.0)
[2021-10-18 00:17] LABS: Thyroid Stimulating Hormone 9.01 uIU/mL (0.465-4.68)
--- NOTE | 2021-10-18 00:27 | PC.NURSE ---
Pt states she is unable to breathing laying back from CT. Pt was given Morphine 4mg but was still unable to lay back. Pt is refusing CT
[2021-10-18 00:55] LABS: Microscopic, Urine URINE MICROSCOPIC (MICROSCOPIC)
[2021-10-18 00:56] LABS: Appearance,Urine CLEAR (Clear); Bilirubin,Urine Negative (Negative); Blood, Urine Negative (Negative); Color,Urine YELLOW (Yellow); Glucose,Urine (UA) Negative (Negative); Ketones,Urine Negative (Negative); Leukocyte Esterase,Urine Negative (Negative); Nitrate,Urine Negative (Negative); Protein,Urine TRACE (Negative); Urobilinogen,Urine 0.2 EU/dl (0.2)
[2021-10-18 01:51] VITALS: BP 149/80; PULSE 89; RESP 20; TEMP 36.7; O2SAT 96
== END 2021-10-18 02:28 | disposition home or self-care (01) ==
PROVIDERS: Emergency Provider Emergency Medicine; PCP Family Medicine
DX: M25.512 Pain in left shoulder (principal); M54.2 Cervicalgia; R00.2 Palpitations; I10 Essential (primary) hypertension; I73.9 Peripheral vascular disease, unspecified; E11.9 Type 2 diabetes mellitus without complications; E03.9 Hypothyroidism, unspecified; F32.A Depression, unspecified; J44.9 Chronic obstructive pulmonary disease, unspecified; F41.9 Anxiety disorder, unspecified; F17.210 Nicotine dependence, cigarettes, uncomplicated; Z99.81 Dependence on supplemental oxygen; Z79.84 Long term (current) use of oral hypoglycemic drugs; Z79.51 Long term (current) use of inhaled steroids; Z79.899 Other long term (current) drug therapy; Z88.0 Allergy status to penicillin; Z88.1 Allergy status to other antibiotic agents; Z88.3 Allergy status to other anti-infective agents; Z88.6 Allergy status to analgesic agent; Z88.8 Allergy status to other drugs, medicaments and biological substances
CPT/HCPCS: 71045; 73030; 80053; 81001; 83735; 83880; 84145; 84436; 84443; 84484; 85025; 85651; 86140; 93005; 96361; 96365; 96374; 96375; 99284

== ENCOUNTER → 2021-11-30 13:32 | Outpatient (CLI) | payer MEDICAID, SELFPAY ==
[2021-11-30 14:14] LABS: ABG Base Excess 9.7 mmol/L (-2.4-2.3); ABG HCO3 34.7 mmhg (22.0-26.0); ABG Oxygen Saturation 97 % (90-100); ABG PH 7.39 mmol/L (7.35-7.45); ABG PO2 93.5 mmhg (80-100); ABG TCO2 36.5 mmhg (23-27)
[2021-11-30 14:18] LABS: Allen's Test Acceptable; Source Left Radial
[2021-11-30 15:15] VITALS: PULSE 84; PULSE 87
== END ==
PROVIDERS: PCP Family Medicine; Visit Provider Internal Medicine Pulmonary Disease
DX: J43.9 Emphysema, unspecified (principal); R06.09 Other forms of dyspnea
CPT/HCPCS: 82803; 94060; 94640; 94727; 94729

== ENCOUNTER → 2022-04-07 06:10 | Outpatient (CLI) | payer MEDICAID, SELFPAY ==
[2022-04-07 19:26] LABS: Hemoglobin A1C 7.8 % (4.0-6.0)
[2022-04-07 19:32] LABS: Thyroid Stimulating Hormone 1.43 uIU/mL (0.465-4.68)
== END ==
PROVIDERS: PCP Family Medicine; Visit Provider Family Medicine
DX: E03.9 Hypothyroidism, unspecified (principal); E11.9 Type 2 diabetes mellitus without complications; Z79.84 Long term (current) use of oral hypoglycemic drugs
CPT/HCPCS: 83036; 84443

== ENCOUNTER → 2022-04-14 14:42 | Outpatient (CLI) | payer MEDICAID, SELFPAY ==
[2022-04-14 18:53] LABS: Coronavirus 19, PCR Not Detected (NotDetected); Influenza A, PCR Not Detected (NotDetected); Influenza B, PCR Not Detected (NotDetected)
[2022-04-14 19:10] LABS: Basophils # 0.1 K/mm3 (0-0.2); Eosinophils # 0.2 K/mm3 (0.0-0.4); Eosinophils % 2.5 % (0.1-12.0); Hematocrit 40.4 % (37.0-47.0); Hemoglobin 13.9 g/dL (12.2-16.2); Lymphocytes # 2.4 K/mm3 (0.7-4.5); Lymphocytes % 25.8 % (10-50); Mean Corpuscular HGB Conc 34.6 g/dL (31.8-35.4); Mean Corpuscular Hemoglobin 31.1 pg (27.0-31.2); Mean Platelet Volume 9.6 fl (7.4-10.4); Monocytes # 0.5 K/mm3 (0.1-1.0); Neutrophils # 6.1 K/mm3 (1.8-7.8); Neutrophils % 65.7 % (37.0-80.0); Platelet Count 239 K/mm3 (142-424); Red Blood Count 4.49 M/mm3 (4.20-5.40); Red Cell Distribution Width 13.8 % (11.5-17.5); White Blood Count 9.3 K/mm3 (4.8-10.8)
== END ==
PROVIDERS: PCP Nurse Practitioner; Visit Provider Nurse Practitioner
DX: Z20.822 Contact with and (suspected) exposure to COVID-19 (principal); J06.9 Acute upper respiratory infection, unspecified
CPT/HCPCS: 85025; C9803; U0003; U0005

== ENCOUNTER → 2022-05-06 15:04 | Outpatient (CLI) | payer MEDICAID, SELFPAY ==
[2022-05-06 17:56] LABS: Creatinine,Urine Random 77 mg/dL (Not Estab.)
== END ==
PROVIDERS: PCP Family Medicine; Visit Provider Family Medicine
DX: R21 Rash and other nonspecific skin eruption (principal); R82.90 Unspecified abnormal findings in urine
CPT/HCPCS: 82043; 82570

== ENCOUNTER 2022-06-14 23:05 | Inpatient (IN) | payer MEDICAID, SELFPAY ==
[2022-06-14 23:06] VITALS: BP 178/87; PULSE 114; RESP 28; TEMP 37.4; O2SAT 95; BMI 50.9
--- NOTE | 2022-06-14 23:50 | HMH.EDSKAF ---
Discharge Plan Disposition Patient Disposition: Admitted As Inpatient Chief Complaint: Skin/Abscess/Foreign Body Prescriptions Prescriptions: No Action omeprazole 20 mg capsule,delayed release(DR/EC) 20 mg PO DAILY Qty: 90 3RF dextromethorphan-guaifenesin 60-1,200 mg tablet extended release 12 hr 1 tab PO Q12H PRN (Reason: cold symptoms) Qty: 60 0RF fluticasone propionate 50 mcg/actuation spray,suspension 1 spray intranasal DAILY Qty: 16 2RF Rx Instructions: administer into each nostril hydrocortisone [Cortisone (hydrocortisone)] 1 % cream 1 applic topical TID PRN (Reason: allergic reaction) Qty: 28.4 0RF hydrocodone-acetaminophen 7.5-325 mg tablet 1 tab PO Q8H PRN (Reason: pain) Qty: 90 0RF spironolactone [Aldactone] 25 mg tablet 25 mg PO DAILY Qty: 90 3RF albuterol sulfate 90 mcg/actuation HFA aerosol inhaler 2 inh INHALATION Q6H PRN (Reason: shortness of breath or wheezing) 90 Days Qty: 8.5 3RF Spiriva with HandiHaler 18 mcg capsule, w/inhalation device 1 cap INHALATION DAILY 90 Days Qty: 90 3RF Rx Instructions: puncture 1 cap using device; one dose = 2 inhalations metformin 500 mg tablet 500 mg PO BID Qty: 180 3RF Jardiance 25 mg tablet 25 mg PO DAILY Qty: 90 3RF furosemide 40 mg tablet 40 mg PO DAILY Qty: 90 3RF methylprednisolone [Medrol (Reji)] 4 mg tablets,dose pack See Rx Instructions PO PER PKG DIR Qty: 21 0RF Rx Instructions: PO PER PKG DIR (DME) blood-glucose meter [Accu-Chek Guide Glucose Meter] Misc See Rx Instructions .Route Qty: 1 0RF Rx Instructions: As directed mupirocin 2 % ointment 1 applic TOPICAL TID Qty: 22 10RF (DME) FreeStyle Lite Strips Strip See Rx Instructions .ROUTE .COMPLEX Qty: 50 0RF Dose Instruction: USE TO TEST BLOOD GLUCOSE THREE TIMES DAILY Rx Instructions: USE TO TEST BLOOD GLUCOSE THREE TIMES DAILY epinephrine [EpiPen] 0.3 mg/0.3 mL auto-injector 0.3 mg IM Q5-15M PRN (Reason: hypersensitivity reaction) Qty: 1 0RF Rx Instructions: do not exceed 3 doses per episode (DME) lancets [FreeStyle Lancets] 28 gauge misc See Rx Instructions .ROUTE .COMPLEX Qty: 100 0RF Dose Instruction: USE TO TEST BLOOD GLUCOSE THREE TIMES DAILY Rx Instructions: USE TO TEST BLOOD GLUCOSE THREE TIMES DAILY levothyroxine 150 mcg tablet 300 mcg PO DAILY Qty: 180 3RF Breztri Aerosphere 160-9-4.8 mcg/actuation HFA aerosol inhaler 2 inh INHALATION BID Qty: 10.7 2RF (DME) FreeStyle Lite Strips Strip See Rx Instructions .Route Qty: 100 2RF Rx Instructions: Test three times daily or As directed nicotine 21 mg/24 hr patch 24 hour 1 patch TRANSDERMA Q24H Qty: 28 0RF cyclobenzaprine 10 mg tablet 10 mg PO BID PRN (Reason: muscle spasm) Qty: 30 0RF ipratropium-albuterol 0.5 mg-3 mg(2.5 mg base)/3 mL solution for nebulization See Rx Instructions .ROUTE .COMPLEX Qty: 360 12RF Dose Instruction: INHALE 3 ML (1 VIAL) BY NEBULIZATION 4 TIMES DAILY NEEDED FOR SHORTNESS OF BREATH OR WHEEZING Rx Instructions: INHALE 3 ML (1 VIAL) BY NEBULIZATION 4 TIMES DAILY NEEDED FOR SHORTNESS OF BREATH OR WHEEZING nystatin 100,000 unit/gram cream See Rx Instructions .ROUTE .COMPLEX Qty: 30 0RF Dose Instruction: Apply topically 4 times daily for 14 days Rx Instructions: Apply topically 4 times daily for 14 days diltiazem HCl 240 mg capsule,extended release 24hr See Rx Instructions .ROUTE .COMPLEX Qty: 60 5RF Dose Instruction: TAKE 2 CAPSULES BY MOUTH ONCE DAILY Rx Instructions: TAKE 2 CAPSULES BY MOUTH ONCE DAILY ergocalciferol (vitamin D2) 1,250 mcg (50,000 unit) capsule See Rx Instructions .ROUTE .COMPLEX Qty: 12 0RF Dose Instruction: TAKE 1 CAPSULE BY MOUTH ONCE WEEKLY Rx Instructions: TAKE 1 CAPSULE BY MOUTH ONCE WEEKLY (DME) nebulizers 1 EACH misc See Rx Instructio
[2022-06-14 23:52] LABS: Basophils # 0.1 K/mm3 (0-0.2); Basophils % 1.1 % (0.1-2.0); Eosinophils # 0.2 K/mm3 (0.0-0.4); Eosinophils % 2.5 % (0.1-12.0); Hematocrit 43.4 % (37.0-47.0); Hemoglobin 14.3 g/dL (12.2-16.2); Lymphocytes # 1.9 K/mm3 (0.7-4.5); Lymphocytes % 25.5 % (10-50); Mean Corpuscular HGB Conc 32.9 g/dL (31.8-35.4); Mean Corpuscular Hemoglobin 30.7 pg (27.0-31.2); Mean Corpuscular Volume 93.3 fl (81-99); Monocytes # 0.3 K/mm3 (0.1-1.0); Monocytes % 4.1 % (1.7-9.3); Neutrophils % 66.8 % (37.0-80.0); Platelet Count 247 K/mm3 (142-424); Red Blood Count 4.66 M/mm3 (4.20-5.40); Red Cell Distribution Width 13.5 % (11.5-17.5); White Blood Count 7.4 K/mm3 (4.8-10.8)
[2022-06-15] VITALS (10 sets, daily range): BP systolic 93–170; BP diastolic 44–82; PULSE 83–110; RESP 14–20; TEMP 36.4–36.8; O2SAT 94–99; BMI 46.5
[2022-06-15] LABS: Chloride 92 mmol/L (98-107)
[2022-06-15 00:01] LABS: Potassium 3.9 mmoL/L (3.5-5.1); Sodium 137 mmol/L (136-145)
[2022-06-15 00:03] LABS: Alanine Aminotransferase 41 U/L (12-78); Albumin Level 4.2 g/dl (3.5-5.0); Albumin/Globulin Ratio 1.1 (1.1-1.8); Alkaline Phosphatase 153 U/L (38-126); Anion Gap 13.9 mEq/L (5-15); Aspartate Amino Transferase 40 U/L (14-36); Bilirubin,Total 0.2 mg/dl (0.2-1.3); Blood Urea Nitrogen 17 mg/dl (7-17); Calcium 9.8 mg/dl (8.4-10.2); Carbon Dioxide 35 mmol/L (22.0-30.0); Creatinine Clearance Estimated 139 mL/min (50-200); Estimated Glomerular Filt Rate 129 ml/min (>60); GFR (African American) 156 ML/MIN (>60); Globulin 3.7 g/dL (1.3-3.2); Glucose 258 mg/dl (74-100); Lactic Acid 1.4 mmol/L (0.7-2.1); Total Protein,Serum 7.9 g/dl (6.3-8.2)
--- NOTE | 2022-06-15 00:13 | PC.NURSE ---
Pt advises she cannot give urine sample at this time because she Can't even walk .
[2022-06-15 00:17] LABS: Coronavirus 19, PCR Not Detected (NotDetected); Influenza A, PCR Not Detected (NotDetected); Influenza B, PCR Not Detected (NotDetected)
--- NOTE | 2022-06-15 01:09 | EXP.HP ---
History of Present Illness *Admission Date: 06/15/22 *Reason for visit:: Right Gluteal pain and redness *History of present illness: Ms. 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 She presents to [facility] due to a 4 day history of redness, pain and swelling to the right gluteal region. The patient was seen in the ER on admission. She denies any history of skin infections except for CRE of the right lower extremity that she reports was treated with antibiotics approximately 1 year ago. She denies squeezing the area, she reports that the area started as a boil like lesion in nature and grew, she reports that it has also been draining. She reports that the area is very painful to touch and that she has experienced fevers, body aches and chills. In the ER the patient had wound and blood cultures drawn, she was given a dose of Vancomycin. The patient will be admitted with a diagnosis of Gluteal abscess. Surgery will be consulted for evaluation of the lesion and further recommendations. The plan of care was discussed with the patient on admission. She verbalized understanding and agreement with the plan of care. [facility] Medical History (Updated 06/15/22 @ 07:14 by Jovany Barajas MD) Bilateral carpal tunnel syndrome Decreased pulses in feet Diabetes Diabetes mellitus, type 2 Dusky feet Dyspnea History of gastroesophageal reflux (GERD) Hyperlipidemia Hypothyroidism Lumbar canal stenosis Pneumonia Swelling of left lower extremity Surgical History History of History of hysterectomy Family History (Updated 06/15/22 @ 02:28 by Saige Heller RN) Family history of GERD Family history of cancer Family history of hypertension Family history of myocardial infarction Family history of hyperlipidemia Cancer Social History (Updated 06/15/22 @ 02:28 by Saige Heller RN) Smoking Status: Former smoker smoking status stop date: 2020 alcohol intake: never substance use type: denies use current occupational status: disabled Travel in the last 8 weeks: None household members: significant other housing: house caffeine: Yes Review of Systems Review of Systems Review of systems:: pertinent systems reviewed and negative unless documented below Constitutional Constitutional: Reports system reviewed and no additional complaints, except as documented Eyes Eyes: Reports system reviewed and no additional complaints, except as documented ENT Ears, Nose, Mouth, and Throat: Reports system reviewed and no additional complaints, except as documented *Cardiovascular Cardiovascular: Reports system reviewed and no additional complaints, except as documented *Respiratory Respiratory: Reports system reviewed and no additional complaints, except as documented *Gastrointestinal Gastrointestinal: Reports system reviewed and no additional complaints, except as documented *Genitourinary Genitourinary: Reports system reviewed and no additional complaints, except as documented *Musculoskeletal Comments: Right gluteal pain, redness and swelling Integumentary/Breasts Skin/Breast: Reports change in pigmentation, Reports changing lesions and Reports furuncle *Neurologic Neurologic: Reports system reviewed and no additional complaints, except as documented Psychiatric Psychiatric: Reports system reviewed and no additional complaints, except as documented Endocrine Endocrine: Reports system reviewed and no additional complaints, except as documented Hematologic/Lymphatic Hematologic/Lymphatic: Reports system reviewed and no additional complaints, except as documented Allergic/Immunologic Allergic/Immunologic: Reports system reviewed and no additional complaints, except as documented Meds Home Medications and Allergies Home Medica
--- NOTE | 2022-06-15 01:51 | PC.NURSE ---
pt c/o of pain. attempted to give toradol IV, however pt now states she is allergic. Requesting home medication. S/W hospitalist and she will order this.
--- NOTE | 2022-06-15 02:00 | PC.NURSE ---
pt arrived to floor via wheelchair from ED
--- NOTE | 2022-06-15 02:38 | PC.NURSE ---
SPOKE WITH CHACE ABOUT PT NOT BEING ORDERED AT VTE. SHE STATED PT DID NOT NEED ANY VTE.
[2022-06-15 05:53] LABS: POC Glucose,Bedside 205 (70-110)
--- NOTE | 2022-06-15 07:11 | EXP.SURG.CON ---
History of Present Illness *Admission Date: 06/15/22 *Reason for visit:: Right buttock abscess *History of present illness: This is a 52-year-old female seen in consultation from the hospital service for evaluation and management of a right buttock abscess. Please see HPI forwarded from admission H&P below. Forwarded from admission H&P: Ms. 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 She presents to [facility] due to a 4 day history of redness, pain and swelling to the right gluteal region. The patient was seen in the ER on admission. She denies any history of skin infections except for CRE of the right lower extremity that she reports was treated with antibiotics approximately 1 year ago. She denies squeezing the area, she reports that the area started as a boil like lesion in nature and grew, she reports that it has also been draining. She reports that the area is very painful to touch and that she has experienced fevers, body aches and chills. In the ER the patient had wound and blood cultures drawn, she was given a dose of Vancomycin. The patient will be admitted with a diagnosis of Gluteal abscess. Surgery will be consulted for evaluation of the lesion and further recommendations. The plan of care was discussed with the patient on admission. She verbalized understanding and agreement with the plan of care. [facility] Medical History (Updated 06/15/22 @ 07:14 by Jovany Barajas MD) Bilateral carpal tunnel syndrome Decreased pulses in feet Diabetes Diabetes mellitus, type 2 Dusky feet Dyspnea History of gastroesophageal reflux (GERD) Hyperlipidemia Hypothyroidism Lumbar canal stenosis Pneumonia Swelling of left lower extremity Surgical History History of History of hysterectomy Family History (Updated 06/15/22 @ 02:28 by Saige Heller RN) Family history of GERD Family history of cancer Family history of hypertension Family history of myocardial infarction Family history of hyperlipidemia Cancer Social History (Updated 06/15/22 @ 02:28 by Saige eHller RN) Smoking Status: Former smoker smoking status stop date: 2020 alcohol intake: never substance use type: denies use current occupational status: disabled Travel in the last 8 weeks: None household members: significant other housing: house caffeine: Yes Review of Systems *Neurologic Neurologic: Reports system reviewed and no additional complaints, except as documented Meds Home Medications and Allergies Home Medications Medication Instructions Recorded Confirmed Type nebulizers 08/11/21 06/15/22 History albuterol sulfate 90 mcg/actuation 2 inh inhalation Q6H PRN shortness 09/16/21 06/15/22 Rx aerosol inhaler of breath or wheezing 90 days #8.5 grams epinephrine 0.3 mg/0.3 mL 0.3 mg (0.3 mL) IM Q5-15M PRN 11/12/21 06/15/22 Rx injection, auto-injector (EpiPen) hypersensitivity reaction #1 ea levothyroxine 150 mcg tablet 300 mcg PO DAILY hypothyroid #180 11/12/21 06/15/22 Rx tabs omeprazole 20 mg capsule,delayed 20 mg PO DAILY acid reflux #90 caps 12/06/21 06/15/22 Rx release cyclobenzaprine 10 mg tablet 10 mg PO BID PRN muscle spasm #30 02/16/22 06/15/22 Rx tabs nicotine 21 mg/24 hr daily 1 patch transdermal Q24H smoking 02/16/22 06/15/22 Rx transdermal patch cessation #28 ea hydrocodone 7.5 mg-acetaminophen 1 tab PO Q8H PRN pain #90 tabs 06/03/22 06/15/22 Rx 325 mg tablet hydrocortisone 1 % topical cream 1 applic topical TID PRN allergic 06/03/22 06/15/22 Rx (Cortisone (hydrocortisone)) reaction #28.4 grams blood sugar diagnostic (FreeStyle 06/15/22 06/15/22 History Lite Strip
--- NOTE | 2022-06-15 07:55 | HMH.PHAINT1 ---
Pharmacy Intervention Comments: Medication reconciliation completed via chart review, external fill history, and patient interview. -Lauren Menchaca, PharmD Candidate 2022
--- NOTE | 2022-06-15 08:05 | EXP.PHA.CONS ---
Pharmacy Consult Date: 06/15/22 Time: 08:05 Referring provider: DR. TELLEZ Reason for Consult:: VANCOMYCIN DOSING Allergies Allergy/AdvReac Type Severity Reaction Status Date / Time ketorolac [From Toradol] Allergy Severe breathing Verified 06/15/22 01:48 problems tramadol [TRAMADOL] Allergy Mild Unknown Verified 06/03/22 14:18 allergy reaction gold sodium thiomalate Allergy Unknown Unknown Verified 06/03/22 14:18 allergy reaction coconut Allergy Unknown Verified 06/03/22 14:18 allergy reaction propylene glycol Allergy Unknown Verified 06/03/22 14:18 allergy reaction vancomycin AdvReac RED EVANGELINA Verified 06/03/22 14:18 SYNDROME Home Medications Medication Instructions Recorded Confirmed Type nebulizers 08/11/21 06/15/22 History albuterol sulfate 90 mcg/actuation 2 inh inhalation Q6H PRN shortness 09/16/21 06/15/22 Rx aerosol inhaler of breath or wheezing 90 days #8.5 grams epinephrine 0.3 mg/0.3 mL 0.3 mg (0.3 mL) IM Q5-15M PRN 11/12/21 06/15/22 Rx injection, auto-injector (EpiPen) hypersensitivity reaction #1 ea levothyroxine 150 mcg tablet 300 mcg PO DAILY hypothyroid #180 11/12/21 06/15/22 Rx tabs omeprazole 20 mg capsule,delayed 20 mg PO DAILY acid reflux #90 caps 12/06/21 06/15/22 Rx release cyclobenzaprine 10 mg tablet 10 mg PO BID PRN muscle spasm #30 02/16/22 06/15/22 Rx tabs nicotine 21 mg/24 hr daily 1 patch transdermal Q24H smoking 02/16/22 06/15/22 Rx transdermal patch cessation #28 ea hydrocodone 7.5 mg-acetaminophen 1 tab PO Q8H PRN pain #90 tabs 06/03/22 06/15/22 Rx 325 mg tablet hydrocortisone 1 % topical cream 1 applic topical TID PRN allergic 06/03/22 06/15/22 Rx (Cortisone (hydrocortisone)) reaction #28.4 grams blood sugar diagnostic (FreeStyle 06/15/22 06/15/22 History Lite Strips) blood sugar diagnostic (FreeStyle 06/15/22 06/15/22 History Lite Strips) blood-glucose meter (Accu-Chek 06/15/22 06/15/22 History Guide Glucose Meter) diltiazem HCl 240 mg 480 mg PO DAILY Heart rhythm 06/15/22 06/15/22 History capsule,extended release 24 hr ergocalciferol (vitamin D2) 1,250 1,250 mcg PO WEEKLY Supplement 06/15/22 06/15/22 History mcg (50,000 unit) capsule fluticasone 100 mcg-salmeterol 50 1 ea inhalation BID COPD 06/15/22 06/15/22 History mcg/dose blistr powdr for inhalation (Advair Diskus) furosemide 40 mg tablet 40 mg PO DAILY Fluid 06/15/22 06/15/22 History ipratropium 0.5 mg-albuterol 3 mg See Rx Instructions .Route 06/15/22 06/15/22 History (2.5 mg base)/3 mL nebulization .COMPLEX COPD soln lancets 28 gauge (FreeStyle 06/15/22 06/15/22 History Lancets) spironolactone 25 mg tablet 25 mg PO DAILY Fluid 06/15/22 06/15/22 History (Aldactone) tiotropium bromide 18 mcg capsule 1 cap inhalation DAILY COPD 06/15/22 06/15/22 History with inhalation device (Spiriva with HandiHaler) New Prescriptions to Start Prescriptions: Height: 1.78 m Weight: 147.616 kg Laboratory Results:: Laboratory Results - last 24 hr 06/14/22 23:38: WBC 7.4, RBC 4.66, Hgb 14.3, Hct 43.4, MCV 93.3, MCH 30.7, MCHC 32.9, RDW 13.5, Plt Count 247, MPV 8.0, Neut % (Auto) 66.8, Lymph % (Auto) 25.5, Dickenson % (Auto) 4.1, Eos % (Auto) 2.5, Baso % (Auto) 1.1, Neut # (Auto) 5.0, Lymph # (Auto) 1.9, Dickenson # (Auto) 0.3, Eos # (Auto) 0.2, Baso # (Auto) 0.1 06/14/22 23:38: Sodium 137, Potassium 3.9, Chloride 92 L, Carbon Dioxide 35 H, Anion Gap 13.9, BUN 17, Creatinine 0.50 L, Estimated Creat Clear 139, Estimated GFR 129, Est GFR ( Amer) 156, Glucose 258 H, Calcium 9.8, Total Bilirubin 0.2, AST 40 H, ALT 41, Alkaline Phosphatase 153 H, Total Protein 7.9, Albumin 4.2, Globulin 3.7 H, Albumin/Globulin Ratio 1.1 06/14/22 23:38: Lactate 1.4 06/15/22 00:11: SARS-CoV-2 (PCR) Not detected, Influenza A Untype (PCR) Not detected, Influenza Type B (PCR) Not detected 06/15/22 05:36: POC Glucose 205 H Medical History
[2022-06-15 08:48] LABS: Hemoglobin A1C 9.2 % (4.0-6.0)
--- NOTE | 2022-06-15 12:09 | EXP.OP.NOTE ---
Date of procedure: 06/15/22 Pre-op Diagnosis:: Right buttock abscess Post-op Diagnosis:: Same Procedure performed:: Incision and drainage of right buttock abscess Surgeon:: Jovany Barajas MD Anesthesia: local and LMA Estimated blood loss (mL): 10 Operative findings:: Central skin necrosis Superficial pocket of purulence Surrounding induration Operative note:: After informed consent was obtained the patient was taken to the operating room and maintained in the supine position. General anesthesia with laryngeal mask airway was achieved. She was transferred to the left lateral decubitus position. The right buttock region was prepped and draped in a sterile fashion. The central/necrotic portion of the abscess was resected with electrocautery. The pocket of purulence in the superficial subcutaneous tissue was encountered. Fluid was obtained for gram stain/culture. The cavity was evacuated. Surrounding induration with no definitive evidence of fluctuance or retained fluid was noted. The wound was packed with Kerlix. The entire region was infiltrated with 1% lidocaine. Dressings were applied and the patient was transferred to recovery in stable condition. Condition: stable Disposition: PACU Specimens:: Fluid for gram stain/culture Complications:: No immediate
--- NOTE | 2022-06-15 12:24 | EXP.ANES.CKL ---
[facility] Disclaimer: The information contained in this section may have been updated after the patient was seen, as this information can be updated by other users. Medical History (Updated 06/15/22 @ 07:14 by Jovany Barajas MD) Bilateral carpal tunnel syndrome Decreased pulses in feet Diabetes Diabetes mellitus, type 2 Dusky feet Dyspnea History of gastroesophageal reflux (GERD) Hyperlipidemia Hypothyroidism Lumbar canal stenosis Pneumonia Swelling of left lower extremity Surgical History History of History of hysterectomy Family History (Updated 06/15/22 @ 02:28 by Saige Heller RN) Other Cancer Family history of GERD Family history of cancer Family history of hyperlipidemia Family history of hypertension Family history of myocardial infarction Social History (Updated 06/15/22 @ 02:28 by Saige Heller RN) Smoking Status: Former smoker smoking status stop date: 2020 alcohol intake: never substance use type: denies use current occupational status: disabled Travel in the last 8 weeks: None household members: significant other housing: house caffeine: Yes [facility] Anesthesia Checklist Patient Identification Patient Identification: Arm Band Structural Data Admitted From: Inpatient Planned Operative Procedure/s: I and D infected right gluteal buttocks Consent for Planned Operative Procedure(s) Verified: Yes Verified Documents: Surgical Consent and History and Physical NPO Status Verified Time NPO: 00:00 Additional verifications Patient : No Anesthesia Reactions: No Cephalosporin Allergy: No Previous Colonoscopy: No Airway Assessment C-Spine Mobility Assessed: Yes TMJ Mobility Assessed: Yes Dentition: Edentulous Neurological Assessment Level of Consciousness: Awake, Alert, Appropriate and Follows Commands Hx Seizures: No Numbness or tingling in extremities: No Anesthesia Plan Anesthesia Risk discussed: Yes ASA Class: III Anesthesia Type: General
[2022-06-15 12:27] LABS: POC Glucose,Bedside 189 (70-110)
--- NOTE | 2022-06-15 12:28 | P.PNANES_ITS ---
[facility] [place] Anesthesia Record Part I Anesthesia Record I Intake, IV Amount: 250 Estimated blood loss (mL): 30 Urine output (mL): 0 Blood Pressure: 93/67 SaO2: 96 Pulse Rate: 86 Respiratory Rate: 14 Temperature: 97.8 F Patient is:: Drowsy and Stable Stable to PACU at:: 12:08
--- NOTE | 2022-06-15 13:40 | PC.NURSE ---
late entry.... 1200-checked fsbs with results of 189, notified [employer] and no further orders given 1232-detailed report called to MendezRN 1238-pt transported to 2nd floor room 208 via hospital bed w/keron rails up and left in care of AMBIKA Simms with bed locked in lowest position, vss, pt stable
[2022-06-15 19:37] LABS: Microscopic, Urine URINE MICROSCOPIC (MICROSCOPIC)
[2022-06-15 19:59] LABS: Appearance,Urine CLEAR (Clear); Bilirubin,Urine Negative (Negative); Blood, Urine Negative (Negative); Color,Urine YELLOW (Yellow); Glucose,Urine (UA) Negative (Negative); Ketones,Urine Negative (Negative); Leukocyte Esterase,Urine Negative (Negative); Nitrate,Urine Negative (Negative); Protein,Urine Negative (Negative); Specific Gravity, Urine 1.025 (1.005-1.030); Urobilinogen,Urine 0.2 EU/dl (0.2)
[2022-06-15 20:40] LABS: Bacteria,Urine 1+ /lpf; Squamous Epithelial Cell,Urine 20-50 #/hpf (0-5)
[2022-06-15 23:16] LABS: POC Glucose,Bedside 231 (70-110)
[2022-06-16] VITALS (9 sets, daily range): BP systolic 99–144; BP diastolic 53–85; PULSE 77–100; RESP 16–20; TEMP 36.4–37.1; O2SAT 94–98; BMI 46.3
--- NOTE | 2022-06-16 05:35 | PC.NURSE ---
Pt has c/o right gluteal pain multiple times t/o shift. Medication administered per SEP. Hospitalist called to get 1x dose Morphine 3mg IV 2x. Pt states favorable results. Pt has been tearful t/o shift. Pt titrated down to 2 L nc, tolerating well with sats >90%. Call light within reach.
[2022-06-16 06:51] LABS: POC Glucose,Bedside 210 (70-110)
--- NOTE | 2022-06-16 07:04 | EXP.SURG.PN ---
Subjective Narrative: The patient is currently resting. Per nursing, she has had intermittent difficulty with pain control. Exam Data for Last 24 hours Vital signs and Labs for Last 24 Hours: Temp Pulse Resp BP Pulse Ox 97.5 F L 100 H 20 144/85 H 94 L 06/16/22 04:00 06/16/22 04:00 06/16/22 04:00 06/16/22 04:00 06/16/22 04:00 Laboratory Results - last 24 hr 06/14/22 19:30: Urine Color Yellow, Urine Appearance Clear, Urine pH 6.0, Ur Specific [place] 1.025, Urine Protein Negative, Urine Glucose (UA) Negative, Urine Ketones Negative, Urine Blood Negative, Urine Nitrate Negative, Urine Bilirubin Negative, Urine Urobilinogen 0.2, Ur Leukocyte Esterase Negative, Urine WBC 3-5, Ur Squamous Epith Cells 20-50, Urine Bacteria 1+ 06/14/22 23:38: Hemoglobin A1c 9.2 H 06/15/22 12:20: POC Glucose 189 H 06/15/22 21:48: POC Glucose 231 H 06/16/22 05:56: POC Glucose 210 H I & O for Last 24 hours: Intake & Output 06/13/22 06/14/22 06/15/22 06/16/22 11:59 11:59 11:59 11:59 Intake Total 0 / 0 1128 / 1128 Output Total 400 / 400 550 / 550 Balance -400 / -400 578 / 578 Weight 325 lb 7 oz Microbiology Reports for the Last 24 Hours: Microbiology 06/15/22 11:57 Buttock - Right Gram Stain - Final 06/15/22 07:29 Buttock - Abscess Gram Stain - Final Constitutional Constitutional: no acute distress Comments: Currently sleeping *Routine Respiratory Exam Respiratory: Absent respiratory distress Progress Note: A&P Assessment and plan (1) Abscess, gluteal, right: Status: Acute Assessment and plan: Status post incision and drainage. Underlying induration noted intraoperatively. Continue antibiotics as per primary service Dressing changes
[2022-06-16 09:16] LABS: Basophils # 0.1 K/mm3 (0-0.2); Basophils % 1.1 % (0.1-2.0); Eosinophils # 0.2 K/mm3 (0.0-0.4); Eosinophils % 3.4 % (0.1-12.0); Hematocrit 37.1 % (37.0-47.0); Hemoglobin 11.7 g/dL (12.2-16.2); Lymphocytes # 1.8 K/mm3 (0.7-4.5); Lymphocytes % 26.7 % (10-50); Mean Corpuscular HGB Conc 31.6 g/dL (31.8-35.4); Mean Corpuscular Hemoglobin 30.6 pg (27.0-31.2); Mean Corpuscular Volume 96.8 fl (81-99); Mean Platelet Volume 8.4 fl (7.4-10.4); Monocytes # 0.2 K/mm3 (0.1-1.0); Monocytes % 3.6 % (1.7-9.3); Neutrophils # 4.3 K/mm3 (1.8-7.8); Neutrophils % 65.1 % (37.0-80.0); Platelet Count 209 K/mm3 (142-424); Red Blood Count 3.84 M/mm3 (4.20-5.40); Red Cell Distribution Width 13.6 % (11.5-17.5); White Blood Count 6.6 K/mm3 (4.8-10.8)
--- NOTE | 2022-06-16 09:27 | EXP.ANES.II ---
[facility] Anesthesia Record Part II Anesthesia Record Part II Discharge Time: 12:38 Destination: Medical Surgical Department PACU nurse assessment reviewed?: Yes Patient Condition:: Good Anesthesia Complications:: None Swallowing reflex intact?: Yes Cyanosis?: No Blood Pressure: 106/58 Pulse Rate: 86 Temperature: 97.5 F Mental Status: Alert & Oriented Pain level:: 0 Nausea and/or vomitting:: None Intake, IV Amount: 0
[2022-06-16 13:23] LABS: POC Glucose,Bedside 191 (70-110)
[2022-06-16 13:29] LABS: Chloride 100 mmol/L (98-107); Potassium 4.2 mmoL/L (3.5-5.1); Sodium 137 mmol/L (136-145)
[2022-06-16 13:32] LABS: Blood Urea Nitrogen 16 mg/dl (7-17); Creatinine Clearance Estimated 116 mL/min (50-200); Estimated Glomerular Filt Rate 104 ml/min (>60); GFR (African American) 126 ML/MIN (>60)
[2022-06-16 13:33] LABS: Anion Gap 8.2 mEq/L (5-15); Calcium 8.6 mg/dl (8.4-10.2); Carbon Dioxide 33 mmol/L (22.0-30.0); Glucose 183 mg/dl (74-100)
[2022-06-16 15:58] LABS: Alanine Aminotransferase 35 U/L (12-78); Albumin Level 4.2 g/dl (3.5-5.0); Alkaline Phosphatase 151 U/L (38-126); Aspartate Amino Transferase 36 U/L (14-36); Bilirubin,Direct 0.2 mg/dl (0.0-0.4); Bilirubin,Total 0.2 mg/dl (0.2-1.3); Total Protein,Serum 7.3 g/dl (6.3-8.2)
[2022-06-16 17:59] LABS: POC Glucose,Bedside 197 (70-110)
--- NOTE | 2022-06-16 18:17 | PC.NURSE ---
PT IS RESTING IN BED. MEDICATED PER SEP FOR DISCOMFORT. PT WAS MEDICATED WITH MORPHINE THIS MORNING DUE TO UNCONTROLLABLE PAIN. DRESSING TO THE LEFT BUTTOCKS WAS CHANGED THIS SHIFT. EATING AND DRINKING WELL. LUNG SOUNDS DIMINISHED. ABDOMEN OBESE WITH HYPOACTIVE BOWEL SOUNDS. LLE DRY/SCALY. O2 SATURATION MAINTAINING 93-96% ON 2 L NC. WILL CONTINUE TO MONITOR.
--- NOTE | 2022-06-16 19:40 | EXP.ACUTE.PN ---
Subjective *Date: 06/16/22 *Time: 19:40 Interval history: Patient struggled with pain overnight. Current pain regimen is not helping. The combo of hydrocodone and morphine together gives some relief but would like this adjusted. Tolerating breakfast. No fever overnight. Denies vomiting, diarrhea. Shortness of breath stable, stable oxygen requirement. No chest pain. Medical Exam Vital signs and Labs for Last 24 Hours: Vital Signs Temp Pulse Pulse Resp BP BP Pulse Ox 06/16/22 15:32 98.8 F 85 16 120/57 L 96 06/16/22 11:46 98.2 F 89 17 99/53 L 96 06/16/22 08:00 97.6 F 84 17 130/66 95 06/16/22 04:00 97.5 F L 100 H 20 144/85 H 94 L 06/16/22 00:00 98.4 F 77 16 123/72 98 06/16/22 00:00 98 06/15/22 20:00 98 06/15/22 20:00 98.1 F 98 H 20 166/82 H 94 L 06/15/22 21:22 94 L 06/16/22 09:30 97.5 F L 86 106/58 L Intake and Output 06/16/22 06/16/22 06/16/22 07:59 15:59 23:59 Intake Total 338 / 1178 600 / 1178 240 / 1178 Output Total 300 / 800 0 / 800 500 / 800 Balance 38 / 378 600 / 378 -260 / 378 Intake: Intake, Oral Amount 600 / 840 240 / 840 Intake, Total IV Amount 338 / 338 0 / 338 Piperacillin/Tazo 4.5 gm In 0.9 100 / 100 % Sodium Chloride 100 ml @ 200 mls/hr IV Q6H [facility] Rx#:[id number] Vancomycin HCl 2,500 mg In 0.9 238 / 238 % Sodium Chloride 250 ml @ 62.5 mls/hr IV Q12H [facility] Rx#: [id number] Output: Output, Urine Amount 300 / 800 0 / 800 500 / 800 Other: Number of Unmeasured Voids 1 Weight 147 kg Patient Weight 06/16/22 23:59 Weight 147 kg Laboratory Results - last 24 hr 06/14/22 19:30: Urine Color Yellow, Urine Appearance Clear, Urine pH 6.0, Ur Specific [place] 1.025, Urine Protein Negative, Urine Glucose (UA) Negative, Urine Ketones Negative, Urine Blood Negative, Urine Nitrate Negative, Urine Bilirubin Negative, Urine Urobilinogen 0.2, Ur Leukocyte Esterase Negative, Urine WBC 3-5, Ur Squamous Epith Cells 20-50, Urine Bacteria 1+ 06/15/22 21:48: POC Glucose 231 H 06/15/22 23:38: Total Bilirubin 0.2, Direct Bilirubin 0.2, Conjugated Bilirubin 0.0, Indirect Bilirubin 0.0, Unconjugated Bilirubin 0.0, AST 36, ALT 35, Alkaline Phosphatase 151 H, Total Protein 7.3, Albumin 4.2 06/16/22 05:56: POC Glucose 210 H 06/16/22 09:05: WBC 6.6, RBC 3.84 L, Hgb 11.7 L, Hct 37.1, MCV 96.8, MCH 30.6, MCHC 31.6 L, RDW 13.6, Plt Count 209, MPV 8.4, Neut % (Auto) 65.1, Lymph % (Auto) 26.7, [place] % (Auto) 3.6, Eos % (Auto) 3.4, Baso % (Auto) 1.1, Neut # (Auto) 4.3, Lymph # (Auto) 1.8, [place] # (Auto) 0.2, Eos # (Auto) 0.2, Baso # (Auto) 0.1 06/16/22 13:03: Sodium 137, Potassium 4.2, Chloride 100, Carbon Dioxide 33 H, Anion Gap 8.2, BUN 16, Creatinine 0.60, Estimated Creat Clear 116, Estimated GFR 104, Est GFR ( Amer) 126, Glucose 183 H, Calcium 8.6 06/16/22 13:16: POC Glucose 191 H 06/16/22 17:52: POC Glucose 197 H I & O for Labs for Last 24 Hours: Intake & Output 06/13/22 06/14/22 06/15/22 06/16/22 23:59 23:59 23:59 23:59 Intake Total 790 / 1128 1178 / 1178 Output Total 650 / 650 800 / 800 Balance 140 / 478 378 / 378 Weight 161.025 kg 147.616 kg 147 kg Microbiology Reports for the Last 24 Hours: Microbiology 06/15/22 11:57 Buttock - Right Gram Stain - Final 06/15/22 11:57 Buttock - Right Abscess Culture - Preliminary NO GROWTH AFTER 24 HOURS 06/16/22 03:40 Sputum - Expectorated Sputum Gram Stain - Final 06/15/22 07:29 Buttock - Abscess Gram Stain - Final 06/15/22 07:29 Buttock - Abscess Wound Culture - Preliminary NO GROWTH AFTER 24 HOURS Constitutional: Present no acute distress, morbidly obese and chronically ill appearing Head: Present atraumatic and normocephalic ENT: Present normal exam Neck: Present normal inspection Respiratory: Present wheezes and normal respiratory effort; Absent accessor
[2022-06-16 22:28] LABS: POC Glucose,Bedside 232 (70-110)
[2022-06-17] VITALS (7 sets, daily range): BP systolic 126–151; BP diastolic 63–86; PULSE 84–94; RESP 16–20; TEMP 36.6–36.9; O2SAT 88–97; BMI 47.2
--- NOTE | 2022-06-17 00:29 | PC.NURSE ---
spoke with issac with nightwatch confirming dose of vancomycin, peak and trough to be ordered with next dose.
--- NOTE | 2022-06-17 06:27 | PC.NURSE ---
pt is alert and oriented, pt complained of pain most of night unrelieved by oxycodone, pt states pain goes to lower back and knee, cyclobenazaprine given 5mg per pt request as 10mg was ordered, pt stated she was scared to take the whole 10mg, pt also complained of rash and itchy skin under breast area and groin area, nystatin ordered powder and applied, right gluteal abscess dressing was changed this shift and packed with dry kerlix and covered with 4x4 and abd and secured with tape, pt tolerated dressing change well, lung sounds diminished and 02 sats 94-96 on 2L pnc of 02, VSS, pt complains of being cold and noted temp wnl, generalized edema 2+, keratosis noted to LLE, no acute distress.
[2022-06-17 06:47] LABS: POC Glucose,Bedside 174 (70-110)
--- NOTE | 2022-06-17 06:49 | P.PN_ITS ---
Subjective Narrative: Per nursing, the patient has undergone dressing changes without significant difficulty. Nursing notes no sign of spreading cellulitis. She continues to have difficulty with pain management. She is currently asleep. Exam Data for Last 24 hours Vital signs and Labs for Last 24 Hours: Temp Pulse Resp BP Pulse Ox 97.9 F 87 16 128/67 96 06/17/22 04:00 06/17/22 04:00 06/17/22 04:00 06/17/22 04:00 06/17/22 04:00 Laboratory Results - last 24 hr 06/15/22 23:38: Total Bilirubin 0.2, Direct Bilirubin 0.2, Conjugated Bilirubin 0.0, Indirect Bilirubin 0.0, Unconjugated Bilirubin 0.0, AST 36, ALT 35, Alkaline Phosphatase 151 H, Total Protein 7.3, Albumin 4.2 06/16/22 05:56: POC Glucose 210 H 06/16/22 09:05: WBC 6.6, RBC 3.84 L, Hgb 11.7 L, Hct 37.1, MCV 96.8, MCH 30.6, MCHC 31.6 L, RDW 13.6, Plt Count 209, MPV 8.4, Neut % (Auto) 65.1, Lymph % (Auto) 26.7, [place] % (Auto) 3.6, Eos % (Auto) 3.4, Baso % (Auto) 1.1, Neut # (Auto) 4.3, Lymph # (Auto) 1.8, [place] # (Auto) 0.2, Eos # (Auto) 0.2, Baso # (Auto) 0.1 06/16/22 13:03: Sodium 137, Potassium 4.2, Chloride 100, Carbon Dioxide 33 H, Anion Gap 8.2, BUN 16, Creatinine 0.60, Estimated Creat Clear 116, Estimated GFR 104, Est GFR ( Amer) 126, Glucose 183 H, Calcium 8.6 06/16/22 13:16: POC Glucose 191 H 06/16/22 17:52: POC Glucose 197 H 06/16/22 22:15: POC Glucose 232 H 06/17/22 06:17: POC Glucose 174 H I & O for Last 24 hours: Intake & Output 06/14/22 06/15/22 06/16/22 06/17/22 11:59 11:59 11:59 11:59 Intake Total 0 / 0 1428 / 1428 990 / 990 Output Total 400 / 400 550 / 550 900 / 900 Balance -400 / -400 878 / 878 90 / 90 Weight 325 lb 7 oz 329 lb 12.8 oz Microbiology Reports for the Last 24 Hours: Microbiology 06/14/22 23:38 Blood Blood Culture - Preliminary NO GROWTH AFTER 48 HOURS 06/14/22 23:38 Blood Blood Culture - Preliminary NO GROWTH AFTER 48 HOURS 06/15/22 11:57 Buttock - Right Gram Stain - Final 06/15/22 11:57 Buttock - Right Abscess Culture - Preliminary NO GROWTH AFTER 24 HOURS 06/16/22 03:40 Sputum - Expectorated Sputum Gram Stain - Final 06/15/22 07:29 Buttock - Abscess Gram Stain - Final 06/15/22 07:29 Buttock - Abscess Wound Culture - Preliminary NO GROWTH AFTER 24 HOURS Constitutional Constitutional: no acute distress Comments: Currently sleeping Progress Note: A&P Assessment and plan (1) Abscess, gluteal, right: Status: Acute Assessment and plan: Stable status post incision and drainage. Continue antibiotics per primary service Continue dressing changes
[2022-06-17 07:06] LABS: Basophils # 0.1 K/mm3 (0-0.2); Basophils % 2.1 % (0.1-2.0); Eosinophils # 0.2 K/mm3 (0.0-0.4); Eosinophils % 3.1 % (0.1-12.0); Hematocrit 35.7 % (37.0-47.0); Hemoglobin 11.8 g/dL (12.2-16.2); Lymphocytes # 2.2 K/mm3 (0.7-4.5); Lymphocytes % 32.6 % (10-50); Mean Corpuscular Hemoglobin 30.6 pg (27.0-31.2); Mean Corpuscular Volume 92.6 fl (81-99); Mean Platelet Volume 7.9 fl (7.4-10.4); Monocytes # 0.3 K/mm3 (0.1-1.0); Monocytes % 3.7 % (1.7-9.3); Neutrophils # 3.9 K/mm3 (1.8-7.8); Neutrophils % 58.4 % (37.0-80.0); Platelet Count 218 K/mm3 (142-424); Red Blood Count 3.86 M/mm3 (4.20-5.40); Red Cell Distribution Width 13.4 % (11.5-17.5); White Blood Count 6.7 K/mm3 (4.8-10.8)
--- NOTE | 2022-06-17 07:37 | EXP.ACUTE.PN ---
Subjective *Date: 06/17/22 *Time: 16:46 Interval history: Struggled with pain control overnight. Patient is on over 2 times her home regimen however. On exam it appears that some of her pain is neuropathic. Complains of some burning in her legs. Denies chest pain, shortness of breath at baseline. No nausea or vomiting. Tolerating p.o. intake Medical Exam Vital signs and Labs for Last 24 Hours: Vital Signs Temp Pulse Pulse Resp BP BP Pulse Ox 06/17/22 04:00 97.9 F 87 16 128/67 96 06/16/22 21:40 94 L 06/17/22 00:00 94 L 06/16/22 20:00 89 94 L 06/16/22 19:41 98.0 F 89 19 128/65 94 L 06/16/22 15:32 98.8 F 85 16 120/57 L 96 06/16/22 11:46 98.2 F 89 17 99/53 L 96 06/16/22 08:00 97.6 F 84 17 130/66 95 06/16/22 09:30 97.5 F L 86 106/58 L Intake and Output 06/16/22 06/16/22 06/17/22 15:59 23:59 07:59 Intake Total 600 / 1178 240 / 1178 450 / 450 Output Total 0 / 1200 900 / 1200 Balance 600 / -22 - / -22 450 / 450 Intake: Intake, Oral Amount 600 / 840 240 / 840 Intake, Total IV Amount 0 / 338 450 / 450 Piperacillin/Tazo 4.5 gm In 0.9 200 / 200 % Sodium Chloride 100 ml @ 200 mls/hr IV Q6H [facility] Rx#:[id number] Vancomycin HCl 2,500 mg In 0.9 250 / 250 % Sodium Chloride 250 ml @ 62.5 mls/hr IV Q12H [facility] Rx#: [id number] Output: Output, Urine Amount 0 / 1200 900 / 1200 Other: Number of Unmeasured Voids 1 0 2 Weight 147 kg 149.595 kg Patient Weight 06/17/22 23:59 Weight 149.595 kg Laboratory Results - last 24 hr 06/15/22 23:38: Total Bilirubin 0.2, Direct Bilirubin 0.2, Conjugated Bilirubin 0.0, Indirect Bilirubin 0.0, Unconjugated Bilirubin 0.0, AST 36, ALT 35, Alkaline Phosphatase 151 H, Total Protein 7.3, Albumin 4.2 06/16/22 09:05: WBC 6.6, RBC 3.84 L, Hgb 11.7 L, Hct 37.1, MCV 96.8, MCH 30.6, MCHC 31.6 L, RDW 13.6, Plt Count 209, MPV 8.4, Neut % (Auto) 65.1, Lymph % (Auto) 26.7, [place] % (Auto) 3.6, Eos % (Auto) 3.4, Baso % (Auto) 1.1, Neut # (Auto) 4.3, Lymph # (Auto) 1.8, [place] # (Auto) 0.2, Eos # (Auto) 0.2, Baso # (Auto) 0.1 06/16/22 13:03: Sodium 137, Potassium 4.2, Chloride 100, Carbon Dioxide 33 H, Anion Gap 8.2, BUN 16, Creatinine 0.60, Estimated Creat Clear 116, Estimated GFR 104, Est GFR ( Amer) 126, Glucose 183 H, Calcium 8.6 06/16/22 13:16: POC Glucose 191 H 06/16/22 17:52: POC Glucose 197 H 06/16/22 22:15: POC Glucose 232 H 06/17/22 06:17: POC Glucose 174 H 06/17/22 06:55: WBC 6.7, RBC 3.86 L, Hgb 11.8 L, Hct 35.7 L, MCV 92.6, MCH 30.6, MCHC 33.0, RDW 13.4, Plt Count 218, MPV 7.9, Neut % (Auto) 58.4, Lymph % (Auto) 32.6, [place] % (Auto) 3.7, Eos % (Auto) 3.1, Baso % (Auto) 2.1 H, Neut # (Auto) 3.9, Lymph # (Auto) 2.2, [place] # (Auto) 0.3, Eos # (Auto) 0.2, Baso # (Auto) 0.1 I & O for Labs for Last 24 Hours: Intake & Output 06/14/22 06/15/22 06/16/22 06/17/22 23:59 23:59 23:59 23:59 Intake Total 790 / 1128 1178 / 1178 450 / 450 Output Total 650 / 650 1200 / 1200 Balance 140 / 478 - 450 / 450 Weight 161.025 kg 147.616 kg 147 kg 149.595 kg Microbiology Reports for the Last 24 Hours: Microbiology 06/15/22 07:29 Buttock - Abscess Gram Stain - Final 06/15/22 07:29 Buttock - Abscess Wound Culture - Preliminary NO GROWTH AFTER 48 HOURS 06/14/22 23:38 Blood Blood Culture - Preliminary NO GROWTH AFTER 48 HOURS 06/14/22 23:38 Blood Blood Culture - Preliminary NO GROWTH AFTER 48 HOURS 06/15/22 11:57 Buttock - Right Gram Stain - Final 06/15/22 11:57 Buttock - Right Abscess Culture - Preliminary NO GROWTH AFTER 24 HOURS 06/16/22 03:40 Sputum - Expectorated Sputum Gram Stain - Final Constitutional: Present no acute distress, morbidly obese and chronically ill appearing Head: Present atraumatic and normocephalic ENT: Present
[2022-06-17 07:39] LABS: Chloride 100 mmol/L (98-107)
[2022-06-17 07:40] LABS: Potassium 4.3 mmoL/L (3.5-5.1); Sodium 137 mmol/L (136-145)
[2022-06-17 07:43] LABS: Anion Gap 7.3 mEq/L (5-15); Blood Urea Nitrogen 14 mg/dl (7-17); Calcium 9.1 mg/dl (8.4-10.2); Carbon Dioxide 34 mmol/L (22.0-30.0); Creatinine Clearance Estimated 116 mL/min (50-200); Estimated Glomerular Filt Rate 104 ml/min (>60); GFR (African American) 126 ML/MIN (>60); Glucose 172 mg/dl (74-100)
[2022-06-17 09:40] LABS: Vancomycin,Trough 14.5 ug/mL (5.0-10.0)
--- NOTE | 2022-06-17 10:44 | EXP.PHA.CONS ---
Pharmacy Consult Date: 06/17/22 Time: 10:44 Referring provider: DR TELLEZ Reason for Consult:: VANCOMYCIN PK LEVELS OBTAINED Allergies Allergy/AdvReac Type Severity Reaction Status Date / Time ketorolac [From Toradol] Allergy Severe breathing Verified 06/15/22 01:48 problems tramadol [TRAMADOL] Allergy Mild Unknown Verified 06/03/22 14:18 allergy reaction gold sodium thiomalate Allergy Unknown Unknown Verified 06/03/22 14:18 allergy reaction coconut Allergy Unknown Verified 06/03/22 14:18 allergy reaction propylene glycol Allergy Unknown Verified 06/03/22 14:18 allergy reaction vancomycin AdvReac RED EVANGELINA Verified 06/03/22 14:18 SYNDROME Home Medications Medication Instructions Recorded Confirmed Type nebulizers 08/11/21 06/15/22 History albuterol sulfate 90 mcg/actuation 2 inh inhalation Q6H PRN shortness 09/16/21 06/15/22 Rx aerosol inhaler of breath or wheezing 90 days #8.5 grams epinephrine 0.3 mg/0.3 mL 0.3 mg (0.3 mL) IM Q5-15M PRN 11/12/21 06/15/22 Rx injection, auto-injector (EpiPen) hypersensitivity reaction #1 ea levothyroxine 150 mcg tablet 300 mcg PO DAILY hypothyroid #180 11/12/21 06/15/22 Rx tabs omeprazole 20 mg capsule,delayed 20 mg PO DAILY acid reflux #90 caps 12/06/21 06/15/22 Rx release cyclobenzaprine 10 mg tablet 10 mg PO BID PRN muscle spasm #30 02/16/22 06/15/22 Rx tabs nicotine 21 mg/24 hr daily 1 patch transdermal Q24H smoking 02/16/22 06/15/22 Rx transdermal patch cessation #28 ea hydrocodone 7.5 mg-acetaminophen 1 tab PO Q8H PRN pain #90 tabs 06/03/22 06/15/22 Rx 325 mg tablet hydrocortisone 1 % topical cream 1 applic topical TID PRN allergic 06/03/22 06/15/22 Rx (Cortisone (hydrocortisone)) reaction #28.4 grams blood sugar diagnostic (FreeStyle 06/15/22 06/15/22 History Lite Strips) blood sugar diagnostic (FreeStyle 06/15/22 06/15/22 History Lite Strips) blood-glucose meter (Accu-Chek 06/15/22 06/15/22 History Guide Glucose Meter) diltiazem HCl 240 mg 480 mg PO DAILY Heart rhythm 06/15/22 06/17/22 History capsule,extended release 24 hr ergocalciferol (vitamin D2) 1,250 1,250 mcg PO WEEKLY Supplement 06/15/22 06/15/22 History mcg (50,000 unit) capsule fluticasone 100 mcg-salmeterol 50 1 ea inhalation BID COPD 06/15/22 06/15/22 History mcg/dose blistr powdr for inhalation (Advair Diskus) furosemide 40 mg tablet 40 mg PO DAILY Fluid 06/15/22 06/15/22 History ipratropium 0.5 mg-albuterol 3 mg See Rx Instructions .Route 06/15/22 06/15/22 History (2.5 mg base)/3 mL nebulization .COMPLEX COPD soln lancets 28 gauge (FreeStyle 06/15/22 06/15/22 History Lancets) spironolactone 25 mg tablet 25 mg PO DAILY Fluid 06/15/22 06/15/22 History (Aldactone) tiotropium bromide 18 mcg capsule 1 cap inhalation DAILY COPD 06/15/22 06/15/22 History with inhalation device (Spiriva with HandiHaler) empagliflozin 25 mg tablet 25 mg PO DAILY Diabetes 06/17/22 06/17/22 History (Jardiance) metformin 500 mg tablet 500 mg PO BID Diabetes 06/17/22 06/17/22 History New Prescriptions to Start Prescriptions: Height: 1.78 m Weight: 149.595 kg Laboratory Results:: Laboratory Results - last 24 hr 06/15/22 23:38: Total Bilirubin 0.2, Direct Bilirubin 0.2, Conjugated Bilirubin 0.0, Indirect Bilirubin 0.0, Unconjugated Bilirubin 0.0, AST 36, ALT 35, Alkaline Phosphatase 151 H, Total Protein 7.3, Albumin 4.2 06/16/22 13:03: Sodium 137, Potassium 4.2, Chloride 100, Carbon Dioxide 33 H, Anion Gap 8.2, BUN 16, Creatinine 0.60, Estimated Creat Clear 116, Estimated GFR 104, Est GFR ( Amer) 126, Glucose 183 H, Calcium 8.6 06/16/22 13:16: POC Glucose 191 H 06/16/22 17:52: POC Glucose 197 H 06/16/22 22:15: POC Glucose 232 H 06/17/22 06:17: POC Glucose 174 H 06/17/22 06:55: WBC 6.7, RBC 3.86 L, Hgb 11.8 L, Hct 35.7 L, MCV 92.6, MCH 30.6, MCHC 33.0, RDW 13.4, Plt Count 218, MPV 7.9, Neut % (Au
--- NOTE | 2022-06-17 12:33 | DIET.NUTRFU ---
During rounds, provider spoke to patient about how important it was to take her diabetic meds. Provider did agree to start the jardiance and lantus during stay to make sure she was not allergic to them and may need teaching on insulin injection. She was not on insulin previously. Diet education handouts were reviewed yesterday
--- NOTE | 2022-06-17 14:18 | CARE MANAGER ---
CM spoke with patient in regards to discharge planning. Patient is aware that she will require assistance with drsg changes and plans for her S/O to help her. I have spoken to Sincere, patient's S/O who states that he will fern picker patient tomorrow and would like for nursing staff to educate him on patient's drsg change. Nursing staff has been made aware. Patient is planned for discharge home tomorrow.
[2022-06-17 16:32] LABS: POC Glucose,Bedside 221 (70-110)
[2022-06-17 19:34] LABS: Vancomycin,Peak 21.6 ug/ml (11-39)
[2022-06-17 20:49] LABS: POC Glucose,Bedside 166 (70-110)
[2022-06-18 04:00] VITALS: BP 155/90; PULSE 91; RESP 18; TEMP 36.7; O2SAT 96
--- NOTE | 2022-06-18 07:32 | EXP.DC.SUM ---
General Admission date:: 06/15/22 Discharge date: 06/18/22 HPI HPI HPI: Ms. 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 She presents to [facility] due to a 4 day history of redness, pain and swelling to the right gluteal region. The patient was seen in the ER on admission. She denies any history of skin infections except for CRE of the right lower extremity that she reports was treated with antibiotics approximately 1 year ago. She denies squeezing the area, she reports that the area started as a boil like lesion in nature and grew, she reports that it has also been draining. She reports that the area is very painful to touch and that she has experienced fevers, body aches and chills. In the ER the patient had wound and blood cultures drawn, she was given a dose of Vancomycin. The patient will be admitted with a diagnosis of Gluteal abscess. Surgery will be consulted for evaluation of the lesion and further recommendations. The plan of care was discussed with the patient on admission. She verbalized understanding and agreement with the plan of care. Hospital Course Hospital Course Hospital Course: 52-year-old female with past medical history of DM, HTN, COPD, Hypothyroidism and history of CRE of left lower extremity presents with an area of induration, pain and redness to the right gluteal region present and worsening over a 4-day period.? Status postdebridement.? Continuing to have significant pain.? Problems addressed as follows Right Gluteal Abscess and Cellulitis Postop pain Neuropathy -Admitted for management of abscess in right gluteus. Surgery was consulted, taken to the OR for I&D. Procedure tolerated well with improvement in infection and drainage of abscess. Blood cultures negative. Wound cultures with gram-positive cocci. Tolerated vancomycin and Zosyn for empiric coverage. Given improvement, will transition to Bactrim to complete 7 more days (10 days total) of treatment for abscess/cellulitis. Patient undergoing dressing change daily with removal and replacement of packing. Her significant other will be helping with dressing changes on the weekend. After discharge, has been instructed to go to the clinic in [place] where she can have dressing changes performed daily. Case management has assisted in setting this up. We will have close follow-up with surgery in the next week. Given severity of pain, given short term prescription for oxycodone. Recommended she resume her home hydrocodone regimen thereafter. Started on gabapentin for neuropathic pain after much discussion. Has received some benefit. Was overall pleased with response. Sent with a 1 month prescription, encouraged her to discuss further adjustments and continuation of medication with her PCP. Hypertension - continue home regime as ordered.? Appears patient does not take her diltiazem. We will continue holding at discharge.? Blood pressure well controlled during admission Diabetes -Elevated during admission. Patient states she has not been compliant with her outpatient regimen. A1c of 9 on admission. Started on Jardiance and sliding scale insulin. Initiated Lantus after A1c returned. Discharged on Jardiance once daily, metformin twice daily, and Lantus nightly. Recommend further adjustment in the outpatient setting. COPD - Currently stable, oxygen on 1-2 L during hospitalization. No signs of exacerbation. No treatment specific for COPD other than inhalers and nebulizers. Continue home regimen at discharge. Hypothyroidism - continue home Levothyroxine dose Stable for discharge home. Continue with wound management as above. Medication sent to [facility] at patient's request Exam Data for Last 24 hours Vital signs and Labs for Last 24 Hours: Temp Pulse Resp BP Pulse Ox 98.0 F 91 H 18 155/90 H
[2022-06-18 08:00] VITALS: BP 118/68; PULSE 100; RESP 22; TEMP 36.8; O2SAT 88
[2022-06-18 08:13] LABS: POC Glucose,Bedside 167 (70-110)
[2022-06-18 10:30] VITALS: O2SAT 94
--- NOTE | 2022-06-18 10:43 | EXP.SURG.PN ---
Subjective Patient reports: no new complaints Narrative: Per nursing, dressing changes are going fine . Exam Data for Last 24 hours Vital signs and Labs for Last 24 Hours: Temp Pulse Resp BP Pulse Ox 98.2 F 100 H 22 118/68 94 L 06/18/22 08:00 06/18/22 08:00 06/18/22 08:00 06/18/22 08:00 06/18/22 10:30 Laboratory Results - last 24 hr 06/17/22 16:17: POC Glucose 221 H 06/17/22 18:18: Vancomycin Peak 21.6 06/17/22 20:27: POC Glucose 166 H 06/18/22 06:26: POC Glucose 167 H I & O for Last 24 hours: Intake & Output 06/15/22 06/16/22 06/17/22 06/18/22 11:59 11:59 11:59 11:59 Intake Total 0 / 0 1428 / 1428 1350 / 1350 960 / 960 Output Total 400 / 400 550 / 550 1250 / 1250 200 / 200 Balance -400 / -400 878 / 878 100 / 100 760 / 760 Weight 325 lb 7 oz 329 lb 12.8 oz Microbiology Reports for the Last 24 Hours: Microbiology 06/15/22 07:29 Buttock - Abscess Gram Stain - Final 06/15/22 07:29 Buttock - Abscess Wound Culture - Preliminary Gram Positive Cocci 06/16/22 03:40 Sputum - Expectorated Sputum Gram Stain - Final 06/16/22 03:40 Sputum - Expectorated Sputum Sputum Culture - Preliminary 06/15/22 11:57 Buttock - Right Gram Stain - Final 06/15/22 11:57 Buttock - Right Abscess Culture - Preliminary NO GROWTH AFTER 48 HOURS Constitutional Constitutional: no acute distress *Routine Respiratory Exam Respiratory: Absent respiratory distress *Routine Cardiovascular Exam Comments: Minimally tachycardic *Routine Skin Exam Comments: Buttock dressing in good position. No spreading cellulitis. Progress Note: A&P Assessment and plan (1) Abscess, gluteal, right: Status: Acute Assessment and plan: Overall, continuing to improve status post incision and drainage. Conversion to PO abx as per primary service Likely discharge home soon with outpatient follow-up
[2022-06-18 13:04] LABS: POC Glucose,Bedside 244 (70-110)
[2022-06-18 16:31] LABS: POC Glucose,Bedside 252 (70-110)
--- NOTE | 2022-06-18 17:39 | PC.NURSE ---
Pt's spouse educated on dsg changes. D/C instructions given. Verbalized understanding.
== END 2022-06-18 17:10 | disposition home or self-care (01) | DRG 603 ==
LOC: ER 06-15 00:54 → 2ND 06-15 08:13
PROVIDERS: Nurse Practitioner Family; Surgery; Admitting Provider Internal Medicine Adolescent Medicine; Emergency Provider Emergency Medicine; PCP Family Medicine; Visit Provider Internal Medicine Adolescent Medicine
PROC: 0J990ZZ Drainage of Buttock Subcutaneous Tissue and Fascia, Open Approach (ICD-10-PCS; principal; 2022-06-15 11:00)
DX: L02.31 Cutaneous abscess of buttock (principal); E11.52 Type 2 diabetes mellitus with diabetic peripheral angiopathy with gangrene; I96 Gangrene, not elsewhere classified; I10 Essential (primary) hypertension; J44.9 Chronic obstructive pulmonary disease, unspecified; E03.9 Hypothyroidism, unspecified; E78.5 Hyperlipidemia, unspecified; K21.9 Gastro-esophageal reflux disease without esophagitis
CPT/HCPCS: 10060; 36415; 80048; 80053; 80076; 80202; 81001; 82962; 83036; 83605; 85025; 87040; 87070; 87075; 87077; 87081; 87186; 87205; 94640; 94761; 99285; C9803; J2405; J2505; J2543; J3370; U0003; U0005

== ENCOUNTER 2022-08-17 15:19 | Observation (INO) | payer MEDICAID, SELFPAY ==
[2022-08-17 15:20] VITALS: BP 142/91; PULSE 107; RESP 18; TEMP 36.8; O2SAT 98; BMI 50.2
--- NOTE | 2022-08-17 15:39 | CT_ITS ---
PROCEDURE INFORMATION: Exam: CT Chest With Contrast; Diagnostic Exam date and time: 08/17/2022 6:37 PM Age: 52 years old Clinical indication: Other: Chest wall cellulitis TECHNIQUE: Imaging protocol: Diagnostic computed tomography of the chest with contrast. Radiation optimization: All CT scans at this facility use at least one of these dose optimization techniques: automated exposure control; mA and/or kV adjustment per patient size (includes targeted exams where dose is matched to clinical indication); or iterative reconstruction. Contrast material: ISOVUE; Contrast volume: 75 ml; Contrast route: IV; Other protocol: This patient has received 0 known CTs and 0 known cardiac nuclear medicine studies in the 12 months prior to the current study. COMPARISON: SD CT ANGIO CHEST 10/22/2020 4:17 PM FINDINGS: Lungs: Chronic elevated left diaphragm with left lower pulmonary volume loss. Subsegmental atelectasis or scarring at the lung bases greater on the left. No focal consolidation. No nodules. Pleural spaces: Unremarkable. No significant pleural effusion. No pneumothorax. Heart: The heart is not enlarged. Trace pericardial effusion. Prominent pericardial fat pad along the lower left heart border, contributing to chest x-ray density along the lower left heart. Coronary arteries: A few coronary artery calcifications are present. Lymph nodes: Tiny calcified left hilar lymph nodes, and chronic calcified right paraesophageal node.No significantly enlarged noncalcified mediastinal or hilar lymph nodes by short axis criteria. There are some mildly enlarged right axillary nodes compared with the prior exam from 10/22/2020, including 1.7 x 1.3 cm node series 3, image 19, and a 1.2 x 1 cm node series 3, image 24. There is also a slightly enlarged left axillary node of 1.3 x 1.5 cm series 3, image 33, compared with the prior exam. There are other axillary nodes which have benign fatty appearance, or are not significantly enlarged by short axis criteria. Vasculature: There is no aortic aneurysm. Multiple calcified plaques. Spleen: Splenomegaly, approximate 14.9 cm long axis coronal series 1001, image 61. Heterogeneous liver attenuation, likely mild patchy fatty change. Bones/joints: There are spinal degenerative changes, with multilevel disc narrrowing and spondylosis. Multiple mild chronic vertebral endplate depressions and Schmorl's nodes. No acute appearing fracture or high-grade listhesis, as visualized. Soft tissues: Subcutaneous soft tissue edema in the anterior chest wall consistent with history of cellulitis, this is incompletely imaged on this exam due to large body habitus, chest wall is partially clipped off the field of view. No loculated abscess collection or soft tissue emphysema, as visualized. Chronic nonspecific right breast calcification or metallic clip unchanged compared with 10/22/2020. Breast tissue is incompletely imaged on this exam. IMPRESSION: 1. Anterior chest wall subcutaneous soft tissue edema consistent with the history of cellulitis. The chest wall is incompletely imaged, partially clipped off the field of view due to large body habitus. No loculated abscess collection or soft tissue emphysema in the visualized portion of chest. 2. Some mildly enlarged bilateral axillary nodes compared with 10/22/2020. 3. Chronic elevated left diaphragm with left lower pulmonary volume loss. Subsegmental atelectasis in the lungs, no consolidation or nodules. 4. Additional nonemergency and chronic findings as above, including splenomegaly and fatty liver, atherosclerotic disease, spinal degenerative changes. Electronically signed by MD anusha Krishnamurthy
--- NOTE | 2022-08-17 15:42 | HMH.EDGENADL ---
Discharge Plan Disposition Patient Disposition: Admitted As Inpatient Condition: Fair Clinical Impressions Clinical Impression: Cellulitis of chest wall Discharge ED Provider: Alf Irving General Adult HPI General Chief complaint: Skin/Abscess/Foreign Body Stated complaint: Rash on chest Time Seen by Provider: 08/17/22 15:23 Mode of Arrival: EMS Source of Information: Patient Limitations: No Limitations Description of Symptoms (Recalled from ER Triage Doc. by RN): PT REPORTS RED PAINFUL RASH TO UPPER CHEST AND BILATERAL ARMS FOR OVER 1 MONTH History of Present Illness HPI narrative: Patient presents with a 1 month history of rash to the chest wall. She describes the pain emanating from the rash as severe and without exacerbating alleviating factors. She states she wastold it was allergic in nature and subsequently fungal for which nystatin was administered and however the symptoms of continue to worsen. She denies associated fever she states the pain feels as though it is deep in her chest wall. She now also notes some redness to the arms as well as medial aspect of the thighs. Related Data Home Medications Medication Instructions Recorded Confirmed nebulizers 08/11/21 07/28/22 blood sugar diagnostic (FreeStyle 06/15/22 07/28/22 Lite Strips) blood sugar diagnostic (FreeStyle 06/15/22 07/28/22 Lite Strips) blood-glucose meter (Accu-Chek 06/15/22 07/28/22 Guide Glucose Meter) ergocalciferol (vitamin D2) 1,250 1,250 mcg PO WEEKLY Supplement 06/15/22 07/28/22 mcg (50,000 unit) capsule fluticasone 100 mcg-salmeterol 50 1 ea inhalation BID COPD 06/15/22 07/28/22 mcg/dose blistr powdr for inhalation (Advair Diskus) furosemide 40 mg tablet 40 mg PO DAILY Fluid 06/15/22 07/28/22 ipratropium 0.5 mg-albuterol 3 mg See Rx Instructions .Route 06/15/22 07/28/22 (2.5 mg base)/3 mL nebulization .COMPLEX COPD soln lancets 28 gauge (FreeStyle 06/15/22 07/28/22 Lancets) spironolactone 25 mg tablet 25 mg PO DAILY Fluid 06/15/22 07/28/22 (Aldactone) tiotropium bromide 18 mcg capsule 1 cap inhalation DAILY COPD 06/15/22 07/28/22 with inhalation device (Spiriva with HandiHaler) diltiazem HCl 240 mg 240 mg PO DAILY 07/28/22 07/28/22 capsule,extended release 24 hr Previous Rx's Medication Instructions Recorded albuterol sulfate 90 mcg/actuation 2 inh inhalation Q6H PRN shortness 09/16/21 aerosol inhaler of breath or wheezing 90 days #8.5 grams epinephrine 0.3 mg/0.3 mL 0.3 mg (0.3 mL) IM Q5-15M PRN 11/12/21 injection, auto-injector (EpiPen) hypersensitivity reaction #1 ea levothyroxine 150 mcg tablet 300 mcg PO DAILY hypothyroid #180 11/12/21 tabs omeprazole 20 mg capsule,delayed 20 mg PO DAILY acid reflux #90 caps 12/06/21 release cyclobenzaprine 10 mg tablet 10 mg PO BID PRN muscle spasm #30 02/16/22 tabs nicotine 21 mg/24 hr daily 1 patch transdermal Q24H smoking 02/16/22 transdermal patch cessation #28 ea metformin 500 mg tablet 500 mg PO BID Diabetes 30 days #60 06/18/22 tabs sennosides 8.6 mg-docusate sodium 1 tab PO DAILY 30 days #30 tabs 06/18/22 50 mg tablet (Stool Softener-Stimulant Laxative) pen needle, diabetic 31 gauge x #100 ea 06/20/22/ (Pen Needle) oxycodone-acetaminophen 7.5 mg-325 1 tab PO TID PRN Moderate Pain 30 06/27/22 mg tablet days #90 tabs cephalexin 500 mg capsule 500 mg PO Q8H 10 days #30 caps 07/25/22 gabapentin 100 mg capsule 100 mg PO TID 30 days #90 caps 07/25/22 hydrocodone 7.5 mg-acetaminophen 1 tab PO Q8H PRN pain #90 tabs 07/25/22 325 mg tablet insulin glargine 100 unit/mL (3 30 unit (0.3 mL) SQ HS 30 days #9 07/25/22 mL) subcutaneous pen (Lantus mL Solostar U-100 Insulin) diphenhydramine HCl 12.5 mg/5 mL 25 mg (10 mL) PO Q6H PRN itching 07/28/22 oral elixir #250 mL fluconazole 150 mg tablet 150 mg PO Q72H #2 tabs 07/28/22 nystatin 100,000 unit/gram topical 1 applic topical TID #30 grams 07/28/22 cream clobetasol 0.05 % t
[2022-08-17 16:17] VITALS: BP 148/80; PULSE 109; O2SAT 96
[2022-08-17 16:28] LABS: Basophils # 0.1 K/mm3 (0-0.2); Basophils % 1.4 % (0.1-2.0); Eosinophils # 0.5 K/mm3 (0.0-0.4); Eosinophils % 5.6 % (0.1-12.0); Hematocrit 45.3 % (37.0-47.0); Hemoglobin 14.8 g/dL (12.2-16.2); Lymphocytes # 1.8 K/mm3 (0.7-4.5); Lymphocytes % 20.7 % (10-50); Mean Corpuscular HGB Conc 32.7 g/dL (31.8-35.4); Mean Corpuscular Hemoglobin 29.5 pg (27.0-31.2); Mean Corpuscular Volume 90.3 fl (81-99); Mean Platelet Volume 8.2 fl (7.4-10.4); Monocytes # 0.3 K/mm3 (0.1-1.0); Monocytes % 3.7 % (1.7-9.3); Neutrophils # 5.8 K/mm3 (1.8-7.8); Neutrophils % 68.6 % (37.0-80.0); Platelet Count 240 K/mm3 (142-424); Red Blood Count 5.01 M/mm3 (4.20-5.40); Red Cell Distribution Width 13.7 % (11.5-17.5); White Blood Count 8.5 K/mm3 (4.8-10.8)
[2022-08-17 16:45] VITALS: PULSE 109; O2SAT 96
[2022-08-17 16:59] LABS: Alanine Aminotransferase 42 U/L (12-78); Albumin Level 4.3 g/dl (3.5-5.0); Albumin/Globulin Ratio 1.2 (1.1-1.8); Alkaline Phosphatase 117 U/L (38-126); Anion Gap 8.6 mEq/L (5-15); Aspartate Amino Transferase 51 U/L (14-36); Bilirubin,Total 0.5 mg/dl (0.2-1.3); Blood Urea Nitrogen 24 mg/dl (7-17); Calcium 8.9 mg/dl (8.4-10.2); Carbon Dioxide 35 mmol/L (22.0-30.0); Chloride 101 mmol/L (98-107); Creatinine Clearance Estimated 99 mL/min (50-200); Estimated Glomerular Filt Rate 87 ml/min (>60); GFR (African American) 106 ML/MIN (>60); Globulin 3.7 g/dL (1.3-3.2); Glucose 169 mg/dl (74-100); Potassium 4.6 mmoL/L (3.5-5.1); Sodium 140 mmol/L (136-145)
--- NOTE | 2022-08-17 17:12 | PC.NURSE ---
PT TO CT
--- NOTE | 2022-08-17 17:16 | PC.NURSE ---
PT RETURNED FROM CT
--- NOTE | 2022-08-17 17:45 | PC.NURSE ---
1745, PT VERY DIFFICULT STICK. MULTIPLE ATTEMPTS
--- NOTE | 2022-08-17 18:30 | PC.NURSE ---
PT TO CT
--- NOTE | 2022-08-17 19:31 | PC.NURSE ---
pt requesting more pain medication, notified and no new ordered at this time. Pt given a cold wet cloth for comfort. She also has ice packs available.
--- NOTE | 2022-08-17 19:34 | PC.NURSE ---
Pt s/w hospitalists for possible admission
--- NOTE | 2022-08-17 19:40 | PC.NURSE ---
Hospitalist at bedside. House notified for admission: Cellulitis
--- NOTE | 2022-08-17 19:52 | EXP.HP ---
History of Present Illness *Admission Date: 08/17/22 *Reason for visit:: Skin Rash, Burning *History of present illness: Ms. Dias is a 52-year-old female who presents with a rash on the anterior chest wall that extends up the neck that she reports has been present and worsening since 07/13/2022. She denies being around anyone else with a similar rash, she denies fevers or chest pain with the rash or chills or generalized body aches. She reports that the rash mccormack and itches. 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 She reports that she has went to see her PCP and to a [facility]. She reports that she was treated with antibiotics, steroids creams, nystantin for the rash outpatient with worsening of the rash. She does report that just prior to the rash that she was started on new medications of insulin and gabapentin that she has continued to take. In the ER, the patient underwent a CBC and CMP that were unremarkable. CT of the chest performed showed anterior chest wall subcutaneous soft tissue edema. In the ER, the patient received iv analgesics, iv fluids. The patient will be admitted with initial impression: Chest wall cellulitis. [facility] Disclaimer: The information contained in this section may have been updated after the patient was seen, as this information can be updated by other users. Medical History Bilateral carpal tunnel syndrome Decreased pulses in feet Diabetes Diabetes mellitus, type 2 Dusky feet Dyspnea History of gastroesophageal reflux (GERD) Hyperlipidemia Hypothyroidism Lumbar canal stenosis Pneumonia Swelling of left lower extremity Surgical History History of History of hysterectomy Family History Other Cancer Family history of GERD Family history of cancer Family history of hyperlipidemia Family history of hypertension Family history of myocardial infarction Social History Smoking Status: Former smoker smoking status stop date: 2020 alcohol intake: never substance use type: denies use current occupational status: disabled Travel in the last 8 weeks: None household members: significant other housing: house caffeine: Yes Review of Systems Review of Systems Review of systems:: pertinent systems reviewed and negative unless documented below Constitutional Constitutional: Reports system reviewed and no additional complaints, except as documented Eyes Eyes: Reports system reviewed and no additional complaints, except as documented ENT Ears, Nose, Mouth, and Throat: Reports system reviewed and no additional complaints, except as documented *Cardiovascular Cardiovascular: Reports system reviewed and no additional complaints, except as documented *Respiratory Respiratory: Reports system reviewed and no additional complaints, except as documented *Gastrointestinal Gastrointestinal: Reports system reviewed and no additional complaints, except as documented *Genitourinary Genitourinary: Reports system reviewed and no additional complaints, except as documented *Musculoskeletal Musculoskeletal: Reports system reviewed and no additional complaints, except as documented Integumentary/Breasts Skin/Breast: Reports rash Comments: There is an erythemic macular rash covering the anterior chest wall and goes mid way up the anterior neck. *Neurologic Neurologic: Reports system reviewed and no additional complaints, except as documented Psychiatric Psychiatric: Reports system reviewed and no additional complaints, except as documented Endocrine Endocrine: Reports system reviewed and no additional complaints, except as documented Hematologic/Lymphatic Hematologic/Lympha
[2022-08-17 20:00] LABS: Coronavirus 19, PCR Not Detected (NotDetected); Influenza A, PCR Not Detected (NotDetected); Influenza B, PCR Not Detected (NotDetected)
[2022-08-17 20:21] LABS: C-Reactive Protein 11.9 mg/L (0-4)
[2022-08-17 20:37] LABS: Erythrocyte Sedimentation Rate 58 mm/hr (0-30)
[2022-08-17 21:39] VITALS: BP 149/69; PULSE 124; RESP 20; TEMP 37; O2SAT 96
[2022-08-17 21:40] VITALS: BP 149/69; PULSE 104; RESP 18; TEMP 37; O2SAT 98; BMI 46.1
[2022-08-18 04:00] VITALS: BP 123/68; PULSE 113; RESP 22; TEMP 36.9; O2SAT 97; BMI 46.1
[2022-08-18 05:08] LABS: POC Glucose,Bedside 234 (70-110)
[2022-08-18 07:38] VITALS: BP 116/74; PULSE 112; RESP 18; TEMP 37.1; O2SAT 99
[2022-08-18 09:26] VITALS: BMI 47.0
[2022-08-18 11:30] LABS: POC Glucose,Bedside 203 (70-110)
[2022-08-18 15:01] VITALS: BP 116/59; PULSE 83; RESP 18; TEMP 36.6; O2SAT 96
--- NOTE | 2022-08-18 17:06 | EXP.ACUTE.PN ---
Subjective *Date: 08/18/22 *Time: 12:07 Interval history: Patient continued to have pain today, had extensive discussion about differential for this rash concerning for possible cellulitis however there is rash present on her arms and inner thighs as well. Concerned that it is actually contact or allergic. Discussed starting topical steroid and antifungal along with systemic steroid today. Discussed continuing antibiotic. Also made clear that I was no longer getting give IV pain medication and that if she wanted relief she needed to take the oral pain medication. Patient stated understanding. Stable on her oxygen at baseline. No nausea, chest pain, vomiting, diarrhea. Pain appears better controlled through the day after resuming her gabapentin. Slight improvement with resection of erythema from leading edge marker drawn last night Medical Exam Vital signs and Labs for Last 24 Hours: Vital Signs Temp Pulse Pulse Resp BP BP Pulse Ox 08/18/22 15:01 97.9 F 83 18 116/59 L 96 08/18/22 07:38 98.8 F 112 H 18 116/74 99 08/18/22 04:00 98.5 F 113 H 22 123/68 97 08/17/22 21:40 98.6 F 104 H 18 149/69 H 08/17/22 21:39 98.6 F 124 H 20 149/69 H 96 Intake and Output 08/18/22 08/18/22 08/18/22 07:59 15:59 23:59 Intake Total 360 / 720 360 / 720 Output Total 0 / 0 0 / 0 Balance 360 / 720 360 / 720 Intake: Intake, Oral Amount 360 / 720 360 / 720 Output: Output, Urine Amount 0 / 0 0 / 0 Other: Number of Unmeasured Voids 1 1 Weight 146.255 kg 149.25 kg Patient Weight 08/18/22 23:59 Weight 149.25 kg Laboratory Results - last 24 hr 08/17/22 16:15: C-Reactive Protein 11.9 H 08/17/22 16:15: ESR 58 H 08/17/22 19:45: SARS-CoV-2 (PCR) Not detected, Influenza A Untype (PCR) Not detected, Influenza Type B (PCR) Not detected 08/18/22 05:00: POC Glucose 234 H 08/18/22 11:23: POC Glucose 203 H I & O for Labs for Last 24 Hours: Intake & Output 08/15/22 08/16/22 08/17/2223 23:59 23:59 23:59 23:59 Intake Total 720 / 720 Output Total 0 / 0 Balance 720 / 720 Weight 146.255 kg 149.25 kg Constitutional: Present no acute distress, morbidly obese and chronically ill appearing Head: Present atraumatic and normocephalic ENT: Present normal exam Comment:: Erythema on anterior neck that blanches, tender to palpation with warmth. Respiratory: Present normal respiratory effort; Absent accessory muscle use, rhonchi, wheezes or crackles Cardiac: Present Reg Rate and Rhythm GI: Present soft and normal bowel sounds; Absent distention or tenderness Extremities: Present normal inspection and full ROM Skin: Present intact, erythema (On neck as described above) and dry Comment:: Chronic hyperkeratotic lesion left lower leg; mildly erythematous rash medial elbows bilaterally and medial thighs bilaterally; skin dry and flaky diffusely Neuro: Present Grossly Intact, alert, awake, oriented x 3 and moves all extremities Assessment and Plan *Assessment and plan (1) Cellulitis of chest wall: Status: Acute Category: Medical Code(s): L03.313 - Cellulitis of chest wall (2) Diabetes: Status: Chronic Qualifiers: Diabetes mellitus type: type 2 Diabetes mellitus correction insulin use: with correction use Diabetes mellitus complication status: with other specified complication Qualified Code(s): E11.69 - Type 2 diabetes mellitus with other specified complication; 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
[2022-08-18 17:26] LABS: POC Glucose,Bedside 340 (70-110)
--- NOTE | 2022-08-18 17:46 | EXP.DC.SUM ---
General Admission date:: 08/17/22 Discharge date: 08/19/22 HPI HPI HPI: Ms. Dias is a 52-year-old female who presents with a rash on the anterior chest wall that extends up the neck that she reports has been present and worsening since 07/13/2022. She denies being around anyone else with a similar rash, she denies fevers or chest pain with the rash or chills or generalized body aches. She reports that the rash mccormack and itches. 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 She reports that she has went to see her PCP and to a [facility]. She reports that she was treated with antibiotics, steroids creams, nystantin for the rash outpatient with worsening of the rash. She does report that just prior to the rash that she was started on new medications of insulin and gabapentin that she has continued to take. In the ER, the patient underwent a CBC and CMP that were unremarkable. CT of the chest performed showed anterior chest wall subcutaneous soft tissue edema. In the ER, the patient received iv analgesics, iv fluids. The patient will be admitted with initial impression: Chest wall cellulitis. Exam Data for Last 24 hours Vital signs and Labs for Last 24 Hours: Temp Pulse Resp BP Pulse Ox 97.9 F 83 18 116/59 L 96 08/18/22 15:01 08/18/22 15:01 08/18/22 15:01 08/18/22 15:01 08/18/22 15:01 Laboratory Results - last 24 hr 08/17/22 16:15: C-Reactive Protein 11.9 H 08/17/22 16:15: ESR 58 H 08/17/22 19:45: SARS-CoV-2 (PCR) Not detected, Influenza A Untype (PCR) Not detected, Influenza Type B (PCR) Not detected 08/18/22 05:00: POC Glucose 234 H 08/18/22 11:23: POC Glucose 203 H 08/18/22 17:10: POC Glucose 340 H* I & O for Last 24 hours: Intake & Output 08/15/22 08/16/22 08/17/22 08/18/22 23:59 23:59 23:59 23:59 Intake Total 720 / 720 Output Total 0 / 0 Balance 720 / 720 Weight 146.255 kg 149.25 kg Results Data Completed and Pending Labs on day of discharge: Labs from last 24 hours 08/18/22 08/18/22 08/18/22 17:10 11:23 05:00 ESR POC Glucose 340 H* 203 H 234 H C-Reactive Protein SARS-CoV-2 (PCR) Influenza A Untype (PCR) Influenza Type B (PCR) 08/17/22 08/17/22 08/17/22 19:45 16:15 16:15 ESR 58 H POC Glucose C-Reactive Protein 11.9 H SARS-CoV-2 (PCR) Not detected Influenza A Untype (PCR) Not detected Influenza Type B (PCR) Not detected DS: Diagnosis Discharge Diagnosis (1) Cellulitis of chest wall: Status: Acute (2) Diabetes: Status: Acute (3) Hypothyroidism: Status: Acute (4) COPD (chronic obstructive pulmonary disease): Status: Acute Meds Home Medications and Allergies Home Medications Medication Instructions Recorded Confirmed Type nebulizers 08/11/21 08/17/22 History albuterol sulfate 90 mcg/actuation 2 inh inhalation Q6H PRN shortness 09/16/21 08/17/22 Rx aerosol inhaler of breath or wheezing 90 days #8.5 grams epinephrine 0.3 mg/0.3 mL 0.3 mg (0.3 mL) IM Q5-15M PRN 11/12/21 08/17/22 Rx injection, auto-injector (EpiPen) hypersensitivity reaction #1 ea levothyroxine 150 mcg tablet 300 mcg PO DAILY hypothyroid #180 11/12/21 08/17/22 Rx tabs omeprazole 20 mg capsule,delayed 20 mg PO DAILY acid reflux #90 caps 12/06/21 08/17/22 Rx release cyclobenzaprine 10 mg tablet 10 mg PO BID PRN muscle spasm #30 02/16/22 08/17/22 Rx tabs nicotine 21 mg/24 hr daily 1 patch transdermal Q24H smoking 02/16/22 08/17/22 Rx transdermal patch cessation #28 ea blood sugar diagnostic (FreeStyle 06/15/22 08/18/22 History Lite Strips) blood sugar diagnostic (FreeStyle 06/15/22 08/18/22 History Lite Strips) blood-glucose meter (Accu-Chek 06/15/22 08/17/22 History Guide Glucose Meter) ergocalciferol (vitamin D2) 1,250 1,250 mcg PO WEEKLY Supplement 06/15/22 08/17/22 History mc
--- NOTE | 2022-08-18 19:04 | PC.NURSE ---
pt has been tearful t/o shift. requesting pain meds at frequent intervals. pt did state the tp cream and po pain meds have helped alot . no c/o of nausea since beginning of shift. cb and personal items within reach.
--- NOTE | 2022-08-18 19:42 | PC.NURSE ---
PATIENT CRYING. WANTS IV PAIN MEDS. WANTS BENADRYL. DISCUSSED WITH ROYBN/HOSPITALIST. TO COME SEE PATIENT AND DISCUSS POSSIBILTY OF BENADRYL.
[2022-08-18 20:00] VITALS: BP 152/66; PULSE 99; RESP 22; TEMP 36.6; O2SAT 98
[2022-08-18 20:12] LABS: Hemoglobin A1C 9.9 % (4.0-6.0)
[2022-08-18 20:48] LABS: POC Glucose,Bedside 386 (70-110)
--- NOTE | 2022-08-19 02:55 | PC.NURSE ---
PATIENT IS VERY NEEDY. CRIED FREQUENTLY UP UNTILL 2300. CREAMS APPLIED TO RED RASH. PATIENT C/O INTENSE BURNING AND ITCHING PAIN. RASH IS AT NECK/TRUNK/EXTREMITIES. ALSO RECEIVED NORCO 7.5 AT 2130 AND BENADRYL 25 MG PO AT 0000. PATIENTS LEGS WITH CHRONIC APPEARING NON PITTING EDEMA TI BILAT LOWER LEGS. LICHENIFICATION NOTED LEFT LOWER LEG, SKIN LOOKS LIKE OLD TREE BARK. PATIENT SAYS SHE HAS HAD THIS FOR YEARS. NEW IV #22 PLACED IN LEFT FA X 1 STICK. OLD SITE TO RFA REMOVED DUE TO INFILTRATION.
[2022-08-19 04:00] VITALS: BP 124/71; PULSE 87; RESP 24; TEMP 36.6; O2SAT 97; BMI 46.9
[2022-08-19 05:18] LABS: POC Glucose,Bedside 353 (70-110)
[2022-08-19 06:40] LABS: Basophils % 0.5 % (0.1-2.0); Eosinophils # 0.2 K/mm3 (0.0-0.4); Eosinophils % 3.3 % (0.1-12.0); Hematocrit 37.8 % (37.0-47.0); Hemoglobin 12.3 g/dL (12.2-16.2); Lymphocytes % 14.3 % (10-50); Mean Corpuscular HGB Conc 32.5 g/dL (31.8-35.4); Mean Corpuscular Hemoglobin 30.1 pg (27.0-31.2); Mean Corpuscular Volume 92.6 fl (81-99); Monocytes # 0.2 K/mm3 (0.1-1.0); Monocytes % 2.3 % (1.7-9.3); Neutrophils # 5.7 K/mm3 (1.8-7.8); Neutrophils % 79.5 % (37.0-80.0); Platelet Count 189 K/mm3 (142-424); Red Blood Count 4.08 M/mm3 (4.20-5.40); Red Cell Distribution Width 13.8 % (11.5-17.5); White Blood Count 7.2 K/mm3 (4.8-10.8)
[2022-08-19 06:45] LABS: Chloride 103 mmol/L (98-107); Potassium 4.5 mmoL/L (3.5-5.1); Sodium 138 mmol/L (136-145)
[2022-08-19 06:47] LABS: Alanine Aminotransferase 54 U/L (12-78); Alkaline Phosphatase 115 U/L (38-126); Anion Gap 7.5 mEq/L (5-15); Aspartate Amino Transferase 32 U/L (14-36); Bilirubin,Total 0.2 mg/dl (0.2-1.3); Blood Urea Nitrogen 15 mg/dl (7-17); Carbon Dioxide 32 mmol/L (22.0-30.0); Creatinine Clearance Estimated 139 mL/min (50-200); Estimated Glomerular Filt Rate 129 ml/min (>60); GFR (African American) 156 ML/MIN (>60)
[2022-08-19 06:48] LABS: Albumin Level 3.5 g/dl (3.5-5.0); Albumin/Globulin Ratio 1.2 (1.1-1.8); Calcium 8.5 mg/dl (8.4-10.2); Globulin 2.9 g/dL (1.3-3.2); Glucose 322 mg/dl (74-100); Magnesium 1.5 mg/dl (1.6-2.3); Total Protein,Serum 6.4 g/dl (6.3-8.2)
[2022-08-19 08:00] VITALS: BP 141/73; PULSE 90; RESP 22; TEMP 36.8; O2SAT 96; O2SAT 98
--- NOTE | 2022-08-19 10:37 | EXP.ACUTE.PN ---
Subjective *Date: 08/19/22 *Time: 11:55 Interval history: Patient's rash this morning is worse. States the pain with her rash is improving however rash appears more diffuse, has some spots on her face. No worsening in shortness of breath. Blood pressure remained stable. Glucose elevated this morning. Tolerating p.o. intake with no nausea vomiting or diarrhea. Reports feeling some better however concerned that rash is spreading. Meds resumed yesterday include insulin and gabapentin. Topical cream as well they burn initially are providing her benefit per report. Medical Exam Vital signs and Labs for Last 24 Hours: Vital Signs Temp Pulse Resp BP Pulse Ox 08/19/22 08:00 98.3 F 90 22 141/73 H 96 08/19/22 04:00 98 F 87 24 124/71 97 08/18/22 20:00 98 08/18/22 20:00 98 F 99 H 22 152/66 H 98 08/18/22 15:01 97.9 F 83 18 116/59 L 96 Intake and Output 08/18/22 08/19/22 08/19/22 23:59 07:59 15:59 Intake Total 2089 / 2809 2916 / 3636 720 / 3636 Output Total 0 / 0 0 / 0 0 / 0 Balance 2089 / 2809 2916 / 3636 720 / 3636 Intake: Intake, Oral Amount 480 / 1200 1666 / 2386 720 / 2386 Intake, Total IV Amount 1609 / 1609 1250 / 1250 0.9 % Sodium Chloride 1,000 ml 1609 / 1609 @ 125 mls/hr IV .Q8H [facility] Rx#: [id number] 0.9 % Sodium Chloride 1,000 ml 1250 / 1250 @ 125 mls/hr IV .Q8H [facility] Rx#: [id number] Output: Output, Urine Amount 0 / 0 0 / 0 0 / 0 Other: Number of Voids 3 Number of Unmeasured Voids 1 3 1 Weight 148.778 kg Patient Weight 08/19/22 23:59 Weight 148.778 kg Laboratory Results - last 24 hr 08/18/22 11:23: POC Glucose 203 H 08/18/22 17:10: POC Glucose 340 H* 08/18/22 18:58: Hemoglobin A1c 9.9 H 08/18/22 20:34: POC Glucose 386 H* 08/19/22 05:05: POC Glucose 353 H* 08/19/22 06:30: WBC 7.2, RBC 4.08 L, Hgb 12.3, Hct 37.8, MCV 92.6, MCH 30.1, MCHC 32.5, RDW 13.8, Plt Count 189, MPV 8.0, Neut % (Auto) 79.5, Lymph % (Auto) 14.3, [place] % (Auto) 2.3, Eos % (Auto) 3.3, Baso % (Auto) 0.5, Neut # (Auto) 5.7, Lymph # (Auto) 1.0, [place] # (Auto) 0.2, Eos # (Auto) 0.2, Baso # (Auto) 0.0 08/19/22 06:30: Sodium 138, Potassium 4.5, Chloride 103, Carbon Dioxide 32 H, Anion Gap 7.5, BUN 15 D, Creatinine 0.50 L D, Estimated Creat Clear 139, Estimated GFR 129, Est GFR ( Amer) 156 D, Glucose 322 H, Calcium 8.5, Magnesium 1.5 L, Total Bilirubin 0.2, AST 32 D, ALT 54 D, Alkaline Phosphatase 115, Total Protein 6.4, Albumin 3.5, Globulin 2.9, Albumin/Globulin Ratio 1.2 I & O for Labs for Last 24 Hours: Intake & Output 08/16/22 08/17/22 08/18/22 08/19/22 23:59 23:59 23:59 23:59 Intake Total 2809 / 2809 3636 / 3636 Output Total 0 / 0 0 / 0 Balance 2809 / 2809 3636 / 3636 Weight 146.255 kg 149.25 kg 148.778 kg Constitutional: Present no acute distress, morbidly obese and chronically ill appearing Head: Present atraumatic and normocephalic ENT: Present normal exam Comment:: Erythema on anterior neck that blanches, interval resolution of tenderness to palpation with warmth. Interval worsening from yesterday. Respiratory: Present normal respiratory effort; Absent accessory muscle use, rhonchi, wheezes or crackles Cardiac: Present Reg Rate and Rhythm GI: Present soft and normal bowel sounds; Absent distention or tenderness Extremities: Present normal inspection and full ROM Skin: Present intact and erythema (On neck as described above) Comment:: Chronic hyperkeratotic lesion left lower leg; worsening of erythematous blanching rash on extremities, chest. Present on abdomen and back at this time. Skin moisturized with Aquaphor. Neuro: Present Grossly Intact, alert, awake, oriented x 3 and moves all extremities Assessment and Plan *Assessment and plan (1) Allergic reaction: Status: Acute Category: Medical Code(s): T78.40XA - Allergy, unspecified, initial encounter (2) Cellulitis of chest wall: Status: Acute
--- NOTE | 2022-08-19 11:02 | DIET.NUTRFU ---
RD reviewed BM regimen with provider and nurse, she is not noted to have a BM since admit and today will be day 3. She is on senekot and consuming diabetic diet at 100%. Her BS are elevated in 300's possibly d/t steriod tx, her rash is worse today. Possible drug reaction, topical tx in place. Insulin in place to tx elevated BS.
[2022-08-19 12:04] LABS: POC Glucose,Bedside 363 (70-110)
[2022-08-19 16:00] VITALS: BP 158/78; PULSE 89; RESP 20; TEMP 36.7; O2SAT 97
[2022-08-19 18:09] VITALS: O2SAT 95
[2022-08-19 19:16] LABS: POC Glucose,Bedside 351 (70-110)
--- NOTE | 2022-08-19 19:24 | PC.NURSE ---
pt has complained of itching and burning for most of the day prn benadryl and norco given with good effectiveness. 2lnc prn for o2 support. she has ambulated in room and to restroom with standby assist and toleratedc well.
[2022-08-19 20:00] VITALS: O2SAT 97
[2022-08-19 21:28] LABS: POC Glucose,Bedside 338 (70-110)
[2022-08-20] VITALS: BP 162/86; PULSE 89; RESP 22; TEMP 36.8; O2SAT 96
[2022-08-20 04:00] VITALS: BMI 48.0
--- NOTE | 2022-08-20 04:21 | PC.NURSE ---
pt. needed Phenergan to sleep this am. No other changes noted.
[2022-08-20 06:13] LABS: POC Glucose,Bedside 302 (70-110)
[2022-08-20 08:00] VITALS: BP 137/75; PULSE 91; RESP 24; TEMP 37; O2SAT 95; O2SAT 97
[2022-08-20 08:39] LABS: Basophils % 0.4 % (0.1-2.0); Eosinophils # 0.2 K/mm3 (0.0-0.4); Eosinophils % 1.3 % (0.1-12.0); Hematocrit 41.5 % (37.0-47.0); Hemoglobin 13.2 g/dL (12.2-16.2); Lymphocytes # 1.9 K/mm3 (0.7-4.5); Mean Corpuscular HGB Conc 31.8 g/dL (31.8-35.4); Mean Corpuscular Hemoglobin 29.2 pg (27.0-31.2); Mean Platelet Volume 8.1 fl (7.4-10.4); Monocytes # 0.3 K/mm3 (0.1-1.0); Monocytes % 2.8 % (1.7-9.3); Neutrophils # 8.3 K/mm3 (1.8-7.8); Neutrophils % 77.4 % (37.0-80.0); Platelet Count 262 K/mm3 (142-424); Red Blood Count 4.51 M/mm3 (4.20-5.40); Red Cell Distribution Width 13.8 % (11.5-17.5); White Blood Count 10.8 K/mm3 (4.8-10.8)
[2022-08-20 08:41] LABS: Chloride 101 mmol/L (98-107)
[2022-08-20 08:42] LABS: Potassium 4.1 mmoL/L (3.5-5.1); Sodium 140 mmol/L (136-145)
[2022-08-20 08:44] LABS: Alanine Aminotransferase 50 U/L (12-78); Alkaline Phosphatase 115 U/L (38-126); Anion Gap 12.1 mEq/L (5-15); Aspartate Amino Transferase 30 U/L (14-36); Bilirubin,Total 0.3 mg/dl (0.2-1.3); Blood Urea Nitrogen 18 mg/dl (7-17); Carbon Dioxide 31 mmol/L (22.0-30.0); Creatinine Clearance Estimated 139 mL/min (50-200); Estimated Glomerular Filt Rate 129 ml/min (>60); GFR (African American) 156 ML/MIN (>60)
[2022-08-20 08:45] LABS: Albumin Level 4.2 g/dl (3.5-5.0); Albumin/Globulin Ratio 1.2 (1.1-1.8); Calcium 9.3 mg/dl (8.4-10.2); Globulin 3.5 g/dL (1.3-3.2); Glucose 255 mg/dl (74-100); Magnesium 1.6 mg/dl (1.6-2.3); Total Protein,Serum 7.7 g/dl (6.3-8.2)
[2022-08-20 09:17] VITALS: O2SAT 97
--- NOTE | 2022-08-20 10:30 | EXP.PN ---
Subjective *Date: 08/20/22 *Time: 10:30 Interval history: Date of service August 20, 2022 The patient reports no acute events overnight. She feels like her chest wall erythema is improving. She denies fever, chills or confusion. Nursing staff report that she remains afebrile with stable vital signs. She is saturating appropriately on her usual home oxygen of 2 L via nasal cannula. Her morning CBC identifies a normal white blood cell count and stable hemoglobin and hematocrit. Exam Data for Last 24 hours Vital signs and Labs for Last 24 Hours: Temp Pulse Resp BP Pulse Ox 98.6 F 91 H 24 137/75 97 08/20/22 08:00 08/20/22 08:00 08/20/22 08:00 08/20/22 08:00 08/20/22 09:17 Laboratory Results - last 24 hr 08/19/22 11:54: POC Glucose 363 H* 08/19/22 16:56: POC Glucose 351 H* 08/19/22 21:22: POC Glucose 338 H* 08/20/22 06:07: POC Glucose 302 H* 08/20/22 08:01: WBC 10.8 D, RBC 4.51, Hgb 13.2, Hct 41.5, MCV 92.0, MCH 29.2, MCHC 31.8, RDW 13.8, Plt Count 262 D, MPV 8.1, Neut % (Auto) 77.4, Lymph % (Auto) 18.0, [place] % (Auto) 2.8, Eos % (Auto) 1.3, Baso % (Auto) 0.4, Neut # (Auto) 8.3 H, Lymph # (Auto) 1.9, [place] # (Auto) 0.3, Eos # (Auto) 0.2, Baso # (Auto) 0.0 08/20/22 08:01: Sodium 140, Potassium 4.1, Chloride 101, Carbon Dioxide 31 H, Anion Gap 12.1, BUN 18 H, Creatinine 0.50 L, Estimated Creat Clear 139, Estimated GFR 129, Est GFR ( Amer) 156, Glucose 255 H, Calcium 9.3, Magnesium 1.6, Total Bilirubin 0.3, AST 30, ALT 50, Alkaline Phosphatase 115, Total Protein 7.7, Albumin 4.2 D, Globulin 3.5 H, Albumin/Globulin Ratio 1.2 I & O for Last 24 hours: Intake & Output 08/17/22 08/18/22 08/19/22 08/20/22 23:59 23:59 23:59 23:59 Intake Total 2809 / 2809 5901 / 5901 1605 / 1605 Output Total 0 / 0 1000 / 1000 1000 / 1000 Balance 2809 / 2809 4901 / 4901 605 / 605 Weight 146.255 kg 149.25 kg 148.778 kg 152.271 kg Microbiology Reports for the Last 24 Hours: Microbiology 08/17/22 20:10 Blood Blood Culture - Preliminary Gram Positive Cocci 08/17/22 20:20 Blood Blood Culture - Preliminary NO GROWTH AFTER 48 HOURS Constitutional Constitutional: no acute distress *Routine HEENT Exam Head: Present normocephalic Eye: Present EOMI and PERRL ENT: Present mucous membranes moist *Routine Neck Exam Neck: Present supple; Absent lymphadenopathy Routine Chest/Breast/Axilla Exam Comments: Anterior chest wall with erythema that is regressing from inked outline. No associated vesicular eruptions, pustules or tenderness with palpation. The erythema involves the inferior portion of her neck down to her manubrium jugular notch. There is no associated axillary adenopathy. *Routine Respiratory Exam Respiratory: Present CTA bilaterally *Routine Cardiovascular Exam Cardiovascular: Present RRR *Routine Abdominal Exam Abdominal: Present soft and normoactive bowel sounds; Absent tenderness *Routine Extremities Exam Extremities: Present edema Comments: Left lower extremity eczemification circumferentially from mid tibia to heel. 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
[2022-08-20 11:08] LABS: Erythrocyte Sedimentation Rate 23 mm/hr (0-30)
[2022-08-20 11:52] LABS: POC Glucose,Bedside 296 (70-110)
[2022-08-20 16:00] VITALS: BP 135/91; PULSE 96; RESP 24; TEMP 37.1; O2SAT 93
[2022-08-20 17:24] LABS: POC Glucose,Bedside 407 (70-110)
[2022-08-20 20:00] VITALS: O2SAT 93
[2022-08-20 20:09] LABS: POC Glucose,Bedside 331 (70-110)
[2022-08-21] VITALS: BP 122/54; PULSE 86; RESP 22; TEMP 36.7; O2SAT 96
--- NOTE | 2022-08-21 03:51 | PC.NURSE ---
PATIENT HAD 2 VISITOR WHO LEFT AROUND 2200. THEY BROUGHT PATIENT IN DR AMBROSE AND SNACKS ALONG WITH CRAFTS. RED RASH CONTINUES TO IMPROVE. PATIENT THINKS THE INSULIN IS CAUSING HER REACTION. TAC CREAM APPLIED TO NECK/CHEST AND BACK. REQUIRES NORCO 7.5 MG PO ALMOST EVERY 4 HOURS AND BENADRYL 25MG PO Q 6 HRS. FSBS RUN ELEVATED. LAST FSBS WAS 2100 AND WAS 331 REQUIRING 8 UNTIS HUMALOG ALONG WITH 45 UNITS LANTUS. SLEEPS AT SHORT INTERVALS. USES WALKER TO AMBULATE. HAS BSC .
[2022-08-21 04:00] VITALS: BMI 47.2
[2022-08-21 05:27] LABS: POC Glucose,Bedside 356 (70-110)
[2022-08-21 07:20] VITALS: O2SAT 96
[2022-08-21 08:00] VITALS: BP 137/83; PULSE 92; RESP 20; TEMP 37; O2SAT 96
[2022-08-21 08:11] LABS: Basophils # 0.1 K/mm3 (0-0.2); Basophils % 0.6 % (0.1-2.0); Eosinophils # 0.1 K/mm3 (0.0-0.4); Eosinophils % 0.9 % (0.1-12.0); Hematocrit 38.1 % (37.0-47.0); Hemoglobin 12.4 g/dL (12.2-16.2); Lymphocytes # 2.1 K/mm3 (0.7-4.5); Lymphocytes % 22.8 % (10-50); Mean Corpuscular HGB Conc 32.6 g/dL (31.8-35.4); Mean Corpuscular Hemoglobin 29.3 pg (27.0-31.2); Monocytes # 0.4 K/mm3 (0.1-1.0); Monocytes % 4.5 % (1.7-9.3); Neutrophils # 6.6 K/mm3 (1.8-7.8); Neutrophils % 71.2 % (37.0-80.0); Platelet Count 226 K/mm3 (142-424); Red Blood Count 4.24 M/mm3 (4.20-5.40); Red Cell Distribution Width 13.7 % (11.5-17.5); White Blood Count 9.2 K/mm3 (4.8-10.8)
[2022-08-21 08:27] LABS: Chloride 96 mmol/L (98-107); Potassium 3.8 mmoL/L (3.5-5.1); Sodium 136 mmol/L (136-145)
[2022-08-21 08:30] LABS: Anion Gap 9.8 mEq/L (5-15); Blood Urea Nitrogen 28 mg/dl (7-17); Carbon Dioxide 34 mmol/L (22.0-30.0); Creatinine Clearance Estimated 99 mL/min (50-200); Estimated Glomerular Filt Rate 87 ml/min (>60); GFR (African American) 106 ML/MIN (>60)
[2022-08-21 08:31] LABS: Calcium 9.1 mg/dl (8.4-10.2); Glucose 306 mg/dl (74-100)
[2022-08-21 08:34] LABS: C-Reactive Protein 3.4 mg/L (0-4)
[2022-08-21 08:47] LABS: Procalcitonin 0.079 ng/mL (0.0-2.0)
--- NOTE | 2022-08-21 09:52 | EXP.DC.SUM ---
General Admission date:: 08/17/22 Discharge date: 08/21/22 HPI HPI HPI: Ms. Dias is a 52-year-old female who presents with a rash on the anterior chest wall that extends up the neck that she reports has been present and worsening since 07/13/2022. She denies being around anyone else with a similar rash, she denies fevers or chest pain with the rash or chills or generalized body aches. She reports that the rash mccormack and itches. 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 She reports that she has went to see her PCP and to a [facility]. She reports that she was treated with antibiotics, steroids creams, nystantin for the rash outpatient with worsening of the rash. She does report that just prior to the rash that she was started on new medications of insulin and gabapentin that she has continued to take. In the ER, the patient underwent lab evaluation with no identified inflammatory response. CT of the chest performed showed anterior chest wall subcutaneous soft tissue edema. In the ER, the patient received iv analgesics, iv fluids. The patient will be admitted with initial impression: Chest wall cellulitis. Hospital Course Hospital Course Hospital Course: The patient was admitted to the medical floor with blood cultures and IV antibiotic therapy. One of her pediatric bottle blood cultures identifies staph epidermidis consistent with a contaminant. The other bottle continues to identify no growth to date. She was maintained on IV steroid therapy. Her IV antibiotic therapy was transitioned to p.o. doxycycline with regression of her outlined erythema on her physical exam. Her labs and inflammatory markers were trended and identified normal results. Her CBC on discharge identified a normal white blood cell count with a normal sedimentation rate. Her electrolytes and creatinine remained normal and her discharge C-reactive protein was negative. Her procalcitonin was normal. Her basal insulin was adjusted with identified uncontrolled blood sugars. She will hold her gabapentin therapy recently prescribed with concerns of an allergic reaction. She will discuss further therapy with her prescribing provider. She identified improvement and inquired about discharge home. She will be discharged home to follow-up with her PCP in 1 week. She will continue doxycycline and a short course of oral prednisone. I spent 35 minutes in [id number] time with the patient and nursing staff concerning the discharge process. We discussed the admitting diagnoses and hospital course. We discussed identified improvement and the patient's desire to be discharged. We reviewed inpatient studies and imaging. The patient voiced understanding on the importance of follow-up with her primary care provider and specialist(s). The patient plans to be compliant with the medication regimen prescribed and follow-up appointments. She understands that she can return to the emergency department with any sudden changes or concerns. Exam Data for Last 24 hours Vital signs and Labs for Last 24 Hours: Temp Pulse Resp BP Pulse Ox FiO2 98.6 F 92 H 20 137/83 96 28 08/21/22 08:00 08/21/22 08:00 08/21/22 08:00 08/21/22 08:00 08/21/22 08:00 08/20/22 20:04 Laboratory Results - last 24 hr 08/20/22 08:01: ESR 23 08/20/22 11:41: POC Glucose 296 H 08/20/22 17:14: POC Glucose 407 H* 08/20/22 20:02: POC Glucose 331 H* 08/21/22 05:20: POC Glucose 356 H* 08/21/22 07:45: WBC 9.2, RBC 4.24, Hgb 12.4, Hct 38.1, MCV 90.0, MCH 29.3, MCHC 32.6, RDW 13.7, Plt Count 226, MPV 8.0, Neut % (Auto) 71.2, Lymph % (Auto) 22.8, [place] % (Auto) 4.5, Eos % (Auto) 0.9, Baso % (Auto) 0.6, Neut # (Auto) 6.6, Lymph # (Auto) 2.1, [place] # (Auto) 0.4, Eos # (Auto) 0.1, Baso # (Auto) 0.1 08/21/22 07:45: Sodium 136, Potassium 3.8, Chloride 96 L, Carbon Dioxide 34 H, Anion Gap 9.8, BUN 28 H D, Creatinine 0.70 D, E
--- NOTE | 2022-08-21 10:27 | HMH.PHAINT1 ---
Pharmacy Intervention Comments: DISCHARGE MEDICATION COUNSELING PROVIDED. DISCUSSED STOPPING THE GABAPENTIN. PATIENT EXPRESSED SOME CONCERNS REGARDING THIS, I ADVISED FOR HER TO DISCUSS THIS CHANGE WITH HER PRIMARY CARE AT FOLLOW-UP. DISCUSSED STARTING THE FOLLOWING: -DOXYCYCLINE (TWICE DAILY, WITH FOOD, N/V/D, RASH POSSIBLE) -PREDNISONE (DAILY, TAKE WITH FOOD IN THE MORNING, CAN ELEVATED BLOOD SUGAR, MAY CAUSE N/V/D, INSOMNIA POSSIBLE) PATIENT ASKED IF I THOUGHT THE DOCTOR WOULD WRITE HER A PRESCRIPTION FOR PAIN MEDICINE SHE DIDN'T THINK SHE HAD ENOUGH AT HOME TO GET HER THROUGH TO HER NEXT APPOINTMENT ON MONDAY. I ADVISED HER SHE SHOULD HAVE SOME EXTRA AT HOME DUE TO HOSPITAL STAY AND NOT TAKING HER HOME STOCK. PATIENT AGREES THAT SHE SHOULD HAVE EXTRA AT HOME. PATIENT VERBALIZED NO ADDITIONAL QUESTIONS AT THIS TIME.
[2022-08-21 12:35] LABS: POC Glucose,Bedside 342 (70-110)
== END 2022-08-21 13:00 | disposition home or self-care (01) ==
LOC: ER 16:44 → 2ND 19:47
PROVIDERS: Family Medicine; Nurse Practitioner Family; Admitting Provider Internal Medicine Adolescent Medicine; Emergency Provider Emergency Medicine; PCP Family Medicine; Visit Provider Internal Medicine Adolescent Medicine
DX: L27.0 Generalized skin eruption due to drugs and medicaments taken internally (principal); T42.6X5A Adverse effect of other antiepileptic and sedative-hypnotic drugs, initial encounter; L03.313 Cellulitis of chest wall; E03.9 Hypothyroidism, unspecified; J44.9 Chronic obstructive pulmonary disease, unspecified; Z79.4 Long term (current) use of insulin; E66.01 Morbid (severe) obesity due to excess calories; Z68.42 Body mass index [BMI] 45.0-49.9, adult; E11.65 Type 2 diabetes mellitus with hyperglycemia
CPT/HCPCS: 36415; 71260; 80048; 80053; 82962; 83036; 83735; 84145; 85025; 85651; 86140; 87040; 87077; 87081; 87186; 94640; 99285; C9803; G0378; J2185; J3475; Q9967; U0003; U0005

== ENCOUNTER 2022-09-13 20:49 | Emergency (ER) | payer MEDICAID, SELFPAY ==
[2022-09-13 20:51] VITALS: BP 149/78; PULSE 94; RESP 18; TEMP 36.8; O2SAT 97; BMI 48.7
--- NOTE | 2022-09-13 20:58 | ECG_ITS ---
APPROVED REPORT Exam: Resting ECG HR:94 bpm ECG Measurements Heart Rate 94 AXES OR 172 P 73 QRSd 104 QRS 51 QT 367 T 55 QTc 418 Conclusion SINUS RHYTHM Normal ECG UNCONFIRMED REPORT Electronically signed by : Chacho Jarrell MD 09/14/2022 20:21:20
[2022-09-13 21:08] LABS: POC Glucose,Bedside 323 (70-110)
--- NOTE | 2022-09-13 21:17 | XR_ITS ---
PROCEDURE INFORMATION: Exam: XR Chest Exam date and time: 09/13/2022 9:34 PM Age: 52 years old Clinical indication: Pain; On breathing; Additional info: Pain behind R breast TECHNIQUE: Imaging protocol: Radiologic exam of the chest. Views: 1 view. COMPARISON: CT CHEST W CON 08/17/2022 6:37 PM FINDINGS: Lungs: Unremarkable. No consolidation. Pleural spaces: Unremarkable. No pleural effusion. No pneumothorax. Heart/Mediastinum: Unremarkable. No cardiomegaly. Bones/joints: Unremarkable. IMPRESSION: No acute findings.
--- NOTE | 2022-09-13 21:22 | PC.NURSE ---
RAD at for CXR
[2022-09-13 21:27] LABS: Basophils # 0.1 K/mm3 (0-0.2); Basophils % 1.6 % (0.1-2.0); Eosinophils # 0.4 K/mm3 (0.0-0.4); Eosinophils % 5.5 % (0.1-12.0); Hematocrit 40.9 % (37.0-47.0); Hemoglobin 13.4 g/dL (12.2-16.2); Lymphocytes # 2.3 K/mm3 (0.7-4.5); Lymphocytes % 30.5 % (10-50); Mean Corpuscular HGB Conc 32.8 g/dL (31.8-35.4); Mean Corpuscular Hemoglobin 30.6 pg (27.0-31.2); Mean Corpuscular Volume 93.2 fl (81-99); Mean Platelet Volume 7.8 fl (7.4-10.4); Monocytes # 0.3 K/mm3 (0.1-1.0); Monocytes % 4.1 % (1.7-9.3); Neutrophils # 4.3 K/mm3 (1.8-7.8); Neutrophils % 58.3 % (37.0-80.0); Platelet Count 276 K/mm3 (142-424); Red Blood Count 4.39 M/mm3 (4.20-5.40); Red Cell Distribution Width 14.4 % (11.5-17.5); White Blood Count 7.4 K/mm3 (4.8-10.8)
[2022-09-13 21:30] VITALS: BP 148/95; PULSE 92; RESP 18; O2SAT 95
[2022-09-13 21:37] LABS: Chloride 93 mmol/L (98-107); Potassium 4.4 mmoL/L (3.5-5.1); Sodium 135 mmol/L (136-145)
[2022-09-13 21:39] LABS: Alanine Aminotransferase 51 U/L (12-78); Aspartate Amino Transferase 35 U/L (14-36); Blood Urea Nitrogen 18 mg/dl (7-17); Creatinine Clearance Estimated 116 mL/min (50-200); Estimated Glomerular Filt Rate 104 ml/min (>60); GFR (African American) 126 ML/MIN (>60)
[2022-09-13 21:40] LABS: Albumin Level 4.1 g/dl (3.5-5.0); Albumin/Globulin Ratio 1.2 (1.1-1.8); Alkaline Phosphatase 143 U/L (38-126); Anion Gap 10.4 mEq/L (5-15); Bilirubin,Total 0.4 mg/dl (0.2-1.3); Carbon Dioxide 36 mmol/L (22.0-30.0); Globulin 3.5 g/dL (1.3-3.2); Glucose 318 mg/dl (74-100); Total Protein,Serum 7.6 g/dl (6.3-8.2)
[2022-09-13 21:55] LABS: Troponin I < 0.01 ng/ml (0.00-0.034)
[2022-09-13 22:14] VITALS: BP 144/93; PULSE 95; O2SAT 96
--- NOTE | 2022-09-13 22:27 | PC.NURSE ---
Rounded on pt. Pt complains of some pain, she advised, I take my pain medicine at 9 and I did not bring it with me. RN notified.
[2022-09-13 22:30] VITALS: BP 164/96; PULSE 92; O2SAT 96
--- NOTE | 2022-09-13 22:52 | HMH.EDGENADL ---
Discharge Plan Disposition Patient Disposition: Home, Self-Care Prescriptions Prescriptions: New azithromycin [azithromycin] 250 mg tablet 250 mg PO DIRECTED Qty: 6 0RF Rx Instructions: Take two (2) tablets on day #1, then one (1) tablet day #2 thru #5 No Action omeprazole 20 mg capsule,delayed release(DR/EC) 20 mg PO DAILY Qty: 90 3RF diltiazem HCl 240 mg capsule,extended release 24hr 480 mg PO DAILY albuterol sulfate 90 mcg/actuation HFA aerosol inhaler 2 inh INHALATION Q6H PRN (Reason: shortness of breath or wheezing) 90 Days Qty: 8.5 3RF hydrocodone-acetaminophen 7.5-325 mg tablet 1 tab PO Q8H PRN (Reason: pain) Qty: 90 0RF insulin glargine [Lantus Solostar U-100 Insulin] 100 unit/mL (3 mL) insulin pen 30 unit SQ HS Qty: 15 10RF epinephrine [EpiPen] 0.3 mg/0.3 mL auto-injector 0.3 mg IM Q5-15M PRN (Reason: hypersensitivity reaction) Qty: 1 0RF Rx Instructions: do not exceed 3 doses per episode levothyroxine 150 mcg tablet 300 mcg PO DAILY Qty: 180 3RF nicotine 21 mg/24 hr patch 24 hour 1 patch TRANSDERMA Q24H Qty: 28 0RF cyclobenzaprine 10 mg tablet 10 mg PO BID PRN (Reason: muscle spasm) Qty: 30 0RF ergocalciferol (vitamin D2) 1,250 mcg (50,000 unit) capsule 1,250 mcg PO WEEKLY Qty: 12 0RF Rx Instructions: TAKE 1 CAPSULE BY MOUTH ONCE WEEKLY spironolactone [Aldactone] 25 mg tablet 25 mg PO DAILY Qty: 90 3RF Hold Instructions: until you complete antibiotic course fluconazole [Diflucan] 150 mg tablet 150 mg PO Q3D 3 Days Qty: 3 0RF nystatin 100,000 unit/gram cream 1 applic topical TID Qty: 30 5RF (DME) nebulizers 1 EACH misc See Rx Instructions .Route .MEDSUPPLY Rx Instructions: As directed furosemide 40 mg tablet 40 mg PO DAILYP PRN (Reason: diuretic) (DME) blood-glucose meter [Accu-Chek Guide Glucose Meter] Misc See Rx Instructions MISCELLANEOUS Rx Instructions: As directed (DME) FreeStyle Lite Strips Strip See Rx Instructions MISCELLANEOUS Rx Instructions: USE TO TEST BLOOD GLUCOSE THREE TIMES DAILY (DME) FreeStyle Lite Strips Strip See Rx Instructions MISCELLANEOUS Rx Instructions: Test three times daily or As directed Spiriva with HandiHaler 18 mcg capsule, w/inhalation device 1 cap INHALATION DAILY Rx Instructions: puncture 1 cap using device; one dose = 2 inhalations (DME) lancets [FreeStyle Lancets] 28 gauge misc See Rx Instructions MISCELLANEOUS Rx Instructions: USE TO TEST BLOOD GLUCOSE THREE TIMES DAILY fluticasone propion-salmeterol [Advair Diskus] 100-50 mcg/dose blister with device 1 ea INHALATION BID Label Comments: INHALE 1 PUFF INTO THE LUNGS 2 TIMES DAILY sennosides-docusate sodium [Stool Softener-Stimulant Laxat] 8.6-50 mg tablet 1 tab PO DAILY PRN (Reason: Constipation) (DME) pen needle, diabetic [Pen Needle] 31 gauge x 5/16 needle See Rx Instructions .Route Rx Instructions: As directed doxycycline hyclate 100 mg capsule 100 mg PO BID Qty: 20 0RF prednisone 20 mg tablet 40 mg PO DAILY Qty: 10 0RF Referrals Follow up/Referrals: Delon Burrell MD [Primary Care Provider] - See instructions Clinical Impressions Clinical Impression: Acute pleurisy without pleural effusion, Diabetes, COPD (chronic obstructive pulmonary disease) Instructions Patient Instructions: DI for Pleurisy Discharge ED Provider: [place] (ED)[facility] General Adult HPI General Chief complaint: PAIN Stated complaint: Sugar is high and pain behine R breast Time Seen by Provider: 09/13/22 22:52 Mode of Arrival: Wheelchair Source of Information: Patient, Relative and Medical Record Limitations: No Limitations Description of Symptoms (Recalled from ER Triage Doc. by RN): Pt reports pain behind her R breast, reports pain started yesterday, pt reports pain is intermittent i
[2022-09-13 23:00] VITALS: BP 164/96; PULSE 89; O2SAT 95
--- NOTE | 2022-09-13 23:04 | PC.NURSE ---
Pt to CT via wheelchair
--- NOTE | 2022-09-13 23:16 | PC.NURSE ---
pt returned from CT, going to infuse tylenol and then attempt to obtain CT again
--- NOTE | 2022-09-13 23:16 | PC.NURSE ---
pt back in room
--- NOTE | 2022-09-13 23:17 | PC.NURSE ---
Pt back from CT. Pt unable to lay down for CT scan at this time.
--- NOTE | 2022-09-13 23:18 | HMH.ITSTN ---
patient unable to lay flat for CT scan. Spoke to RN who advised to bring patient back to room.
--- NOTE | 2022-09-13 23:56 | PC.NURSE ---
assisted pt to restroom via wheelchair, pt tolerated well.
[2022-09-14 00:18] LABS: POC Glucose,Bedside 263 (70-110)
--- NOTE | 2022-09-14 00:32 | PC.NURSE ---
Pt back from RAD. Pt unable to lay down for CT scan
--- NOTE | 2022-09-14 00:34 | HMH.ITSTN ---
Attempted CT scan again, patient unable to lay flat entire time for scan. RN/MD aware; Patient taken back to ER room.
[2022-09-14 00:36] LABS: Troponin I < 0.01 ng/ml (0.00-0.034)
--- NOTE | 2022-09-14 00:40 | PC.NURSE ---
pt sitting in wheelchair in room, pt was unable to complete ct scan r/t getting claustraphobic. Pt is tearful r/t not being able to complete ct scan. ER notified pt unable to complete ct scan, no further orders obtained.
[2022-09-14 01:36] VITALS: BP 145/81; PULSE 93; O2SAT 90
[2022-09-14 02:02] VITALS: BP 141/88; PULSE 93; RESP 22; TEMP 36.9
== END 2022-09-14 02:06 | disposition home or self-care (01) ==
PROVIDERS: Emergency Provider Emergency Medicine; PCP Emergency Medicine
DX: R09.1 Pleurisy (principal); E11.9 Type 2 diabetes mellitus without complications; J44.9 Chronic obstructive pulmonary disease, unspecified; G56.03 Carpal tunnel syndrome, bilateral upper limbs; K21.9 Gastro-esophageal reflux disease without esophagitis; E78.5 Hyperlipidemia, unspecified; E03.9 Hypothyroidism, unspecified; Z90.710 Acquired absence of both cervix and uterus; Z80.9 Family history of malignant neoplasm, unspecified; Z83.79 Family history of other diseases of the digestive system; Z82.49 Family history of ischemic heart disease and other diseases of the circulatory system; Z83.42 Family history of familial hypercholesterolemia; Z87.891 Personal history of nicotine dependence
CPT/HCPCS: 71045; 80053; 82962; 84484; 85025; 93005; 93041; 96374; 96375; 99285; J0131

== ENCOUNTER 2022-11-12 17:35 | Emergency (ER) | payer MEDICAID, SELFPAY ==
[2022-11-12 17:35] VITALS: BP 142/85; PULSE 112; RESP 16; TEMP 37.1; O2SAT 96; BMI 48.7
[2022-11-12 18:00] VITALS: BP 142/85; PULSE 115; O2SAT 95
[2022-11-12 18:01] VITALS: BP 158/74; PULSE 112; O2SAT 95
--- NOTE | 2022-11-12 18:07 | XR_ITS ---
PROCEDURE INFORMATION: Exam: XR Left Tibia and Fibula Exam date and time: 11/12/2022 6:38 PM Age: 52 years old Clinical indication: Injury or trauma; Fall; Blunt trauma; Lower leg; Left TECHNIQUE: Imaging protocol: Radiologic exam of the left tibia and fibula. Views: 2 views. COMPARISON: CT ANGIO ABDOMEN/FEMORAL 10/26/2020 3:22 PM FINDINGS: Bones/joints: Tricompartmental degenerative changes in the knee, most severe in the medial compartment. Soft tissues: Normal. 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
--- NOTE | 2022-11-12 18:28 | HMH.EDGENADL ---
Discharge Plan Disposition Patient Disposition: Home, Self-Care Condition: Good Prescriptions Prescriptions: New cephalexin 500 mg capsule 500 mg PO BID 5 Days Qty: 10 0RF No Action omeprazole 20 mg capsule,delayed release(DR/EC) 20 mg PO DAILY Qty: 90 3RF diltiazem HCl 240 mg capsule,extended release 24hr 480 mg PO DAILY gabapentin 100 mg capsule 100 mg PO TID Qty: 90 3RF insulin glargine [Lantus Solostar U-100 Insulin] 100 unit/mL (3 mL) insulin pen 70 unit SQ HS Qty: 15 10RF Trulicity 1.5 mg/0.5 mL pen injector 1.5 mg SQ WEEKLY Qty: 2 10RF metformin 500 mg tablet 500 mg PO BID Qty: 180 3RF hydrocodone-acetaminophen 7.5-325 mg tablet 1 tab PO Q8H PRN (Reason: pain) Qty: 90 0RF insulin lispro [Humalog KwikPen Insulin] 100 unit/mL insulin pen 5 unit SQ TID Qty: 15 3RF Rx Instructions: take 3x a day before eating epinephrine [EpiPen] 0.3 mg/0.3 mL auto-injector 0.3 mg IM Q5-15M PRN (Reason: hypersensitivity reaction) Qty: 1 0RF Rx Instructions: do not exceed 3 doses per episode nicotine 21 mg/24 hr patch 24 hour 1 patch TRANSDERMA Q24H Qty: 28 0RF cyclobenzaprine 10 mg tablet 10 mg PO BID PRN (Reason: muscle spasm) Qty: 30 0RF spironolactone [Aldactone] 25 mg tablet 25 mg PO DAILY Qty: 90 3RF Hold Instructions: until you complete antibiotic course fluconazole [Diflucan] 150 mg tablet 150 mg PO Q3D 3 Days Qty: 3 0RF fluticasone propionate 50 mcg/actuation spray,suspension See Rx Instructions .ROUTE .COMPLEX Qty: 16 2RF Dose Instruction: Use 1 Arrey in each nostril once daily. Rx Instructions: Use 1 Arrey in each nostril once daily. ergocalciferol (vitamin D2) 1,250 mcg (50,000 unit) capsule See Rx Instructions .ROUTE .COMPLEX Qty: 12 0RF Dose Instruction: TAKE 1 CAPSULE BY MOUTH ONCE WEEKLY FOR SUPPLEMENT Rx Instructions: TAKE 1 CAPSULE BY MOUTH ONCE WEEKLY FOR SUPPLEMENT (DME) blood-glucose meter [Accu-Chek Guide Glucose Meter] Misc See Rx Instructions MISCELLANEOUS Qty: 1 0RF Rx Instructions: Test three times daily or As directed (DME) Accu-Chek Guide test strips Strip See Rx Instructions .Route Qty: 100 2RF Rx Instructions: Test three time joaquim or As directed (DME) lancets [Accu-Chek Softclix Lancets] Misc See Rx Instructions .Route Qty: 100 2RF Rx Instructions: Test three times daily or As directed albuterol sulfate 90 mcg/actuation HFA aerosol inhaler 2 inh INHALATION Q6H PRN (Reason: shortness of breath or wheezing) Qty: 8.5 10RF nystatin 100,000 unit/gram cream 1 applic topical TID Qty: 30 5RF levothyroxine 150 mcg tablet 300 mcg PO DAILY Qty: 180 3RF Aquaphor Ointment 1 applic topical TID PRN (Reason: dry skin) Qty: 50 0RF (DME) pen needle, diabetic [Pen Needle] 31 gauge x 5/16 needle See Rx Instructions .Route Qty: 100 3RF Rx Instructions: As directed (DME) nebulizers 1 EACH misc See Rx Instructions .Route .MEDSUPPLY Rx Instructions: As directed furosemide 40 mg tablet 40 mg PO DAILYP PRN (Reason: diuretic) Spiriva with HandiHaler 18 mcg capsule, w/inhalation device 1 cap INHALATION DAILY Rx Instructions: puncture 1 cap using device; one dose = 2 inhalations sennosides-docusate sodium [Stool Softener-Stimulant Laxat] 8.6-50 mg tablet 1 tab PO DAILY PRN (Reason: Constipation) doxycycline hyclate 100 mg capsule 100 mg PO BID Qty: 20 0RF Referrals Follow up/Referrals: Darvin Warner MD [Primary Care Provider] - See instructions Activity Restrictions/Add. Instructions Additional Instructions/Restrictions: At this time was felt you are safe to be discharged from the emergency department. If new or worsening symptoms please do not hesitate to return for continued evaluation. Please take antibiotics as prescribed. Please follow-up with wound care as soon
--- NOTE | 2022-11-12 18:58 | PC.NURSE ---
Dr. Lopez at [facility]
[2022-11-12 19:55] VITALS: BP 147/78; PULSE 100; RESP 16; TEMP 37.1; O2SAT 96
== END 2022-11-12 19:56 | disposition home or self-care (01) ==
PROVIDERS: Emergency Provider Emergency Medicine; PCP Family Medicine
DX: S81.802A Unspecified open wound, left lower leg, initial encounter (principal); Z87.891 Personal history of nicotine dependence; W22.8XXA Striking against or struck by other objects, initial encounter; Z23 Encounter for immunization
CPT/HCPCS: 73590; 90471; 90715; 96372; 99283; 99284

== ENCOUNTER → 2022-11-14 20:12 | Outpatient (CLI) | payer MEDICAID, SELFPAY | PROVIDERS: PCP Family Medicine; Visit Provider Family Medicine | DX: S81.811A Laceration without foreign body, right lower leg, initial encounter (principal) | CPT/HCPCS: 87070; 87077; 87205 ==

== ENCOUNTER 2022-12-30 15:30 | Outpatient (RCR) | payer MEDICAID, SELFPAY ==
--- NOTE | 2022-11-21 11:40 | HMH.PTOPWND ---
Rehab Outpt Wound Evaluation Rehab OP Wound Evaluation Start: 11/21/22 11:10 Freq: Status: Active Protocol: Document 11/21/22 11:27 ZOE (Rec: 11/21/22 11:36 PHORBOB [id number]) E-signed By Floyd Mccray, PT Subjective/History History History Thi is the initial PT eval for Saige Dias 52 yowf who presents with c/o L lower leg wound x ~ 1 wk. She states, My oxygen tank fell over and hit my leg and cut me open. She has hx of chronic L LE lymphedema with severe Hyperkeratosis for ~ 10 yrs and prior severe L lower leg wound infection. She reports pain around the wound area and she is very anxious about having an infection again. She reports hx of DM-II, COPD ( oxygen dependent), ANTIONE, and hypothyroidism Subjective Subjective Currently pain is 5/ 10, TTP in warren-wound skin is 3/4. Severe Hyperkeratosis remains throughtout L lower leg from mid-calf distally. No pititng edema noted at this time. Wound Eval Wound Left Anterior Maya Wound Type Laceration Is This a Chronic Wound No Wound Length (cm) 3.7 Wound Width (cm) 1.3 Wound Depth (cm) 0.2 Wound Bed Appearance Beefy Red Percentage Granulated (%) 100 Wound Margins Description Well Defined Surrounding Tissue Appearance Edematous Edema Type Non-Pitting Drainage Description Sanguineous Drainage Amount Small Drainage Odor No Odor Wound Topical Solution/Irrigant Saline Irrigant Primary Dressing Composite Comment therahoney, optifoam gentle SA Wound Secondary Dressing Type Unna Boot Comment 2 layer zinc compression wrap. Wound Debridement Method Gauze,Mechanical Wound Debridement Amount of Tissue Minimal Removed Dressing Change Patient Tolerance Tolerated Well Wound Problems/Impairments Impairments Problems/Impairmments Palpation Tenderness,Impaired Transfers,Impaired Walking, Impaired Standing,Impaired Dressing,Impaired Shower/
--- NOTE | 2022-12-21 16:52 | HMH.RHREAS ---
Rehab Reassessment Rehab OP Re-assessment Start: 12/21/22 16:44 Freq: Status: Active Protocol: Document 12/21/22 16:44 ZOE (Rec: 12/21/22 16:52 PHOTG [id number]) E-signed By Floyd Mccray, PT Rehab Re-assessment Subjective Subjective Pt presents this pm with c/o 8 /10 pain throughout the L Lower Leg. Its just burning and numb and itching and so heavy I can't even lift it. Objective Objective Notes L Anterior Maya wound: L= 2.5 cm, W= 0.7 cm, D= 0.1 cm. Healthy granulation throughout with beginning epithelialization noted at wound borders. Scant serosanguineous drainage noted . L Lower Leg continues to have severe amts of hyperkeratosis throughout. Assessment Progress Assessment Progressing as Expected Assessment Notes Pt has shown significant reduction in L lower leg wound since initial evaluation with 68% reduction in total wound surface area. She also has shown some reduction in the overall amt and consistency of the hyperkeratosis on her L lower leg. She continues to have severe pain in the L LE and decreased functional transfer ability due to L LE edema and wounds. She continues to need skilled intervention to return to prior level of function. Patient goals met ST,[address] LT,2,3,4,5,6 Revised Goals none Plan Plan Continue per initial POC. Frequency of Therapy 2 x/wk Duration of therapy 4 wks Time and Billing Re-Eval Time 16 Re-Eval Billing Units 1 PHYSICIAN CERTIFICATION: I certify the specified therapy services for Saige Dias are required, authorized, and reviewed every 30 days.
== END 2022-12-30 15:35 | disposition home or self-care (01) ==
LOC: PT 15:30
PROVIDERS: PCP Family Medicine; Visit Provider Family Medicine
DX: M79.662 Pain in left lower leg (principal); S81.832A Puncture wound without foreign body, left lower leg, initial encounter
CPT/HCPCS: 29580; 97140; 97162; 97164; 97597

== ENCOUNTER → 2023-01-12 14:37 | Outpatient (CLI) | payer MEDICAID, SELFPAY ==
[2023-01-12 18:34] LABS: Basophils % 0.3 % (0.1-2.0); Eosinophils # 0.2 K/mm3 (0.0-0.4); Eosinophils % 2.2 % (0.1-12.0); Hemoglobin 13.2 g/dL (12.2-16.2); Lymphocytes # 2.2 K/mm3 (0.7-4.5); Lymphocytes % 22.9 % (10-50); Mean Corpuscular HGB Conc 32.1 g/dL (31.8-35.4); Mean Corpuscular Hemoglobin 28.6 pg (27.0-31.2); Mean Corpuscular Volume 89.1 fl (81-99); Monocytes # 0.4 K/mm3 (0.1-1.0); Monocytes % 4.4 % (1.7-9.3); Neutrophils # 6.7 K/mm3 (1.8-7.8); Neutrophils % 70.2 % (37.0-80.0); Platelet Count 258 K/mm3 (142-424); Red Blood Count 4.61 M/mm3 (4.20-5.40); Red Cell Distribution Width 13.9 % (11.5-17.5); White Blood Count 9.5 K/mm3 (4.8-10.8)
[2023-01-12 18:53] LABS: Alanine Aminotransferase 51 U/L (12-78); Albumin Level 4.1 g/dl (3.5-5.0); Albumin/Globulin Ratio 1.2 (1.1-1.8); Alkaline Phosphatase 129 U/L (38-126); Anion Gap 14.1 mEq/L (5-15); Aspartate Amino Transferase 32 U/L (14-36); Bilirubin,Total 0.3 mg/dl (0.2-1.3); Blood Urea Nitrogen 14 mg/dl (7-17); Calcium 9.7 mg/dl (8.4-10.2); Carbon Dioxide 36 mmol/L (22.0-30.0); Chloride 95 mmol/L (98-107); Chol/HDL Ratio 4.7 (1-3.5); Cholesterol 151 mg/dl (140-200); Estimated Glomerular Filt Rate 104 ml/min (>60); GFR (African American) 126 ML/MIN (>60); Globulin 3.3 g/dL (1.3-3.2); Glucose 91 mg/dl (74-100); HDL Cholesterol 32 mg/dl (40-60); Potassium 4.1 mmoL/L (3.5-5.1); Sodium 141 mmol/L (136-145); Total Protein,Serum 7.4 g/dl (6.3-8.2); Triglycerides 256 mg/dl (30-150); VLDL Cholesterol 51 mg/dL (0-40)
[2023-01-12 19:07] LABS: Hemoglobin A1C 7.7 % (4.0-6.0)
[2023-01-12 19:24] LABS: Thyroid Stimulating Hormone 0.97 uIU/mL (0.465-4.68)
== END ==
PROVIDERS: PCP Family Medicine; Visit Provider Family Medicine
DX: R09.89 Other specified symptoms and signs involving the circulatory and respiratory systems (principal); E11.9 Type 2 diabetes mellitus without complications; Z79.4 Long term (current) use of insulin
CPT/HCPCS: 80053; 80061; 83036; 84443; 85025

== ENCOUNTER → 2023-01-24 13:03 | Outpatient (CLI) | payer MEDICAID, SELFPAY ==
--- NOTE | 2023-01-24 13:06 | CA_ITS ---
FINAL REPORT CLINICAL HISTORY: PAD/Asymetric Edema FINDINGS: Color Doppler, duplex Doppler and compression sonography of the bilateral lower extremities was performed. There is no evidence of deep venous thrombosis from the level of the groin to the calf. The deep veins are patent and compressible. IMPRESSION: No evidence of deep venous thrombosis bilateral lower extremities. Reviewed, Interpreted and Dictated by Yoan Holley III, MD Transcribed by Young Padilla Authenticated and [facility][1]
--- NOTE | 2023-01-24 13:07 | CA_ITS ---
FINAL REPORT TECHNIQUE: Duplex color Doppler with spectral analysis performed of the lower extremities. CLINICAL HISTORY: PAD/Asymetric Left sided Edema, Hx-infection in legs with stone like skin, improving with antibiotic treatments.DM, wound care, Obesity FINDINGS: RIGHT LOWER EXTREMITY: Velocities cm/sec: MEDICAL CARE EVALUATION SPECIALIST: 131 SFA Prox: 145 SFA Mid: 94 SFA Dist: 72 Lv: 67 OFFSET PRINTER: 75 Waveforms are biphasic. There is monophasic flow in the distal right SFA favored to be artifactual. LEFT LOWER EXTREMITY: Velocities cm/sec: MEDICAL CARE EVALUATION SPECIALIST: 169 SFA Prox: 131 SFA Mid: 133 SFA Dist: 102 Lv: 51 OFFSET PRINTER: 61 Waveforms are biphasic. IMPRESSION: No significant peripheral artery disease. Reviewed, Interpreted and Dictated by Yoan Holley III, MD Transcribed by Madeline Fitch Authenticated and [facility]
== END ==
PROVIDERS: PCP Family Medicine; Visit Provider Family Medicine
DX: I89.0 Lymphedema, not elsewhere classified (principal); I99.8 Other disorder of circulatory system; L02.416 Cutaneous abscess of left lower limb; L03.116 Cellulitis of left lower limb
CPT/HCPCS: 93925; 93971

== ENCOUNTER → 2023-02-27 07:49 | Outpatient (CLI) | payer MEDICAID, SELFPAY ==
--- NOTE | 2023-02-27 07:53 | US_ITS ---
FINAL REPORT CLINICAL HISTORY: Right upper quadrant pain COMPARISON: None FINDINGS: Sonographic images of the right upper quadrant were obtained. The pancreas is partially obscured. The liver is fatty infiltrated. Gallstones are seen in the gallbladder. There is no evidence of biliary ductal dilatation.The common duct measures 2 mm. Limited images of the right kidney are unremarkable. IMPRESSION: Fatty liver. Cholelithiasis. Reviewed, Interpreted and Dictated by Yoan Holley III, MD Transcribed by Isa Castillo Authenticated and [facility]
== END ==
PROVIDERS: PCP Family Medicine; Visit Provider Family Medicine
DX: R10.11 Right upper quadrant pain (principal)
CPT/HCPCS: 76705

== ENCOUNTER 2023-07-28 18:39 | Outpatient (CLI) | payer MEDICAID, SELFPAY ==
[2023-07-28 19:15] LABS: Thyroid Stimulating Hormone 4.72 uIU/mL (0.465-4.68)
[2023-07-28 20:29] LABS: Hemoglobin A1C 7.5 % (4.0-6.0)
== END 2023-07-28 23:59 ==
LOC: LAB.DROPOF 18:40
PROVIDERS: PCP Family Medicine; Visit Provider Family Medicine
DX: E11.9 Type 2 diabetes mellitus without complications (principal); E03.9 Hypothyroidism, unspecified; Z79.4 Long term (current) use of insulin; Z79.84 Long term (current) use of oral hypoglycemic drugs; Z79.85 Long-term (current) use of injectable non-insulin antidiabetic drugs
CPT/HCPCS: 83036; 84443

== ENCOUNTER 2023-08-23 19:17 | Outpatient (CLI) | payer MEDICAID, SELFPAY ==
[2023-08-23 19:57] LABS: Creatinine,Urine Random 83 mg/dL (Not Estab.)
[2023-08-23 19:59] LABS: Amphetamine/Metha Screen,Urine Negative ng/ml (<1000)
[2023-08-23 20:04] LABS: Phencyclidine Screen,Urine Negative ng/ml (<25)
[2023-08-23 20:08] LABS: Microalbumin/Creatinine Ratio 39.3
[2023-08-23 20:11] LABS: Benzodiazepines Screen,Urine Negative ng/ml (<200); Cocaine Screen,Urine Negative ng/ml (<300)
[2023-08-23 20:12] LABS: Methadone Screen,Urine Negative ng/ml (<300)
[2023-08-23 20:47] LABS: Cannabinoid Screen,Urine Negative ng/ml (<50); Opiate Screen,Urine Positive ng/ml (<300)
[2023-08-23 20:48] LABS: Barbiturates Screen,Urine Negative ng/ml (<200)
== END 2023-08-23 23:59 ==
LOC: LAB.DROPOF 19:18
PROVIDERS: PCP Family Medicine; Visit Provider Family Medicine
DX: E11.9 Type 2 diabetes mellitus without complications (principal); Z79.899 Other long term (current) drug therapy; Z79.4 Long term (current) use of insulin; Z79.84 Long term (current) use of oral hypoglycemic drugs; Z79.85 Long-term (current) use of injectable non-insulin antidiabetic drugs
CPT/HCPCS: 80307; 82043; 82570

== ENCOUNTER 2023-10-06 18:07 | Outpatient (CLI) | payer MEDICAID, SELFPAY | END 2023-10-06 23:59 | LOC: LAB.DROPOF 18:07 | PROVIDERS: PCP Nurse Practitioner Family; Visit Provider Nurse Practitioner Family | DX: M54.50 Low back pain, unspecified (principal); B96.89 Other specified bacterial agents as the cause of diseases classified elsewhere; R80.9 Proteinuria, unspecified | CPT/HCPCS: 87086 ==

== ENCOUNTER 2024-03-08 10:29 | Outpatient (CLI) | payer MEDICAID, SELFPAY ==
[2024-03-08 18:54] LABS: Microalbumin/Creatinine Ratio 21.1
[2024-03-08 18:55] LABS: Creatinine,Urine Random 51 mg/dL (Not Estab.)
== END 2024-03-08 23:59 | disposition home or self-care (01) ==
LOC: LAB.DROPOF 03-11 10:29
PROVIDERS: PCP Family Medicine; Visit Provider Family Medicine
DX: N39.0 Urinary tract infection, site not specified (principal); E11.9 Type 2 diabetes mellitus without complications
CPT/HCPCS: 82043; 82570

== ENCOUNTER 2024-03-28 16:20 | Outpatient (CLI) | payer MEDICAID, SELFPAY | END 2024-03-28 23:59 | disposition home or self-care (01) | LOC: LAB.DROPOF 03-29 13:39 | PROVIDERS: PCP Family Medicine; Visit Provider Family Medicine | DX: N39.0 Urinary tract infection, site not specified (principal); B96.20 Unspecified Escherichia coli [E. coli] as the cause of diseases classified elsewhere | CPT/HCPCS: 87086; 87088; 87186 ==

== ENCOUNTER 2024-09-11 16:18 | Outpatient (CLI) | payer MEDICAID, SELFPAY ==
[2024-09-11 19:03] LABS: Hemoglobin A1C 7.4 % (4.0-6.0)
[2024-09-11 20:05] LABS: Alanine Aminotransferase 41 U/L (12-78); Albumin Level 4.3 g/dl (3.5-5.0); Albumin/Globulin Ratio 1.4 (1.1-1.8); Alkaline Phosphatase 105 U/L (38-126); Anion Gap 8.5 mEq/L (5-15); Aspartate Amino Transferase 42 U/L (14-36); Bilirubin,Total 0.4 mg/dl (0.2-1.3); Blood Urea Nitrogen 15 mg/dl (7-17); Calcium 9.6 mg/dl (8.4-10.2); Carbon Dioxide 35 mmol/L (22.0-30.0); Chloride 98 mmol/L (98-107); Estimated Glomerular Filt Rate 103 ml/min (>60); GFR (African American) 125 ML/MIN (>60); Glucose 128 mg/dl (74-100); Potassium 4.5 mmoL/L (3.5-5.1); Sodium 137 mmol/L (136-145); Total Protein,Serum 7.3 g/dl (6.3-8.2)
[2024-09-11 20:57] LABS: HIV Combo NEGATIVE (Negative)
[2024-09-11 21:19] LABS: Hepatitis C Ab Qual. W/ RFX NEGATIVE (Negative)
[2024-09-13 15:11] LABS: Anti-Centromere B Antibodies <0.2 AI (0.0-0.9); Anti-DNA (DS) Ab Qn 1 IU/mL (0-9); Anti-Jo-1 <0.2 AI (0.0-0.9); Anti-Smith Antibody <0.2 AI (0.0-0.9); Antichromatin Antibodies <0.2 AI (0.0-0.9); Antiscleroderma-70 Antibodies <0.2 AI (0.0-0.9); RNP Antibodies <0.2 AI (0.0-0.9); Sjogren's Anti-SS-A <0.2 AI (0.0-0.9); Sjogren's Anti-SS-B <0.2 AI (0.0-0.9)
== END 2024-09-11 23:59 | disposition home or self-care (01) ==
LOC: LAB.DROPOF 09-12 15:28
PROVIDERS: PCP Family Medicine; Visit Provider Family Medicine
DX: E11.9 Type 2 diabetes mellitus without complications (principal)
CPT/HCPCS: 80053; 83036; 86225; 86235; 86803; 87389